=== PATIENT | female | born 1995 | race Caucasian/White ===

== ENCOUNTER 2023-05-07 20:17 | Emergency (ER) | payer OTHER, BC, SELFPAY ==
[2023-05-07 20:20] VITALS: BP 122/74; PULSE 89; RESP 18; TEMP 36.8; O2SAT 100
--- NOTE | 2023-05-07 20:28 | ED.GENADULT ---
HPI - General Adult General Chief complaint: Urogenital-Female Stated complaint: UTI Time Seen by Provider: 05/07/23 20:21 History of Present Illness HPI narrative: June is a 28 at 14 weeks that presented to the ED with 2 days of dysuria, urinary frequency and discomfort as well as some tenderness to the left back. No fevers, chills, or vomiting. She called her OB that recommended she come to the ED. Related Data Allergies Allergy/AdvReac Type Severity Reaction Status Date / Time Penicillins Allergy Unknown Verified 05/07/23 20:24 Review of Systems Review of Systems: All systems reviewed & are unremarkable except as noted in HPI and below Exam Const: General: healthy appearing and no acute distress Nutritional Appearance: well nourished Orientation/consciousness: patient oriented x3 Limitations: no limitations HENMT: Head: normal to inspection Ears: external ears normal Face/Nose/Sinus: Normal external nose present Eyes: Conjunctivae: conjunctivae normal Pupils: Equal, round and reactive pupils present EOM: EOMs intact bilaterally Neck: Neck: normal visual inspection Chest: Chest palpation & inspection: normal inspection of the chest Resp: Effort & Inspection: normal respiratory effort Auscultation: clear to auscultation bilaterally Cardio: Rate: regular rate Rhythm: regular rhythm GI: Inspection: non-distended GI Palp: Yes Soft to palpation, No Tenderness to palpation present (GI) and No Guarding due to palpation present (GI) Auscultation: normal bowel sounds : Other: mild left CVA tenderness Skin: General skin exam: normal color Rashes: no rashes Neuro: General: patient oriented x3 and moves all extremities Extrem: General: normal to inspection Psych: Mental Status: mental status grossly normal Affect: normal affect Attitude: cooperative Course Course Emergency Course: Ordered UA and labs. UA showed no nitrite, blood, WBC, and only trace leuk esterase Further history revealed that she is also having a lot of itching, irritation and a little vagainal drainage. Vital Signs Vital signs: Vital Signs Temperature 98.2 F 05/07/23 20:20 Pulse Rate 89 05/07/23 20:20 Respiratory Rate 18 05/07/23 20:20 Blood Pressure 122/74 05/07/23 20:20 Pulse Oximetry 100 05/07/23 20:20 Oxygen Delivery Room Air 05/07/23 20:20 Temperature 98.2 F 05/07/23 20:20 Pulse Rate 89 05/07/23 20:20 Respiratory Rate 18 05/07/23 20:20 Blood Pressure 122/74 05/07/23 20:20 Pulse Oximetry 100 05/07/23 20:20 Oxygen Delivery Room Air 05/07/23 20:20 Medical Decision Making Vital Signs Vital Signs: Vital Signs Temperature 98.2 F 05/07/23 20:20 Pulse Rate 89 05/07/23 20:20 Respiratory Rate 18 05/07/23 20:20 Blood Pressure 122/74 05/07/23 20:20 Pulse Oximetry 100 05/07/23 20:20 Oxygen Delivery Room Air 05/07/23 20:20 Temperature 98.2 F 05/07/23 20:20 Pulse Rate 89 05/07/23 20:20 Respiratory Rate 18 05/07/23 20:20 Blood Pressure 122/74 05/07/23 20:20 Pulse Oximetry 100 05/07/23 20:20 Oxygen Delivery Room Air 05/07/23 20:20 Lab Data 05/07/23 20:32 05/07/23 20:32 Labs: Lab Results 05/07/23 Range/Units 20:32 WBC 8.0 (4.8-10.8) K/mm3 RBC 4.03 L (4.20-5.40) M/mm3 Hgb 12.7 (12.0-15.0) g/dL Hct 35.9 (35.0-49.0) % MCV 89.1 (78.0-102.0) fL MCH 31.5 H (27.0-31.0) pg MCHC 35.4 (32.0-36.0) g/dL RDW 12.1 (11.6-14.4) % Plt Count 167 (150-420) K/mm3 MPV 11.8 (9.2-11.8) fl Immature Gran % (Auto) 0.4 H (0.0-0.0) % Neut % (Auto) 66.1 (50.0-70.0) % Lymph % (Auto) 25.6 (18.0-42.0) % [place] % (Auto) 7.1 (2.0-11.0) % Eos % (Auto) 0.5 L (1.0-6.0) % Baso % (Auto) 0.3 (0.0-1.0) % Lymph # (Auto) 2.04 (1.10-4.50) K/mm3 [place] # (Auto) 0.57 (0.10-0.90) K/mm3 Eos # (Auto) 0.04 (0.02-0.50) K/mm3 Baso # (Auto) 0.02 (0.00-0.10) K/mm3 Abs
--- NOTE | 2023-05-07 20:30 | PC.NURSE ---
Pt given instruction and education on HIV and offered testing. She signed refusal and stated her OB Dr office has already done all testing.
[2023-05-07] MEDS: ACETAMINOPHEN 500 MG TABLET 1000 MG PO (20:41)
[2023-05-07 20:42] LABS: Basophils Absolute Auto 0.02 K/mm3 (0.00-0.10); Basophils Percent Auto 0.3 % (0.0-1.0); Eosinophils Absolute Auto 0.04 K/mm3 (0.02-0.50); Eosinophils Percent Auto 0.5 % (1.0-6.0); Hematocrit 35.9 % (35.0-49.0); Hemoglobin 12.7 g/dL (12.0-15.0); Immature Granulocyte Absolute 0.03 K/mm3 (0.00-0.00); Immature Granulocyte Percent A 0.4 % (0.0-0.0); Lymphocytes Absolute Auto 2.04 K/mm3 (1.10-4.50); Lymphocytes Percent Auto 25.6 % (18.0-42.0); Mean Corpuscular HGB Conc 35.4 g/dL (32.0-36.0); Mean Corpuscular Hemoglobin 31.5 pg (27.0-31.0); Mean Corpuscular Volume 89.1 fL (78.0-102.0); Mean Platelet Volume 11.8 fl (9.2-11.8); Monocytes Absolute Auto 0.57 K/mm3 (0.10-0.90); Monocytes Percent Auto 7.1 % (2.0-11.0); Neutrophils Absolute Auto 5.3 K/mm3 (1.7-7.2); Neutrophils Percent Auto 66.1 % (50.0-70.0); Platelet Count Result 167 K/mm3 (150-420); Red Blood Count 4.03 M/mm3 (4.20-5.40); Red Cell Distribution Width 12.1 % (11.6-14.4)
[2023-05-07 20:43] LABS: Appearance Urine Clear (Clear); Bilirubin Urine Negative (Negative); Blood Urine Negative (Negative); Color Urine Light Yellow (Yellow); Glucose Urine UA Negative (Negative); Ketones Urine Negative (Negative); Leukocyte Esterase Ur Trace LEU/UL (Negative); Nitrate Urine Negative (Negative); Protein Urine Negative (Negative); Specific Grav Ur <= 1.005 (1.010-1.020); Urobilinogen Urine 0.2 mg/dL (0.2-1.0); pH Urine 6.5 (5.0-8.0)
[2023-05-07 20:49] LABS: Add Urine Microscopic? YES; RBC Urine None seen /hpf (0-2)
[2023-05-07 20:50] LABS: Squamous Epithelial Cell Urine None seen /hpf (Few); WBC Urine None seen /hpf (0-3)
[2023-05-07 20:55] LABS: Alanine Aminotransferase 18 U/L (14-59); Albumin Level 3.1 g/dL (3.4-5.0); Alkaline Phosphatase 89 U/L (46-116); Anion Gap 8 mmol/L (8-16); Aspartate Amino Transferase 10 U/L (15-37); Bilirubin,Total 0.2 mg/dL (0.00-1.00); Blood Urea Nitrogen 11 mg/dL (7-18); Calcium 8.7 mg/dL (8.5-10.1); Carbon Dioxide 26 mmol/L (21-32); Chloride 102 mmol/L (98-108); Estimated CRCL calculation 127 ml/min; Estimated Glomerular Filt Rate > 60; Glucose 102 mg/dL (70-99); Osmolality Calculated 281 mOsm/kg (285-295); Potassium 3.5 mmol/L (3.5-5.1); Sodium 136 mmol/L (136-145); Total Protein 6.9 g/dL (6.4-8.2)
[2023-05-07 21:06] VITALS: BP 120/71; PULSE 84; RESP 18; TEMP 36.6; O2SAT 99
== END 2023-05-07 21:09 | disposition home or self-care (01) ==
PROVIDERS: Emergency Provider Family Medicine; PCP Family Medicine
DX: B37.31 Acute candidiasis of vulva and vagina (principal)
CPT/HCPCS: 36415; 80053; 81001; 85025; 99283

== ENCOUNTER 2023-09-12 18:10 | Emergency (ER) | payer OTHER, SELFPAY ==
[2023-09-12 18:12] VITALS: BP 126/80; PULSE 93; RESP 18; TEMP 36.7; O2SAT 98
[2023-09-12 18:30] LABS: Appearance Urine Cloudy (Clear); Bilirubin Urine Negative (Negative); Blood Urine Trace-Intact (Negative); Glucose Urine UA Negative (Negative); Ketones Urine Negative (Negative); Leukocyte Esterase Ur 2+ LEU/UL (Negative); Nitrate Urine Negative (Negative); Protein Urine 1+ (Negative); Specific Grav Ur 1.025 (1.010-1.020); Urobilinogen Urine 0.2 mg/dL (0.2-1.0)
[2023-09-12 18:34] LABS: Add Urine Microscopic? YES; Bacteria Urine 2+ /hpf; Color Urine Dark Yellow (Yellow); Squamous Epithelial Cell Urine Moderate /hpf (Few); WBC Urine 51-75 /hpf (0-3)
--- NOTE | 2023-09-12 18:36 | ED.BACK ---
HPI - Back Pain/Injury General Chief Complaint: Back Pain/Injury Stated Complaint: lower back pain Time Seen by Provider: 09/12/23 18:13 Source: patient Mode of arrival: ambulatory Limitations: no limitations History of Present Illness HPI Narrative: Patient is a 28-year-old 32 weeks with some lower back pain. She has also noted decreased movement in the past few hours. Her OBGYN center to the closest hospital for evaluation. No symptoms of contractions. No vaginal discharges. No bleeding. No fluid discharges. MD elicited complaint: back pain Onset (ago): hour(s) (5) Timing: constant Severity: mild Pain scale (0-10): 3 Similar Symptoms Previously: No Quality: aching Location: right lower back and left lower back Radiation: none Exacerbating factors: none Relieving factors: none Associated symptoms: denies other symptoms Related Data Home Medications Medication Instructions Recorded Confirmed vitamin with calcium 1 tablet PO DAILY 09/12/23 09/12/23 no.72-iron 27 mg-folic acid 1 mg tablet ( Vitamins Plus Low Iron) Allergies Allergy/AdvReac Type Severity Reaction Status Date / Time Penicillins Allergy Unknown Verified 09/12/23 18:16 Review of Systems Review of Systems: All systems reviewed & are unremarkable except as noted in HPI and below Constitutional: Constitutional: Reports no additional constitutional complaints Eyes: Eyes: Reports no additional eye complaints ENT: Reports system reviewed and no additional complaints, except as documented Cardiovascular: Cardiovascular: Reports no additional cardiovascular complaints Respiratory: Respiratory: Reports no additional respiratory complaints Gastrointestinal: Gastrointestinal: Reports no additional gastrointestinal complaints Genitourinary: Genitourinary: Reports no additional female genitourinary complaints Musculoskeletal: Musculoskeletal: Reports no additional musculoskeletal complaints Integumentary/Breasts: Skin/Breast: Reports system reviewed and no additional complaints, except as docu Neurologic: Reports system reviewed and no additional complaints, except as documented Psychiatric: Psychiatric: Reports no additional psychiatric complaints Endocrine: Endocrine: Reports no additional endocrine complaints Hematologic/Lymphatic: Hematologic/Lymphatic: Reports no additional hematologic/lymphatic complaints Allergic/Immunologic: Allergic/Immunologic: Reports no additional allergic/immunologic complaints Exam Const: General: healthy appearing Nutritional Appearance: well nourished Orientation/consciousness: patient oriented x3 HENMT: Head: normal to inspection Ears: external ears normal Face/Nose/Sinus: Normal external nose present Eyes: Conjunctivae: conjunctivae normal Pupils: Equal, round and reactive pupils present EOM: EOMs intact bilaterally Neck: Neck: normal visual inspection Chest: Chest palpation & inspection: normal inspection of the chest Resp: Effort & Inspection: normal respiratory effort and not labored Auscultation: clear to auscultation bilaterally and no crackles Cardio: Rate: regular rate Rhythm: regular rhythm Heart sounds: no murmurs GI: Inspection: non-distended GI Palp: Yes Soft to palpation, No Tenderness to palpation present (GI) and No Guarding due to palpation present (GI) Auscultation: normal bowel sounds Other: Gravid abdomen : General: Yes bladder normal to palpation Back/Spine/Pelvis: Back: no CVA tenderness Skin: General skin exam: normal color Rashes: no rashes Wounds: no wounds Neuro: General: patient oriented x3 Cranial nerves: Yes Nystagmus not present Speech: normal speech Extrem: General: normal to inspection Psych: Mental Status: mental status grossly normal Affect: normal affect Attitude: cooperative Course Vital Signs Vital signs: Vital Signs Temperature 36.7 C 09/12/23 18:12 Pulse Rate 93 09/12/23
[2023-09-12] MEDS: NITROFURANTOIN MONOHYD MACROCR 100 MG CAP PO (19:33)
--- NOTE | 2023-09-15 13:32 | PC.NURSE ---
Final urine culture report, no growth, mixed genital carlie, no further treatment needed, per ERP.
== END 2023-09-12 19:43 | disposition home or self-care (01) ==
LOC: CHSED 18:48
PROVIDERS: Emergency Provider Emergency Medicine; PCP Family Medicine
DX: O23.43 Unspecified infection of urinary tract in pregnancy, third trimester (principal); N39.0 Urinary tract infection, site not specified; Z3A.32 32 weeks gestation of pregnancy
CPT/HCPCS: 81001; 87086; 87088; 99283; A9270

== ENCOUNTER 2023-11-02 05:57 | Inpatient (IN) | payer OTHER, SELFPAY ==
[2023-11-02] VITALS (122 sets, daily range): BP systolic 63–140; BP diastolic 26–94; PULSE 70–146; RESP 18–20; TEMP 36.1–37.1; O2SAT 90–100; BMI 33.5
[2023-11-02 06:26] LABS: Basophils Percent Auto 0.3 % (0.2-1.2); Eosinophils Absolute Auto 0.1 K/mm3 (0-0.3); Eosinophils Percent Auto 0.8 % (0-4.4); Hematocrit 39.4 % (37.0-47.0); Immature Granulocyte Absolute 0.05 K/mm3 (0.00-0.031); Immature Granulocyte Percent A 0.7 % (0-0.5); Lymphocytes Absolute Auto 1.57 K/mm3 (0.9-3.2); Lymphocytes Percent Auto 20.7 % (18.3-44.2); Mean Corpuscular Hemoglobin 30.7 pg (26-34); Mean Corpuscular Volume 93.1 fl (80-100); Mean Platelet Volume 12.2 fl (7.4-10.4); Monocytes Absolute Auto 0.7 K/mm3 (0.1-0.6); Monocytes Percent Auto 8.9 % (2.6-8.5); Neutrophils Absolute Auto 5.2 K/mm3 (1.3-6.7); Neutrophils Percent Auto 68.6 % (45.5-73.1); Platelet Count Result 145 k/mm3 (150-375); Red Blood Count 4.23 M/mm3 (4.2-5.4); Red Cell Distribution Width 12.6 % (11.5-14.5); White Blood Count 7.6 K/mm3 (4.5-10.0)
[2023-11-02] MEDS: LACTATED RINGERS 1,000 ML 125 ML IV CONT ×2 (06:37→09:12)
[2023-11-02] MEDS: OXYTOCIN 30 UNITS/NS 500 ML 30 UNITS/500 ML BAG IV CONT (06:38)
--- NOTE | 2023-11-02 07:29 | WPDHPUPDATE1 ---
History and Physical Update Update Date/Time: 11/02/23 07:29 28-year-old multiparous female at term who presents for elective induction of labor. Artificial rupture of membranes at 3 cm, clear 3 cm / 50% / -2. Reassuring heart tones , expected management, likely epidural external monitoring. History and Physical has been reviewed, including an updated exam of the patient. There are NO changes in the patient's condition. Risks, benefits, and alternatives have been discussed and questions answered. Patient agrees to proceed with procedure.
--- NOTE | 2023-11-02 09:13 | WPDANESEPP ---
Anes - Eval Pre Procedure Procedure: labor epidural Date/Time: 11/02/23 09:13 Surgeon: Quincy Preop Diagnosis: Pain during labor Pre Op Diagnosis: iol Patient Data Age: 28 Gender: F Height: 1.73 m Weight: 100 kg Last Vital Signs Temp 36.3 C L 11/02/23 06:32 Pulse 91 11/02/23 09:01 BP 131/83 11/02/23 09:01 Pulse Ox 100 11/02/23 09:12 O2 Del Method Room Air 11/02/23 06:55 Allergies Allergy/AdvReac Type Severity Reaction Status Date / Time Penicillins Allergy Unknown Verified 10/14/23 14:25 Home Medications Medication Instructions Recorded Confirmed Type vitamin with calcium 1 tablet PO DAILY 09/12/23 10/14/23 History no.72-iron 27 mg-folic acid 1 mg tablet ( Vitamins Plus Low Iron) Laboratory Tests 11/02/23 06:17 WBC 7.6 K/mm3 (4.5-10.0) RBC 4.23 M/mm3 (4.2-5.4) Hgb 13.0 g/dL (12.0-15.0) Hct 39.4 % (37.0-47.0) MCV 93.1 fl (80-100) MCH 30.7 pg (26-34) MCHC 33.0 g/dl (32-36) RDW 12.6 % (11.5-14.5) Plt Count 145 L k/mm3 (150-375) MPV 12.2 H fl (7.4-10.4) Immature Gran % (Auto) 0.7 H % (0-0.5) Neut % (Auto) 68.6 % (45.5-73.1) Lymph % (Auto) 20.7 % (18.3-44.2) [place] % (Auto) 8.9 H % (2.6-8.5) Eos % (Auto) 0.8 % (0-4.4) Baso % (Auto) 0.3 % (0.2-1.2) Lymph # (Auto) 1.57 K/mm3 (0.9-3.2) [place] # (Auto) 0.7 H K/mm3 (0.1-0.6) Eos # (Auto) 0.1 K/mm3 (0-0.3) Baso # (Auto) 0.0 K/mm3 (0.0-0.1) Abs Immat Gran (auto) 0.05 H K/mm3 (0.00-0.031) Absolute Neuts (auto) 5.2 K/mm3 (1.3-6.7) Absolute Nucleated RBC 0.0 K/mm3 (0.0-0.012) Nucleated RBC % 0.0 % (0.0-0.2) RPR Pending Blood Type O Positive Antibody Screen Negative Patient hx anesthesia problems: none Family hx anesthesia problems: none Results Review: All pre-operative results and documents have been reviewed as part of the pre-operative evaluation. [facility] Family History Family History Mother Diabetes mellitus Father Chronic bronchitis Social History Social History Smoking status: Never smoker Substance use: never Do You Feel Safe in your Home?: Yes Lack of Transportation: No Lack of Food: Never True Current Housing: I Have Housing Concerned About Future Housing: No Difficulty Paying Gas/Electric Bills: No Difficulty Paying for Meds: No Currently Unemployed: No Education: High School Diploma/GED Difficulty w/ Childcare or Family Care: No Spiritual care concerns: No Exam Day of Procedure 11/02/23 09:13 Patient weight: obese Heart: regular rate and rhythm Lungs: normal air movement Airway: Mallampati scale class II Neurological: alert and oriented
[2023-11-02 10:36] LABS: Rapid Plasma Reagin Non-Reactive (NonReactive)
--- NOTE | 2023-11-02 13:41 | PM.OBPRVD ---
OB - Vaginal Delivery Note Procedure Delivery date: 11/02/23 Induction method: AROM and Per Pitocin Protocol Delivery monitor: External FHT and External Uterine Route of delivery: Episiotomy description: None Laceration Description: Perineal - 2nd Degree Delivery repair: vicryl Quantitative Blood Loss (ml): 100 Anesthesia type: Epidural Disposition: Floor Complications: No immediate complications Baby Date of : 11/02/23 Weeks of gestation at delivery: 39 Weight (pounds): 7 Weight (ounces): 12 presentation: vertex Placenta delivery description: Spontaneous score one minute: 9 score five minutes: 9
[2023-11-02] MEDS: OXYTOCIN 30 UNITS/NS 500 ML 30 UNITS/500 ML BAG 125 UNITS IV CONT (13:59)
[2023-11-02] MEDS: WITCH HAZEL 40 PADS 1 PAD TOPICAL (15:40)
[2023-11-02] MEDS: BENZOCAINE 20% AER SPR (*SP) 56 GM CAN 1 SPRAY TOPICAL (15:40)
--- NOTE | 2023-11-02 16:01 | OBPPTRN ---
1555-Patient transferred to post room #280 via wheelchair. Support person present. Oriented to unit, room, information board, rooming in, admission packet and security measures. Patient verbalizes understanding.
[2023-11-02] MEDS: IBUPROFEN 600 MG TABLET PO (20:44)
[2023-11-03] MEDS: IBUPROFEN 600 MG TABLET PO ×3 (03:19→23:39)
[2023-11-03 05:02] LABS: Hematocrit 33.6 % (37.0-47.0); Hemoglobin 11.2 g/dL (12.0-15.0)
--- NOTE | 2023-11-03 07:58 | PM.OBPNVD ---
OB - PN: Subj Subjective Date/time seen: 11/03/23 07:58 Interval history: pp day 1 requesting d/c no complaints OB - PN: Obj Data Labs 11/03/23 03:38 Labs: Laboratory Results - last 24 hr 11/02/23 11/03/23 06:17 03:38 Hgb 11.2 L Hct 33.6 L RPR Non-reactive OB - PN A/P Plan day: 1 Plan: routine care and discharge home Time Spent With Patient Time: Total time spent is greater than 50% in coordination of care (as documented) at patient's floor/unit and/or counseling patient: Review of Systems Review of Systems: All systems reviewed & are unremarkable except as noted in HPI and below Exam Const: General: cooperative Chest: Chest palpation & inspection: normal inspection of the chest Resp: Effort & Inspection: normal respiratory effort Skin: General skin exam: normal color
--- NOTE | 2023-11-03 07:59 | PM.OBDSVD ---
DS: Admitting Diagnosis Discharge Date 11/03/23 Admitting Diagnosis IOL DS: Discharge Diagnosis Discharge Diagnosis (1) Vaginal delivery: Code(s): O80 - Encounter for full-term uncomplicated delivery Status: Acute OB - DS: Summary OB Procedures : None OB Procedures Intrapartum: Spontaneous Vag Delivery OB Procedures: : None Peripartum Data Laceration Description: Perineal - 2nd Degree Episiotomy description: None Time Spent with Patient Time attestation: Total time spent providing and/or coordinating discharge services: DS: Data Data Completed and Pending Labs on day of discharge: Labs from last 24 hours 11/03/23 11/02/23 03:38 06:17 Hgb 11.2 L Hct 33.6 L RPR Non-reactive Discharge Plan Discharge Attending physician on discharge: Roxann Mathew Discharging Clinician: Kylah Kay Patient Disposition: Home, Self-Care Activity: pelvic rest Diet: regular Patient Instructions: Antibiotic Form Stand Alone Forms: General Discharge Information Follow-up/Referrals: Roxann Mathew MD [Physician] - 4 Weeks Discharge Medications: New ibuprofen 600 mg Tablet 600 mg PO Q6H PRN (Reason: Cramping) Qty: 30 0RF Continued Vitamin Plus Low Iron 27 mg iron- 1 mg tablet 1 tablet PO DAILY Date of admission: 11/02/23 05:57 Primary Care Provider: Juanito Domingo Admitting Provider: Roxann Mathew Attending physician on admission: Roxann Mathew Condition: Stable
[2023-11-03 08:00] VITALS: PULSE 80; RESP 20; O2SAT 97
--- NOTE | 2023-11-03 08:10 | WPDANLDPN2 ---
Anes-Prog Note L&D Date/Time: 11/03/23 08:10 Neuro status: Neuro function grossly intact. Vital Signs: Last Vital Signs Temp 36.6 C 11/02/23 23:30 Pulse 99 11/02/23 23:30 Resp 18 11/02/23 23:30 BP 125/68 11/02/23 23:30 Pulse Ox 99 11/02/23 16:30 O2 Del Method Room Air 11/02/23 20:00 Pain score (VAS): 0 Patient feedback: Patient satisfied with anesthetic care.
[2023-11-03] MEDS: MULTIVIT/MIN/PREN/FOL AC/IRON TABLET 1 TAB PO (08:22)
[2023-11-03] MEDS: DOCUSATE SODIUM 100 MG CAPSULE PO (08:22)
[2023-11-03 08:29] VITALS: BP 120/71; PULSE 80; RESP 20; TEMP 36.3; O2SAT 97
--- NOTE | 2023-11-03 14:54 | PC.NURSE ---
[id number] Introductions were made, then consulted with patient to assess needs related to . Mother led the conversation with her?plans to feed?her infant and the?experience so far. Encouraged understanding of the benefits of skin to skin (demonstrating unwrapping and placing upright on her chest), stimulating with massage touch, changing positions to encourage wakefulness, how to watch for early feeding cues, responsive feeding, feeding on demand (aiming for 8-12 times in 24 hours, about every 2-3 hours), milk production, building/maintaining a milk supply, duration of feeding, signs of adequate intake/output and how to record on the feeding sheet. Blood sugar was resulted at 55mg/dl since it has been 6 hours since the infant last latched as mother reports. Mothers nipples are inverted and she does not have a successful history. Mother works well with her with encouragement and education. Reviewed positioning and ear, shoulder, hip alignment, supporting the breast to facilitate a deep latch, asymmetrical latch (off-center), leading with the chin with a big, open, wide gape and body close to mother. was placed in the bassinet after multiple attempts to pump her breast as mother does not want to supplement with formula at this time. Breast pump provided due to ineffective . Instructions given on cleaning, care, usage, that there should be no pain, pumping schedule for milk production, collection, and storage of human milk. Patient was assessed for correct placement, flange size, to pump for comfort and nipple stretching/stimulation for adequate milk production every 3 hours (8 times in 24 hours) 1-2 times at night. Parents are encouraged to record the pumping schedule on the feeding sheet.?Mother voiced understanding of the education shared along with mom/baby guide and the pump measurement, flange fit handout for additional resource information. There's no EBM and mother want more time to work with her infant that is less than 24 hours of age. Mother was instructed to place infant back [id number] and to attempt to wake in 1-2 hours and call if her doesn't wake to breastfeed, doesn't latch, or there's pain with latching. Mother voiced understanding. [id number] Consulted with patient to assess needs related to . Upon entering the room infant is being held in the cradle position sleeping while mother is using her phone. We reviewed working with the , changing the infants position to upright skin to skin, burping, stimulating with touch, responding to feeding cues (which are rare at this time), frequencies of feeding 8-12 times in 24 hours (approximately 2-3 hours), duration of feedings, milk production, intake/output feeding sheet and signs of adequate intake encouraging swallowing at the breast. Reviewed positioning and alignment, supporting breast, off-centered (asymmetrical latch) and leading with the chin with big, open, wide gape. was attempted to the breast multiple times with and without the nipple shield. Nipple shield provided to mother earlier after delivery due to ineffective with inverted nipples. Instructed mother how to correctly apply the nipple shield to the breast. Reviewed good handwashing, cleaning the nipple shield and the appropriate way to apply and use as a tool. Discussed with mom the nipple shield precautions, possible complications associated with the risks and benefits. Reviewed practicing with a nipple shield, then without and how to protect the milk supply and production. Mother voiced understanding of how to use the teacup hold to facilitate infant's latch. Mom voiced understanding of the importance of hand expression, nipple stimulation and consistency with a pumping schedule if infant continues to nurse with the shield. Mother shared she pumps with the manual pump occasionally and syringe feeds drops to her . Infant will latch with and without th
[2023-11-03 20:38] VITALS: BP 120/79; PULSE 92; RESP 20; TEMP 36.5; O2SAT 98
[2023-11-04] MEDS: MULTIVIT/MIN/PREN/FOL AC/IRON TABLET 1 TAB PO (08:45)
[2023-11-04 08:46] VITALS: BP 129/89; PULSE 101; RESP 18; TEMP 36.6; O2SAT 99
--- NOTE | 2023-11-04 08:51 | PM.OBPNVD ---
OB - PN: Subj Subjective Date/time seen: 11/04/23 08:51 Interval history: pp day 1 requesting d/c no complaints OB - PN: Obj Data Labs 11/03/23 03:38 OB - PN A/P Plan day: 2 Plan: routine care and discharge home Time Spent With Patient Time: Total time spent is greater than 50% in coordination of care (as documented) at patient's floor/unit and/or counseling patient: Review of Systems Review of Systems: All systems reviewed & are unremarkable except as noted in HPI and below Exam Const: General: cooperative Resp: Effort & Inspection: normal respiratory effort Cardio: Rate: regular rate Neuro: General: patient oriented x3 Extrem: General: normal to inspection
--- NOTE | 2023-11-04 08:53 | PM.OBDSVD ---
DS: Admitting Diagnosis Discharge Date 11/04/23 Admitting Diagnosis IOL DS: Discharge Diagnosis Discharge Diagnosis (1) Vaginal delivery: Code(s): O80 - Encounter for full-term uncomplicated delivery Status: Acute OB - DS: Summary OB Procedures : None OB Procedures Intrapartum: Spontaneous Vag Delivery OB Procedures: : None Peripartum Data Laceration Description: Perineal - 2nd Degree Episiotomy description: None Time Spent with Patient Time attestation: Total time spent providing and/or coordinating discharge services: Discharge Plan Discharge Attending physician on discharge: Roxann Mathew Discharging Clinician: Kylah Kay Patient Disposition: Home, Self-Care Activity: pelvic rest Diet: regular Patient Instructions: Antibiotic Form Stand Alone Forms: General Discharge Information Follow-up/Referrals: Roxann Mathew MD [Physician] - 4 Weeks Discharge Medications: New ibuprofen 600 mg Tablet 600 mg PO Q6H PRN (Reason: Cramping) Qty: 30 0RF Continued Vitamin Plus Low Iron 27 mg iron- 1 mg tablet 1 tablet PO DAILY Date of admission: 11/02/23 05:57 Primary Care Provider: Juanito Domingo Admitting Provider: Roxann Mathew Attending physician on admission: Roxann Mathew Condition: Stable
--- NOTE | 2023-11-04 10:57 | PC.NURSE ---
Patient viewed the discharge video Mother & Baby Care, The First Two Weeks . Patient was given the opportunity and encouraged to ask questions. Patient verbalized understanding of information shared and has been given the mother/baby guide for home reference.
--- NOTE | 2023-11-04 17:09 | PC.NURSE ---
On 11/04/23, the student, Denia Morris, provided care and completed [facility] documentation on this patient. I have reviewed the student's documentation and agree with the findings.
[2023-11-06 12:17] VITALS: BP 131/83; PULSE 82; RESP 20; TEMP 36.9; O2SAT 99
== END 2023-11-04 12:25 | disposition home or self-care (01) | DRG 807 ==
LOC: ANHLDR 06:03 → ANHOB2 16:11
PROVIDERS: Admitting Provider Obstetrics & Gynecology; PCP Family Medicine; Visit Provider Obstetrics & Gynecology
DX: O70.1 Second degree perineal laceration during delivery (principal); Z37.0 Single live birth; Z3A.39 39 weeks gestation of pregnancy
CPT/HCPCS: 36415; 74177; 80053; 81001; 83605; 83690; 85014; 85018; 85025; 85610; 85730; 86592; 86850; 86900; 86901; 87045; 87086; 87427; 87449; 87493; 87636; 96361; 96374; 96375; 99284; A9270; J2405; J2590; J2795; J7030; J7120; Q9967

== ENCOUNTER 2023-11-04 21:38 | Emergency (ER) | payer OTHER, SELFPAY ==
--- NOTE | ~2023-11-04 | CT_ITS ---
EXAMINATION: CT abdomen pelvis w con DATE: 11/05/2023 00:15 INDICATION: suprapubic pain, n/v/d, vaginal 2 days ago TECHNIQUE: Computed tomography (CT) of the abdomen and pelvis was performed with 100 mL Omnipaque-350 intravenous contrast. Automated exposure control and iterative reconstruction technique were employe d. The dose-length product was 903.00 mGy-cm. COMPARISON: None. FINDINGS: Lower thorax: Unremarkable Liver: Normal. Biliary/Gallbladder: Gallbladder is normal. No bile duct dilation. Pancreas: No mass or duct dilation. Spleen: Normal. Adrenals:No mass. Kidneys: No suspicious mass or obstructing stone. Punctate nonobstructing right lower pole calculus. Mild right hydronephrosis. GI tract: No small or large bowel dilation. Normal appendix. Mesentery/Peritoneum: No ascites, mass, or free air. Retroperitoneum: No mass. Pelvis: Enlarged, post gravid uterus. Urinary bladder is mostly decompressed. Soft Tissues: Abdominal wall diastases. Bones: No acute osseous finding. IMPRESSION: Mild right hydronephrosis, possibly secondary to mass effect from the uterus. Otherwise, no acute abdominopelvic process detected. Reviewed, dictated and finalized at location [facility]. [facility]
[2023-11-04 21:51] VITALS: BP 138/88; PULSE 89; RESP 16; TEMP 36.7; O2SAT 98
--- NOTE | 2023-11-04 22:56 | ED.NAVMDI ---
HPI - Nausea/Vomiting/Diarrhea General Chief complaint: Nausea/Vomiting/Diarrhea <Amie Mitchell PA-C - Last Filed: 11/05/23 02:53> Stated complaint: nausea,vomiting <Amie Mitchell PA-C - Last Filed: 11/05/23 02:53> Time Seen by Provider: 11/04/23 22:19 <SHAAN Rowe Last Filed: 11/05/23 02:53> History of Present Illness HPI Narrative: 28-year-old female who had a vaginal 2 days ago reports for evaluation for nausea, vomiting, diarrhea, lightheadedness that started at 9:00 p.m. today. Patient was [facility] home today around [facility]. States she had an uncomplicated vaginal delivery. States she has 1-[address] Patient states today she had acute onset nausea, vomiting diarrhea. Reports 1 episode of emesis and about 4 episodes of soft stools since he also symptoms symptoms. She is reporting suprapubic abdominal pain that is intermittent since the and unchanged. She reports a small amount of vaginal bleeding, at changed about every 5 hours. States this bleeding has not increased since feels ?normal? to her. Denies passing clots, denies discharge. She denies fever, dysuria, urinary frequency urgency, melena or hematochezia. She has a bandage to her lower back from the epidural which she states is nontender. <Amie Mitchell PA-C - Last Filed: 11/05/23 02:53> Related Data Home medications: Home Medications Medication Instructions Recorded Confirmed vitamin with calcium 1 tablet PO DAILY 09/12/23 10/14/23 no.72-iron 27 mg-folic acid 1 mg tablet ( Vitamins Plus Low Iron) <SHAAN Rowe Last Filed: 11/05/23 02:53> Allergies/Adverse reactions: Allergies Allergy/AdvReac Type Severity Reaction Status Date / Time Penicillins Allergy Unknown Verified 10/14/23 14:25 <SHAAN Rowe Last Filed: 11/05/23 02:53> Review of Systems Review of Systems: CONSTITUTIONAL: Denies fever, chills, or sweats. EYES: Denies visual changes, redness, or discharge. ENT: Denies rhinorrhea, congestion, sore throat, or otalgia. CARDIOVASCULAR: Denies chest pain, palpitations, or edema. RESPIRATORY: Denies cough or dyspnea. GASTROINTESTINAL: See HPI GENITOURINARY: Denies dysuria or hematuria. SKIN: Denies rash or itching. MUSCULOSKELETAL: Denies back pain, joint pain, or myalgia. NEUROLOGIC: Denies headache, numbness, or weakness. PSYCHIATRIC: Denies anxiety or depression. <Amie Mitchell PA-C - Last Filed: 11/05/23 02:53> [facility] Family History Family History: Family History Mother Diabetes mellitus Father Chronic bronchitis <Amie Mitchell PA-C - Last Filed: 11/05/23 02:53> Social History Social History: Social History Smoking status: Never smoker Substance use: never Do You Feel Safe in your Home?: Yes Lack of Transportation: No Lack of Food: Never True Current Housing: I Have Housing Concerned About Future Housing: No Difficulty Paying Gas/Electric Bills: No Difficulty Paying for Meds: No Currently Unemployed: No Education: High School Diploma/GED Difficulty w/ Childcare or Family Care: No Spiritual care concerns: No <Amie Mitchell PA-C - Last Filed: 11/05/23 02:53> Exam Narrative: GENERAL: Well-appearing, well-nourished, and in no acute distress. HEAD: Normocephalic, atraumatic. EYES: PERRLA and EOMI. ENT: Nares clear, no rhinorrhea or epistaxis. Mucous membranes moist. NECK: Supple. BACK: Band-Aid applied lumbar region. Upon removal, red pinpoint keysha from epidural without surrounding redness, erythema, induration or fluctuation. No tenderness. CHEST: Clear to auscultation. No respiratory distress. HEART: Regular rate and rhythm. No murmur heard. Normal peripheral pulses. ABDOMEN: Normoac
[2023-11-04] MEDS: ONDANSETRON INJ 4 MG/2 ML VIAL IV PUSH (23:11)
[2023-11-04] MEDS: ACETAMINOPHEN 500 MG TABLET 1000 MG PO (23:11)
[2023-11-04] MEDS: FAMOTIDINE 20 MG/2 ML VIAL IV PUSH (23:11)
[2023-11-04 23:20] LABS: Basophils Percent Auto 0.4 % (0.2-1.2); Eosinophils Absolute Auto 0.2 K/mm3 (0-0.3); Eosinophils Percent Auto 1.7 % (0-4.4); Hematocrit 37.1 % (37.0-47.0); Hemoglobin 12.4 g/dL (12.0-15.0); Immature Granulocyte Absolute 0.04 K/mm3 (0.00-0.031); Immature Granulocyte Percent A 0.4 % (0-0.5); Lymphocytes Absolute Auto 1.08 K/mm3 (0.9-3.2); Mean Corpuscular HGB Conc 33.4 g/dl (32-36); Mean Corpuscular Volume 92.8 fl (80-100); Mean Platelet Volume 12.1 fl (7.4-10.4); Monocytes Absolute Auto 0.6 K/mm3 (0.1-0.6); Neutrophils Absolute Auto 7.1 K/mm3 (1.3-6.7); Neutrophils Percent Auto 78.5 % (45.5-73.1); Platelet Count Result 153 k/mm3 (150-375); Red Cell Distribution Width 12.6 % (11.5-14.5)
[2023-11-04] MEDS: SODIUM CHLORIDE 0.9% IV 1,000 ML 999 ML IV CONT (23:22)
--- NOTE | 2023-11-04 23:28 | PC.NURSE ---
care and report given to CLARISA Delcid. all questions answered.
[2023-11-04 23:35] LABS: Alanine Aminotransferase 17 U/L (6-35); Albumin Level 3.6 g/dL (3.5-5.1); Alkaline Phosphatase 126 U/L (38-126); Anion Gap 7 mmol/L (8-16); Aspartate Amino Transferase 32 U/L (14-36); Bilirubin,Total 0.5 mg/dL (0.2-1.3); Blood Urea Nitrogen 14 mg/dL (7-17); Calcium 9.7 mg/dL (8.4-10.2); Carbon Dioxide 22 mmol/L (22-30); Chloride 106 mmol/L (98-107); Estimated Glomerular Filt Rate > 60; Glucose 98 mg/dL (65-110); Lipase 131 U/L (23-300); Potassium 3.9 mmol/L (3.4-5.0); Sodium 135 mmol/L (137-145)
[2023-11-04 23:36] LABS: INR 0.9; Partial Thromboplastin Time 23.5 SECONDS (22.3-36.8); Prothrombin Time 12.3 Seconds (11.1-14.7)
[2023-11-04 23:55] LABS: Influenza A QL RT-PCR Negative (Negative); Influenza B QL RT-PCR Negative (Negative); SARS-CoV-2 RNA PCR Negative (Negative)
[2023-11-05] LABS: Lactic Acid Reflex 1.9 mmol/L (0.7-2.0)
[2023-11-05 00:11] LABS: Toxigenic C. Diff NEGATIVE (NEGATIVE)
[2023-11-05 01:54] VITALS: BP 142/84; PULSE 91; RESP 15; O2SAT 100
[2023-11-05 02:30] LABS: Appearance Urine Cloudy (Clear); Bacteria Urine None Seen /hpf; Bilirubin Urine Negative (Negative); Blood Urine 3+ (Negative); Color Urine Yellow (Yellow); Glucose Urine UA Negative (Negative); Ketones Urine Negative (Negative); Leukocyte Esterase Ur 2+ LEU/UL (Negative); Need Manual Microscopic Reviewed; Nitrate Urine Negative (Negative); Non Pathogenic Casts 0-2; Protein Urine 1+ mg/dL (Negative); RBC Urine >100 /hpf (0-2); Squamous Epithelial Cell Urine Moderate /hpf (Few); Urobilinogen Urine 0.2 mg/dL (<2.0); WBC Urine >100 /hpf
[2023-11-05 02:33] LABS: Add Urine Microscopic? YES; Specific Grav Ur 1.015 (1.001-1.035)
== END 2023-11-05 03:45 | disposition home or self-care (01) ==
PROVIDERS: Emergency Provider Physician Assistant; PCP Family Medicine
DX: O99.63 Diseases of the digestive system complicating the puerperium (principal); K52.9 Noninfective gastroenteritis and colitis, unspecified; Z20.822 Contact with and (suspected) exposure to COVID-19; O99.893 Other specified diseases and conditions complicating puerperium; N13.30 Unspecified hydronephrosis
CPT/HCPCS: 36415; 74177; 80053; 81001; 83605; 83690; 85025; 85610; 85730; 87045; 87086; 87427; 87449; 87493; 87636; 96361; 96374; 96375; 99284; A9270; J2405; J7030; Q9967

== ENCOUNTER 2024-05-04 16:34 | Emergency (ER) | payer OTHER, SELFPAY ==
--- NOTE | ~2024-05-04 | CT_ITS ---
EXAMINATION: CT abdomen pelvis w con DATE: 05/04/2024 19:01 INDICATION: Right lower quadrant pain, nausea, vomiting and diarrhea for 3 days TECHNIQUE: Computed tomography (CT) of the abdomen and pelvis was performed without intravenous contr ast. Automated exposure control and iterative reconstruction technique were employed. Exam dose: 888 .04 mGy-cm total exam DLP. COMPARISON: 11/03/2023 CT abdomen FINDINGS: The lung bases are clear. Normal heart size. No pericardial or pleural effusion. The liver, spleen, pancreas, and adrenal glands, gallbladder, bile ducts and kidneys are unremarkable . No urinary tract calculus or hydroureteronephrosis. No evidence of appendicitis. The urinary bladde r, uterus and adnexal areas are unremarkable. Normal caliber of the abdominal aorta. No intraperitoneal or retroperitoneal or pelvic mass lesion or adenopathy or ascites is detected. There is a 1.9 mm calculus near the base of the appendix, which may be an appendicolith. The appendix is of normal caliber. Appendicolith may be a sign of impending appendicitis. Clinical correlation is advised. Included skeletal structures are unremarkable. IMPRESSION: Possible 1.9 mm appendicolith at the base of the appendix, without appendiceal dilatatio n. Recommend clinical correlation to exclude acute appendicitis or impending appendicitis Reviewed, dictated and finalized at [facility]. Reviewed, dictated and finalized at location [facility]. IMPRESSION: Possible 1.9 mm appendicolith at the base of the appendix, without appendiceal dilatation. Recommend clinical correlation to exclude acute append icitis or impending appendicitis
[2024-05-04 16:36] VITALS: BP 132/82; PULSE 92; RESP 20; TEMP 36.3; O2SAT 100
[2024-05-04 16:58] LABS: Add Urine Microscopic? NO; Appearance Urine Clear (Clear); Bilirubin Urine Negative (Negative); Blood Urine Negative (Negative); Color Urine Light Yellow (Yellow); Glucose Urine UA Negative (Negative); Ketones Urine Trace (Negative); Leukocyte Esterase Ur Negative (Negative); Nitrate Urine Negative (Negative); Protein Urine Negative (Negative); Specific Grav Ur 1.015 (1.010-1.020); Urobilinogen Urine 0.2 mg/dL (0.2-1.0); pH Urine 8.5 (5.0-8.0)
[2024-05-04] MEDS: ACETAMINOPHEN 500 MG TABLET 1000 MG PO (17:42)
[2024-05-04 17:47] LABS: Pregnancy On Board Control Positive; Urine Pregnancy Test Negative
[2024-05-04] MEDS: SODIUM CHLORIDE 0.9% IV 1,000 ML 999 ML IV CONT (17:56)
[2024-05-04 18:09] LABS: Basophils Absolute Auto 0.02 K/mm3 (0.00-0.10); Basophils Percent Auto 0.3 % (0.0-1.0); Eosinophils Absolute Auto 0.01 K/mm3 (0.02-0.50); Eosinophils Percent Auto 0.1 % (1.0-6.0); Hematocrit 41.2 % (35.0-49.0); Hemoglobin 13.9 g/dL (12.0-15.0); Immature Granulocyte Absolute 0.02 K/mm3 (0.00-0.00); Immature Granulocyte Percent A 0.3 % (0.0-0.0); Lymphocytes Absolute Auto 0.89 K/mm3 (1.10-4.50); Lymphocytes Percent Auto 12.7 % (18.0-42.0); Mean Corpuscular HGB Conc 33.7 g/dL (32-36); Mean Corpuscular Hemoglobin 29.2 pg (27.0-31.0); Mean Corpuscular Volume 86.6 fL (78.0-102.0); Mean Platelet Volume 11.9 fl (9.2-11.8); Monocytes Absolute Auto 0.57 K/mm3 (0.10-0.90); Monocytes Percent Auto 8.1 % (2.0-11.0); Neutrophils Absolute Auto 5.51 K/mm3 (1.70-7.20); Neutrophils Percent Auto 78.5 % (50.0-70.0); Platelet Count Result 161 K/mm3 (150-420); Red Blood Count 4.76 M/mm3 (4.20-5.40); Red Cell Distribution Width 11.7 % (11.6-14.4)
[2024-05-04 18:13] LABS: Anion Gap 10 mmol/L (4-12); Blood Urea Nitrogen 8 mg/dL (7-18); Calcium 9.3 mg/dL (8.5-10.1); Carbon Dioxide 28 mmol/L (21-32); Chloride 101 mmol/L (98-108); Estimated CRCL calculation 132 ml/min; Estimated Glomerular Filt Rate > 60; Glucose 95 mg/dL (70-99); Osmolality Calculated 286 mOsm/kg (285-295); Potassium 3.5 mmol/L (3.5-5.1); Sodium 139 mmol/L (136-145)
[2024-05-04 19:10] VITALS: BP 122/68; PULSE 74; RESP 20; O2SAT 98
--- NOTE | 2024-05-04 19:52 | ED.ABDPAIN ---
HPI - Abdominal Pain General Chief Complaint: Abdominal Pain Stated Complaint: RT. side abdominal pain History of Present Illness HPI narrative: 29-year-old who is approximately 6 months anterior has a history of kidney stones presents with sharp right inguinal pain over the past 3 days this is been associated with nausea, vomiting, diarrhea. She has also had decreased p.o. intake. She denies any shortness of breath chest pain. Denies syncope. Related Data Allergies Allergy/AdvReac Type Severity Reaction Status Date / Time Penicillins Allergy Hives Verified 05/04/24 16:54 PMF Family History Family History Mother Diabetes mellitus Father Chronic bronchitis Social History Social History Smoking status: Never smoker Substance use: never Do You Feel Safe in your Home?: Yes Lack of Transportation: No Lack of Food: Never True Current Housing: I Have Housing Concerned About Future Housing: No Difficulty Paying Gas/Electric Bills: No Difficulty Paying for Meds: No Currently Unemployed: No Education: High School Diploma/GED Difficulty w/ Childcare or Family Care: No Spiritual care concerns: No Exam Narrative: GEN: Awake, alert, and appropriate to situation. Appears mildly uncomfortable. HEENT: No rhinorrhea noted, mucous membranes moist. No scleral icterus or conjunctival injection. CV: Normal rate, regular rhythm, S1S2 no M/G/R. 2+ distal pulses all extremities. No peripheral edema noted. PULM: Non-labored respiration. Clear to auscultation bilaterally. No wheezes, rales, rhonchi. GI: Lower right quadrant tenderness. No rigidity, distention or guarding.? NEURO: Normal speech. No lateralizing or focal deficits noted. Course Course Emergency Course: vital signs labs reassuring. CT scan shows a 2 mm appendicolith consistent with an early appendicitis. No other dilation or acute appearance of the appendix however. Reaching out to the general surgery to discuss and evaluate need for transfer for surgery. Reevaluation(s) Reevaluation #1: discussed the case with on-call surgeon from [facility]. We agreed that the time course here and the overall presentation did not strongly suggest acute appendicitis requiring surgical intervention. Vital Signs Vital signs: Vital Signs Temperature 36.3 C L 08/17/24 16:36 Pulse Rate 92 05/04/24 16:36 Respiratory Rate 20 05/04/24 16:36 Blood Pressure 132/82 05/04/24 16:36 Pulse Oximetry 100 05/04/24 16:36 Oxygen Delivery Room Air 05/04/24 16:36 Temperature 36.3 C L 05/04/24 16:36 Pulse Rate 74 05/04/24 19:10 Respiratory Rate 20 05/04/24 19:10 Blood Pressure 122/68 05/04/24 19:10 Pulse Oximetry 98 05/04/24 19:10 Oxygen Delivery Room Air 05/04/24 19:10 MDM - Abdominal Pain MDM Narrative Medical decision making narrative: Patient was placed in Room #:? 2 Independent Historian: External Source Review: medical records Differential diagnosis includes but not limited to:? kidney stone, appendicitis, other pelvic pain. Medications were Reviewed: Home medications Independently Interpreted by me: labs Medications, treatment, ED course: patient's pain controlled with Tylenol. He is given a L bolus of fluids. Vital signs and labs are reassuring. CT scan showed sub 2 mm appendicolith without other evidence of acute appendicitis. Case was discussed with the on-call surgeon from [facility] and we agreed that given the overall reassuring presentation at the time course of her symptoms this likely does not represent an acute appendicitis right now although it may declare itself as one in the future. Social situation impacting patients care: Breast-feeding patient who lives with her Shared decision making: discussed with the patient the results of th
--- NOTE | 2024-05-04 20:39 | PC.NURSE ---
ERP Dr Arriola spoke w/ Dr Varner, oncall surgeon at [facility]. After discussing CT results, POC to d/c home on antibx and to f/u w/ PCP. Dr Arriola in w/ pt discussing POC. Spouse at bedside at this time.
[2024-05-04] MEDS: levoFLOXacin TAB 500 MG, levoFLOXacin TAB 250 MG 750 MG PO (20:50)
[2024-05-04 21:20] VITALS: BP 116/68; PULSE 80; RESP 18; TEMP 36.6; O2SAT 98
== END 2024-05-04 21:20 | disposition home or self-care (01) ==
PROVIDERS: Emergency Provider Family Medicine; PCP Family Medicine
DX: R10.9 Unspecified abdominal pain (principal)
CPT/HCPCS: 36415; 74177; 80048; 81003; 81025; 85025; 96360; 99284; A9270; J7030; Q9967

== ENCOUNTER 2024-05-04 22:34 | Emergency (ER) | payer OTHER, SELFPAY ==
[2024-05-04] VITALS (11 sets, daily range): BP systolic 114–138; BP diastolic 62–88; PULSE 80–113; RESP 13–35; TEMP 36.8; O2SAT 97–100
--- NOTE | ~2024-05-04 | XR_ITS ---
EXAMINATION: XR chest 2V DATE: 05/04/2024 23:05 INDICATION: Shortness of breath TECHNIQUE: frontal and lateral views of the chest were obtained. COMPARISON: None FINDINGS: The lungs are clear with no focal airspace opacities, pulmonary edema, pleural effusion or pneumothor ax. The cardiomediastinal silhouette is normal. Visualized bones and soft tissues are unremarkable. IMPRESSION: 1. No acute cardiopulmonary disease. Reviewed, dictated and finalized at location [facility].
--- NOTE | 2024-05-04 22:36 | ECG_ITS ---
Test Date: 2024-05-04 22:42:17 Measurements Intervals [place] Rate: 110 P: 69 ME: 147 QRS: 60 QRSD: 81 T: -58 QT: 324 QTc: 439 Interpretive Statements SINUS TACHYCARDIA NONSPECIFIC ST AND T-WAVE ABNORMALITY ABNORMAL ECG No previous ECG available for comparison Electronically Signed On 05-05-2024 08:46:27 CDT by Vick Ruiz M.D.
--- NOTE | 2024-05-04 23:39 | ED.GENADULT ---
HPI - General Adult General Chief complaint: Shortness of Breath/Dyspnea Stated complaint: difficulty breathing, does not feel like anxiety' Time Seen by Provider: 05/04/24 22:42 History of Present Illness HPI narrative: This is a 29-year-old female with a history of anxiety recently started SSRI presenting for abdominal pain x3 days and then an episode of difficulty breathing. The patient was seen at [facility] for abdominal pain. her CT showed a very small appendicolith and general surgery was consulted. at that time it was not believed to be appendicitis and she was discharged with a wait and see approach. The patient then went home was feeling fine. However she shower and then started to feel short of breath, tingling all over body and abdominal pain. She then came back to this emergency department for evaluation. Related Data Allergies Allergy/AdvReac Type Severity Reaction Status Date / Time amoxicillin Allergy Difficulty Verified 05/04/24 23:09 Breathing latex Allergy Difficulty Verified 05/04/24 23:09 Breathing Penicillins Allergy Hives Verified 05/04/24 16:54 [facility] Family History Family History Mother Diabetes mellitus Father Chronic bronchitis Social History Social History Smoking status: Never smoker Substance use: never Do You Feel Safe in your Home?: Yes Lack of Transportation: No Lack of Food: Never True Current Housing: I Have Housing Concerned About Future Housing: No Difficulty Paying Gas/Electric Bills: No Difficulty Paying for Meds: No Currently Unemployed: No Education: High School Diploma/GED Difficulty w/ Childcare or Family Care: No Spiritual care concerns: No Exam Narrative: APPEARANCE: No apparent distress. Head: atraumatic. EYES: EOMI, NOSE: Atraumatic NECK: Trachea midline RESPIRATORY: No increased rate of breathing CARDIOVASCULAR: RRR, ABDOMINAL: Abdomen is soft without guarding or rebound. Patient reports pain on the right side the abdomen but no grimace deep palpation. MUSCULOSKELETAl: No obvious deformities NEURO: Alert. Moving 4/4 extremities SKIN:: Warm, dry. Normal color PSYCHIATRIC: Normal affect Course Vital Signs Vital signs: Vital Signs Temperature 98.2 F 05/04/24 22:38 Pulse Rate 113 H 05/04/24 22:38 Respiratory Rate 35 H 08/17/24 22:38 Blood Pressure 138/88 05/04/24 22:38 Pulse Oximetry 100 05/04/24 22:38 Oxygen Delivery Room Air 05/04/24 22:38 Temperature 98.2 F 05/04/24 22:38 Pulse Rate 86 05/04/24 23:48 Respiratory Rate 20 05/04/24 23:48 Blood Pressure 120/62 05/04/24 23:48 Pulse Oximetry 100 05/04/24 23:48 Oxygen Delivery Room Air 05/04/24 22:44 Medical Decision Making MDM Narrative Medical decision making narrative: -Course: 29-year-old female with history of anxiety presenting to the ED shortness of breath tingling all over body. She is very concerned that she might have appendicitis although she has a benign abdominal exam and I agree with the [place]/ general surgery assessment this is unlikely to be appendicitis and wait and see approach could be taken. patient is requesting something for her anxiousness. Review literature shows that lorazepam has relatively little transmission to breast milk is safe to take. Risks and benefits were discussed. patient said will take the lorazepam and perform a pump and dump of her breast milk for 24 hours. Patient will be discharged with primary care follow-up and return precautions for appendicitis. initially patient was tachycardic/ Tachypneic/hypertensive. After talking to the patient in her calm down vital signs returned to heart rate of 72 with blood pressure 120/62. -DDX includes but is not limited to: Anxiety, appendicitis/asthma, preeclamp
[2024-05-04] MEDS: LORazepam (*CRX) 1 MG TABLET PO (23:46)
[2024-05-05 00:09] VITALS: PULSE 79; RESP 19; O2SAT 90
[2024-05-05 00:20] VITALS: BP 124/82; PULSE 90; RESP 17; TEMP 36.6; O2SAT 100
== END 2024-05-05 00:22 | disposition home or self-care (01) ==
PROVIDERS: Emergency Provider Emergency Medicine; PCP Family Medicine
DX: F41.9 Anxiety disorder, unspecified (principal)
CPT/HCPCS: 71046; 93005; 99284; A9270

== ENCOUNTER 2024-11-23 17:48 | Emergency (ER) | payer BC, SELFPAY ==
[2024-11-23 17:48] VITALS: BP 128/69; PULSE 98; RESP 16; TEMP 36.5; O2SAT 99
--- OUTSIDE RECORDS SUMMARY | 2024-11-23 17:50 | XMS_ITS | Data Portability ---
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 Discussed plan. Not available 10/24/2023 17:08:12 10/30/2023 10/30/2023 Patient is ___weeks . Discussed plan. Not available 10/30/2023 15:50:14 02/29/2024 02/29/2024 Annual gynecological exam performed. Patient will come back in a year unless there are new symptoms. [email or web address] Not available 02/29/2024 16:38:22 Plan of Treatment Reminders Order Date Submit Date Provider Last Modified By Organization Details Last Modified Time Details Appointments None record ed. Lab None record ed. Referral None record ed. Procedures None record ed. Surgeries None record ed. Imaging non-st ress test 024 10/30/19 24 [email or web address] [facility], [address], [place], [address], 16:59:11 Medication Orders None record ed. Patient TargetsNo targets recorded. Patient InstructionsNo instructions recorded. Reason for Referral None Reported. Results Created Date Observation Date Name Description Value Unit Range Abnormal Flag Note LastModifiedBy Organization Detail LastModifiedTime 10/16/19 24 10/16/2023 CULTU RE: GROUP B STREP SCREE N, REFLE X SUSCE PTIBI LITY result report SEE RESULT S BELOW Test: Cultu re: Group B Strep , Refle x Susce ptibi lity ([facility]/ [facility]/K [facility] ) Speci men Sourc e: Vagin a/Rec gladys Speci men Type: Vagin al/Re ctal Speci men Date: 2023 5:08 PM Resul t Date: 024 7:03 PM Resul t Statu s: Final resul t Abnor mal: No Resul ting Lab: [facility] [address] [facility] [address] Tel: CULTU RE ----- ----- ----- --- No Group B strep isola levi at 2 days (frantz ctive broth enhan cemen t) Not Available [facility] (Lab) [address], [place], [address], 10/19/2023 20:06:52 02/29/20 24 02/29/2024 IMAGE GUIDE D PAP, REFLE X HPV IF ASCUS ONLY image guided Pap, reflex HPV ASCUS only SEE RESULT S BELOW CASE REPOR T: Cytol ogy Gynec ologi merritt Repor t Case: [id number] [address] [place] Provi see: Zarina Mathew MD Colle cted: 02/28 1802 Order ing Locat ion: [place] [facility] Recei tonya: 03/01 1349 First Scree n: Jonathan Soriano, CT Rescr een: Selene Bob ret, CT Speci men: Scree eliane Pap - Image d, Cervi x STATE MENT OF ADEQU ACY: Satis facto ry for evalu ation Trans forma tion zone compo nent prese nt ----- ----- ----- ----- ----- ----- ----- ----- ----- ----- ----- ----- ----- ----- ----- ----- ----- ---- FINAL DIAGN OSIS: Negat jessica for Intra epith elial Lesio n or Johanne kohlicy (NIL) . Elect bhaveshjoe lyons d by Selene Bob ret, CT on 2023 at 12:49 PM ----- ----- ----- ----- ----- ----- ----- ----- ----- ----- ----- ----- ----- ----- ----- ----- ----- ---- COMME NT: This speci men was revie wed by a Cytot echno logis t and/o r Patho logis t (as indic ated in this repor t) after evalu ation using the Thinp rep Imagi ng Syste m. CLINI MERRITT INFOR MATIO N: Menst rual Statu s: LMP (if appli cable ): Clini merritt Histo ry/Pr eviou s Pap: Type of Neopl romulo (if appli cable ): Signi fican t Clini merritt Findi ngs: Other Histo ry: Hormo slime (if appli cable ): PAP EDUCA BEKAH L NOTE: The Pap Test is a scree eliane test with an inher ent false negat jessica rate. Liqui d-bas ed sampl ing may decre ase, but will not elimi que, false negat jessica resul ts. A negat jessica resul t does not precl ude the prese nce and/o r devel opmen t of disea se, since the prese nce of abnor mal cells in the sampl e depen ds on the locat ion of the lesio n and sampl ing techn ique. Ramsey nued regul ar scree eliane is the best metho d of cance r preve ntion . If repor levi cytol ogic findi ng do not corre late with physi merritt and/o r histo rical findi ngs, furth er inves tigat ion is recom rachna d, as clini jordi rico nted. Not Available [facility] (Lab) [address], [place], [address], 03/05/2024 13:53:07 09/29/19 24 09/29/2023 non-s tress test No observ ation record ed. [email or web address] [facility] [address], [place], [address], 09/29/2023 18:55:15 09/29/19 non-s tress test No observ ation record ed. [email or web address] Not Available 09/29 17:13:40 09/29/19 24 10/03/2023 US, obste tric, bioph ysica l profi le + non-s tress test No observ ation record ed. [email or web address] [facility] [address], [place], [address], 10/03/2023 12:33:34 09/29/19 24 09/29/2023 US, obste tric, bioph ysica l profi le + non-s tress test No observ ation record ed. [email or web address] [address] [facility], [place], [address], 09/29/2023 19:02:23 10/05/19 24 10/05/2023 US, obste tric, follo w-up No observ ation record ed. [email or web address] [facility] [address], [place], [address], 10/05/2023 17:54:19 10/05/19 non-s tress test No observ ation record ed. [email or web address] Not Available 10/05 18:07:53 10/05/19 24 10/05/2023 non-s tress test No observ ation record ed. [email or web address] [facility] [address], [place], [address], 10/05/2023 19:13:04 10/06/19 24 10/05/2023 US, obste tric, follo w-up No observ ation record ed. BO [address], [place], [address], 10/09/2023 10:21:34 10/30/19 24 10/30/2023 non-s tress test No observ ation record ed. [email or web address] [facility] [address], [place], [address], 10/30/2023 16:57:17 Result Notes None recorded. Problems Name Problem SNOMED Code Status Onset Date Resolution Date Notes Provider Name and Address Organization Details Recorded Time Pregnanc y 00117156 Completed 202211/02/2023 Lesly Anival [facility] 4 16:53:23 Transien t hyperten jamari of pregnanc y - delivere d 507036923 Completed Very late in pregnanc y Lesly Anival [facility] 4 16:53:19 Postpart um depressi on 60731930 Completed txed with prozac Dashaholden Felixle [facility] 4 16:53:19 Postpart um hemorrha ge 58139488 Completed question able - story [facility] 4 16:53:19 Headache 05266431 Completed Lesly Anival [facility], [facility] 4 16:53:19 Mixed anxiety and depressi ve disorder 475153617 Completed Lesly Anival [facility] 4 16:53:19 Placenta circumva llata 5016191 Completed & MCI - Serial growth! Lesly Anival [facility] 4 16:53:19 Below expected growth rate 65017381364 4106 Completed 10/05 growth normal - no more antenata l testing needed Lesly crabtree, [facility] 16:53:19 Problem Notes None recorded. Procedures Surgical History Date Name Laterality Status Provider Name and Address Organization Details Recorded Time 1 Date of Last Pap Smear completed Crystal Ramos [facility] 12/07/2023 13:03:01 9 procedure on lip completed Crystallolly Ramos [facility] 12/07/2023 16:26:01 7 [facility] 16:26:10 Imaging Results Imaging Date Name Status LastModified by Organiz ation Details LastModified Time 09/29/2023 non-stress test completed [email or web address] [facility] [address], [place], [address], 09/29/2023 18:55:15 09/29/2023 non-stress test completed [email or web address] Informati on not available 09/29/2023 17:13:40 10/03/2023 US, obstetric, biophysical profile + non-stress test completed [email or web address] [facility] [address], [place], [address], 10/03/2023 12:33:34 09/29/2023 US, obstetric, biophysical profile + non-stress test completed [email or web address] [address], [place], [address], 09/29/2023 19:02:23 10/05/2023 US, obstetric, follow-up completed [email or web address] [facility] [address], [place], [address], 10/05/2023 17:54:19 10/05/2023 non-stress test completed [email or web address] Informati on not available 10/05/2023 18:07:53 10/05/2023 non-stress test completed [email or web address] [facility] [address], [place], [address], 10/05/2023 19:13:04 10/05/2023 US, obstetric, follow-up completed BO [address], [place], [address], 10/09/2023 10:21:34 10/30/2023 non-stress test completed [email or web address] [facility] [address], [place], [address], 10/30/2023 16:57:17 Procedure Notes None recorded. Medical Equipment None Reported. Allergies Allergen ID Allergen Name Allergen Category Reaction Reaction Severity Criticality Documentation Date Start Date Code Code System Note Provider Name and Address Organization Details Recorded Time 33422 Product containin g penicilli n (product) medicatio n hives vomiting Not available Not available Not available 03/30/2023 08446 8001 SNOMED Юлия Elda [facility] 3 16:20:54 98041 latex environme nt,medica tion Not available Not available Not available 12/07/2023 23796 91 RxNorm Crystal Ramos [facility] 4 16:24:40 Medications Name Sig Start Date Stop Date Status Note LastModified by Organization Details LastModified Time fluconazole 150 mg tablet Take 1 tablet by oral route as directed. 12/06 completed Not Available Not Available Not Available hydrocodone 5 mg-acetamin ophen 325 mg tablet Take 1 tablet every 6 hours by oral route. 12/06 completed Not Available Not Available Not Available ondansetron HCl 4 mg tablet TAKE 1 TABLET BY MOUTH EVERY 4 TO 6 HOURS NEEDED FOR NAUSEA. 02/28 completed Not Available Not Available Not Available sulfamethox azole 800 mg-trimetho prim 160 mg tablet 03/30 completed Not Available Not Available Not Available ondansetron 8 mg disintegrat ing tablet Place 1 tablet twice a day by transling ual route. 12/06 completed Not Available Not Available Not Available oseltamivir 75 mg capsule 03/30 completed Not Available Not Available Not Available nystatin 100,000 unit/gram topical cream 02/28 completed Not Available Not Available Not Available ibuprofen 600 mg tablet 12/06 completed Not Available Not Available Not Available ondansetron 4 mg disintegrat ing tablet 12/06 completed Not Available Not Available Not Available nitrofurant oin monohydrate /macrocryst als 100 mg capsule 12/06 completed Not Available Not Available Not Available Tylenol 12/06 completed Not Available Not Available Not Available Tri-Lo-Spri ntec 0.18 mg/0.215 mg/0.25 mg-25 mcg tablet 03/30 completed Not Available Not Available Not Available Vitamins Plus Low Iron 27 mg iron-1 mg tablet active Not Available Not Available Not Available Vitals Date Recorded Body height Body mass index (BMI) Body weight Systolic blood pressure Diastolic blood pressure Provider Name and Address Organization Details Last Updated DateTime 10/24/2023 172.72 cm 33.5 kg/m2 87068.32 14 g 132 mm[Hg] 77 mm[Hg] [facility] 4 17:17:07 Date Recorded Body height Body mass index (BMI) Body weight Systolic blood pressure Diastolic blood pressure Provider Name and Address Organization Details Last Updated DateTime 10/30/2023 172.72 cm 33.9 kg/m2 979654.0 9851 g 125 mm[Hg] 84 mm[Hg] [facility] 4 15:50:25 Date Recorded Body height Body mass index (BMI) Body weight Systolic blood pressure Diastolic blood pressure Provider Name and Address Organization Details Last Updated DateTime 12/07/2023 172.72 cm 32.1 kg/m2 24772.99 g 115 mm[Hg] 79 mm[Hg] Crystal Ramos [facility] 4 16:24:16 Date Recorded Body height Body mass index (BMI) Body weight Systolic blood pressure Diastolic blood pressure Provider Name and Address Organization Details Last Updated DateTime 02/29/2024 172.72 cm 33.1 kg/m2 62861.14 g 133 mm[Hg] 57 mm[Hg] Vicky Brooks [facility] 16:41:23 Social History Question Answer Notes LastModified by Organizat ion Details LastModified Time Tobacco Smoking Status Never Smoker Louise Ewing leyda [facility] 10/05/2023 16:23:51 What Is Your Level Of Alcohol Consumption? None Information not available 03/30/2023 How Many Years Have You Consumed Alcohol? 10 Information not available 03/30/2023 Are You Blind Or Do You Have Difficulty Seeing? No Information n ot available 03/30/2023 What Is Your Level Of Caffeine Consumption? Moderate Information not available 03/30/2023 How Much Tobacco Do You Chew? None Information not available 03/30/2023 In The 14 Days Before Symptom Onset, Have You Had Close Contact With A Laboratory-confirm ed COVID-19 While That Case Was Ill? No Information n ot available 03/30/2023 In The 14 Days Before Symptom Onset, Have You Had Close Contact With A Person Who Is Under Investigation For COVID-19 While That Person Was Ill? No Information not available 03/30/2023 Have You Been To An Area Known To Be High Risk For COVID-19? No Information not available 03/30/2023 Are You Deaf Or Do You Have Serious Difficulty Hearing? No Information not available 03/30/2023 What Type Of Diet Are You Following? REGULAR Information n ot available 03/30/2023 What Is The Highest Grade Or Level Of School You Have Completed Or The Highest Degree You Have Received? 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 No Information not available 03/30/2023 Do You Use Protection During Sex? No Information not available 03/30/2023 Do You Use Your Seat Belt Or Car Seat Routinely? Yes Information not available 03/30/2023 Do You Have Smoke And Carbon Monoxide Detectors In Your Home? Yes Information not available 03/30/2023 How Much Tobacco Do You Smoke? No Information not available 03/30/2023 Do You Feel Stressed (tense, Restless, Nervous, Or Anxious, Or Unable To Sleep At Night)? [id number] Information not available 03/30/2023 Do You Use Any Illicit Or Recreational Drugs? No Information not available 03/30/2023 Do You Use Sunscreen Routinely? Yes Information not available 03/30/2023 Sex: Unknown Functional Status Question Answer Note LastModified by Organizat ion Details LastModified Time Do you have difficulty walking or climbing stairs? No [email or web address] Information not available 12/07/2023 Are you able to walk? YESWOREST Information not available 03/30/2023 Are you able to care for yourself? Yes [email or web address] Information not available 12/07/2023 Do you have difficulty dressing or bathing? No [email or web address] Information not available 12/07/2023 What is your exercise level? Moderate Information not available 03/30/2023 Mental Status None recorded. Family History Relationship Description Onset Age of this Age Resolved Age Notes LastModified by Organization Details LastModified Time Unspecified Relation Family history unknown Not available 2022 16:00:54 Medical History Condition Response Allergies (Food, seasonal, environmental ) Y Other N Breast Cancer N Drug/Latex Allergies/Reactions Y Blood Transfusion N Dermatologic Disorders N Lung Disease N Defects or Inherited Disease N Breast Problem N Gestational Diabetes N Hematologic disorders N Anesthesia Complications N History of STI N Deep Vein Thrombosis N Polycystic ovary syndrome N Anxiety Disorder Y Autoimmune disease N Arthritis N Infertility N Polyps N Acid Reflux (GERD) N History of abnormal pap N Cancer N Stroke N Varicosities N Neurologic/Epilepsy N Endometriosis N High Cholesterol N Headaches Y Fibromyalgia N Kidney Disease N Heart Problems N Kidney or Bladder Problems N Thyroid Problems N GI Problems N Eating Disorder N Anemia N Art (IVF or FET) N Psychiatric Illness N Ovarian Cancer N Diabetes N Pulmonary (TB, Asthma) N Hepatitis/Liver Disease N No Past Medical History N Eczema N Urinary Tract Infection N Abuse/Domestic Violence N Asthma N Trauma/Violence N Depression/ depression Y Heart Disease N Pre-Eclampsia N Hypertension N Osteoporosis N Thrombophilias N Gynecological History Statement/Question Response Date of Last Mammogram Date of LMP 01/31/2023 On BCP's at Conception? Y N Was last menstrual period normal N STIs/STDs N Duration of Flow (days) 4 Current Control Method None Age at First Child 3 Frequency of Cycle (Q days) 4 Sexually Active? Y BCPs Date of DEXA bone scan Age of first menstrual cycle 14 Date of Last Pap Smear 09/18/2020 Sexual Problems? N LMP Approximate N Obstetrics History GPAL:G 2 P 2 0 0 2 Type Value Full Term 2 Living 2 Total 2 Past Encounters Encounter ID Performer Location Encounter Start Date Encounter Closed Date Diagnosis/Indication Diagnosis SNOMED-CT Code Diagnosis ICD10 Code Diagnosis Note [id number] Sylvia Rodriguez [facility] [address],[place] [address] 03/30/2023 15:21:46 03/30/2023 16:36:46 Uncertain viability of 113664418 O36.80X0 Z3A.01 [id number] Sagar Mathew MD [facility] [address],[place] [address] 03/30/2023 15:22:05 03/31/2023 10:37:24 Amenorrhea 97470360 N91.2 patient is a 27-year-ol d female who presents for amenorrhea . She has a positive test. Ultrasound revealed a 7 week gestation. we talked about , we talked about care. We talked about exercise, food, medication s. She returned to begin routine care. We spent over 20 minutes face-to-fa ce. More than 50% was counseling . [id number] Kadie Keith [facility] [address],[place] [address] 04/20/2023 15:42:09 04/20/2023 16:30:33 [id number] Sagar Mathew MD [facility] [address],[place] [address] 04/20/2023 15:44:59 04/20/2023 22:59:42 [id number] [facility] [address],[place] [address] 05/01/2023 16:08:06 05/01/2023 16:43:34 screening 565570981 Z36.82 [id number] Sagar Mathew MD [facility] [address],[place] [address] 05/01/2023 16:08:48 05/01/2023 17:43:11 Routine care 588408217 Z34.81 [id number] [facility] [address],[place] [address] 05/31/2023 17:16:25 05/31/2023 18:37:33 [id number] Sagar Mathew MD [facility] [address],[place] [address] 05/31/2023 17:18:38 06/01/2023 10:28:37 Routine care 719382170 Z34.81 [id number] [facility] [address],[place] [address] 06/19/2023 14:39:38 06/19/2023 16:10:22 screening for malformation 414145221 Z36.3 Z3A.19 [id number] Sagar Mathew MD [facility] [address],[place] [address] 06/19/2023 14:40:15 06/20/2023 09:42:54 Routine care 187497788 Z34.81 [id number] [facility] [address],[place] [address] 07/19/2023 16:59:13 07/19/2023 18:33:25 Marginal insertion of umbilical cord 57133475 O43.122 O43.112 Z36.2 O44.42 Z3A.24 [id number] Sagar Mathew MD [facility] [address],[place] [address] 07/19/2023 17:00:40 07/19/2023 18:32:46 Routine care 113003372 Z34.81 [id number] [facility] [address],[place] [address] 08/17/2023 11:18:09 08/17/2023 11:50:48 Marginal insertion of umbilical cord 73121384 O43.122 O43.112 Z3A.28 [id number] Sagar Mathew MD [facility] [address],[place] [address] 08/17/2023 11:18:31 08/17/2023 13:07:43 Routine care 545309866 Z34.81 [id number] SALONI ARCINIEGA MD [facility] [address],[place] [address] 08/22/2023 11:29:48 08/22/2023 12:56:44 Inguinal pain 259020850 R10.2 [id number] Sagar Mathew MD [facility] [address],[place] [address] 08/31/2023 16:38:20 08/31/2023 17:51:48 Routine care 941788177 Z34.81 [id number] [facility] [address],[place] [address] 09/14/2023 16:23:40 09/14/2023 17:03:30 Marginal insertion of umbilical cord 30440508 O43.122 O43.112 Z3A.32 [id number] Sagar Mathew MD [facility] [address],[place] [address] 09/14/2023 16:24:36 09/15/2023 08:50:31 Routine care 550400412 Z34.81 [id number] Jo Hurtado [facility] [address],[place] [address] 09/21/2023 11:15:28 09/21/2023 12:15:19 Below expected growth rate 5108095913 23229 R62.52 [id number] [facility] [address],[place] [address] 09/21/2023 11:16:01 09/21/2023 13:28:22 growth restriction 95003524 O36.5930 O36.8320 Z3A.33 [id number] Sagar Mathew MD [facility] [address],[place] [address] 09/21/2023 11:16:28 09/21/2023 13:06:28 Routine care 447337197 Z34.81 [id number] [facility] [address],[place] [address] 09/29/2023 15:57:58 09/29/2023 18:07:36 Below expected growth rate 6393969979 60492 R62.52 [id number] [facility] [address],[place] [address] 09/29/2023 16:00:54 09/29/2023 18:07:17 Small for gestational age fetus 986466880 O36.5930 Z3A.34 [id number] SALONI ARCINIEGA MD [facility] [address],[place] [address] 10/05/2023 16:18:49 10/05/2023 17:49:22 Placenta circumvallata 5738193 O43.119 Marginal i nsertion of umbilical cord 30581844 O43.129 Gestation period, 35 weeks 77337838 Z3A.35 [id number] [facility] [address],[place] [address] 10/05/2023 16:22:01 10/05/2023 18:15:03 Below expected growth rate 5162094954 65894 R62.52 [id number] Kadie Keith [facility] [address],[place] [address] 10/05/2023 16:23:21 10/05/2023 17:20:23 Placenta circumvallata 9239431 O43.113 O43.103 Z3A.35 [id number] Sagar Mathew MD [facility] [address],[place] [address] 10/12/2023 17:27:17 10/12/2023 21:40:25 [id number] Sagar Mathew MD [facility] [address],[place] [address] 10/16/2023 17:23:17 10/17/2023 12:33:09 Routine care 923365796 Z34.81 [id number] Sagar Mathew MD [facility] [address],[place] [address] 10/24/2023 16:56:24 10/24/2023 18:06:45 Routine care 300066996 Z34.81 [id number] Sagar Mathew MD [facility] [address],[place] [address] 10/30/2023 15:34:13 10/30/2023 16:28:15 Routine care 895414982 Z34.81 [id number] Nayajeromeholden Anival [facility] [address],[place] [address] 10/30/2023 16:31:13 10/30/2023 16:59:11 tachycardia 056463177 O36.8399 [id number] Crystal Ramos [facility] [address],[place] [address] 12/07/2023 16:09:37 12/07/2023 17:28:55 care 336470862 Z39.2 [id number] Sagar Mathew MD [facility] [address],[place] [address] 02/29/2024 16:03:36 02/29/2024 17:33:25 Gynecologic examination 79021314 Z01.419 Annual gynecologi merritt exam performed. Patient will come back in a year unless there are new symptoms. Suggest Calcium with Vitamin D if not eating in diet. Patient advised to get annual flu shot. Recommend yearly physicals and preform monthly breast exams. Genetic testing is available for patients with family history of cancer. Engage in safe sexual practices, use condoms. Encouraged to have daily exercise. Avoid tobacco and illicit drugs, moderation of alcohol. If BMI greater than 25 dietary consult advised. If you have any questions please call or email. Pap smear- today laboratory evaluation - Health Concerns Section Related Observation LastModified by Organization Detai ls LastModified Time None Recorded Concern Status LastModified by Organization Details LastModified Time None Recorded Advance Directives Directive None Recorded Payers Encounter Date Sequence Insurance Name Policy Number Policy Zavala Covered Member ID Zavala Member ID Guarantor Name 10/24/2023 2 [employer] [place] ON [place] AFTER 2020 (MEDICAID REPLACEMENT - HMO) Skip Granado [id number] June Loy 10/24/2023 1 [facility] [id number] Skip Granado [id number] June Loy 10/30/2023 2 [employer] [place] AFTER 2020 (MEDICAID REPLACEMENT - HMO) Skip Cruzell [id number] June Loy 10/30/2023 1 [facility] [id number] Skip Wong Loy [id number] June Loy 10/30/2023 2 [employer] [place] AFTER 2020 (MEDICAID REPLACEMENT - HMO) Skip Cruzell [id number] June Loy 10/30/2023 1 [facility] [id number] Skip Judith Loy [id number] June Loy 12/07/2023 2 [employer] [place] AFTER 2020 (MEDICAID REPLACEMENT - HMO) Skip Cruzell [id number] June Loy 12/07/2023 1 [facility] [id number] Skip Wong Loy [id number] June Loy 02/29/2024 1 [facility] [id number] Skip Granado [id number] June Granado Notes Date Note Type Note Provider Name and Address Organization Details Recorded Time 12/07/2023 text/html 28-year-old shankar tobias presents for follow-up. She is breast and bottle feeding. Her baby is doing well. Her mood is reasonably good. She is not bleeding anymore she has not had intercourse. Her is going to get a vasectomy. She will follow up in 2 months for well-woman exam. She has no complaints, no problems, routine care. Crystal crabtree, [facility] 12/07/2023 18:42:27 02/29/2024 text/html Annual GYNReport ed bypatient.History: no gynecologic complaints Menstrual cycle:Normal menses Urinary symptoms:No hematuria; No incontinence Vulva:No genital lesion Vagina:Normal vaginal discharge Breast:No breast pain; No breast lump Current Contraception:Cond oms Sexual complaints:No sexual complaints; No pain during intercourse Menopausal Symptoms:No menopausal symptoms Psychological symptoms:No depression; No anxiety Preventive measures:Encourage self breast examination; Encourage regular exercise Sagar Mathew MD [address], [place], [address], [facility] 02/29/2024 17:24:33 OBGyn Episode Ob Episode Information Episode Created Date Number of Fetuses Patient Bloodtype Patient rh Status Prepregnancy Weight lbs Domestic Partner Domestic Partner Phone Father Name Community Living Instructor Status 05/01/20 23 1 O Positive 192 CLOSED Fetus Data First Name Last Name Admitted to NICU Weight (g) Sex Living Outcome Pediatric Complications Fetus ID Race Codes Race Delivery Type 3515.33 8 M true Full Term [id number] Vaginal Delivery Problems Problem Notes cf/sma negative done on 03/08 @ [place]. Problem Name Start Date End Date Resolution Snomed Code Not e Below expected growth rate [id number] 10/05 growth normal - no more testing needed Placenta circumvallata 0041200 & MCI - Serial growth! Headache [id number] Mixed anxiety and depressive disorder [id number] Transient hypertension of - delivered [id number] Very late in depression [id number] txed with proza c hemorrhage [id number] questionable - story unclear Humza Calculation Initial Humza Date Initial Exam Date Initial Exam Provider Initial Ultrasound Date Last Menstrual Period Date Ultra Sound Weeks Gestation 11/07/2023 05/01/2023 03/30/2023 01/31/2023 7 Eighteen To Twenty Week Humza Update Ultra Sound Date Fundal Height At Umbil Quickening Date Ultra Sound Latest Weeks Gestation Final Humza Confirmed By Final Humza Confirmed Date Final Humza Date Ultra Sound Latest Days Gestation 0 [email or web address] 05/01/2023 11/07/19 24 0 Pre-danette Flowsheet Flowsheet Date 05/01/2023 Oro Score Blood Edema Fundus Height Fundus Units Glucose Ketones Leukocytes Nitrite Labor Signs Protein Cervic Dilation Cervic Effacement Cervic Station 13 Type Weight in lbs Pre/Post Dialysis Refused Weight 192.664464934603 BP Diastolic BP Location Tested BP Systolic BP Type 77 R arm 126 sitting Fetus Heart Rate Present A 155 Fetus Movement Comments 28-year-old 2 para 1 01 at 12 weeks and 6 days gestation who presents for initial care. She has history of gestational hypertension, depression, and possible hemorrhage . Her story for hemorrhages questionable. She is not vaccinated but exposed. She was given vaccine recommendations. She will begin routine care. We discussed care in detail Flowsheet Date 05/31/2023 Oro Score Blood Edema Fundus Height Fundus Units Glucose Ketones Leukocytes Nitrite Labor Signs Protein Cervic Dilation Cervic Effacement Cervic Station Type Weight in lbs Pre/Post Dialysis Refused BP Diastolic BP Location Tested BP Systolic BP Type Fetus Heart Rate Present Fetus Movement Comments Flowsheet Date 05/31/2023 Oro Score Blood Edema Fundus Height Fundus Units Glucose Ketones Leukocytes Nitrite Labor Signs Protein Cervic Dilation Cervic Effacement Cervic Station 16 Type Weight in lbs Pre/Post Dialysis Refused Weight 190.728395130857 BP Diastolic BP Location Tested BP Systolic BP Type 71 R arm 111 sitting Fetus Heart Rate Present A 150 Fetus Movement Comments no complaints, no problems, routine care, gender ultrasound today revealed a boy baby Flowsheet Date 06/19/2023 Oro Score Blood Edema Fundus Height Fundus Units Glucose Ketones Leukocytes Nitrite Labor Signs Protein Cervic Dilation Cervic Effacement Cervic Station Type Weight in lbs Pre/Post Dialysis Refused BP Diastolic BP Location Tested BP Systolic BP Type Fetus Heart Rate Present Fetus Movement Comments Flowsheet Date 06/19/2023 Oro Score Blood Edema Fundus Height Fundus Units Glucose Ketones Leukocytes Nitrite Labor Signs Protein Cervic Dilation Cervic Effacement Cervic Station Type Weight in lbs Pre/Post Dialysis Refused Weight 194.696993858972 BP Diastolic BP Location Tested BP Systolic BP Type 73 R arm 111 sitting Fetus Heart Rate Present A 145 Fetus Movement A Yes Comments mood is stable, no headache, no complaints, routine care Flowsheet Date 07/19/2023 Oro Score Blood Edema Fundus Height Fundus Units Glucose Ketones Leukocytes Nitrite Labor Signs Protein Cervic Dilation Cervic Effacement Cervic Station Type Weight in lbs Pre/Post Dialysis Refused BP Diastolic BP Location Tested BP Systolic BP Type Fetus Heart Rate Present Fetus Movement Comments Flowsheet Date 07/19/2023 Oro Score Blood Edema Fundus Height Fundus Units Glucose Ketones Leukocytes Nitrite Labor Signs Protein Cervic Dilation Cervic Effacement Cervic Station 24 Type Weight in lbs Pre/Post Dialysis Refused Weight 197.765266817291 BP Diastolic BP Location Tested BP Systolic BP Type 75 R arm 116 sitting Fetus Heart Rate Present A 159 Fetus Movement A Yes Comments no complaints, no problems, anatomy completed, routine care, anxiety and depression stable Flowsheet Date 08/17/2023 Oro Score Blood Edema Fundus Height Fundus Units Glucose Ketones Leukocytes Nitrite Labor Signs Protein Cervic Dilation Cervic Effacement Cervic Station Type Weight in lbs Pre/Post Dialysis Refused BP Diastolic BP Location Tested BP Systolic BP Type Fetus Heart Rate Present Fetus Movement Comments Flowsheet Date 08/17/2023 Oro Score Blood Edema Fundus Height Fundus Units Glucose Ketones Leukocytes Nitrite Labor Signs Protein Cervic Dilation Cervic Effacement Cervic Station 30 Type Weight in lbs Pre/Post Dialysis Refused Weight 204.307645838019 BP Diastolic BP Location Tested BP Systolic BP Type 86 R arm 133 sitting Fetus Heart Rate Present A 154 Fetus Movement Comments normal growth ultrasound, no complaints, no concerns, routine care Flowsheet Date 08/22/2023 Oro Score Blood Edema Fundus Height Fundus Units Glucose Ketones Leukocytes Nitrite Labor Signs Protein Cervic Dilation Cervic Effacement Cervic Station Type Weight in lbs Pre/Post Dialysis Refused Weight 205.032315435139 BP Diastolic BP Location Tested BP Systolic BP Type 68 101 Fetus Heart Rate Present A 150 Fetus Movement A Yes Comments Problem visit-- having right groin pain with walking or any pressure on right side. No inciting events. Tried ice, heat, tylenol, stretching without relief. No numbness or weakness in leg. Neuro exam wnl. Likely strained groin muscle, recommended ice/rest/stretching. Could consider PT if worsening at next appointment. Flowsheet Date 08/31/2023 Oro Score Blood Edema Fundus Height Fundus Units Glucose Ketones Leukocytes Nitrite Labor Signs Protein Cervic Dilation Cervic Effacement Cervic Station Type Weight in lbs Pre/Post Dialysis Refused Weight 206.479367845207 BP Diastolic BP Location Tested BP Systolic BP Type 76 R arm 112 sitting Fetus Heart Rate Present Fetus Movement A Yes Comments No complaints, no problems, routine care, improved groin pain, Flowsheet Date 09/14/2023 Oro Score Blood Edema Fundus Height Fundus Units Glucose Ketones Leukocytes Nitrite Labor Signs Protein Cervic Dilation Cervic Effacement Cervic Station Type Weight in lbs Pre/Post Dialysis Refused BP Diastolic BP Location Tested BP Systolic BP Type Fetus Heart Rate Present Fetus Movement Comments Flowsheet Date 09/14/2023 Oro Score Blood Edema Fundus Height Fundus Units Glucose Ketones Leukocytes Nitrite Labor Signs Protein Cervic Dilation Cervic Effacement Cervic Station 32 Type Weight in lbs Pre/Post Dialysis Refused Weight 209.082181569165 BP Diastolic BP Location Tested BP Systolic BP Type 72 R arm 117 sitting Fetus Heart Rate Present A 145 Fetus Movement A Yes Comments nonlinear growth, continued growth but at a reduced rate. Gross total normal, repeat growth in 3 weeks to confirm there are no marked changes. , otherwise no complaints Flowsheet Date 09/21/2023 Oro Score Blood Edema Fundus Height Fundus Units Glucose Ketones Leukocytes Nitrite Labor Signs Protein Cervic Dilation Cervic Effacement Cervic Station Type Weight in lbs Pre/Post Dialysis Refused BP Diastolic BP Location Tested BP Systolic BP Type Fetus Heart Rate Present Fetus Movement Comments Flowsheet Date 09/21/2023 Oro Score Blood Edema Fundus Height Fundus Units Glucose Ketones Leukocytes Nitrite Labor Signs Protein Cervic Dilation Cervic Effacement Cervic Station Type Weight in lbs Pre/Post Dialysis Refused BP Diastolic BP Location Tested BP Systolic BP Type Fetus Heart Rate Present Fetus Movement Comments Flowsheet Date 09/21/2023 Oro Score Blood Edema Fundus Height Fundus Units Glucose Ketones Leukocytes Nitrite Labor Signs Protein Cervic Dilation Cervic Effacement Cervic Station 34 none trace Type Weight in lbs Pre/Post Dialysis Refused Weight 212.60359262182 BP Diastolic BP Location Tested BP Systolic BP Type 76 R arm 127 sitting Fetus Heart Rate Present A 142 Fetus Movement Comments no complaints, no problems, routine care, close observation for growth changes that were sudden and significant. Flowsheet Date 09/29/2023 Oro Score Blood Edema Fundus Height Fundus Units Glucose Ketones Leukocytes Nitrite Labor Signs Protein Cervic Dilation Cervic Effacement Cervic Station Type Weight in lbs Pre/Post Dialysis Refused BP Diastolic BP Location Tested BP Systolic BP Type 76 128 Fetus Heart Rate Present Fetus Movement Comments Flowsheet Date 09/29/2023 Oro Score Blood Edema Fundus Height Fundus Units Glucose Ketones Leukocytes Nitrite Labor Signs Protein Cervic Dilation Cervic Effacement Cervic Station Type Weight in lbs Pre/Post Dialysis Refused BP Diastolic BP Location Tested BP Systolic BP Type Fetus Heart Rate Present Fetus Movement Comments Flowsheet Date 10/05/2023 Oro Score Blood Edema Fundus Height Fundus Units Glucose Ketones Leukocytes Nitrite Labor Signs Protein Cervic Dilation Cervic Effacement Cervic Station Type Weight in lbs Pre/Post Dialysis Refused BP Diastolic BP Location Tested BP Systolic BP Type Fetus Heart Rate Present Fetus Movement Comments Flowsheet Date 10/05/2023 Oro Score Blood Edema Fundus Height Fundus Units Glucose Ketones Leukocytes Nitrite Labor Signs Protein Cervic Dilation Cervic Effacement Cervic Station Type Weight in lbs Pre/Post Dialysis Refused BP Diastolic BP Location Tested BP Systolic BP Type Fetus Heart Rate Present Fetus Movement Comments Flowsheet Date 10/05/2023 Oro Score Blood Edema Fundus Height Fundus Units Glucose Ketones Leukocytes Nitrite Labor Signs Protein Cervic Dilation Cervic Effacement Cervic Station Type Weight in lbs Pre/Post Dialysis Refused Weight 214.121898347184 BP Diastolic BP Location Tested BP Systolic BP Type 70 113 Fetus Heart Rate Present A 143 Fetus Movement A Yes Comments Good movement. No ctx, VB, LOF. BH contractions. EFW 26%, improved from last US, UADs wnl. BPP 04/25, NST to follow. Flowsheet Date 10/12/2023 Oro Score Blood Edema Fundus Height Fundus Units Glucose Ketones Leukocytes Nitrite Labor Signs Protein Cervic Dilation Cervic Effacement Cervic Station Type Weight in lbs Pre/Post Dialysis Refused Weight 216.288074740258 BP Diastolic BP Location Tested BP Systolic BP Type 81 L arm 138 sitting Fetus Heart Rate Present Fetus Movement A Yes Comments Flowsheet Date 10/16/2023 Oro Score Blood Edema Fundus Height Fundus Units Glucose Ketones Leukocytes Nitrite Labor Signs Protein Cervic Dilation Cervic Effacement Cervic Station 36 Type Weight in lbs Pre/Post Dialysis Refused Weight 217.870253784188 BP Diastolic BP Location Tested BP Systolic BP Type 89 L arm 125 sitting Fetus Heart Rate Present A 145 Fetus Movement Comments No complaints, no problems, to set up induction for the 15th. Good exam -favorable Flowsheet Date 10/24/2023 Oro Score Blood Edema Fundus Height Fundus Units Glucose Ketones Leukocytes Nitrite Labor Signs Protein Cervic Dilation Cervic Effacement Cervic Station 38 none trace 1cm Type Weight in lbs Pre/Post Dialysis Refused Weight 220.075251542154 BP Diastolic BP Location Tested BP Systolic BP Type 77 R arm 132 sitting Fetus Heart Rate Present A 145 Fetus Movement Comments No complaints, no problems, routine care, induction 9 days Flowsheet Date 10/30/2023 Oro Score Blood Edema Fundus Height Fundus Units Glucose Ketones Leukocytes Nitrite Labor Signs Protein Cervic Dilation Cervic Effacement Cervic Station 38 2cm Type Weight in lbs Pre/Post Dialysis Refused Weight 223.364226481702 BP Diastolic BP Location Tested BP Systolic BP Type 84 L arm 125 sitting Fetus Heart Rate Present A 187 Fetus Movement A Yes Comments tachycardia, to monito r for an extended period, favorable exam, no signs or symptoms of labor, induction in 3 days Flowsheet Date 10/30/2023 Oro Score Blood Edema Fundus Height Fundus Units Glucose Ketones Leukocytes Nitrite Labor Signs Protein Cervic Dilation Cervic Effacement Cervic Station Type Weight in lbs Pre/Post Dialysis Refused BP Diastolic BP Location Tested BP Systolic BP Type Fetus Heart Rate Present Fetus Movement Comments Menstrual History Last Menstrual Date Menses Monthly On Bcp Conception Prior Menses Frequency Hcg Plus Date Menarche Onset Age 0501/31/2023 Genetic Screening And Infection History Question Response Note Mental Retardation/Autism false Patient's Age Will Be 35 Years Or Older At Estim ated Date of Delivery false Thalassemia (Vietnamese, Yakut, Mediterranean, Or Background): MCV < 80 false Neural Tube Defect (Meningomyelocele, Spina Bifi da, Or Anencephaly) false Congenital Heart Defect false Down Syndrome false Walt-Sachs (eg, Restorationism, Cajun, Lao-[place]) f alse Libby Disease false Sickle Cell Disease Or Trait () false Hemophilia Or Other Blood Disorders false Muscular Dystrophy false Cystic Fibrosis false [place] false Intellectual Disability/Autism false If Yes, Was Person Tested For Fragile X? false Other Inherited Genetic Or Chromosomal Disorder false Maternal Metabolic Disorder (eg, Type 1 Diabetes , PKU) false Patient Or Baby's Father Had A Child With Defects Not Listed Above false Recurrent Loss, Or A Stillbirth false Medications (including Suppl ements, Vitamins, Herbs, OTC Drugs), Illicit/Recreational Drugs, Alcohol false If Yes, Agent(s) And Strength/Dosage false Any Other Genetic History false Live With Someone With TB Or Exposed To TB false Patient Or Partner Has History Of Genital Herpes false Rash Or Viral Illness Since Last Menstrual Perio d false History Of STD, Gonorrhea, Chlamydia, HPV, Syphi lis false Other Infection History false History of HIV false History of Hepatitis false Prior GBS-infected child false Hemoglobinopathy Or Carrier false Other Structural Defect false Recent Travel History Outside of Country false Delivery Information Delivery Date Delivery Type Labor Anesthesia Weeks Gestation Incision Type Labor Labor Length Hrs Delivered By Post Complications Tubal Sterilization Discharge Date Comments 4 Induce d Regional-Ep idural 39.2 false Sagar Mathew MD Below expected growth rate,Head ache,Mixe d anxiety and depressiv e disorder, Placenta circumval ricky,Post depressio n,Postpar gladys hemorrhag e,Transie nt hypertens ion of - delivered Discharge Information Feeding Method Contraceptive Method Maternal HG B and HCT Levels Ob Episode Information Episode Created Date Number of Fetuses Patient Bloodtype Patient rh Status Prepregnancy Weight lbs Domestic Partner Domestic Partner Phone Father Name Community Living Instructor Status 03/30/20 23 1 CLOSED Fetus Data First Name Last Name Admitted to NICU Weight (g) Sex Living Outcome Pediatric Complications Fetus ID Race Codes Race Delivery Type 3288.54 2 F Full Term [id number] Vaginal Delivery Humza Calculation Initial Humza Date Initial Exam Date Initial Exam Provider Initial Ultrasound Date Last Menstrual Period Date Ultra Sound Weeks Gestation 0 Eighteen To Twenty Week Humza Update Ultra Sound Date Fundal Height At Umbil Quickening Date Ultra Sound Latest Weeks Gestation Final Humza Confirmed By Final Humza Confirmed Date Final Humza Date Ultra Sound Latest Days Gestation 0 0 Menstrual History Last Menstrual Date Menses Monthly On Bcp Conception Prior Menses Frequency Hcg Plus Date Menarche Onset Age Delivery Information Delivery Date Delivery Type Labor Anesthesia Weeks Gestation Incision Type Labor Labor Length Hrs Delivered By Post Complications Tubal Sterilization Discharge Date Comments 1 40 GHTN Discharge Information Feeding Method Contraceptive Method Maternal HG B and HCT Levels
--- OUTSIDE RECORDS SUMMARY | 2024-11-23 17:51 | XMS_ITS | Clinical Summary ---
Author Organization [facility] Address [facility] [place] [address] Care Team Providers Care Cotton Program Technician Name Role Phone Juanito Domingo MD Primary Care Provider Allergies Active Allergy Reactions Criticality Noted Date Comments Amoxicillin Unknown 01/07/2021 Cefaclor Unknown 01/07/2021 Cefuroxime Unknown 01/07/2021 Latex Hives 01/07/2021 Levonorgestrel-Ethinyl Estrad Unknown 2014 Sneezing Medications sertraline 25 MG tablet Take 25 mg by mouth daily. Active vitamin 27-1 MG Tab tablet Take 1 tablet by mouth daily. Active Active Problems Problem Noted Date Diagnosed Date Anxiety 03/25/2021 Term of female ([facility]) Normal labor ([facility]) 03/22/2021 Prolonged latent phase of labor ([facility]) 2020 39 weeks gestation of ([facility]) 2020 Encounter for elective induction of labor ([facility]) 03/16/2021 Pre-eclampsia ([facility]) 03/01/2021 Elevated blood pressure affe cting in third trimester, antepartum ([facility]) 02/28/2021 Social History Tobacco Use Types Packs/Day Years Used Date Smoking Tobacco: Never Smokeless Tobacco: Never Alcohol Use Standard Drinks/Week Comments Not Currently 0 (1 standard drink = 0.6 oz pur e alcohol) Humiliation, Afraid, Rape, and Kick questionnair e Answer Date Recorded Within the last year, have y ou been afraid of your partner or ex-partner? No 03/16/2021 Within the last year, have y ou been humiliated or emotionally abused in other ways by your partner or ex-partner? No Within the last year, have y ou been kicked, hit, slapped, or otherwise physically hurt by your partner or ex-partner? No 03/16/2021 Within the last year, have y ou been raped or forced to have any kind of sexual activity by your partner or ex-partner? No 03/16/2021 Social Connection and Isolat ion Panel [NHANES] Answer Date Recorded In a typical week, how many times do you talk on the phone with family, friends, or neighbors? More than three times a week 03/16/2021 Frequency of Social Gatherin gs with Friends and Family Not on file 03/16/2021 How often do you attend chur or latter-day services? More than 4 times per year 03/16/2021 Do you belong to any clubs o r organizations such as rastafarian groups, unions, fraternal or athletic groups, or school groups? Yes 03/16/2021 How often do you attend meet ings of the clubs or organizations you belong to? 1 to 4 times per year 03/16/2021 Are you , , di vorced, , never , or living with a partner? 03/16/2021 AUDIT-C Answer Date Recorded Q1: How often do you have a drink containing alc ohol? Never 03/16/2021 Q2: How many drinks containi ng alcohol do you have on a typical day when you are drinking? Patient declined 03/16/2021 Q3: How often do you have si x or more drinks on one occasion? Never 03/16/2021 Overall Financial Resource Strain (CARDIA) Answe r Date Recorded How hard is it for you to pa y for the very basics like food, housing, medical care, and heating? Not hard at all 03/16/2021 [facility] of Occupat ional Health - Occupational Stress Questionnaire Answer Date Recorded Do you feel stress - tense, restless, nervous, or anxious, or unable to sleep at night because your mind is troubled all the time - these days? Not at all 03/16/2021 Exercise Vital Sign Answer Date Recorde d On average, how many days pe r week do you engage in moderate to strenuous exercise (like a brisk walk)? 2 days 03/16/2021 On average, how many minutes do you engage in exercise at this level? 10 min 03/16/2021 Hunger Vital Sign Answer Date Recorded Within the past 12 months, y ou worried that your food would run out before you got the money to buy more. Never true 03/16/20 21 Within the past 12 months, t he food you bought just didn't last and you didn't have money to get more. Never true 03/16/2021 PRAPARE - Transportation Answer Date Re corded In the past 12 months, has l ack of transportation kept you from medical appointments or from getting medications? No 02/17 In the past 12 months, has l ack of transportation kept you from meetings, work, or from getting things needed for daily living? No 03/16/2021 Housing Stability Vital Sign Answer Vick e Recorded In the last 12 months, was t here a time when you were not able to pay the mortgage or rent on time? No 03/16/2021 Number of Places Lived in the Last Year Not on f ile 03/16/2021 In the last 12 months, was t here a time when you did not have a steady place to sleep or slept in a residential (including now)? 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 Legal Sex Female 5:59 PM PLATING TANK OPERATOR APPRENTICE Gender Identity Not on file Sexual Orientation Not on file Last Filed Vital Signs Vital Sign Reading Time Taken Comments Blood Pressure 136/88 03/28/2021 1:00 PM CDT Pulse 74 03/28/2021 1:00 PM CDT Temperature 35.8 C (96.4 F) 03/25/2021 8:00 AM CDT Respiratory Rate 20 03/25/2021 8:00 AM CDT Oxygen Saturation 99% 03/23/2021 7:20 AM CDT Inhaled Oxygen Concentration - - Weight 108.9 kg (240 lb) 03/23/2021 7:00 AM CDT Height 172.7 cm (5' 8 ) 03/23/2021 7:00 AM CDT Body Mass Index 36.49 03/23/2021 7:00 AM CDT Plan of Treatment Upcoming Encounters Date Type Department Care Team (Late st Contact Info) Description 11/25/2024 8:[address] [facility] [address] [place] [address] Darby Malhotra FOOD GENERAL MANAGER-C [address] [place] [address] Health Maintenance Due Date Last Done Comments Cervical Cancer Screening Pa p Smear (Age 21 to 29) Every 3 Years 1996 Cervical Cancer Screening 1996 Annual Physical 1999 Hepatitis C 2014 DTaP, Tdap and Td Vaccines ( 1 - Tdap) 2015 Hepatitis B Vaccines (1 of 3 - 19+ 3-dose series) 2015 COVID-19 Vaccine (2 - 2023-2 5 season) 2024 03/02/2021 Influenza Adult (#1) 2024 Meningococcal Vaccine Aged Out 06/16/2016 No kirstie winnie eligible based on patient's age to complete this topic HPV Vaccines Aged Out No longer eligi ble based on patient's age to complete this topic Meningococcal B Vaccine Aged Out No l onger eligible based on patient's age to complete this topic Pneumococcal Vaccine: Pediat rics (0 to 5 Years) and At-Risk Patients (6 to 64 Years) Aged Out No longer eligi ble based on patient's age to complete this topic RSV Immunizations Under 20 Months Aged Out No longer eligible based on patient's age to complete this topic Insurance [facility] Advance Directives * Full Code (Latest Code Status on File) Date Activated Date Inactivated Comments 03/22/2021 11:28 PM 03/25/2021 12:55 PM * Full Code Date Activated Date Inactivated Comments 03/22/2021 3:07 PM 03/22/2021 6:01 PM * Full Code Date Activated Date Inactivated Comments 03/21/2021 7:13 AM 03/21/2021 4:53 PM * Full Code Date Activated Date Inactivated Comments 03/20/2021 9:56 AM 03/20/2021 6:06 PM * Full Code Date Activated Date Inactivated Comments 03/16/2021 3:08 PM 03/17/2021 1:10 PM Care Teams Cotton Program Technician Relationship Specialty [place] [address] [place] [address] [place] [address] PCP - General FAMILY PRACTICE 04/11/19
--- NOTE | 2024-11-23 18:00 | ED.FEMALEGU ---
HPI - Female Genitourinary General Chief complaint: Urogenital-Female Stated complaint: UTI Time Seen by Provider: 11/23/24 17:59 Source: patient Mode of arrival: ambulatory Limitations: no limitations History of Present Illness HPI Narrative: this is a 29-year-old female that presents with some dysuria and frequency with no fever chills has suprapubic bladder tenderness was recently seen at an urgent care and was diagnosed with UTI and script was called to her local pharmacy which was never transcribed. MD elicited complaint: dysuria and UTI Related Data Allergies Allergy/AdvReac Type Severity Reaction Status Date / Time amoxicillin Allergy Difficulty Verified 11/23/24 17:54 Breathing latex Allergy Difficulty Verified 11/23/24 17:54 Breathing Penicillins Allergy Hives Verified 11/23/24 17:54 Review of Systems Review of Systems: All systems reviewed & are unremarkable except as noted in HPI and below PMFSH Past Medical History Medical History Patient denies medical problems Family History Family History Mother Diabetes mellitus Father Chronic bronchitis Social History Social History Smoking status: Never smoker Substance use: never Do You Feel Safe in your Home?: Yes Lack of Transportation: No Lack of Food: Never True Current Housing: I Have Housing Concerned About Future Housing: No Difficulty Paying Gas/Electric Bills: No Difficulty Paying for Meds: No Currently Unemployed: No Education: High School Diploma/GED Difficulty w/ Childcare or Family Care: No Spiritual care concerns: No Exam Const: General: healthy appearing and no acute distress Nutritional Appearance: well nourished Orientation/consciousness: patient oriented x3 Limitations: no limitations Resp: Effort & Inspection: normal respiratory effort Auscultation: clear to auscultation bilaterally Cardio: Rate: regular rate Rhythm: regular rhythm GI: GI Palp: Yes Soft to palpation : Other: suprapubic tenderness with palpation Urinary Catheter: Urinary Catheter: urine clear Neuro: General: patient oriented x3 and moves all extremities Course Course Emergency Course: patient was given a dose of Bactrim and prescription for antibiotics and patient's local pharmacy. Critical Care Time Critical Care Time Critical Care Time: No Discharge Plan Discharge Clinical Impression: UTI (urinary tract infection) Qualifiers: Urinary tract infection type: acute cystitis Hematuria presence: without hematuria Qualified Code(s): N30.00 - Acute cystitis without hematuria Patient Disposition: Home, Self-Care Condition: Stable Instructions: Antibiotic Form, Urinary Tract Infection in Women (ED) Additional Instructions: advised to take medication as prescribed and to follow with primary care physician of symptoms persist or worsen. Patient Language: Ukrainian Prescriptions: New sulfamethoxazole-trimethoprim [Bactrim] 400-80 mg tablet 1 tablet PO BID 7 Days Qty: 14 0RF No Action levofloxacin 750 mg tablet 750 mg PO DAILY Qty: 4 0RF Rx Instructions: 5 day course total 1st dose given in the emergency room ondansetron 4 mg tablet,disintegrating 4 mg PO Q8H Qty: 14 0RF Follow-up/Referrals: Juanito Domingo M.D. [Primary Care Provider] - Time of Disposition: 18:06
[2024-11-23] MEDS: SULFAMETHOXAZOLE/TRIMETHOPRIM 800/160 MG DS TABLET 1 TAB PO (18:03)
--- OUTSIDE RECORDS SUMMARY | 2024-11-23 18:12 | XMS_ITS | Clinical Summary ---
Author Organization [facility] Address [facility] [place] [address] Care Team Providers Care Tearer Name Role Phone Juanito Domingo MD Primary [...] Diagnosed Date Anxiety 03/25/2021 Term of female ([facility] Normal labor ([facility]) 03/22/2021 Prolonged latent phase of labor ([facility]) 2020 39 weeks gestation of ([facility] 2020 Encounter for elective induction of labor ([facility]) 03/16/2021 Pre-eclampsia ([facility]) 03/01/2021 Elevated blood pressure affe cting in third trimester, antepartum ([facility]) 02/28/2021 Social History Tobacco Use Types Packs/Day [...] How often do you attend chur or tenriism services? More than 4 times per year 03/16/2021 Do you belong to any clubs o r organizations such as jainism groups, unions, fraternal or athletic groups, or [...] and heating? Not hard at all 03/16/2021 [facility] [place] of Occupat ional Health - Occupational Stress [...] place to sleep or slept in a usp (including now)? 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 [address] [place] [address] Darby Malhotra LOCK OPERATOR-C [address] [place] [address] Health Maintenance Due Date Last Done Comments [...] patient's age to complete this topic Insurance [facility] Advance Directives * Full Code (Latest Code [...] 3:08 PM 03/17/2021 1:10 PM Care Teams Tearer Relationship Specialty [place] [address] [place] [address] [place] [address] PCP - General FAMILY PRACTICE 04/11/19
== END 2024-11-23 18:10 | disposition home or self-care (01) ==
LOC: CHSED 18:10
PROVIDERS: Emergency Provider Emergency Medicine; PCP Family Medicine
DX: N30.00 Acute cystitis without hematuria (principal)
CPT/HCPCS: 99283; A9270

== ENCOUNTER 2024-12-27 13:26 | Emergency (ER) | payer BC, SELFPAY ==
--- NOTE | ~2024-12-27 | CT_ITS ---
EXAMINATION: CT abdomen pelvis w con DATE: 12/27/2024 14:54 INDICATION: Right lower quadrant abdominal pain, nausea, vomiting and diarrhea. TECHNIQUE: Computed tomography (CT) of the abdomen and pelvis was performed with 100 mL Omnipaque-350 intravenous contrast. Automated exposure control and iterative reconstruction technique were employe d. The dose-length product was 527.47 mGy-cm. COMPARISON: 05/04/2024 FINDINGS: Lung bases are clear. Heart size normal. No pericardial or pleural effusion. Liver, gallbladder, sple en, pancreas, bilateral adrenal glands and kidneys are normal. Bowels including the appendix are norm al. Bladder, uterus and bilateral adnexa are unremarkable. No free intraperitoneal gas or fluid. No p athologically enlarged abdominal or pelvic lymphadenopathy. Bones are unremarkable. IMPRESSION: 1. Normal study. No acute intra-abdominal/pelvic process. Reviewed, dictated and finalized at location A.
[2024-12-27 13:27] VITALS: BP 133/99; PULSE 124; RESP 18; TEMP 36.7; O2SAT 98
--- OUTSIDE RECORDS SUMMARY | 2024-12-27 13:29 | XMS_ITS ---
[...] Weight in lbs Pre/Post Dialysis Refused Weight 214.607851771340 BP Diastolic BP Location Tested BP Systolic [...] Weight in lbs Pre/Post Dialysis Refused Weight 216.196229430633 BP Diastolic BP Location Tested BP Systolic BP Type 81 L arm 138 sitting Fetus Heart Rate Present Fetus Movement A Yes Comments Flowsheet Date 10/16/2023 Oro Score Blood Edema Fundus Height Fundus Units Glucose Ketones Leukocytes Nitrite Labor Signs Protein Cervic Dilation Cervic Effacement Cervic Station 36 Type Weight in lbs Pre/Post Dialysis Refused Weight 217.786860096668 BP Diastolic BP Location Tested BP Systolic [...] Weight in lbs Pre/Post Dialysis Refused Weight 220.841830480971 BP Diastolic BP Location Tested BP Systolic [...] Weight in lbs Pre/Post Dialysis Refused Weight 223.786909643174 BP Diastolic BP Location Tested BP Systolic [...] Estim ated Date of Delivery false Thalassemia (Wolof, Polish, Mediterranean, Or Background): MCV < 80 false Neural Tube Defect (Meningomyelocele, Spina Bifi da, Or Anencephaly) false Congenital Heart Defect false Down Syndrome false Walt-Sachs (eg, Orthodox, Cajun, Venezuelan-Prydeinig) f alse Libby Disease false Sickle Cell Disease Or Trait () false Hemophilia Or Other Blood Disorders false Muscular Dystrophy false Cystic Fibrosis false Lars's Chorea false Intellectual Disability/Autism false If Yes, [...] Domestic Partner Domestic Partner Phone Father Name Pilot Safety Inspector Status 03/30/20 23 1 CLOSED Fetus Data First Name Last Name Admitted to NICU Weight (g) Sex Living Outcome Pediatric Complications Fetus ID Race Codes Race Delivery Type 3288.54 2 F Full Term [id number] Vaginal Delivery Humza Calculation Initial Humza Date [...] Method Maternal HG B and HCT Levels Data Portability Created on: December 27, 2024 June Granado .[id number] : 1995 Sex: Female Author Organization [facility] Address [address] [place] [address] Care Team Providers Care Geospatial Technologist Name Role Phone ADI ALVA Primary Care Provider Assessment Encounter Date Assessment Date Assessment LastModified by Organization Details LastModified Time 10/24/2023 10/24/2023 Patient is ___weeks . Discussed plan. Not available 10/24/2023 17:08:12 10/30/2023 10/30/2023 Patient is ___weeks . Discussed plan. Not available 10/30/2023 15:50:14 02/29/2024 02/29/2024 Annual gynecological exam performed. Patient will come back in a year unless there are new symptoms. [email or web address] Not available 02/29/2024 16:38:22 Plan of Treatment Reminders Order Date Submit Date Provider Last Modified By Organization Details Last Modified Time Details Appointments None record ed. Lab None record ed. Referral None record ed. Procedures None record ed. Surgeries None record ed. Imaging non-st ress test 10/30/19 24 [email or web address] [place] [address], [address], [place], [address], 16:59:11 Medication Orders None record ed. Patient [...] Strep , Refle x Susce ptibi lity ([facility] ) Speci men Sourc e: Vagin a/Rec gladys Speci men Type: Vagin al/Re ctal Speci men Date: 2023 5:08 PM Resul t Date: 024 7:03 PM Resul t Statu s: Final resul t Abnor mal: No Resul ting Lab: [facility] [address] [facility] [address] Tel: CULTU RE ----- ----- ----- --- No Group B strep isola levi at 2 days (frantz ctive broth lilian okeefe) Not Available [facility] (Lab) [address], [place], [address], 10/19/2023 20:06:52 02/29/20 24 02/29/2024 IMAGE GUIDE [...] OSIS: Negat jessica for Intra epith elial Андрей quevedo or Johanne shahid ([facility]) . Elect viola lyons d by Selene Bob ret, CT [...] as clini jordi rico nted. Not Available [facility] (Lab) [address], [place], [address], 03/05/2024 13:53:07 09/29/19 24 09/29/2023 non-s tress test No observ ation record ed. [email or web address] [place] [address], [place], [address], 09/29/2023 18:55:15 09/29/19 24 non-s tress test No observ ation record ed. [email or web address] Not Available 09/29 17:13:40 09/29/19 24 10/03/2023 US, obste tric, bioph ysica l profi le + non-s tress test No observ ation record ed. [email or web address] [place] [address], [place], [address], 10/03/2023 12:33:34 09/29/19 24 09/29/2023 US, elba granados, bioph ysica l profi le + non-s tress test No observ ation record ed. [email or web address] [address] [place], [address], 09/29/2023 19:02:23 10/05/19 24 10/05/2023 US, obstjennifer tric, follo w-up No observ ation record ed. [email or web address] [place] [address], [place], [address], 10/05/2023 17:54:19 10/05/19 24 non-s tress test No observ ation record ed. [email or web address] Not Available 10/05 18:07:53 10/05/19 24 10/05/2023 non-s tress test No observ ation record ed. [email or web address] [place] [address], [place], [address], 10/05/2023 19:13:04 10/06/19 24 10/05/2023 US, obste tric, follo w-up No observ ation record ed. BOJORDAN [address], [place], [address], 10/09/2023 10:21:34 10/30/19 24 10/30/2023 non-s tress test No observ ation record ed. [email or web address] [place] [address], [place], [address], 10/30/2023 16:57:17 Result Notes None recorded. Problems Name Problem SNOMED Code Status Onset Date Resolution Date Notes Provider Name and Address Organization Details Recorded Time Pregnanc y 38245970 Completed 202211/02/2023 Lesly Florian [facility] 4 16:53:23 Transien t hyperten jamari of pregnanc y - delivere d 044772822 Completed Very late in pregnanc y Lesly Florian [facility] 4 16:53:19 Postpart um depressi on 71236436 Completed txed with prozac Lesly Florian [facility] 4 16:53:19 Postpart um hemorrha ge 91343938 Completed question able - story unclear Lesly Florian [facility] 4 16:53:19 [facility] 45813288 [facility] 4 16:53:19 Mixed anxiety and depressi ve disorder 502633912 Completed Lesly Florian [facility] 4 16:53:19 Placenta circumva llata 6872474 Completed & [facility] - Serial growth! [facility] 4 16:53:19 Below expected growth rate 72108008946 4106 Completed 10/05 growth normal - no more antenata l testing needed [facility] 4 16:53:19 Problem Notes None recorded. Procedures Surgical History Date Name Laterality Status Provider Name and Address Organization Details Recorded Time 1 Date of Last Pap Smear completed Crystal Ramos [facility] 12/07/2023 13:03:01 9 procedure on lip completed Crystallolly Ramos [facility] 12/07/2023 16:26:01 7 [facility] 16:26:10 Imaging Results Imaging Date Name Status LastModified by Organiz ation Details LastModified Time 09/29/2023 non-stress test completed [email or web address] [place] [address], [place], [address], 09/29/2023 18:55:15 09/29/2023 non-stress test completed [email or web address] Informati on not available 09/29/2023 17:13:40 10/03/2023 US, obstetric, biophysical profile + non-stress test completed [email or web address] [place] [address], [place], [address], 10/03/2023 12:33:34 09/29/2023 US, obstetric, biophysical profile + non-stress test completed [email or web address] [address], [place], [address], 09/29/2023 19:02:23 10/05/2023 US, obstetric, follow-up completed [email or web address] [place] [address], [place], [address], 10/05/2023 17:54:19 10/05/2023 non-stress test completed Informati on not available 10/05/2023 18:07:53 10/05/2023 non-stress test completed [email or web address] [place] [address], [place], [address], 10/05/2023 19:13:04 10/05/2023 US, obstetric, follow-up completed BO [address], [place], [address], 10/09/2023 10:21:34 10/30/2023 non-stress test completed [email or web address] [place] [address], [place], [address], 10/30/2023 16:57:17 Procedure Notes None recorded. Medical Equipment None Reported. Allergies Allergen ID Allergen Name Allergen Category Reaction Reaction Severity Criticality Documentation Date Start Date Code Code System Note Provider Name and Address Organization Details Recorded Time 10991 Product containin g penicilli n (product) medicatio n hives vomiting Not available Not available Not available 03/30/2023 45993 8001 SNOMED Юлия Elda [facility] 3 16:20:54 79504 latex environme nt,medica tion Not available Not available Not available 12/07/2023 34559 91 RxNorm Crystal Ramos [facility] 4 16:24:40 Medications Name Sig Start [...] Not Available Tri-Lo-Spri ntec 0.18 mg/0.215 mg/0.25 mg-0.025 mg tablet 03/30 completed Not Available Not Available Not Available Vitamins Plus Low Iron 27 mg iron-1 mg tablet active Not Available Not Available Not Available Vitals Date Recorded Body height Body mass index (BMI) Body weight Systolic blood pressure Diastolic blood pressure Provider Name and Address Organization Details Last Updated DateTime 10/24/2023 172.72 cm 33.5 kg/m2 86185.32 14 g 132 mm[Hg] 77 mm[Hg] [facility] 4 17:17:07 Date Recorded Body height Body mass index (BMI) Body weight Systolic blood pressure Diastolic blood pressure Provider Name and Address Organization Details Last Updated DateTime 10/30/2023 172.72 cm 33.9 kg/m2 356961.0 9851 g 125 mm[Hg] 84 mm[Hg] [facility] 4 15:50:25 Date Recorded Body height Body mass index (BMI) Body weight Systolic blood pressure Diastolic blood pressure Provider Name and Address Organization Details Last Updated DateTime 12/07/2023 172.72 cm 32.1 kg/m2 30288.99 g 115 mm[Hg] 79 mm[Hg] Crystal Ramos [facility] 4 16:24:16 Date Recorded Body height Body mass index (BMI) Body weight Systolic blood pressure Diastolic blood pressure Provider Name and Address Organization Details Last Updated DateTime 02/29/2024 172.72 cm 33.1 kg/m2 57749.14 g 133 mm[Hg] 57 mm[Hg] Vicky Brooks [facility] 4 16:41:23 Social History Question Answer Notes LastModified by Organizat ion Details LastModified Time Tobacco Smoking Status Never Smoker Louise crabtree [facility] 10/05/2023 16:23:51 What Is Your [...] Or The Highest Degree You Have Received? 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 [id number] Information not available 03/30/2023 Do You Use Any Illicit Or Recreational Drugs? No Information not available 03/30/2023 Do You Use Sunscreen Routinely? Yes Information not available 03/30/2023 Sex: Unknown Functional Status Question Answer Note LastModified by Organizat ion Details LastModified Time Do you have difficulty walking or climbing stairs? No [email or web address] Information not available 12/07/2023 Are you able to walk? [email or web address] Information not available 03/30/2023 Are you able to care for yourself? Yes Information not available 12/07/2023 Do you have difficulty dressing or bathing? No [email or web address] Information not available 12/07/2023 What is your [...] SNOMED-CT Code Diagnosis ICD10 Code Diagnosis Note [id number] Sylvia Rodriguez [place] [address] [address] 03/30/2023 15:21:46 03/30/2023 16:36:46 Uncertain viability of 113131448 O36.80X0 Z3A.01 [id number] Sagar Mathew MD [place] [address],[place] [address] 03/30/2023 15:22:05 03/31/2023 10:37:24 Amenorrhea 87073206 N91.2 patient is a 27-year-ol d female who presents for amenorrhea . She has a positive test. Ultrasound revealed a 7 week gestation. we talked about , we talked about care. We talked about exercise, food, medication s. She returned to begin routine care. We spent over 20 minutes face-to-fa ce. More than 50% was counseling . [id number] Kadie [facility] [address],[place] [address] 04/20/2023 15:42:09 04/20/2023 16:30:33 [id number] Sagar Mathew MD [place] [address],[place] [address] 04/20/2023 15:44:59 04/20/2023 22:59:42 [id number] [facility] [address],[place] [address] 05/01/2023 16:08:06 05/01/2023 16:43:34 screening 124442736 Z36.82 [id number] Sagar Mathew MD [place] [address],[place] [address] 05/01/2023 16:08:48 05/01/2023 17:43:11 Routine care 193741239 Z34.81 [id number] [facility] [address],[place] [address] 05/31/2023 17:16:25 05/31/2023 18:37:33 [id number] Sagar Mathew MD [place] [address],[place] [address] 05/31/2023 17:18:38 06/01/2023 10:28:37 Routine care 945103068 Z34.81 [id number] [facility] [address],[place] [address] 06/19/2023 14:39:38 06/19/2023 16:10:22 screening for malformation 021302104 Z36.3 Z3A.19 [id number] Sagar Mathew MD [place] [address],[place] [address] 06/19/2023 14:40:15 06/20/2023 09:42:54 Routine care 654037060 Z34.81 [id number] [facility] [address],[place] [address] 07/19/2023 16:59:13 07/19/2023 18:33:25 Marginal insertion of umbilical cord 47320495 O43.122 O43.112 Z36.2 O44.42 Z3A.24 [id number] aSgar Mathew MD [place] [address],[place] [address] 07/19/2023 17:00:40 07/19/2023 18:32:46 Routine care 088142267 Z34.81 [id number] [facility] [address],[place] [address] 08/17/2023 11:18:09 08/17/2023 11:50:48 Marginal insertion of umbilical cord 37148715 O43.122 O43.112 Z3A.28 [id number] Sagar Mathew MD [place] [address],[place] [address] 08/17/2023 11:18:31 08/17/2023 13:07:43 Routine care 343079481 Z34.81 [id number] SALONI ARCINIEGA MD [place] [address],[place] [address] 08/22/2023 11:29:48 08/22/2023 12:56:44 Inguinal pain 919286804 R10.2 [id number] Sagar Mathew MD [place] [address],[place] [address] 08/31/2023 16:38:20 08/31/2023 17:51:48 Routine care 817717254 Z34.81 [id number] [facility] [address],[place] [address] 09/14/2023 16:23:40 09/14/2023 17:03:30 Marginal insertion of umbilical cord 03440068 O43.122 O43.112 Z3A.32 [id number] Sagar Mathew MD [place] [address],[place] [address] 09/14/2023 16:24:36 09/15/2023 08:50:31 Routine care 828139099 Z34.81 [id number] Jo Hurtado [facility] [address],[place] [address] 09/21/2023 11:15:28 09/21/2023 12:15:19 Below expected growth rate 5512559811 71905 R62.52 [id number] [facility] [address],[place] [address] 09/21/2023 11:16:01 09/21/2023 13:28:22 growth restriction 21244369 O36.5930 O36.8320 Z3A.33 [id number] Sagar Mathew MD [place] [address],[place] [address] 09/21/2023 11:16:28 09/21/2023 13:06:28 Routine care 599760011 Z34.81 [id number] Barbra Bolanos [facility] [address],[place] [address] 09/29/2023 15:57:58 09/29/2023 18:07:36 Below expected growth rate 2656308565 37296 R62.52 [id number] Carey La [place] [address],[place] [address] 09/29/2023 16:00:54 09/29/2023 18:07:17 Small for gestational age fetus 060308848 O36.5930 Z3A.34 [id number] SALONI ARCINIEGA MD [place] [address],[place] [address] 10/05/2023 16:18:49 10/05/2023 17:49:22 Placenta circumvallata 9878311 O43.119 Marginal i nsertion of umbilical cord 03943968 O43.129 Gestation period, 35 weeks 05590349 Z3A.35 [id number] Barbra Bolanos [place] [address],[place] [address] 10/05/2023 16:22:01 10/05/2023 18:15:03 Below expected growth rate 7232775089 60824 R62.52 [id number] Kadie Keith [place] [address],[place] [address] 10/05/2023 16:23:21 10/05/2023 17:20:23 Placenta circumvallata 9245640 O43.113 O43.103 Z3A.35 [id number] Sagar Mathew MD [place] [address],[place] [address] 10/12/2023 17:27:17 10/12/2023 21:40:25 [id number] Sagar Mathew MD [place] [address],[place] [address] 10/16/2023 17:23:17 10/17/2023 12:33:09 Routine care 953126493 Z34.81 [id number] Sagar Mathew MD [place] [address],[place] [address] 10/24/2023 16:56:24 10/24/2023 18:06:45 Routine care 052702142 Z34.81 [id number] Sagar Mathew MD [place] [address],[facility] [place] [address] 10/30/2023 15:34:13 10/30/2023 16:28:15 Routine care 694564405 Z34.81 [id number] Lesly Florian [place] [address],[facility] [place] [address] 10/30/2023 16:31:13 10/30/2023 16:59:11 tachycardia 916231323 O36.8399 [id number] Crystal Ramos [place] [address],[place] [address] 12/07/2023 16:09:37 12/07/2023 17:28:55 care 813565520 Z39.2 [id number] Sagar Mathew MD [place] [address],[place] [address] 02/29/2024 16:03:36 02/29/2024 17:33:25 Gynecologic examination 28629899 Z01.419 Annual gynecologi merritt exam performed. Patient [...] Name 10/24/2023 2 [employer] OF [place] ON OR AFTER 08/18/2020 (MEDICAID REPLACEMENT - HMO) Skip Granado [id number] June Granado 10/24/2023 1 [facility] - [facility] [id number] Skip Granado [id number] June Granado 10/30/2023 2 [employer] [place] - [place] ON [place] AFTER 2020 (MEDICAID REPLACEMENT - HMO) Skip Granado [id number] June Granado 10/30/[address] [facility] [id number] Skip Granado [id number] June Granado 10/30/2023 2 [employer] [place] ON [place] AFTER 2020 (MEDICAID REPLACEMENT - HMO) Skip Granado [id number] June Granado 10/30/[address] [facility] [id number] Skip Granado [id number] June Granado 12/07/2023 2 [employer] [place] ON [place] AFTER 2020 (MEDICAID REPLACEMENT - HMO) Sikp Granado [id number] June Granado 12/07/[address] [facility] [id number] Skip Granado [id number] June Granado 02/29/[address] [facility] [id number] Skip Granado [id number] June Granado Notes Date Note Type Note [...] complaints, no problems, routine care. Crystal crabtree, [facility] 12/07/2023 18:42:27 02/29/2024 text/html Annual GYNReport ed bypatient.History: no gynecologic complaints Menstrual cycle:Normal menses Urinary symptoms:No hematuria; No incontinence Vulva:No genital lesion Vagina:Normal vaginal discharge Breast:No breast pain; No breast lump Current Contraception:Cond oms Sexual complaints:No sexual complaints; No pain during intercourse Menopausal Symptoms:No menopausal symptoms Psychological symptoms:No depression; No anxiety Preventive measures:Encourage self breast examination; Encourage regular exercise Sagar S. Beer, MD [address], [place], [address], [place] [facility] 02/29/2024 17:24:33 OBGyn Episode Ob Episode Information Episode Created Date Number of Fetuses Patient Bloodtype Patient rh Status Prepregnancy Weight lbs Domestic Partner Domestic Partner Phone Father Name Pilot Safety Inspector Status 05/01/20 23 1 O Positive 192 CLOSED Fetus Data First Name Last Name Admitted to NICU Weight (g) Sex Living Outcome Pediatric Complications Fetus ID Race Codes Race Delivery Type 3515.33 8 M true Full Term 225[address] Vaginal Delivery Problems Problem Notes cf/sma negative done on 03/08 @ [place]. Problem Name Start Date End Date Resolution Snomed Code Not e Below expected growth rate 977708445173111 10/05 growth normal - no more testing needed Placenta circumvallata 5830548 & MCI - Serial growth! Headache 53482556 Mixed anxiety and depressive disorder 081583100 Transient hypertension of - delivered 514262507 Very late in depression 14001647 txed with proza c hemorrhage 14826292 questionable - story unclear Humza Calculation Initial [...] Weight in lbs Pre/Post Dialysis Refused Weight 192.175858920777 BP Diastolic BP Location Tested BP Systolic [...] Weight in lbs Pre/Post Dialysis Refused Weight 190.531394690050 BP Diastolic BP Location Tested BP Systolic [...] Weight in lbs Pre/Post Dialysis Refused Weight 194.148936091838 BP Diastolic BP Location Tested BP Systolic [...] Weight in lbs Pre/Post Dialysis Refused Weight 197.904615411179 BP Diastolic BP Location Tested BP Systolic [...] Weight in lbs Pre/Post Dialysis Refused Weight 204.988776999781 BP Diastolic BP Location Tested BP Systolic [...] Weight in lbs Pre/Post Dialysis Refused Weight 205.609617108989 BP Diastolic BP Location Tested BP Systolic [...] Weight in lbs Pre/Post Dialysis Refused Weight 206.339619444756 BP Diastolic BP Location Tested BP Systolic [...] Weight in lbs Pre/Post Dialysis Refused Weight 209.587484847006 BP Diastolic BP Location Tested BP Systolic [...] Weight in lbs Pre/Post Dialysis Refused Weight 212.36501795173 BP Diastolic BP Location Tested BP Systolic [...]
--- OUTSIDE RECORDS SUMMARY | 2024-12-27 13:29 | XMS_ITS | Clinical Summary ---
Author Organization [facility] Address [address] [place] [address] Care Team Providers Care Telephone Service Adviser Name Role Phone Juanito Domingo MD Primary Care Provider [phone] Allergies Active Allergy Reactions Criticality Noted Date Comments Amoxicillin Unknown 01/07/2021 Cefaclor Unknown 01/07/2021 Cefuroxime Unknown 01/07/2021 Latex Hives 01/07/2021 Levonorgestrel-Ethinyl Estrad Unknown 2014 Sneezing Medications sertraline 25 MG tablet Take 25 mg by mouth daily. Active vitamin 27-1 MG Tab tablet Take 1 tablet by mouth daily. Active Active Problems Problem Noted Date Diagnosed Date Anxiety 03/25/2021 Term of female ([facility]) Normal labor ([facility]) 03/22/2021 Prolonged latent phase of labor ([facility]) 2020 39 weeks gestation of ([facility]) 2020 Encounter for elective induction of labor ([facility]) 03/16/2021 Pre-eclampsia ([facility]) 03/01/2021 Elevated blood pressure affe cting in third trimester, antepartum ([facility]/HCC) 02/28/2021 Encounters Date Type Department Care Team Description 11/25/2024 8:28 AM CDT - 11/25/2024 11:59 PM CDT Hospital Encounter [facility] [address] [place] [address] Darby Olivarez PAPER STRIPPER-C Discharge Disposition: Home or Self Care (Routine Discharge) 11/25/2024 Travel from Last 3 Months Social History Tobacco Use Types Packs/Day Years [...] 03/16/2021 How often do you attend chur ch or muslim services? More than 4 times per year 03/16/2021 Do you belong to any clubs o r organizations such as anglican groups, unions, fraternal or athletic groups, or [...] and heating? Not hard at all 03/16/2021 [facility] Health - Occupational Stress Questionnaire Answer Date [...] place to sleep or slept in a care home (including now)? 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 Legal Sex Female 5:59 PM COMPANY MARKER Gender Identity Not on file Sexual Orientation [...] 03/23/2021 7:00 AM CDT Plan of Treatment Health Maintenance Due Date Last Done Comments Annual Physical 1999 Hepatitis C 2014 DTaP, Tdap and Td Vaccines ( 1 - Tdap) 2015 Hepatitis B Vaccines (1 of 3 - 19+ 3-dose series) 2015 COVID-19 Vaccine (2 - 2023-2 5 season) 2024 03/02/2021 Cervical Cancer Screening Pa p Smear (Age 21 to 29) Every 3 Years 02/28/2027 02/29/2024 Cervical Cancer Screening 02/28/2027 Meningococcal Vaccine Aged Out 06/16/2016 No kirstie [...] on patient's age to complete this topic Procedures Procedure Name Priority Date/Time Associated Diagnosis Comments US BREAST LT [employer] Routine 11/25/2024 9:18 AM CDT Left breast mass from Last 3 Months Results * US BREAST LT [employer] (11/25/2024 9:18 AM CDT) Anatomical Region Laterality Modality Breast Left Ultrasound, Radi ographic Imaging 11/25/2024 9:10 AM CDT Impressions 11/25/2024 9:13 AM CDT ===== IMPRESSION: ===== 1. No sonographic abnormality identified at the area of concern in the left breast. Assessment: ACR BI-RADS 2 - BENIGN FINDING(S) Recommendation: 1: Clinical follow-up recommended for the left breast palpable abnormality. A benign ultrasound should not delay further workup and/or biopsy of a clinically suspicious finding or palpable abnormality. Regions of dense breast tissue may obscure an underlying mass. Ordered By: DARBY OLIVAREZ Interpreted By: Darius Weber MD, 11/25/2024 9:10 AM Narrative 11/25/2024 9:13 AM CDT [address] [place] [address] US BREAST LT BIRAD [facility] INDICATION: Palpable left breast nodule for one week. TECHNIQUE: Limited grayscale and color Doppler ultrasound performed of the palpable area concern left breast. COMPARISON: None FINDINGS: At the palpable area of concern in the superior left breast, no discrete sonographic abnormality is identified. No solid or cystic lesions are seen. Major fibroglandular tissue is present. Findings were discussed with the patient in the presence of vascular technologist exam. Clinical follow-up was recommended for the left breast palpable abnormality. Patient instructed to contact her physician and our department should she develop enlarging palpable abnormality or change in character. Patient expressed understanding. us Darby Olivarez PAPER STRIPPER-C ULTRASOUND Final R esult from Last 3 Months Insurance Advance Directives * Full Code (Latest Code [...] 3:08 PM 03/17/2021 1:10 PM Care Teams Telephone Service Adviser Relationship Specialty Start Date End Date Juanito Domingo MD [address] [place] [address] PCP - General FAMILY PRACTICE 04/11/19
--- NOTE | 2024-12-27 13:42 | PC.NURSE ---
covid culture sent to lab
[2024-12-27 13:57] LABS: Hematocrit 40.2 % (35.0-49.0); Hemoglobin 13.5 g/dL (12.0-15.0); Mean Corpuscular HGB Conc 33.6 g/dL (32-36); Mean Corpuscular Hemoglobin 29.6 pg (27.0-31.0); Mean Corpuscular Volume 88.2 fL (78.0-102.0); Mean Platelet Volume 11.5 fl (9.2-11.8); Platelet Count Result 172 K/mm3 (150-420); Red Blood Count 4.56 M/mm3 (4.20-5.40); Red Cell Distribution Width 11.9 % (11.6-14.4)
[2024-12-27] MEDS: SODIUM CHLORIDE 0.9% IV 1,000 ML 999 ML IV CONT ×2 (14:08→16:17)
[2024-12-27] MEDS: LORazepam INJ (*CRX) 2 MG/ML VIAL 1 MG IV PUSH ×2 (14:09→17:24)
[2024-12-27] MEDS: ONDANSETRON INJ 4 MG/2 ML VIAL IV PUSH ×2 (14:09→17:24)
[2024-12-27] MEDS: KETOROLAC 30 MG/ML VIAL (*BKC) IV PUSH (14:09)
[2024-12-27 14:14] LABS: Alanine Aminotransferase 13 U/L (14-59); Albumin Level 4.2 g/dL (3.4-5.0); Alkaline Phosphatase 176 U/L (46-116); Anion Gap 16 mmol/L (4-12); Aspartate Amino Transferase < 10 U/L (15-37); Bilirubin,Total 0.8 mg/dL (0.00-1.00); Blood Urea Nitrogen 8 mg/dL (7-18); Calcium 9.1 mg/dL (8.5-10.1); Carbon Dioxide 22 mmol/L (21-32); Chloride 99 mmol/L (98-108); Estimated CRCL calculation 100 ml/min; Estimated Glomerular Filt Rate > 60; Glucose 96 mg/dL (70-99); Lipase 30 U/L (16-77); Osmolality Calculated 282 mOsm/kg (285-295); Potassium 3.5 mmol/L (3.5-5.1); Sodium 137 mmol/L (136-145)
[2024-12-27 14:19] LABS: Lactic Acid Reflex 1.4 mmol/L (0.4-2.0)
[2024-12-27 14:20] LABS: Add Urine Microscopic? NO; Appearance Urine Clear (Clear); Bilirubin Urine Negative (Negative); Blood Urine Negative (Negative); Color Urine Light Yellow (Yellow); Glucose Urine UA Negative (Negative); Ketones Urine 3+ (Negative); Leukocyte Esterase Ur Negative LEU/UL (Negative); Nitrate Urine Negative (Negative); Protein Urine Negative (Negative); Specific Grav Ur <= 1.005 (1.010-1.020); Urobilinogen Urine 0.2 mg/dL (0.2-1.0)
--- OUTSIDE RECORDS SUMMARY | 2024-12-27 14:22 | XMS_ITS | Clinical Summary ---
Author Organization [facility] Address [address] [place] [address] Care Team Providers Care Neurology Professor Name Role Phone Juanito Domingo MD Primary [...] Diagnosed Date Anxiety 03/25/2021 Term of female ([facility]) Normal labor ([facility]) 03/22/2021 Prolonged latent phase of labor ([facility]/HCC) 2020 39 weeks gestation of ([facility]) 2020 Encounter for elective induction of labor ([facility]) 03/16/2021 Pre-eclampsia ([facility]) 03/01/2021 Elevated blood pressure affe cting in third trimester, antepartum ([facility]) 02/28/2021 Encounters Date Type Department Care Team Description 11/25/2024 8:28 AM CDT - 11/25/2024 11:59 PM CDT Hospital Encounter [facility] [address] [place] [address] Darby Olivarez ANSWERING SERVICE TELEPHONE OPERATOR-C Discharge Disposition: Home or Self Care (Routine [...] often do you attend chur ch or yazdanism services? More than 4 times per year 03/16/2021 Do you belong to any clubs o r organizations such as muslim groups, unions, fraternal or athletic groups, or [...] and heating? Not hard at all 03/16/2021 [facility] [place] of [facility] Health - Occupational Stress Questionnaire Answer Date [...] place to sleep or slept in a chcf (including now)? 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 [address] [facility] INDICATION: Palpable left breast nodule for one week. TECHNIQUE: Limited grayscale and color Doppler ultrasound performed of the palpable area concern left breast. COMPARISON: None FINDINGS: At the palpable area of concern in the superior left breast, no discrete sonographic abnormality is identified. No solid or cystic lesions are seen. [place] fibroglandular tissue is present. Findings were discussed with the patient in the presence of radiation therapy technologist exam. Clinical follow-up was recommended for the left breast palpable abnormality. Patient instructed to contact her physician and our department should she develop enlarging palpable abnormality or change in character. Patient expressed understanding. us Darby Olivarez ANSWERING SERVICE TELEPHONE OPERATOR-C ULTRASOUND Final R esult from Last 3 [...] 3:08 PM 03/17/2021 1:10 PM Care Teams Neurology Professor Relationship Specialty Start Date End Date Juanito Domingo MD [address] [place] [address] PCP - General FAMILY PRACTICE 04/11/19
[2024-12-27 14:53] LABS: Schistocytes None Seen
[2024-12-27 14:58] LABS: Band Neutrophils Percent 0 % (0-6); Basophils Percent Manual 0 % (0-1); Eosinophils Percent Manual 0 % (1-6); Lymphocytes Absolute Manual 0.64 K/mm3 (1.1-4.5); Lymphocytes Percent Manual 8 % (18-44); Monocytes Absolute Manual 0.24 K/mm3 (0.1-0.90); Monocytes Percent Manual 3 % (3-9); Neutrophils Absolute Manual 7.12 K/mm3 (1.7-7.2); Neutrophils Percent Manual 89 % (46-73); Platelet Estimate Adequate (Adequate); Total Cells Counted 100
[2024-12-27 15:00] VITALS: BP 138/77; PULSE 114; RESP 18; O2SAT 100
[2024-12-27 16:33] VITALS: BP 141/78; PULSE 112; RESP 16; TEMP 36.8; O2SAT 100
--- NOTE | 2024-12-27 17:17 | ED_ITS ---
HPI - Nausea/Vomiting/Diarrhea General Chief complaint: Nausea/Vomiting/Diarrhea Stated complaint: vomiting Time Seen by Provider: 12/27/24 13:33 Source: patient Mode of arrival: ambulatory Limitations: no limitations History of Present Illness HPI Narrative: Patient is a 29-year-old female with a significant past medical history that presents today with nausea vomiting abdominal pain. She is also very anxious and has anxiety and feels like she might have a panic attack. But she has had nausea vomiting since Monday. She states that she has not been able only thing down and has been vomiting up any food or liquids she is eating and drinking. She is very dehydrated. And has a hx of anxiety and is very anxious and shaky. MD elicited complaint: nausea, vomiting and other (anxiety ) Onset (ago): day(s) Description of vomiting: watery Associated nausea: Yes Associated abdominal pain: Yes Location of pain: diffuse Radiation: diffuse Pain consistency: intermittent Severity: mild Quality: cramping Exacerbating factors: vomiting and movement Relieving factors: none Associated symptoms: nausea/vomiting Related Data Allergies Allergy/AdvReac Type Severity Reaction Status Date / Time amoxicillin Allergy Difficulty Verified 11/23/24 17:54 Breathing latex Allergy Difficulty Verified 11/23/24 17:54 Breathing Penicillins Allergy Hives Verified 11/23/24 17:54 Review of Systems 2 Review of Systems: All systems reviewed & are unremarkable except as noted in HPI and below Constitutional: Constitutional: Reports as per HPI Eyes: Eyes: Reports no additional eye complaints ENT: Reports system reviewed and no additional complaints, except as documented Cardiovascular: Cardiovascular: Reports no additional cardiovascular complaints Respiratory: Respiratory: Reports no additional respiratory complaints Gastrointestinal: Gastrointestinal: Reports as per HPI, Reports abdominal pain, Reports diarrhea, Reports nausea and Reports vomiting Genitourinary: Genitourinary: Reports no additional female genitourinary complaints Musculoskeletal: Musculoskeletal: Reports no additional musculoskeletal complaints Integumentary/Breasts: Skin/Breast: Reports system reviewed and no additional complaints, except as docu Neurologic: Reports system reviewed and no additional complaints, except as documented Psychiatric: Psychiatric: Reports no additional psychiatric complaints Endocrine: Endocrine: Reports no additional endocrine complaints Hematologic/Lymphatic: Hematologic/Lymphatic: Reports no additional hematologic/lymphatic complaints Allergic/Immunologic: Allergic/Immunologic: Reports no additional allergic/immunologic complaints [facility] Past Medical History Medical History Patient denies medical problems Family History Family History Mother Diabetes mellitus Father Chronic bronchitis Social History Social History Smoking status: Never smoker Substance use: never Do You Feel Safe in your Home?: Yes Lack of Transportation: No Lack of Food: Never True Current Housing: I Have Housing Concerned About Future Housing: No Difficulty Paying Gas/Electric Bills: No Difficulty Paying for Meds: No Currently Unemployed: No Education: High School Diploma/GED Difficulty w/ Childcare or Family Care: No Spiritual care concerns: No Exam 2 Const: General: healthy appearing Nutritional Appearance: well nourished Orientation/consciousness: patient oriented x3 HENMT: Head: normal to inspection Ears: external ears normal [place]/Nose/Sinus: Normal external nose present Face and sinus: normal facial exam Mouth: Yes Normal oral and palatal mucosa present Eyes: Conjunctivae: conjunctivae normal Cornea: corneas normal Pupils: E qual, round and reactive pupils present EOM: EOMs intact bilaterally Neck: Neck: normal visual inspection Chest: Chest palpation & inspection: normal inspection of the chest Resp: Effort & Inspection: normal respiratory effort Auscultation: clear to auscultation bilaterally Cardio: Rate: regular rate Rhythm: regular rhythm GI: GI Palp: Yes Soft to palpation Back/Spine/Pelvis: Back: no CVA tenderness Skin: General skin exam: normal color Rashes: no rashes Wounds: no wounds Neuro: General: patient oriented x3 Cranial nerves: Yes Nystagmus not present Speech: normal speech Gait exam (Neuro): Normal gait present Extrem: General: normal to inspection Psych: Mental Status: mental status grossly normal Affect: normal affect Attitude: cooperative Course Vital Signs Vital signs: Vital Signs Temperature 98.1 F 12/27/24 13:27 Pulse Rate 124 H 12/27/24 13:27 Respiratory Rate 18 12/27/24 13:27 Blood Pressure 133/99 H 12/27/24 13:27 Pulse Oximetry 98 12/27/24 13:27 Oxygen Delivery Room Air 12/27/24 13:27 Temperature 98.2 F 12/27/24 16:33 Pulse Rate 112 H 12/27/24 16:33 Respiratory Rate 16 12/27/24 16:33 Blood Pressure 141/78 H 12/27/24 16:33 Pulse Oximetry 100 12/27/24 16:33 Oxygen Delivery Room Air 12/27/24 16:33 MDM - Nausea/Vomiting/Diarrhea MDM Narrative Medical decision making narrative: Patient is very anxious and has a hx of anxiety but is also very dehydrated and shaky. She feels like she is going to have a panic attack and will give her ativan for this. She also has LRQ abdominal pain and need to rule out appendicitis and will do a CT Of the abdomen and pelvis with contrast. Will also give 2 L normal saline for rehydration and a total of 8 mg of Zofran spread out for the nausea and vomiting. She also likely has a viral gastroenteritis. Differential Diagnosis Differential diagnosis: Likely gastroenteritis, dehydration and other ( anxiety) Medical Records Attestation: I reviewed the patient's medical records. Lab Data Attestation: I reviewed the patient's lab results. 12/27/24 13:50 12/27/24 13:50 Labs: Lab Results 12/27/24 12/27/24 Range/Units 13:33 13:50 WBC 8.0 (4.8-10.8) K/mm3 RBC 4.56 (4.20-5.40) M/mm3 Hgb 13.5 (12.0-15.0) g/dL Hct 40.2 (35.0-49.0) % MCV 88.2 (78.0-102.0) fL MCH 29.6 (27.0-31.0) pg MCHC 33.6 (32-36) g/dL RDW 11.9 (11.6-14.4) % Plt Count 172 (150-420) K/mm3 MPV 11.5 (9.2-11.8) fl Immature Gran % (Auto) Not Reportable Neut % (Auto) Not Reportable Lymph % (Auto) Not Reportable [place] % (Auto) Not Reportable Eos % (Auto) Not Reportable Baso % (Auto) Not Reportable Lymph # (Auto) Not Reportable [place] # (Auto) Not Reportable Eos # (Auto) Not Reportable Baso # (Auto) Not Reportable Abs Immat Gran (auto) Not Reportable Absolute Neuts (auto) Not Reportable Absolute Nucleated RBC Not Reportable Total Counted 100 Neutrophils % (Manual) 89 H (46-73) % Band Neutrophils % 0 (0-6) % Lymphocytes % (Manual) 8 L (18-44) % Monocytes % (Manual) 3 (3-9) % Eosinophils % (Manual) 0 L (1-6) % Basophils % (Manual) 0 (0-1) % Nucleated RBC % Not Reportable Abs Neuts (Manual) 7.12 (1.7-7.2) K/mm3 Abs Lymphs (Manual) 0.64 L (1.1-4.5) K/mm3 Abs Monocytes (Manual) 0.24 (0.1-0.90) K/mm3 Absolute Eos (Manual) 0.00 L (0.02-0.50) K/mm3 Abs Basophils (Manual) 0.00 (0-0.1) K/mm3 Platelet Estimate Adequate (Adequate) Schistocytes None seen Sodium 137 (136-145) mmol/L Potassium 3.5 (3.5-5.1) mmol/L Chloride 99 (98-108) mmol/L Carbon Dioxide 22 (21-32) mmol/L Anion Gap 16 H (4-12) mmol/L BUN 8 (7-18) mg/dL Creatinine 0.85 (0.55-1.02) mg/dL Estim Creat Clear Calc 100 ml/min Estimated GFR > 60 (59 - ) Glucose 96 (70-99) mg/dL Calculated Osmolality 282 L (285-295) mOsm/kg Lactic Acid 1.4 (0.4-2.0) mmol/L Calcium 9.1 (8.5-10.1) mg/dL Total Bilirubin 0.8 (0.00-1.00) mg/dL AST < 10 L (15-37) U/L ALT 13 L (14-59) U/L Alkaline Phosphatase 176 H (46-116) U/L Total Protein 8.0 (6.4-8.2) g/dL Albumin 4.2 (3.4-5.0) g/dL Lipase 30 (16-77) U/L Urine Color Light yellow (Yellow) Urine Appearance Clear (Clear) Urine pH 6.0 (5.0-8.0) Ur Specific [place] <= 1.005 L (1.010-1.020) Urine Protein Negative (Negative) Urine Glucose (UA) Negative (Negative) Urine Ketones 3+ H (Negative) Ur Blood (Man) Negative (Negative) Urine Nitrate Negative (Negative) Urine Bilirubin Negative (Negative) Urine Urobilinogen 0.2 (0.2-1.0) mg/dL Leukocyte Esterase Rfl Negative (Negative) KAMI/UL Imaging Data Attestation: I personally reviewed and interpreted this imaging study as follows: Discharge Plan Discharge Clinical Impression: Gastroenteritis, Dehydration, Anxiety Patient Disposition: Home Condition: Stable Instructions: Abdominal Pain (ED), Anxiety (ED) Patient Language: Citizen Of [place] Prescriptions: New ondansetron HCl 4 mg tablet 4 mg PO Q8H PRN (Reason: nausea and vomiting) Qty: 30 0RF alprazolam 1 mg tablet 1 mg PO QID PRN (Reason: anxiety) Qty: 12 0RF No Action levofloxacin 750 mg tablet 750 mg PO DAILY Qty: 4 0RF Rx Instructions: 5 day course total 1st dose given in the emergency room sulfamethoxazole-trimethoprim [Bactrim] 400-80 mg tablet 1 tablet PO BID 7 Days Qty: 14 0RF ondansetron 4 mg tablet,disintegrating 4 mg PO Q8H Qty: 14 0RF Follow-up/Referrals: Juanito Domingo M.D. [Primary Care Provider] - Time of Disposition: 17:29
[2024-12-27 17:52] VITALS: BP 132/64; PULSE 84; RESP 20; TEMP 36.7; O2SAT 98
== END 2024-12-27 17:54 | disposition home or self-care (01) ==
PROVIDERS: Emergency Provider Family Medicine; PCP Family Medicine
DX: K52.9 Noninfective gastroenteritis and colitis, unspecified (principal); F41.9 Anxiety disorder, unspecified; E86.0 Dehydration
CPT/HCPCS: 36415; 74177; 80053; 81003; 83605; 83690; 85025; 96361; 96374; 96375; 96376; 99284; J1885; J2060; J2405; J7030; Q9967

== ENCOUNTER 2024-12-29 13:56 | Emergency (ER) | payer BC, SELFPAY ==
[2024-12-29] VITALS (13 sets, daily range): BP systolic 126–147; BP diastolic 70–88; PULSE 75–118; RESP 15–17; TEMP 36.7–36.8; O2SAT 98–100
--- OUTSIDE RECORDS SUMMARY | 2024-12-29 13:59 | XMS_ITS | Clinical Summary ---
Author Organization [facility] Address [address] [place] [address] Care Team Providers Care Assembler Truck Trailer Name Role Phone Juanito Domingo MD Primary [...] Diagnosed Date Anxiety 03/25/2021 Term of female ([facility]) Normal labor ([facility]) 03/22/2021 Prolonged latent phase of labor ([facility]/HCC) 2020 39 weeks gestation of ([facility]) 2020 Encounter for elective induction of labor ([facility]) 03/16/2021 Pre-eclampsia ([facility]) 03/01/2021 Elevated blood pressure affe cting in third trimester, antepartum ([facility]) 02/28/2021 Encounters Date Type Department Care Team Description 11/25/2024 8:28 AM CDT - 11/25/2024 11:59 PM CDT Hospital Encounter [facility] [address] [place] [address] Darby Olivarez LOCOMOTIVE CRANE OPERATOR HELPER-C Discharge Disposition: Home or Self Care (Routine [...] often do you attend chur ch or alevism services? More than 4 times per year 03/16/2021 Do you belong to any clubs o r organizations such as jew groups, unions, fraternal or athletic groups, or [...] and heating? Not hard at all 03/16/2021 [facility] [place] of Occupat [facility] Health - Occupational Stress Questionnaire Answer Date [...] place to sleep or slept in a long-term (including now)? No 03/16/2021 Comments No Sex and Gender Information Value Date Recorded Sex Assigned at Female 11/19/2024 1:28 PM X RAY TECH Legal Sex Female 5:59 PM X RAY TECH Gender Identity Not on file Sexual Orientation [...] 5 Years) and At-Risk Patients (6 to 49 Years) Aged Out No longer eligi ble based on patient's age to complete this topic RSV Immunizations Under 20 Months Aged Out No longer eligible based on patient's age to complete this topic Procedures Procedure Name Priority Date/Time Associated Diagnosis Comments US BREAST LT [employer] Routine 11/25/2024 9:18 AM CDT Left breast mass from Last 3 Months Results * US BREAST LT [employer] (11/25/2024 9:18 AM CDT) Anatomical Region [...] 9:10 AM Narrative 11/25/2024 9:13 AM CDT [address] [place] [address] US BREAST LT BIRAD [facility] INDICATION: Palpable left breast nodule for one week. TECHNIQUE: Limited grayscale and color Doppler ultrasound performed of the palpable area concern left breast. COMPARISON: None FINDINGS: At the palpable area of concern in the superior left breast, no discrete sonographic abnormality is identified. No solid or cystic lesions are seen. [place] fibroglandular tissue is present. Findings were discussed with the patient in the presence of hybrid technologist exam. Clinical follow-up was recommended for the left breast palpable abnormality. Patient instructed to contact her physician and our department should she develop enlarging palpable abnormality or change in character. Patient expressed understanding. us Darby Olivarez LOCOMOTIVE CRANE OPERATOR HELPER-C ULTRASOUND Final R esult from Last 3 [...] 3:08 PM 03/17/2021 1:10 PM Care Teams Assembler Truck Trailer Relationship Specialty Start Date End Date Juanito Domingo MD [address] [place] [phone] PCP - General FAMILY PRACTICE 04/11/19
--- OUTSIDE RECORDS SUMMARY | 2024-12-29 13:59 | XMS_ITS | Data Portability ---
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 Discussed plan. Not available 10/24/2023 17:08:12 10/30/2023 10/30/2023 Patient is ___weeks . Discussed plan. Not available 10/30/2023 15:50:14 02/29/2024 02/29/2024 Annual gynecological exam performed. Patient will come back in a year unless there are new symptoms. [email or web address] Not available 02/29/2024 16:38:22 Plan of Treatment Reminders Order Date Submit Date Provider Last Modified By Organization Details Last Modified Time Details Appointments None record ed. Lab None record ed. Referral None record ed. Procedures None record ed. Surgeries None record ed. Imaging non-st ress test 024 10/30/19 24 [email or web address] [place], [address], [place], [address], 16:59:11 Medication Orders None record ed. Patient [...] t Abnor mal: No Resul ting Lab: [facility] [address] [facility] [address] Tel: CULTU RE ----- ----- ----- --- No Group B strep isola levi at 2 days (frantz ctive broth enhan cemen t) Not Available [facility] (Lab) [address] [facility], [place], [address], 10/19/2023 20:06:52 02/29/20 24 02/29/2024 IMAGE GUIDE [...] as clini jordi rico nted. Not Available [facility] (Lab) [address], [place], [address], 03/05/2024 13:53:07 09/29/19 24 09/29/2023 non-s tress test No observ ation record ed. [email or web address] [place] [address], [place], [address], 09/29/2023 18:55:15 09/29/19 non-s tress test No observ ation record ed. [email or web address] Not Available 09/29 17:13:40 09/29/19 24 10/03/2023 US, obste tric, bioph ysica l profi le + non-s tress test No observ ation record ed. [email or web address] [place] [address], [place], [address], 10/03/2023 12:33:34 09/29/19 24 09/29/2023 US, obste tric, bioph ysica l profi le + non-s tress test No observ ation record ed. [email or web address] [address] [facility] [place] [facility], [place], [address], 09/29/2023 19:02:23 10/05/19 24 10/05/2023 US, obste tric, follo w-up No observ ation record ed. [email or web address] [place] [address], [place], [address], 10/05/2023 17:54:19 10/05/19 non-s tress test No observ ation record ed. [email or web address] Not Available 10/05 18:07:53 10/05/19 24 10/05/2023 non-s tress test No observ ation record ed. [email or web address] [place] [address], [place], [address], 10/05/2023 19:13:04 10/06/19 24 10/05/2023 US, obste tric, follo w-up No observ ation record ed. BO [address], [place], [address], 10/09/2023 10:21:34 10/30/19 24 10/30/2023 non-s tress test No observ ation record ed. [email or web address] [place] [address], [place], [address], 10/30/2023 16:57:17 Result Notes None recorded. Problems Name Problem SNOMED Code Status Onset Date Resolution Date Notes Provider Name and Address Organization Details Recorded Time Pregnanc y 61968358 Completed 202211/02/2023 Lesly Anival [facility] 4 16:53:23 Transien t hyperten jamari of pregnanc y - delivere d 706749257 Completed Very late in pregnanc y Lesly Anival [facility] 4 16:53:19 Postpart um depressi on 25667693 Completed txed with prozac Dashaholden Felixle [facility] 4 16:53:19 Postpart um hemorrha ge 06098026 Completed question able - story unclear [facility] 4 16:53:19 Headache 76754655 Completed Lesly Anival [facility], [facility] 4 16:53:19 Mixed anxiety and depressi ve disorder 837836453 Completed Lesly Anival [facility] 4 16:53:19 Placenta circumva llata 9333206 Completed & MCI - Serial growth! Lesly Anival [facility] 4 16:53:19 Below expected growth rate 02632646509 4106 Completed 10/05 growth normal - no more antenata l testing needed Lesly crabtree, [facility] 16:53:19 Problem Notes None recorded. Procedures Surgical History Date Name Laterality Status Provider Name and Address Organization Details Recorded Time 1 Date of Last Pap Smear completed Crystal Ramos [facility] 12/07/2023 13:03:01 9 procedure on lip completed Crystallolly Ramos [facility] 12/07/2023 16:26:01 7 [facility]23 16:26:10 Imaging Results Imaging Date Name Status LastModified by Organiz ation Details LastModified Time 09/29/2023 non-stress test completed [email or web address] [place] [address], [place], [address], 09/29/2023 18:55:15 09/29/2023 non-stress test completed Informati on not available 09/29/2023 17:13:40 10/03/2023 US, obstetric, biophysical profile + non-stress test completed [email or web address] [place] [address], [place], [address], 10/03/2023 12:33:34 09/29/2023 US, obstetric, biophysical profile + non-stress test completed [email or web address] [address], [place], [address], 09/29/2023 19:02:23 10/05/2023 US, obstetric, follow-up completed [email or web address] [place] [address], [place], [address], 10/05/2023 17:54:19 10/05/2023 non-stress test completed [email or web address] Informati on not available 10/05/2023 18:07:53 10/05/2023 non-stress test completed [email or web address] [place] [address], [place], [address], 10/05/2023 19:13:04 10/05/2023 US, obstetric, follow-up completed BO [address], [place], [address], 10/09/2023 10:21:34 10/30/2023 non-stress test completed [email or web address] [place] [address], [place], [address], 10/30/2023 16:57:17 Procedure Notes None recorded. Medical Equipment None Reported. Allergies Allergen ID Allergen Name Allergen Category Reaction Reaction Severity Criticality Documentation Date Start Date Code Code System Note Provider Name and Address Organization Details Recorded Time 06309 Product containin g penicilli n (product) medicatio n hives vomiting Not available Not available Not available 03/30/2023 73952 8001 SNOMED Юлия Elda [facility] 3 16:20:54 38435 latex environme nt,medica tion Not available Not available Not available 12/07/2023 75126 91 RxNorm Crystal Ramos [facility] 4 16:24:40 Medications Name Sig Start [...] Updated DateTime 10/24/2023 172.72 cm 33.5 kg/m2 51862.32 14 g 132 mm[Hg] 77 mm[Hg] [facility] 4 17:17:07 Date Recorded Body height Body mass index (BMI) Body weight Systolic blood pressure Diastolic blood pressure Provider Name and Address Organization Details Last Updated DateTime 10/30/2023 172.72 cm 33.9 kg/m2 234988.0 9851 g 125 mm[Hg] 84 mm[Hg] [facility] 4 15:50:25 Date Recorded Body height Body mass index (BMI) Body weight Systolic blood pressure Diastolic blood pressure Provider Name and Address Organization Details Last Updated DateTime 12/07/2023 172.72 cm 32.1 kg/m2 62056.99 g 115 mm[Hg] 79 mm[Hg] Crystal Ramos [facility] 4 16:24:16 Date Recorded Body height Body mass index (BMI) Body weight Systolic blood pressure Diastolic blood pressure Provider Name and Address Organization Details Last Updated DateTime 02/29/2024 172.72 cm 33.1 kg/m2 00583.14 g 133 mm[Hg] 57 mm[Hg] Vicky Brooks [facility] 16:41:23 Social History Question Answer Notes LastModified by Organizat ion Details LastModified Time Tobacco Smoking Status Never Smoker Louise Ewing leyda, [facility] 10/05/2023 16:23:51 What Is Your Level [...] Or The Highest Degree You Have Received? 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 [id number] Information not available 03/30/2023 Do You Use Any Illicit Or Recreational Drugs? No Information not available 03/30/2023 Do You Use Sunscreen Routinely? Yes Information not available 03/30/2023 Sex: Unknown Functional Status Question Answer Note LastModified by Organizat ion Details LastModified Time Do you have difficulty walking or climbing stairs? No [email or web address] Information not available 12/07/2023 Are you able to walk? [email or web address] Information not available 03/30/2023 Are you able to care for yourself? Yes [email or web address] Information not available 12/07/2023 Do you have difficulty dressing or bathing? No [email or web address] Information not available 12/07/2023 What is your [...] SNOMED-CT Code Diagnosis ICD10 Code Diagnosis Note [id number] Sylvia Rodriguez [place] [address] [address] 03/30/2023 15:21:46 03/30/2023 16:36:46 Uncertain viability of 050542470 O36.80X0 Z3A.01 [id number] Sagar Mathew MD [place] [address],[place] [address] 03/30/2023 15:22:05 03/31/2023 10:37:24 Amenorrhea 93310663 N91.2 patient is a 27-year-ol d female who presents for amenorrhea . She has a positive test. Ultrasound revealed a 7 week gestation. we talked about , we talked about care. We talked about exercise, food, medication s. She returned to begin routine care. We spent over 20 minutes face-to-fa ce. More than 50% was counseling . [id number] Kadie Keith [place] [address],[place] [address] 04/20/2023 15:42:09 04/20/2023 16:30:33 [id number] Sagar Mathew MD [place] [address],[place] [address] 04/20/2023 15:44:59 04/20/2023 22:59:42 [id number] [facility] [address],[place] [address] 05/01/2023 16:08:06 05/01/2023 16:43:34 screening 540507237 Z36.82 [id number] Sagar Mathew MD [place] [address],[place] [address] 05/01/2023 16:08:48 05/01/2023 17:43:11 Routine care 053416337 Z34.81 [id number] [facility] [address],[place] [address] 05/31/2023 17:16:25 05/31/2023 18:37:33 [id number] Sagar Mathew MD [place] [address] [address] 05/31/2023 17:18:38 06/01/2023 10:28:37 Routine care 050167075 Z34.81 [id number] [facility] [address],[place] [address] 06/19/2023 14:39:38 06/19/2023 16:10:22 screening for malformation 855057745 Z36.3 Z3A.19 [id number] Sagar Mathew MD [place] [address],[place] [address] 06/19/2023 14:40:15 06/20/2023 09:42:54 Routine care 691282951 Z34.81 [id number] [facility] [address] [address] 07/19/2023 16:59:13 07/19/2023 18:33:25 Marginal insertion of umbilical cord 68213356 O43.122 O43.112 Z36.2 O44.42 Z3A.24 [id number] Sagar Mathew MD [place] [address] [address] 07/19/2023 17:00:40 07/19/2023 18:32:46 Routine care 028997791 Z34.81 [id number] [facility] [address],[place] [address] 08/17/2023 11:18:09 08/17/2023 11:50:48 Marginal insertion of umbilical cord 56988506 O43.122 O43.112 Z3A.28 [id number] Sagar Mathew MD [place] [address],[place] [address] 08/17/2023 11:18:31 08/17/2023 13:07:43 Routine care 731272620 Z34.81 [id number] SALONI ARCINIEGA MD [place] [address],[place] [address] 08/22/2023 11:29:48 08/22/2023 12:56:44 Inguinal pain 123276982 R10.2 [id number] Sagar Mathew MD [place] [address],[place] [address] 08/31/2023 16:38:20 08/31/2023 17:51:48 Routine care 821346925 Z34.81 [id number] [facility] [address],[place] [address] 09/14/2023 16:23:40 09/14/2023 17:03:30 Marginal insertion of umbilical cord 96593744 O43.122 O43.112 Z3A.32 [id number] Sagar Mathew MD [place] [address],[place] [address] 09/14/2023 16:24:36 09/15/2023 08:50:31 Routine care 086591817 Z34.81 [id number] Jo Hurtado [place] [address],[place] [address] 09/21/2023 11:15:28 09/21/2023 12:15:19 Below expected growth rate 2686424298 38632 R62.52 [id number] [facility] [address],[place] [address] 09/21/2023 11:16:01 09/21/2023 13:28:22 growth restriction 87568063 O36.5930 O36.8320 Z3A.33 [id number] Sagar Mathew MD [place] [address],[place] [address] 09/21/2023 11:16:28 09/21/2023 13:06:28 Routine care 943141020 Z34.81 [id number] [facility] [address],[place] [address] 09/29/2023 15:57:58 09/29/2023 18:07:36 Below expected growth rate 3261229814 92411 R62.52 [id number] [facility] [address],[place] [address] 09/29/2023 16:00:54 09/29/2023 18:07:17 Small for gestational age fetus 417940842 O36.5930 Z3A.34 [id number] SALONI ARCINIEGA MD [place] [address],[place] [address] 10/05/2023 16:18:49 10/05/2023 17:49:22 Placenta circumvallata 1841027 O43.119 Marginal i nsertion of umbilical cord 49470272 O43.129 Gestation period, 35 weeks 63343979 Z3A.35 [id number] [facility] [address],[place] [address] 10/05/2023 16:22:01 10/05/2023 18:15:03 Below expected growth rate 4992027796 97036 R62.52 [id number] Kadie Keith [place] [address],[place] [address] 10/05/2023 16:23:21 10/05/2023 17:20:23 Placenta circumvallata 2820574 O43.113 O43.103 Z3A.35 [id number] Sagar Mathew MD [place] [address],[place] [address] 10/12/2023 17:27:17 10/12/2023 21:40:25 [id number] Sagar Mathew MD [place] [address],[place] [address] 10/16/2023 17:23:17 10/17/2023 12:33:09 Routine care 619367406 Z34.81 [id number] Sagar Mathew MD [place] [address],[place] [address] 10/24/2023 16:56:24 10/24/2023 18:06:45 Routine care 953426092 Z34.81 [id number] Sagar Mathew MD [place] [address],[place] [address] 10/30/2023 15:34:13 10/30/2023 16:28:15 Routine care 639417755 Z34.81 [id number] Lesly Anival [place] [address],[place] [address] 10/30/2023 16:31:13 10/30/2023 16:59:11 tachycardia 962068403 O36.8399 [id number] Crystal Ramos [place] [address],[place] [address] 12/07/2023 16:09:37 12/07/2023 17:28:55 care 283275041 Z39.2 [id number] Sagar Mathew MD [place] [address],[place] [address] 02/29/2024 16:03:36 02/29/2024 17:33:25 Gynecologic examination 74307584 Z01.419 Annual gynecologi merritt exam performed. Patient [...] 2020 (MEDICAID REPLACEMENT - HMO) Skip Cruzell [id number] June Loy 10/24/[address] [facility] [id number] Skip Judith Granado [id number] June Loy 10/30/2023 2 [employer] [place] - [place] ON OR AFTER 2020 (MEDICAID REPLACEMENT - HMO) Skip Cruzell [id number] June Loy 10/30/[address] [facility] [id number] Skip Judith Loy [id number] June Loy 10/30/2023 2 [employer] [place] ON [place] AFTER 2020 (MEDICAID REPLACEMENT - HMO) Skip Cruzell [id number] June Loy 10/30/[address] [facility] [id number] Skip Wong Loy [id number] June Loy 12/07/2023 2 [employer] [place] AFTER 2020 (MEDICAID REPLACEMENT - HMO) Skip Cruzell [id number] June Loy 12/07/[address] [facility] [id number] Skip Wong Loy [id number] June Loy 02/29/[address] [facility] [id number] Skip Granado [id number] June Granado Notes Date Note Type Note [...] complaints, no problems, routine care. Crystal crabtree, [facility] 12/07/2023 18:42:27 02/29/2024 text/html Annual [...] exercise Sagar Mathew MD [address], [place], [address], [facility] 02/29/2024 17:24:33 OBGyn Episode Ob Episode Information Episode Created Date Number of Fetuses Patient Bloodtype Patient rh Status Prepregnancy Weight lbs Domestic Partner Domestic Partner Phone Father Name Cosmetician Apprentice Status 05/01/20 23 1 O Positive 192 CLOSED Fetus Data First Name Last Name Admitted to NICU Weight (g) Sex Living Outcome Pediatric Complications Fetus ID Race Codes Race Delivery Type 3515.33 8 M true Full Term 96263 Vaginal Delivery Problems Problem Notes cf/sma negative done on 03/08 @ [facility]. Problem Name Start Date End Date Resolution Snomed Code Not e Below expected growth rate 702574207543023 10/05 growth normal - no more testing needed Placenta circumvallata 1562703 & MCI - Serial growth! Headache 59031997 Mixed anxiety and depressive disorder 623695590 Transient hypertension of - delivered 423801592 Very late in depression 15977527 txed with proza c hemorrhage 58007083 questionable - story unclear Humza Calculation Initial [...] Weight in lbs Pre/Post Dialysis Refused Weight 192.611459888080 BP Diastolic BP Location Tested BP Systolic [...] Weight in lbs Pre/Post Dialysis Refused Weight 190.254433708281 BP Diastolic BP Location Tested BP Systolic [...] Weight in lbs Pre/Post Dialysis Refused Weight 194.848643394896 BP Diastolic BP Location Tested BP Systolic [...] Weight in lbs Pre/Post Dialysis Refused Weight 197.285083815698 BP Diastolic BP Location Tested BP Systolic [...] Weight in lbs Pre/Post Dialysis Refused Weight 204.289613108041 BP Diastolic BP Location Tested BP Systolic [...] Weight in lbs Pre/Post Dialysis Refused Weight 205.864503638954 BP Diastolic BP Location Tested BP Systolic [...] Weight in lbs Pre/Post Dialysis Refused Weight 206.451847561255 BP Diastolic BP Location Tested BP Systolic [...] Weight in lbs Pre/Post Dialysis Refused Weight 209.060556012279 BP Diastolic BP Location Tested BP Systolic [...] Weight in lbs Pre/Post Dialysis Refused Weight 212.97383838766 BP Diastolic BP Location Tested BP Systolic [...] Weight in lbs Pre/Post Dialysis Refused Weight 214.082663651125 BP Diastolic BP Location Tested BP Systolic [...] Weight in lbs Pre/Post Dialysis Refused Weight 216.828073573865 BP Diastolic BP Location Tested BP Systolic BP Type 81 L arm 138 sitting Fetus Heart Rate Present Fetus Movement A Yes Comments Flowsheet Date 10/16/2023 Oro Score Blood Edema Fundus Height Fundus Units Glucose Ketones Leukocytes Nitrite Labor Signs Protein Cervic Dilation Cervic Effacement Cervic Station 36 Type Weight in lbs Pre/Post Dialysis Refused Weight 217.335094282410 BP Diastolic BP Location Tested BP Systolic [...] Weight in lbs Pre/Post Dialysis Refused Weight 220.406442474856 BP Diastolic BP Location Tested BP Systolic [...] Weight in lbs Pre/Post Dialysis Refused Weight 223.291957063698 BP Diastolic BP Location Tested BP Systolic [...] Estim ated Date of Delivery false Thalassemia (St Helenian, Faroese, Mediterranean, Or Background): MCV < 80 false Neural Tube Defect (Meningomyelocele, Spina Bifi da, Or Anencephaly) false Congenital Heart Defect false Down Syndrome false Walt-Sachs (eg, Judaism, Cajun, Macedonian-Lucas) f alse Libby Disease false Sickle Cell Disease Or Trait () false Hemophilia Or Other Blood Disorders false Muscular Dystrophy false Cystic Fibrosis false [place]'s Chorea false Intellectual Disability/Autism false If Yes, [...] Domestic Partner Domestic Partner Phone Father Name Cosmetician Apprentice Status 03/30/20 23 1 CLOSED Fetus Data First Name Last Name Admitted to NICU Weight (g) Sex Living Outcome Pediatric Complications Fetus ID Race Codes Race Delivery Type 3288.54 2 F Full Term [address]81 Vaginal Delivery Humza Calculation Initial Humza Date [...]
--- NOTE | 2024-12-29 14:00 | ED_ITS ---
HPI - General Adult General Chief complaint: Nausea/Vomiting/Diarrhea Stated complaint: nausea, chills Time Seen by Provider: 12/29/24 13:58 History of Present Illness HPI narrative: June is a 29F that returned to the ED with watery diarrhea, weakness and brain fog. She started having symptoms 5 days ago. She came into the ED 3 days ago and was diagnosed with gastroenteritis. Labs and CT were normal at that time. Since discharge she has not vomited but she continues to have diarrhea several times per day. No hematochezia. Related Data Allergies Allergy/AdvReac Type Severity Reaction Status Date / Time amoxicillin Allergy Difficulty Verified 12/29/24 13:58 Breathing latex Allergy Difficulty Verified 12/29/24 13:58 Breathing Penicillins Allergy Hives Verified 12/29/24 13:58 Review of Systems 2 Review of Systems: All systems reviewed & are unremarkable except as noted in HPI and below PMFSH Past Medical History Medical History Patient denies medical problems Family History Family History Mother Diabetes mellitus Father Chronic bronchitis Social History Social History Smoking status: Never smoker Substance use: never Do You Feel Safe in your Home?: Yes Lack of Transportation: No Lack of Food: Never True Current Housing: I Have Housing Concerned About Future Housing: No Difficulty Paying Gas/Electric Bills: No Difficulty Paying for Meds: No Currently Unemployed: No Education: High School Diploma/GED Difficulty w/ Childcare or Family Care: No Spiritual care concerns: No Exam 2 Const: General: cooperative, healthy appearing, comfortable, no acute distress, well developed, alert, awake and Physically active O rientation/consciousness: oriented to person, oriented to place and oriented to time HENMT: Head: normal to inspection, normocephalic and atraumatic Ears: h earing grossly normal bilaterally and external ears normal Face/Nose/Sinus: N ormal external nose present Eyes: General: appearance normal, both eyes and all related structures P eriorbital: periorbital findings normal Sclera: sclerae normal Pupils: E qual, round and reactive pupils present Neck: Neck: normal visual inspection Chest: Chest palpation & inspection: normal inspection of the chest Resp: Effort & Inspection: normal respiratory effort, able to speak in complete sentences and no respiratory distress Auscultation: clear to auscultation bilaterally Cardio: Jugular venous distension: no JVD Rate: regular rate Rhythm: r egular rhythm GI: Inspection: normal to inspection GI Palp: Yes Soft to palpation A uscultation: normal bowel sounds Skin: General skin exam: normal color and no rashes or lesions noted Neuro: General: oriented to person, oriented to place and oriented to time Cranial nerves: Yes Equal, round and reactive pupils present Extrem: General: normal to inspection Course Course Emergency Course: ordered labs and fluids + for C. difficle. Other labs largely unremarkable Vital Signs Vital signs: Vital Signs Temperature 98.0 F 12/29/24 13:59 Pulse Rate 118 H 12/29/24 13:59 Respiratory Rate 16 12/29/24 13:59 Blood Pressure 143/87 H 12/29/24 13:59 Pulse Oximetry 100 12/29/24 13:59 Oxygen Delivery Room Air 12/29/24 13:59 Temperature 98.0 F 12/29/24 13:59 Pulse Rate 75 12/29/24 16:30 Respiratory Rate 15 12/29/24 16:30 Blood Pressure 138/88 12/29/24 16:30 Pulse Oximetry 99 12/29/24 16:31 Oxygen Delivery Room Air 12/29/24 13:59 Medical Decision Making Vital Signs Vital Signs: Vital Signs Temperature 98.0 F 12/29/24 13:59 Pulse Rate 118 H 12/29/24 13:59 Respiratory Rate 16 12/29/24 13:59 Blood Pressure 143/87 H 12/29/24 13:59 Pulse Oximetry 100 12/29/24 13:59 Oxygen Delivery Room Air 12/29/24 13:59 Temperature 98.0 F 12/29/24 13:59 Pulse Rate 75 12/29/24 16:30 Respiratory Rate 15 12/29/24 16:30 Blood Pressure 138/88 12/29/24 16:30 Pulse Oximetry 99 12/29/24 16:31 Oxygen Delivery Room Air 12/29/24 13:59 Lab Data 12/29/24 14:28 12/29/24 14:28 Labs: Lab Results 12/29/24 12/29/24 12/29/24 Range/Units 14:28 14:29 16:25 WBC 6.2 (4.8-10.8) K/mm3 RBC 4.42 (4.20-5.40) M/mm3 Hgb 12.8 (12.0-15.0) g/dL Hct 38.8 (35.0-49.0) % MCV 87.8 (78.0-102.0) fL MCH 29.0 (27.0-31.0) pg MCHC 33.0 (32-36) g/dL RDW 11.9 (11.6-14.4) % Plt Count 168 (150-420) K/mm3 MPV 11.5 (9.2-11.8) fl Immature Gran % (Auto) 0.5 H (0.0-0.0) % Neut % (Auto) 67.4 (50.0-70.0) % Lymph % (Auto) 22.3 (18.0-42.0) % [place] % (Auto) 9.2 (2.0-11.0) % Eos % (Auto) 0.3 L (1.0-6.0) % Baso % (Auto) 0.3 (0.0-1.0) % Lymph # (Auto) 1.39 (1.10-4.50) K/mm3 [place] # (Auto) 0.57 (0.10-0.90) K/mm3 Eos # (Auto) 0.02 (0.02-0.50) K/mm3 Baso # (Auto) 0.02 (0.00-0.10) K/mm3 Abs Immat Gran (auto) 0.03 H (0.00-0.00) K/mm3 Absolute Neuts (auto) 4.19 (1.70-7.20) K/mm3 Absolute Nucleated RBC 0.00 (0.00-0.00) K/mm3 Nucleated RBC % 0.0 (0-0.0) % Sodium 141 (136-145) mmol/L Potassium 3.5 (3.5-5.1) mmol/L Chloride 104 (98-108) mmol/L Carbon Dioxide 28 (21-32) mmol/L Anion Gap 9 (4-12) mmol/L BUN 6 L (7-18) mg/dL Creatinine 0.79 (0.55-1.02) mg/dL Estim Creat Clear Calc 107 ml/min Estimated GFR > 60 (59 - ) Glucose 114 H (70-99) mg/dL Calculated Osmolality 290 (285-295) mOsm/kg Lactic Acid 1.2 (0.4-2.0) mmol/L Calcium 9.0 (8.5-10.1) mg/dL Total Bilirubin 0.5 (0.00-1.00) mg/dL AST 10 L (15-37) U/L ALT 18 (14-59) U/L Alkaline Phosphatase 170 H (46-116) U/L Total Protein 7.3 (6.4-8.2) g/dL Albumin 3.9 (3.4-5.0) g/dL Lipase 42 (16-77) U/L Beta HCG, Quant < 1.00 (0-6) mIU/mL Urine Color Light yellow (Yellow) Urine Appearance Clear (Clear) Urine pH 5.5 (5.0-8.0) Ur Specific [place] <= 1.005 L (1.010-1.020) Urine Protein Negative (Negative) Urine Glucose (UA) Negative (Negative) Urine Ketones Negative (Negative) Ur Blood (Man) Negative (Negative) Urine Nitrate Negative (Negative) Urine Bilirubin Negative (Negative) Urine Urobilinogen 0.2 (0.2-1.0) mg/dL Leukocyte Esterase Rfl Negative (Negative) KAMI/UL C. difficile (PCR) Pending Discharge Plan Discharge Clinical Impression: C. difficile diarrhea Patient Disposition: Home Condition: Stable Instructions: C. Diff (Clostridioides Difficile) Infection (ED) Patient Language: Bur[place]ian Prescriptions: New vancomycin [Vancocin] 125 mg capsule 125 mg PO QID Qty: 40 0RF Rx Instructions: take 125 mg 4 times per day for 10 days; 2 times per day for 7 days; once daily for 7 days; once every 2-3 days for 2-8 weeks No Action levofloxacin 750 mg tablet 750 mg PO DAILY Qty: 4 0RF Rx Instructions: 5 day course total 1st dose given in the emergency room sulfamethoxazole-trimethoprim [Bactrim] 400-80 mg tablet 1 tablet PO BID 7 Days Qty: 14 0RF ondansetron HCl 4 mg tablet 4 mg PO Q8H PRN (Reason: nausea and vomiting) Qty: 30 0RF alprazolam 1 mg tablet 1 mg PO QID PRN (Reason: anxiety) Qty: 12 0RF ondansetron 4 mg tablet,disintegrating 4 mg PO Q8H Qty: 14 0RF Follow-up/Referrals: Juanito Domingo M.D. [Primary Care Provider] - Stand Alone Forms: Work/School Release IP
[2024-12-29 14:37] LABS: Basophils Absolute Auto 0.02 K/mm3 (0.00-0.10); Basophils Percent Auto 0.3 % (0.0-1.0); Eosinophils Absolute Auto 0.02 K/mm3 (0.02-0.50); Eosinophils Percent Auto 0.3 % (1.0-6.0); Hematocrit 38.8 % (35.0-49.0); Hemoglobin 12.8 g/dL (12.0-15.0); Immature Granulocyte Absolute 0.03 K/mm3 (0.00-0.00); Immature Granulocyte Percent A 0.5 % (0.0-0.0); Lymphocytes Absolute Auto 1.39 K/mm3 (1.10-4.50); Lymphocytes Percent Auto 22.3 % (18.0-42.0); Mean Corpuscular Volume 87.8 fL (78.0-102.0); Mean Platelet Volume 11.5 fl (9.2-11.8); Monocytes Absolute Auto 0.57 K/mm3 (0.10-0.90); Monocytes Percent Auto 9.2 % (2.0-11.0); Neutrophils Absolute Auto 4.19 K/mm3 (1.70-7.20); Neutrophils Percent Auto 67.4 % (50.0-70.0); Platelet Count Result 168 K/mm3 (150-420); Red Blood Count 4.42 M/mm3 (4.20-5.40); Red Cell Distribution Width 11.9 % (11.6-14.4); White Blood Count 6.2 K/mm3 (4.8-10.8)
--- OUTSIDE RECORDS SUMMARY | 2024-12-29 14:39 | XMS_ITS | Clinical Summary ---
Author Organization [facility] Address [address] [place] [address] Care Team Providers Care Plastic Panel Installer Name Role Phone Juanito Domingo MD Primary [...] Diagnosed Date Anxiety 03/25/2021 Term of female ([facility]) Normal labor ([facility]) 03/22/2021 Prolonged latent phase of labor ([facility]) 2020 39 weeks gestation of ([facility]) 2020 Encounter for elective induction of labor ([facility]) 03/16/2021 Pre-eclampsia ([facility]) 03/01/2021 Elevated blood pressure affe cting in third trimester, antepartum ([facility]) 02/28/2021 Encounters Date Type Department Care Team Description 11/25/2024 8:28 AM CDT - 11/25/2024 11:59 PM CDT Hospital Encounter [facility] [address] [place] [address] Darby Olivarez CHEMISTRY SPECIALIST-C Discharge Disposition: Home or Self Care (Routine [...] often do you attend chur ch or methodist services? More than 4 times per year 03/16/2021 Do you belong to any clubs o r organizations such as methodist groups, unions, fraternal or athletic groups, or [...] and heating? Not hard at all 03/16/2021 [facility] Health - Occupational Stress Questionnaire Answer [...] place to sleep or slept in a group home (including now)? No 03/16/2021 Comments No Sex and Gender Information Value Date Recorded Sex Assigned at Female 11/19/2024 1:28 PM [employer] Legal Sex Female 5:59 PM [employer] Gender Identity Not on file Sexual Orientation [...] Date/Time Associated Diagnosis Comments US BREAST LT [employer] Routine 11/25/2024 9:18 AM CDT Left breast mass from Last 3 Months Results * US BREAST LT [employer] (11/25/2024 9:18 AM CDT) Anatomical Region [...] 9:10 AM Narrative 11/25/2024 9:13 AM CDT [address] [place] [address] US BREAST LT [facility] INDICATION: Palpable left breast nodule for one week. TECHNIQUE: Limited grayscale and color Doppler ultrasound performed of the palpable area concern left breast. COMPARISON: None FINDINGS: At the palpable area of concern in the superior left breast, no discrete sonographic abnormality is identified. No solid or cystic lesions are seen. [place] fibroglandular tissue is present. Findings were discussed with the patient in the presence of radiological technologist exam. Clinical follow-up was recommended for the left breast palpable abnormality. Patient instructed to contact her physician and our department should she develop enlarging palpable abnormality or change in character. Patient expressed understanding. us Darby Olivarez CHEMISTRY SPECIALIST-C ULTRASOUND Final R esult from Last 3 [...] 3:08 PM 03/17/2021 1:10 PM Care Teams Plastic Panel Installer Relationship Specialty Start Date End Date Juanito Domingo MD [address] [place] [address] PCP - General FAMILY PRACTICE 04/11/19
[2024-12-29 14:46] LABS: Add Urine Microscopic? NO; Appearance Urine Clear (Clear); Bilirubin Urine Negative (Negative); Blood Urine Negative (Negative); Color Urine Light Yellow (Yellow); Glucose Urine UA Negative (Negative); Ketones Urine Negative (Negative); Leukocyte Esterase Ur Negative LEU/UL (Negative); Nitrate Urine Negative (Negative); Protein Urine Negative (Negative); Specific Grav Ur <= 1.005 (1.010-1.020); Urobilinogen Urine 0.2 mg/dL (0.2-1.0); pH Urine 5.5 (5.0-8.0)
[2024-12-29] MEDS: SODIUM CHLORIDE 0.9% IV 1,000 ML 999 ML IV CONT (14:46)
[2024-12-29 14:53] LABS: Lactic Acid Reflex 1.2 mmol/L (0.4-2.0)
[2024-12-29 15:01] LABS: Alanine Aminotransferase 18 U/L (14-59); Albumin Level 3.9 g/dL (3.4-5.0); Alkaline Phosphatase 170 U/L (46-116); Anion Gap 9 mmol/L (4-12); Aspartate Amino Transferase 10 U/L (15-37); Bilirubin,Total 0.5 mg/dL (0.00-1.00); Blood Urea Nitrogen 6 mg/dL (7-18); Carbon Dioxide 28 mmol/L (21-32); Chloride 104 mmol/L (98-108); Estimated CRCL calculation 107 ml/min; Estimated Glomerular Filt Rate > 60; Glucose 114 mg/dL (70-99); Lipase 42 U/L (16-77); Osmolality Calculated 290 mOsm/kg (285-295); Potassium 3.5 mmol/L (3.5-5.1); Sodium 141 mmol/L (136-145); Total Protein 7.3 g/dL (6.4-8.2)
[2024-12-29 15:11] LABS: Beta HCG Quantitative < 1.00 mIU/mL (0-6)
--- NOTE | 2024-12-29 16:08 | PC.NURSE ---
stool sample sent to lab
--- NOTE | 2024-12-29 16:42 | PC.NURSE ---
Patient ambulatory to and from bathroom with steady gait.
--- NOTE | 2024-12-29 17:00 | PC.NURSE ---
Patient reports nausea, ERP notified.
[2024-12-29] MEDS: ONDANSETRON INJ 4 MG/2 ML VIAL IV PUSH (17:08)
[2024-12-29 17:20] LABS: Toxigenic C. Diff POSITIVE (NEGATIVE)
[2024-12-29] MEDS: VANCOMYCIN HCL 125 MG ORAL CAPSULE PO (17:32)
== END 2024-12-29 17:35 | disposition home or self-care (01) ==
PROVIDERS: Emergency Provider Family Medicine; PCP Family Medicine
DX: A04.72 Enterocolitis due to Clostridium difficile, not specified as recurrent (principal)
CPT/HCPCS: 36415; 80053; 81003; 83605; 83690; 84702; 85025; 87045; 87427; 87449; 87493; 96361; 96374; 99284; A9270; J2405; J7030

== ENCOUNTER 2025-01-15 16:55 | Outpatient (CLI) | payer BC, SELFPAY ==
--- OUTSIDE RECORDS SUMMARY | 2025-01-15 17:00 | XMS_ITS | Data Portability ---
Author Organization [facility] Address [address] [place] [address] [address] Care Team Providers Care Bread Icer Name Role Phone ADI ALVA Primary Care Provider Assessment Encounter Date Assessment Date Assessment LastModified by Organization Details LastModified Time 10/24/2023 10/24/2023 Patient is ___weeks . Discussed plan. Not available 10/24/2023 17:08:12 10/30/2023 10/30/2023 Patient is ___weeks . Discussed plan. Not available 10/30/2023 15:50:14 02/29/2024 02/29/2024 Annual gynecological exam performed. Patient will come back in a year unless there are new symptoms. [email or web address] Not available 02/29/2024 16:38:22 Plan of Treatment Reminders Order Date Submit Date Provider Last Modified By Organization Details Last Modified Time Details Appointments None record ed. Lab None record ed. Referral None record ed. Procedures None record ed. Surgeries None record ed. Imaging non-st ress test 024 10/30/19 24 [email or web address] [facility], [address], [place], [address], 16:59:11 Medication Orders None record ed. Patient [...] t Abnor mal: No Resul ting Lab: [facility] [address] [facility] [address] Tel: CULTU RE ----- ----- ----- --- No Group B strep isola levi at 2 days (frantz ctive broth enhan cemen t) Not Available [facility] (Lab) [address] [facility], [place], [address], 10/19/2023 20:06:52 02/29/20 24 02/29/2024 IMAGE GUIDE [...] ry/Pr eviou s Pap: Type of Neopl romuol (if appli cable ): Signi fican t Clini merrtit Findi ngs: Other Histo ry: Hormo slime [...] cance r preve ntion . If repor lvei cytol ogic findi ng do not corre late with physi merritt and/o r histo rical findi ngs, furth er inves tigat ion is recom rachna d, as clini jordi rico nted. Not Available [facility] (Lab) [address], [place], [address], 03/05/2024 13:53:07 09/29/19 24 09/29/2023 non-s tress test No observ ation record ed. [email or web address] [facility] [address], [place], [address], 09/29/2023 18:55:15 09/29/19 non-s tress test No observ ation record ed. [email or web address] Not Available 09/29 17:13:40 09/29/19 24 10/03/2023 US, obste tric, bioph ysica l profi le + non-s tress test No observ ation record ed. [email or web address] [facility] [address], [place], [address], 10/03/2023 12:33:34 09/29/19 24 09/29/2023 US, obste tric, bioph ysica l profi le + non-s tress test No observ ation record ed. [email or web address] [address] [facility], [place], [address], 09/29/2023 19:02:23 10/05/19 24 10/05/2023 US, obste tric, follo w-up No observ ation record ed. [email or web address] [facility] [address], [place], [address], 10/05/2023 17:54:19 10/05/19 non-s tress test No observ ation record ed. [email or web address] Not Available 10/05 18:07:53 10/05/19 24 10/05/2023 non-s tress test No observ ation record ed. [email or web address] [facility] [address], [place], [address], 10/05/2023 19:13:04 10/06/19 24 10/05/2023 US, obste tric, follo w-up No observ ation record ed. BO [address], [place], [address], 10/09/2023 10:21:34 10/30/19 24 10/30/2023 non-s tress test No observ ation record ed. [email or web address] [facility] [address], [place], [address], 10/30/2023 16:57:17 Result Notes None recorded. Problems Name Problem SNOMED Code Status Onset Date Resolution Date Notes Provider Name and Address Organization Details Recorded Time Pregnanc y 21727866 Completed 202211/02/[address] [facility] 4 16:53:23 Transien t hyperten jamari of pregnanc y - delivere d 118097545 Completed Very late in pregnanc y Lesly Anival [facility] 4 16:53:19 Postpart um depressi on 48991538 Completed txed with prozac Dashaholden Felixle [facility] 4 16:53:19 Postpart um hemorrha ge 25719531 Completed question able - story unclear [facility] 4 16:53:19 Headache 63157361 Completed Lesly Anival [facility], [facility] 4 16:53:19 Mixed anxiety and depressi ve disorder 223734730 Completed Lesly Anival [facility] 4 16:53:19 Placenta circumva llata 2176732 Completed & [facility] - Serial growth! Lesly Anival [facility] 4 16:53:19 Below expected growth rate 39245974388 4106 Completed 10/05 growth normal - no more antenata l testing needed Lesly crabtree, [facility] 16:53:19 Problem Notes None recorded. Procedures Surgical History Date Name Laterality Status Provider Name and Address Organization Details Recorded Time 1 Date of Last Pap Smear completed Crystal Ramos [facility] 12/07/2023 13:03:01 9 procedure on lip completed Crystallolly Ramos [facility] 12/07/2023 16:26:01 7 [facility] ear [facility]23 16:26:10 Imaging Results Imaging Date Name Status LastModified by Organiz ation Details LastModified Time 09/29/2023 non-stress test completed [email or web address] [facility] [address], [place], [address], 09/29/2023 18:55:15 09/29/2023 non-stress test completed [email or web address] Informati on not available 09/29/2023 17:13:40 10/03/2023 US, obstetric, biophysical profile + non-stress test completed [email or web address] [facility] [address], [place], [address], 10/03/2023 12:33:34 09/29/2023 US, obstetric, biophysical profile + non-stress test completed [email or web address] [address], [place], [address], 09/29/2023 19:02:23 10/05/2023 US, obstetric, follow-up completed [email or web address] [facility] [address], [place], [address], 10/05/2023 17:54:19 10/05/2023 non-stress test completed [email or web address] Informati on not available 10/05/2023 18:07:53 10/05/2023 non-stress test completed [email or web address] [facility] [address], [place], [address], 10/05/2023 19:13:04 10/05/2023 US, obstetric, follow-up completed BO [address], [place], [address], 10/09/2023 10:21:34 10/30/2023 non-stress test completed [email or web address] [facility] [address], [place], [address], 10/30/2023 16:57:17 Procedure Notes None recorded. Medical Equipment None Reported. Allergies Allergen ID Allergen Name Allergen Category Reaction Reaction Severity Criticality Documentation Date Start Date Code Code System Note Provider Name and Address Organization Details Recorded Time 78595 Product containin g penicilli n (product) medicatio n hives vomiting Not available Not available Not available 03/30/2023 45072 8001 SNOMED Юлия Elda [facility] 3 16:20:54 73100 latex environme nt,medica tion Not available Not available Not available 12/07/2023 72966 91 RxNorm Crystal Ramos [facility] 4 16:24:40 Medications Name Sig Start [...] Updated DateTime 10/24/2023 172.72 cm 33.5 kg/m2 82280.32 14 g 132 mm[Hg] 77 mm[Hg] [facility] 4 17:17:07 Date Recorded Body height Body mass index (BMI) Body weight Systolic blood pressure Diastolic blood pressure Provider Name and Address Organization Details Last Updated DateTime 10/30/2023 172.72 cm 33.9 kg/m2 784654.0 9851 g 125 mm[Hg] 84 mm[Hg] [facility] 4 15:50:25 Date Recorded Body height Body mass index (BMI) Body weight Systolic blood pressure Diastolic blood pressure Provider Name and Address Organization Details Last Updated DateTime 12/07/2023 172.72 cm 32.1 kg/m2 49894.99 g 115 mm[Hg] 79 mm[Hg] Crystal Ramos [facility] 4 16:24:16 Date Recorded Body height Body mass index (BMI) Body weight Systolic blood pressure Diastolic blood pressure Provider Name and Address Organization Details Last Updated DateTime 02/29/2024 172.72 cm 33.1 kg/m2 86348.14 g 133 mm[Hg] 57 mm[Hg] Vicky Brooks [facility] 16:41:23 Social History Question Answer Notes LastModified by Organizat ion Details LastModified Time Tobacco Smoking Status Never Smoker Louise Ewing leyda, [facility] 10/05/2023 16:23:51 What Is [...] Or The Highest Degree You Have Received? 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 [id number] Information not available 03/30/2023 Do You Use Any Illicit Or Recreational Drugs? No Information not available 03/30/2023 Do You Use Sunscreen Routinely? Yes Information not available 03/30/2023 Sex: Unknown Functional Status Question Answer Note LastModified by Organizat ion Details LastModified Time Do you have difficulty walking or climbing stairs? No Information not available 12/07/2023 Are you able to walk? [email or web address] Information not available 03/30/2023 Are you able to care for yourself? Yes [email or web address] Information not available 12/07/2023 Do you have difficulty dressing or bathing? No [email or web address] Information not available 12/07/2023 What is your [...] N Drug/Latex Allergies/Reactions Y Blood Transfusion N Lung Disease N Dermatologic Disorders N Defects or Inherited Disease N Breast [...] SNOMED-CT Code Diagnosis ICD10 Code Diagnosis Note [id number] Sagar Mathew MD [facility] [address],[place] [address] 03/30/2023 15:21:46 03/30/2023 16:36:46 Uncertain viability of 968124912 O36.80X0 Z3A.01 [id number] Sagar Mathew MD [facility] [address],[place] [address] 03/30/2023 15:22:05 03/31/2023 10:37:24 Amenorrhea 65030010 N91.2 patient is a 27-year-ol d female who presents for amenorrhea . She has a positive test. Ultrasound revealed a 7 week gestation. we talked about , we talked about care. We talked about exercise, food, medication s. She returned to begin routine care. We spent over 20 minutes face-to-fa ce. More than 50% was counseling . [id number] Sagar Mathew MD [facility] [address],[place] [address] 04/20/2023 15:42:09 04/20/2023 16:30:33 [id number] Sagar Mathew MD [facility] [address],[place] [address] 04/20/2023 15:44:59 04/20/2023 22:59:42 [id number] Sagar Mathew MD [facility] [address],[place] [address] 05/01/2023 16:08:06 05/01/2023 16:43:34 screening 273254884 Z36.82 [id number] Sagar Mathew MD [facility] [address],[place] [address] 05/01/2023 16:08:48 05/01/2023 17:43:11 Routine care 252189209 Z34.81 [id number] MD Christian Gallegos [address],[place] [address] 05/31/2023 17:16:25 05/31/2023 18:37:33 [id number] Sagar Mathew MD [facility] [address],[place] [address] 05/31/2023 17:18:38 06/01/2023 10:28:37 Routine care 101889599 Z34.81 [id number] Sagar Mathew MD [facility] [address],[place] [address] 06/19/2023 14:39:38 06/19/2023 16:10:22 screening for malformation 398595785 Z36.3 Z3A.19 [id number] MD Christian Gallegos [address],[place] [address] 06/19/2023 14:40:15 06/20/2023 09:42:54 Routine care 008317158 Z34.81 [id number] MD Christian Gallegos [address],[place] [address] 07/19/2023 16:59:13 07/19/2023 18:33:25 Marginal insertion of umbilical cord 01132380 O43.122 O43.112 Z36.2 O44.42 Z3A.24 [id number] MD Christian Gallegos [address],[place] [address] 07/19/2023 17:00:40 07/19/2023 18:32:46 Routine care 739055042 Z34.81 [id number] MD Christian Gallegos [address],[place] [address] 08/17/2023 11:18:09 08/17/2023 11:50:48 Marginal insertion of umbilical cord 52112162 O43.122 O43.112 Z3A.28 [id number] Sagar Mathew MD [facility] [address],[place] [address] 08/17/2023 11:18:31 08/17/2023 13:07:43 Routine care 680681681 Z34.81 [id number] SALONI ARCINIEGA MD [facility] [address],[place] [address] 08/22/2023 11:29:48 08/22/2023 12:56:44 Inguinal pain 014352016 R10.2 [id number] MD Christian Gallegos [address],[place] [address] 08/31/2023 16:38:20 08/31/2023 17:51:48 Routine care 429580547 Z34.81 [id number] MD Christian Gallegos [address],[place] [address] 09/14/2023 16:23:40 09/14/2023 17:03:30 Marginal insertion of umbilical cord 53694122 O43.122 O43.112 Z3A.32 [id number] MD Christian Gallegos [address],[place] [address] 09/14/2023 16:24:36 09/15/2023 08:50:31 Routine care 928408958 Z34.81 [id number] MD Christian Gallegos [address],[place] [address] 09/21/2023 11:15:28 09/21/2023 12:15:19 Below expected growth rate 7996881011 36044 R62.52 [id number] MD Christian Gallegos [address],[place] [address] 09/21/2023 11:16:01 09/21/2023 13:28:22 growth restriction 18288815 O36.5930 O36.8320 Z3A.33 [id number] MD Christian Gallegos [address],[place] [address] 09/21/2023 11:16:28 09/21/2023 13:06:28 Routine care 815055796 Z34.81 [id number] MD Christian Gallegos [address],[place] [address] 09/29/2023 15:57:58 09/29/2023 18:07:36 Below expected growth rate 5203722649 39709 R62.52 [id number] MD Christian Gallegos [address],[place] [address] 09/29/2023 16:00:54 09/29/2023 18:07:17 Small for gestational age fetus 738161105 O36.5930 Z3A.34 [id number] SALONI ARCINIEGA MD [facility] [address],[place] [address] 10/05/2023 16:18:49 10/05/2023 17:49:22 Placenta circumvallata 3183200 O43.119 Marginal i nsertion of umbilical cord 65811872 O43.129 Gestation period, 35 weeks 81579043 Z3A.35 [id number] MD Christian Gallegos [address],[place] [address] 10/05/2023 16:22:01 10/05/2023 18:15:03 Below expected growth rate 9707694966 20302 R62.52 [id number] MD Christian Gallegos [address],[place] [address] 10/05/2023 16:23:21 10/05/2023 17:20:23 Placenta circumvallata 4791861 O43.113 O43.103 Z3A.35 [id number] Sagar Mathew MD [facility] [address],[place] [address] 10/12/2023 17:27:17 10/12/2023 21:40:25 [id number] Sagar Mathew MD [facility] [address],[place] [address] 10/16/2023 17:23:17 10/17/2023 12:33:09 Routine care 479516208 Z34.81 [id number] Sagar Mathew MD [facility] [address],[place] [address] 10/24/2023 16:56:24 10/24/2023 18:06:45 Routine care 154316864 Z34.81 [id number] Sagar Mathew MD [facility] [address],[place] [address] 10/30/2023 15:34:13 10/30/2023 16:28:15 Routine care 697684565 Z34.81 [id number] Sagar Mathew MD [facility] [address],[place] [address] 10/30/2023 16:31:13 10/30/2023 16:59:11 tachycardia 571835052 O36.8399 [id number] Sagar Mathew MD [facility] [address],[place] [address] 12/07/2023 16:09:37 12/07/2023 17:28:55 care 354312817 Z39.2 [id number] Sagar Mathew MD [facility] [address],[place] [address] 02/29/2024 16:03:36 02/29/2024 17:33:25 Gynecologic examination 12514282 Z01.419 Annual gynecologi merritt exam performed. Patient [...] 2020 (MEDICAID REPLACEMENT - HMO) Skip Granado [id number] June Loy 10/24/2023 1 [facility] [id number] Skip Granado [id number] June Loy 10/30/2023 2 [employer] [facility] [facility] [place] - DOS ON OR AFTER 2020 (MEDICAID REPLACEMENT - HMO) Skip Loy [id number] June Loy 10/30/2023 1 [facility] [id number] Skip Granado [id number] June Loy 10/30/2023 2 [employer] [facility] - [place] ON [place] AFTER 2020 (MEDICAID REPLACEMENT - HMO) Skip Loy [id number] June Loy 10/30/2023 1 [facility] [id number] Skip Granado [id number] June Loy 12/07/2023 2 [employer] [facility] - [place] ON [place] AFTER 2020 (MEDICAID REPLACEMENT - HMO) Skip Granado [id number] June Loy 12/07/2023 1 [facility] [id number] Skip Granado [id number] June Loy 02/29/2024 1 [facility] [id number] Skip Granado [id number] June Loy Notes Date Note Type Note Provider Name [...] complaints, no problems, routine care. Crystal crabtree, [facility] 12/07/2023 18:42:27 02/29/2024 text/html [...] exercise Sagar Mathew MD [address], [place], [address], [facility] 02/29/2024 17:24:33 OBGyn Episode Ob Episode Information Episode Created Date Number of Fetuses Patient Bloodtype Patient rh Status Prepregnancy Weight lbs Domestic Partner Domestic Partner Phone Father Name Steel Roller Status 05/01/20 23 1 O Positive 192 CLOSED Fetus Data First Name Last Name Admitted to NICU Weight (g) Sex Living Outcome Pediatric Complications Fetus ID Race Codes Race Delivery Type 3515.33 8 M true Full Term 79172 Vaginal Delivery Problems Problem Notes cf/sma negative done on 03/08 @ [place]. Problem Name Start Date End Date Resolution Snomed Code Not e Below expected growth rate 010155725925836 10/05 growth normal - no more testing needed Placenta circumvallata 4251621 & [facility] - Serial growth! Headache 30836768 Mixed anxiety and depressive disorder 008248798 Transient hypertension of - delivered 851383797 Very late in depression 90728027 txed with proza c hemorrhage 43662157 questionable - story unclear Humza Calculation Initial [...] Weight in lbs Pre/Post Dialysis Refused Weight 192.425309522918 BP Diastolic BP Location Tested BP Systolic [...] Weight in lbs Pre/Post Dialysis Refused Weight 190.381016764841 BP Diastolic BP Location Tested BP Systolic [...] Weight in lbs Pre/Post Dialysis Refused Weight 194.075736547069 BP Diastolic BP Location Tested BP Systolic [...] Weight in lbs Pre/Post Dialysis Refused Weight 197.665725672084 BP Diastolic BP Location Tested BP Systolic [...] Weight in lbs Pre/Post Dialysis Refused Weight 204.368137067901 BP Diastolic BP Location Tested BP Systolic [...] Weight in lbs Pre/Post Dialysis Refused Weight 205.688607829188 BP Diastolic BP Location Tested BP Systolic [...] Weight in lbs Pre/Post Dialysis Refused Weight 206.129229510435 BP Diastolic BP Location Tested BP Systolic [...] Weight in lbs Pre/Post Dialysis Refused Weight 209.405391037966 BP Diastolic BP Location Tested BP Systolic [...] Weight in lbs Pre/Post Dialysis Refused Weight 212.30723989732 BP Diastolic BP Location Tested BP Systolic [...] Weight in lbs Pre/Post Dialysis Refused Weight 214.574153304759 BP Diastolic BP Location Tested BP Systolic [...] Weight in lbs Pre/Post Dialysis Refused Weight 216.898560031199 BP Diastolic BP Location Tested BP Systolic BP Type 81 L arm 138 sitting Fetus Heart Rate Present Fetus Movement A Yes Comments Flowsheet Date 10/16/2023 Oro Score Blood Edema Fundus Height Fundus Units Glucose Ketones Leukocytes Nitrite Labor Signs Protein Cervic Dilation Cervic Effacement Cervic Station 36 Type Weight in lbs Pre/Post Dialysis Refused Weight 217.386516228108 BP Diastolic BP Location Tested BP Systolic [...] Weight in lbs Pre/Post Dialysis Refused Weight 220.183340726723 BP Diastolic BP Location Tested BP Systolic [...] Weight in lbs Pre/Post Dialysis Refused Weight 223.469580922914 BP Diastolic BP Location Tested BP Systolic [...] Estim ated Date of Delivery false Thalassemia (Kyrgyz, British, Mediterranean, Or Background): MCV < 80 false Neural Tube Defect (Meningomyelocele, Spina Bifi da, Or Anencephaly) false Congenital Heart Defect false Down Syndrome false Walt-Sachs (eg, Restorationist, Cajun, Urdu-Lampasas) f alse Libby Disease false Sickle Cell Disease Or Trait () false Hemophilia Or Other Blood Disorders false Muscular Dystrophy false Cystic Fibrosis false [place]'s Chorea false Intellectual Disability/Autism false If Yes, [...] Domestic Partner Domestic Partner Phone Father Name Steel Roller Status 03/30/20 23 1 CLOSED Fetus Data First Name Last Name Admitted to NICU Weight (g) Sex Living Outcome Pediatric Complications Fetus ID Race Codes Race Delivery Type 3288.54 2 F Full Term Vaginal Delivery Humza Calculation Initial Humza Date [...]
--- OUTSIDE RECORDS SUMMARY | 2025-01-15 17:00 | XMS_ITS | Clinical Summary ---
Author Organization [facility] Address [address] [place] [address] Care Team Providers Care Manager Compliance Name Role Phone Juanito Domingo MD Primary [...] Date Anxiety 03/25/2021 Term of female ([facility]) Normal labor ([facility]) 03/22/2021 Prolonged latent phase of labor ([facility]) 2020 39 weeks gestation of ([facility]) 2020 Encounter for elective induction of labor ([facility]) 03/16/2021 Pre-eclampsia ([facility]) 03/01/2021 Elevated blood pressure affe cting in third trimester, antepartum ([facility]) 02/28/2021 Encounters Date Type Department Care Team Description 11/25/2024 8:28 AM CDT - 11/25/2024 11:59 PM CDT Hospital Encounter [facility] [address] [place] [address] Darby Olivarez 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 More than 4 times per year 03/16/2021 Do you belong to any clubs o r organizations such as jewish groups, unions, fraternal or athletic groups, or [...] and heating? Not hard at all 03/16/2021 [facility] [place] of Occupat community health Health - Occupational Stress Questionnaire Answer [...] place to sleep or slept in a half-way (including now)? 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 [address] US BREAST LT [facility] INDICATION: Palpable left breast nodule for one week. TECHNIQUE: Limited grayscale and color Doppler ultrasound performed of the palpable area concern left breast. COMPARISON: None FINDINGS: At the palpable area of concern in the superior left breast, no discrete sonographic abnormality is identified. No solid or cystic lesions are seen. [place] fibroglandular tissue is present. Findings were discussed with the patient in the presence of special procedure technologist exam. Clinical follow-up was recommended for the left breast palpable abnormality. Patient instructed to contact her physician and our department should she develop enlarging palpable abnormality or change in character. Patient expressed understanding. us Darby Olivarez SHOT TUBE MACHINE TENDER-C ULTRASOUND Final R esult from Last 3 [...] 3:08 PM 03/17/2021 1:10 PM Care Teams Manager Compliance Relationship Specialty Start Date End Date Juanito Domingo MD [address] [place] [address] PCP - General FAMILY PRACTICE 04/11/19
[2025-01-15 18:41] LABS: Toxigenic C. Diff POSITIVE (NEGATIVE)
== END 2025-01-15 16:56 | disposition home or self-care (01) ==
LOC: CHSLAB 16:58
PROVIDERS: PCP Nurse Practitioner Family; Visit Provider Nurse Practitioner Family
DX: R19.7 Diarrhea, unspecified (principal)
CPT/HCPCS: 87045; 87177; 87209; 87427; 87449; 87493

== ENCOUNTER 2025-01-16 16:31 | Emergency (ER) | payer BC, SELFPAY ==
[2025-01-16] VITALS (21 sets, daily range): BP systolic 124–142; BP diastolic 74–89; PULSE 87–125; RESP 16–18; TEMP 37.3; O2SAT 96–100
--- NOTE | ~2025-01-16 | CT_ITS ---
CLINICAL INDICATION: Abdominal pain COMPARISON: 12/27/2024 and dating back to 11/05/2023. TECHNIQUE: Multiple contiguous axial images of the abdomen and pelvis were performed without the admi nistration of intravenous contrast The dose-length product (DLP) was 485.54 mGy-cm. Automated exposure control and iterative reconstruction technique were employed. FINDINGS/OBSERVATIONS: Visualized lower thorax: The bilateral lung bases are clear. The heart is of normal size, without pericardial effusion. Small hiatal hernia is present. Liver: The liver demonstrates homogeneous attenuation and is not enlarged measuring cm in longitudinal dimen jamari. Gallbladder and biliary system: The gallbladder is only minimally distended, and otherwise unremarkable. Pancreas: Limited evaluation of the pancreas secondary to the lack of intravenous contrast. Spleen: The spleen demonstrates homogeneous attenuation and is not enlarged . Kidneys: The bilateral kidneys are unremarkable, without hydronephrosis or renal calculi. Adrenal glands: Unremarkable. Gastrointestinal tract: Mural thickening and surrounding inflammatory changes identified within the hepatic flexure the colon suggesting a focal colitis. Remainder of the bowel loops are otherwise unremarkable. Appendix: The air-filled appendix is of normal caliber (axial series, images 120 through 127). Vasculature: Unremarkable. Lymph nodes: No pathologically enlarged or morphologically suspicious lymph nodes within the retroperitoneum or at the root of the mesentery. Pelvic structures: The bladder is distended, and otherwise unremarkable. The uterus is anteverted and anteflexed, and otherwise unremarkable. Body wall and musculoskeletal: Small fat-containing umbilical hernia. No significant degenerative disease within the lower thoracic or lumbosacral spine. IMPRESSION: Findings within the hepatic flexure of the colon suggesting a focal colitis, as detailed above. Reviewed, dictated and finalized at location A.
--- OUTSIDE RECORDS SUMMARY | 2025-01-16 16:37 | XMS_ITS | Clinical Summary ---
Author Organization [facility] Address [address] [place] [address] Care Team Providers Care Scale Clerk Name Role Phone Juanito Domingo MD Primary [...] Diagnosed Date Anxiety 03/25/2021 Term of female ([facility]) Normal labor ([facility]) 03/22/2021 Prolonged latent phase of labor ([facility]) 2020 39 weeks gestation of ([facility]) 2020 Encounter for elective induction of labor ([facility]) 03/16/2021 Pre-eclampsia ([facility]) 03/01/2021 Elevated blood pressure affe cting in third trimester, antepartum ([facility]) 02/28/2021 Encounters Date Type Department Care Team Description 11/25/2024 8:28 AM CDT - 11/25/2024 11:59 PM CDT Hospital Encounter [facility] [address] [place] [address] Darby Olivarez [employer] Discharge Disposition: Home or Self Care (Routine [...] often do you attend chur ch or buddhism services? More than 4 times per year 03/16/2021 Do you belong to any clubs o r organizations such as caodaism groups, unions, fraternal or athletic groups, or [...] and heating? Not hard at all 03/16/2021 [facility] [place] [facility] - Occupational Stress Questionnaire Answer Date [...] place to sleep or slept in a snf (including now)? No 03/16/2021 Comments No Sex and Gender Information Value Date Recorded Sex Assigned at Female 11/19/2024 1:28 PM [facility] Legal Sex Female 5:59 PM [facility] Gender Identity Not on file Sexual Orientation [...] Date/Time Associated Diagnosis Comments US BREAST LT [employer] Routine 11/25/2024 9:18 AM CDT Left breast mass from Last 3 Months Results * US BREAST LT [employer] (11/25/2024 9:18 AM CDT) Anatomical Region [...] AM Narrative 11/25/2024 9:13 AM CDT [address] [place] [address] US BREAST LT [facility] INDICATION: Palpable left breast nodule for one week. TECHNIQUE: Limited grayscale and color Doppler ultrasound performed of the palpable area concern left breast. COMPARISON: None FINDINGS: At the palpable area of concern in the superior left breast, no discrete sonographic abnormality is identified. No solid or cystic lesions are seen. Mobile fibroglandular tissue is present. Findings were discussed with the patient in the presence of certified cytotechnologist exam. Clinical follow-up was recommended for the left breast palpable abnormality. Patient instructed to contact her physician and our department should she develop enlarging palpable abnormality or change in character. Patient expressed understanding. us Darby Olivarez [employer] ULTRASOUND Final R esult from Last 3 [...] 3:08 PM 03/17/2021 1:10 PM Care Teams Scale Clerk Relationship Specialty Start Date End Date Juanito Domingo MD [address] [place] [id number] PCP - General FAMILY PRACTICE 04/11/19
[2025-01-16 16:54] LABS: Add Urine Microscopic? YES; Appearance Urine Clear (Clear); Bilirubin Urine Negative (Negative); Blood Urine 1+ (Negative); Color Urine Light Yellow (Yellow); Glucose Urine UA Negative (Negative); Ketones Urine Trace (Negative); Leukocyte Esterase Ur 1+ LEU/UL (Negative); Nitrate Urine Negative (Negative); Protein Urine Negative (Negative); Specific Grav Ur <= 1.005 (1.010-1.020); Urobilinogen Urine 0.2 mg/dL (0.2-1.0)
[2025-01-16] MEDS: SODIUM CHLORIDE 0.9% IV 1,000 ML 999 ML IV CONT (16:54)
[2025-01-16 17:03] LABS: Pregnancy On Board Control Positive; Urine Pregnancy Test Negative
[2025-01-16 17:04] LABS: Hematocrit 38.3 % (35.0-49.0); Hemoglobin 12.7 g/dL (12.0-15.0); Mean Corpuscular HGB Conc 33.2 g/dL (32-36); Mean Corpuscular Hemoglobin 29.2 pg (27.0-31.0); Mean Platelet Volume 11.8 fl (9.2-11.8); Platelet Count Result 157 K/mm3 (150-420); Red Blood Count 4.35 M/mm3 (4.20-5.40); Red Cell Distribution Width 12.3 % (11.6-14.4); White Blood Count 4.7 K/mm3 (4.8-10.8)
[2025-01-16 17:18] LABS: Estimated CRCL calculation 111 ml/min
[2025-01-16 17:19] LABS: Estimated Glomerular Filt Rate > 60
[2025-01-16 17:20] LABS: Partial Thromboplastin Time 26.8 Sec (23.9-30.70); Prothrombin Time 11.1 Seconds (9.50-12.1)
--- OUTSIDE RECORDS SUMMARY | 2025-01-16 17:25 | XMS_ITS | Data Portability ---
Author Organization [facility] Address [address] [place] [address] [place] [address] Care Team Providers Care Clerical Aide Teacher Name Role Phone ADI ALVA Primary Care Provider [phone] Assessment Encounter Date Assessment Date Assessment LastModified by Organization Details LastModified Time 10/24/2023 10/24/2023 Patient is ___weeks . Discussed plan. Not available 10/24/2023 17:08:12 10/30/2023 10/30/2023 Patient is ___weeks . Discussed plan. Not available 10/30/2023 15:50:14 02/29/2024 02/29/2024 Annual gynecological exam performed. Patient will come back in a year unless there are new symptoms. [email or web address] Not available 02/29/2024 16:38:22 Plan of Treatment Reminders Order Date Submit Date Provider Last Modified By Organization Details Last Modified Time Details Appointments None record ed. Lab None record ed. Referral None record ed. Procedures None record ed. Surgeries None record ed. Imaging non-st ress test 024 10/30/19 24 [email or web address] [address], [address], [place], [address], 16:59:11 Medication Orders None record ed. Patient [...] t Abnor mal: No Resul ting Lab: [facility] [address] [facility] [address] Tel: CULTU RE ----- ----- ----- --- No Group B strep isola levi at 2 days (frantz ctive broth enhan cemen t) Not Available [facility] (Lab) [address] [facility], [place], [address], 10/19/2023 20:06:52 02/29/20 24 02/29/2024 IMAGE GUIDE [...] as clini jordi rico nted. Not Available [facility] (Lab) [address], [place], [address], 03/05/2024 13:53:07 09/29/19 24 09/29/2023 non-s tress test No observ ation record ed. [email or web address] [facility] [address], [place], [address], 09/29/2023 18:55:15 09/29/19 non-s tress test No observ ation record ed. [email or web address] Not Available 09/29 17:13:40 09/29/19 24 10/03/2023 US, obste tric, bioph ysica l profi le + non-s tress test No observ ation record ed. [email or web address] [facility] [address], [place], [address], 10/03/2023 12:33:34 09/29/19 24 09/29/2023 US, obste tric, bioph ysica l profi le + non-s tress test No observ ation record ed. [email or web address] [address] [facility], [place], [address], 09/29/2023 19:02:23 10/05/19 24 10/05/2023 US, obste tric, follo w-up No observ ation record ed. [email or web address] [facility] [address], [place], [address], 10/05/2023 17:54:19 10/05/19 non-s tress test No observ ation record ed. [email or web address] Not Available 10/05 18:07:53 10/05/19 24 10/05/2023 non-s tress test No observ ation record ed. [email or web address] [facility] [address], [place], [address], 10/05/2023 19:13:04 10/06/19 24 10/05/2023 US, obste tric, follo w-up No observ ation record ed. BO [address], [place], [address], 10/09/2023 10:21:34 10/30/19 24 10/30/2023 non-s tress test No observ ation record ed. [email or web address] [facility] [address], [place], [address], 10/30/2023 16:57:17 Result Notes None recorded. Problems Name Problem SNOMED Code Status Onset Date Resolution Date Notes Provider Name and Address Organization Details Recorded Time Pregnanc y 23069150 Completed 202211/02/2023 Lesly Anival [facility] 4 16:53:23 Transien t hyperten jamari of pregnanc y - delivere d 308524094 Completed Very late in pregnanc y Lesly Anival [facility] 4 16:53:19 Postpart um depressi on 36231462 Completed txed with prozac Dashaholden Felixle [facility] 4 16:53:19 Postpart um hemorrha ge 37170100 Completed question able - story [facility] 4 16:53:19 Headache 50227947 Completed Lesly Anival [facility], [facility] 4 16:53:19 Mixed anxiety and depressi ve disorder 015358635 Completed Lesly Anival [facility] 4 16:53:19 Placenta circumva llata 3165729 Completed & MCI - Serial growth! Lesly Anival [facility] 4 16:53:19 Below expected growth rate 60055477002 4106 Completed 10/05 growth normal - no more antenata l testing needed Lesly crabtree, [facility] 16:53:19 Problem Notes None recorded. Procedures Surgical History Date Name Laterality Status Provider Name and Address Organization Details Recorded Time 1 Date of Last Pap Smear completed Crystal Ramos [facility] 12/07/2023 13:03:01 9 procedure on lip completed Crystallolly Ramos [facility] 12/07/2023 16:26:01 7 [facility] ear [facility]23 16:26:10 Imaging Results Imaging Date Name Status LastModified by Organiz ation Details LastModified Time 09/29/2023 non-stress test completed [email or web address] [facility] [address], [place], [address], 09/29/2023 18:55:15 09/29/2023 non-stress test completed [email or web address] Informati on not available 09/29/2023 17:13:40 10/03/2023 US, obstetric, biophysical profile + non-stress test completed [email or web address] [facility] [address], [place], [address], 10/03/2023 12:33:34 09/29/2023 US, obstetric, biophysical profile + non-stress test completed [email or web address] [address], [place], [address], 09/29/2023 19:02:23 10/05/2023 US, obstetric, follow-up completed [email or web address] [facility] [address], [place], [address], 10/05/2023 17:54:19 10/05/2023 non-stress test completed [email or web address] Informati on not available 10/05/2023 18:07:53 10/05/2023 non-stress test completed [email or web address] [facility] [address], [place], [address], 10/05/2023 19:13:04 10/05/2023 US, obstetric, follow-up completed BO [address], [place], [address], 10/09/2023 10:21:34 10/30/2023 non-stress test completed [email or web address] [facility] [address], [place], [address], 10/30/2023 16:57:17 Procedure Notes None recorded. Medical Equipment None Reported. Allergies Allergen ID Allergen Name Allergen Category Reaction Reaction Severity Criticality Documentation Date Start Date Code Code System Note Provider Name and Address Organization Details Recorded Time 80832 Product containin g penicilli n (product) medicatio n hives vomiting Not available Not available Not available 03/30/2023 09692 8001 SNOMED Юлия Elda [facility] 3 16:20:54 39266 latex environme nt,medica tion Not available Not available Not available 12/07/2023 10034 91 RxNorm Crystal Ramos [facility] 4 16:24:40 Medications Name Sig Start [...] Updated DateTime 10/24/2023 172.72 cm 33.5 kg/m2 94434.32 14 g 132 mm[Hg] 77 mm[Hg] [facility] 4 17:17:07 Date Recorded Body height Body mass index (BMI) Body weight Systolic blood pressure Diastolic blood pressure Provider Name and Address Organization Details Last Updated DateTime 10/30/2023 172.72 cm 33.9 kg/m2 357641.0 9851 g 125 mm[Hg] 84 mm[Hg] [facility] 4 15:50:25 Date Recorded Body height Body mass index (BMI) Body weight Systolic blood pressure Diastolic blood pressure Provider Name and Address Organization Details Last Updated DateTime 12/07/2023 172.72 cm 32.1 kg/m2 35475.99 g 115 mm[Hg] 79 mm[Hg] Crystal Ramos [facility] 4 16:24:16 Date Recorded Body height Body mass index (BMI) Body weight Systolic blood pressure Diastolic blood pressure Provider Name and Address Organization Details Last Updated DateTime 02/29/2024 172.72 cm 33.1 kg/m2 82735.14 g 133 mm[Hg] 57 mm[Hg] Vicky Brooks [facility] 16:41:23 Social History Question Answer Notes LastModified by Organizat ion Details LastModified Time Tobacco Smoking Status Never Smoker Louise Ewing [email or web address], [facility] 10/05/2023 16:23:51 What Is Your [...] Or The Highest Degree You Have Received? 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 [id number] Information not available 03/30/2023 Do You Use Any Illicit Or Recreational Drugs? No Information not available 03/30/2023 Do You Use Sunscreen Routinely? Yes Information not available 03/30/2023 Sex: Unknown Functional Status Question Answer Note LastModified by Organizat ion Details LastModified Time Do you have difficulty walking or climbing stairs? No [email or web address] Information not available 12/07/2023 Are you able to walk? [email or web address] Information not available 03/30/2023 Are you able to care for yourself? Yes [email or web address] Information not available 12/07/2023 Do you have difficulty dressing or bathing? No [email or web address] Information not available 12/07/2023 What is your exercise level? Moderate Information not available 03/30/2023 Mental Status None recorded. Family History Relationship Description Onset Age of this Age Resolved Age Notes LastModified by Organization Details LastModified Time Unspecified Relation Family history unknown Not available 2022 16:00:54 Medical History Condition Response Other N Blood Transfusion N Dermatologic Disorders N Gestational Diabetes N Anxiety Disorder Y Autoimmune disease N Arthritis N Polyps N Infertility N Acid Reflux (GERD) N Cancer N Varicosities N Stroke N Neurologic/Epilepsy N Fibromyalgia N Headaches Y Kidney Disease N Heart Problems N Kidney or Bladder Problems N Eating Disorder N Art (IVF or FET) N Hepatitis/Liver Disease N No Past Medical History N Urinary Tract Infection N Asthma N Trauma/Violence N Thrombophilias N Allergies (Food, seasonal, environmental ) Y Breast Cancer N Drug/Latex Allergies/Reactions Y Lung Disease N Defects or Inherited Disease N Breast Problem N Hematologic disorders N Anesthesia Complications N History of STI N Deep Vein Thrombosis N Polycystic ovary syndrome N History of abnormal pap N Endometriosis N High Cholesterol N Thyroid Problems N GI Problems N Anemia N Psychiatric Illness N Ovarian Cancer N Diabetes N Pulmonary (TB, Asthma) N Eczema N Abuse/Domestic Violence N Depression/ depression Y Heart Disease N Pre-Eclampsia N Hypertension N Osteoporosis N Gynecological History Statement/Question Response Date of [...] SNOMED-CT Code Diagnosis ICD10 Code Diagnosis Note [id number] Sagar Mathew MD [facility] [address],[place] [address] 03/30/2023 15:21:46 03/30/2023 16:36:46 Uncertain viability of 966776929 O36.80X0 Z3A.01 [id number] Sagar Mathew MD [facility] [address],[place] [address] 03/30/2023 15:22:05 03/31/2023 10:37:24 Amenorrhea 94290672 N91.2 patient is a 27-year-ol d female who presents for amenorrhea . She has a positive test. Ultrasound revealed a 7 week gestation. we talked about , we talked about care. We talked about exercise, food, medication s. She returned to begin routine care. We spent over 20 minutes face-to-fa ce. More than 50% was counseling . [id number] Sagar Mathew MD [facility] [address],[place] [address] 04/20/2023 15:42:09 04/20/2023 16:30:33 [id number] Sagar Mathew MD [facility] [address],[place] [address] 04/20/2023 15:44:59 04/20/2023 22:59:42 [id number] Sagar Mathew MD [facility] [address],[place] [address] 05/01/2023 16:08:06 05/01/2023 16:43:34 screening 094299323 Z36.82 [id number] Sagar Mathew MD [facility] [address],[place] [address] 05/01/2023 16:08:48 05/01/2023 17:43:11 Routine care 946717443 Z34.81 [id number] MD Christian Gallegos [address],[place] [address] 05/31/2023 17:16:25 05/31/2023 18:37:33 [id number] Sagar Mathew MD [facility] [address],[place] [address] 05/31/2023 17:18:38 06/01/2023 10:28:37 Routine care 581431913 Z34.81 [id number] Sagar Mathew MD [facility] [address],[place] [address] 06/19/2023 14:39:38 06/19/2023 16:10:22 screening for malformation 065778986 Z36.3 Z3A.19 [id number] MD Christian Gallegos [address],[place] [address] 06/19/2023 14:40:15 06/20/2023 09:42:54 Routine care 126088122 Z34.81 [id number] MD Christian Gallegos [address],[place] [address] 07/19/2023 16:59:13 07/19/2023 18:33:25 Marginal insertion of umbilical cord 08606531 O43.122 O43.112 Z36.2 O44.42 Z3A.24 [id number] MD Christian Gallegos [address],[place] [address] 07/19/2023 17:00:40 07/19/2023 18:32:46 Routine care 040536570 Z34.81 [id number] MD Christian Gallegos [address],[place] [address] 08/17/2023 11:18:09 08/17/2023 11:50:48 Marginal insertion of umbilical cord 76271720 O43.122 O43.112 Z3A.28 [id number] Sagar Mathew MD [facility] [address],[place] [address] 08/17/2023 11:18:31 08/17/2023 13:07:43 Routine care 649837784 Z34.81 SALONI ARCINIEGA MD [facility] [address],[place] [address] 08/22/2023 11:29:48 08/22/2023 12:56:44 Inguinal pain 702508366 R10.2 [id number] MD Christian Gallegos [address],[place] [address] 08/31/2023 16:38:20 08/31/2023 17:51:48 Routine care 278321726 Z34.81 [id number] MD Christian Gallegos [address],[place] [address] 09/14/2023 16:23:40 09/14/2023 17:03:30 Marginal insertion of umbilical cord 36240801 O43.122 O43.112 Z3A.32 [id number] MD Christian Gallegos [address],[place] [address] 09/14/2023 16:24:36 09/15/2023 08:50:31 Routine care 276203591 Z34.81 [id number] MD Christian Gallegos [address],[place] [address] 09/21/2023 11:15:28 09/21/2023 12:15:19 Below expected growth rate 0524254083 87062 R62.52 [id number] MD Christian Gallegos [address],[place] [address] 09/21/2023 11:16:01 09/21/2023 13:28:22 growth restriction 33159303 O36.5930 O36.8320 Z3A.33 [id number] MD Christian Gallegos [address],[place] [address] 09/21/2023 11:16:28 09/21/2023 13:06:28 Routine care 460926545 Z34.81 [id number] MD Christian Gallegos [address],[place] [address] 09/29/2023 15:57:58 09/29/2023 18:07:36 Below expected growth rate 7192204843 66031 R62.52 [id number] MD Christian Gallegos [address],[place] [address] 09/29/2023 16:00:54 09/29/2023 18:07:17 Small for gestational age fetus 433654924 O36.5930 Z3A.34 [id number] SALONI ARCINIEGA MD [facility] [address],[place] [address] 10/05/2023 16:18:49 10/05/2023 17:49:22 Placenta circumvallata 5403952 O43.119 Marginal i nsertion of umbilical cord 73194199 O43.129 Gestation period, 35 weeks 41657107 Z3A.35 [id number] MD Christian Gallegos [address],[place] [address] 10/05/2023 16:22:01 10/05/2023 18:15:03 Below expected growth rate 1706490920 05293 R62.52 [id number] MD Christian Gallegos [address],[place] [address] 10/05/2023 16:23:21 10/05/2023 17:20:23 Placenta circumvallata 6606174 O43.113 O43.103 Z3A.35 [id number] Sagar Mathew MD [facility] [address],[place] [address] 10/12/2023 17:27:17 10/12/2023 21:40:25 [id number] Sagar Mathew MD [facility] [address],[place] [address] 10/16/2023 17:23:17 10/17/2023 12:33:09 Routine care 069086564 Z34.81 [id number] Sagar Mathew MD [facility] [address],[place] [address] 10/24/2023 16:56:24 10/24/2023 18:06:45 Routine care 365777550 Z34.81 [id number] Sagar Mathew MD [facility] [address],[place] [address] 10/30/2023 15:34:13 10/30/2023 16:28:15 Routine care 166417499 Z34.81 [id number] Sagar Mathew MD [facility] [address],[place] [address] 10/30/2023 16:31:13 10/30/2023 16:59:11 tachycardia 084549773 O36.8399 [id number] Sagar Mathew MD [facility] [address],[place] [address] 12/07/2023 16:09:37 12/07/2023 17:28:55 care 303940565 Z39.2 [id number] Sagar Mathew MD [facility] [address],[place] [address] 02/29/2024 16:03:36 02/29/2024 17:33:25 Gynecologic examination 23896030 Z01.419 Annual gynecologi merritt exam performed. Patient [...] 2020 (MEDICAID REPLACEMENT - HMO) Skip Granado [id number] June Loy 10/24/2023 1 [facility] SHARED [facility] [id number] Skip Granado [id number] June Loy 10/30/2023 2 [employer] [place] [place] - [place] ON OR AFTER 2020 (MEDICAID REPLACEMENT - HMO) Skip Loy [id number] June Loy 10/30/2023 1 [facility] [id number] Skip Granado [id number] June Loy 10/30/2023 2 [employer] [place] AFTER 2020 (MEDICAID REPLACEMENT - HMO) Skip Loy [id number] June Loy 10/30/2023 1 [facility] [id number] Skip Granado [id number] June Loy 12/07/2023 2 [employer] [facility] AFTER 2020 (MEDICAID REPLACEMENT - HMO) Skip Granado [id number] June Loy 12/07/2023 1 [facility] [id number] Skip Granado [id number] June Loy 02/29/2024 1 [facility] [id number] Skip Granado [id number] June Loy Notes Date Note Type Note [...] complaints, no problems, routine care. Crystal crabtree, [facility] 12/07/2023 18:42:27 02/29/2024 text/html Annual [...] exercise Sagar Mathew MD [address], [place], [address], [facility] 02/29/2024 17:24:33 OBGyn Episode Ob Episode Information Episode Created Date Number of Fetuses Patient Bloodtype Patient rh Status Prepregnancy Weight lbs Domestic Partner Domestic Partner Phone Father Name Die Cutter Status 05/01/20 23 1 O Positive 192 CLOSED Fetus Data First Name Last Name Admitted to NICU Weight (g) Sex Living Outcome Pediatric Complications Fetus ID Race Codes Race Delivery Type 3515.33 8 M true Full Term 25887 Vaginal Delivery Problems Problem Notes cf/sma negative done on 03/08 @ [place]. Problem Name Start Date End Date Resolution Snomed Code Not e Below expected growth rate 783946811687665 10/05 growth normal - no more testing needed Placenta circumvallata 1723375 & MCI - Serial growth! Headache 27473662 Mixed anxiety and depressive disorder 384827324 Transient hypertension of - delivered 017385259 Very late in depression 52219466 txed with proza c hemorrhage 32979371 questionable - story unclear Humza Calculation Initial [...] Gestation 0 [email or web address] 05/01/2023 11/07/19 24 0 Pre- Flowsheet Flowsheet Date 05/01/2023 Oro Score Blood Edema Fundus Height Fundus Units Glucose Ketones Leukocytes Nitrite Labor Signs Protein Cervic Dilation Cervic Effacement Cervic Station 13 Type Weight in lbs Pre/Post Dialysis Refused Weight 192.555023730583 BP Diastolic BP Location Tested BP Systolic [...] Weight in lbs Pre/Post Dialysis Refused Weight 190.556529902734 BP Diastolic BP Location Tested BP Systolic [...] Weight in lbs Pre/Post Dialysis Refused Weight 194.964840507943 BP Diastolic BP Location Tested BP Systolic [...] Weight in lbs Pre/Post Dialysis Refused Weight 197.885024683868 BP Diastolic BP Location Tested BP Systolic [...] Weight in lbs Pre/Post Dialysis Refused Weight 204.255916936680 BP Diastolic BP Location Tested BP Systolic [...] Weight in lbs Pre/Post Dialysis Refused Weight 205.560304921387 BP Diastolic BP Location Tested BP Systolic [...] Weight in lbs Pre/Post Dialysis Refused Weight 206.433944874308 BP Diastolic BP Location Tested BP Systolic [...] Weight in lbs Pre/Post Dialysis Refused Weight 209.532098623032 BP Diastolic BP Location Tested BP Systolic [...] Weight in lbs Pre/Post Dialysis Refused Weight 212.86000361266 BP Diastolic BP Location Tested BP Systolic [...] Weight in lbs Pre/Post Dialysis Refused Weight 214.727250841169 BP Diastolic BP Location Tested BP Systolic [...] Weight in lbs Pre/Post Dialysis Refused Weight 216.677253045976 BP Diastolic BP Location Tested BP Systolic BP Type 81 L arm 138 sitting Fetus Heart Rate Present Fetus Movement A Yes Comments Flowsheet Date 10/16/2023 Oro Score Blood Edema Fundus Height Fundus Units Glucose Ketones Leukocytes Nitrite Labor Signs Protein Cervic Dilation Cervic Effacement Cervic Station 36 Type Weight in lbs Pre/Post Dialysis Refused Weight 217.823379463783 BP Diastolic BP Location Tested BP Systolic [...] Weight in lbs Pre/Post Dialysis Refused Weight 220.618418537448 BP Diastolic BP Location Tested BP Systolic [...] Weight in lbs Pre/Post Dialysis Refused Weight 223.675100146673 BP Diastolic BP Location Tested BP Systolic [...] Estim ated Date of Delivery false Thalassemia (Upper Sorbian, Lebanese, Mediterranean, Or Background): MCV < 80 false Neural Tube Defect (Meningomyelocele, Spina Bifi da, Or Anencephaly) false Congenital Heart Defect false Down Syndrome false Walt-Sachs (eg, Samaritan, Cajun, Telugu-[place]) f alse Libby Disease false Sickle Cell [...] Domestic Partner Domestic Partner Phone Father Name Die Cutter Status 03/30/20 23 1 CLOSED Fetus Data [...]
--- OUTSIDE RECORDS SUMMARY | 2025-01-16 17:25 | XMS_ITS | Clinical Summary ---
Author Organization [facility] Address [address] [place] [address] Care Team Providers Care Animal Researcher Name Role Phone Juanito Domingo MD Primary [...] Anxiety 03/25/2021 Term of female ([facility]) Normal labor ([facility]) 03/22/2021 Prolonged latent phase of labor ([facility]) 2020 39 weeks gestation of ([facility]) 2020 Encounter for elective induction of labor ([facility]) 03/16/2021 Pre-eclampsia ([facility]) 03/01/2021 Elevated blood pressure affe cting in third trimester, antepartum ([facility]) 02/28/2021 Encounters Date Type Department Care Team Description 11/25/2024 8:28 AM CDT - 11/25/2024 11:59 PM CDT Hospital Encounter [facility] [address] [place] [address] Darby Olivarez AIR POLLUTION COMPLIANCE INSPECTOR-C Discharge Disposition: Home or Self Care (Routine [...] often do you attend chur ch or mandaen services? More than 4 times per year 03/16/2021 Do you belong to any clubs o r organizations such as yarsani groups, unions, fraternal or athletic groups, or [...] and heating? Not hard at all 03/16/2021 [facility] [place] [facility] - Occupational Stress Questionnaire Answer Date [...] place to sleep or slept in a penitentiary (including now)? No 03/16/2021 Comments No Sex and Gender Information Value Date Recorded Sex Assigned at Female 11/19/2024 1:28 PM SIGN LANGUAGE INSTRUCTOR Legal Sex Female 5:59 PM SIGN LANGUAGE INSTRUCTOR Gender Identity Not on file Sexual Orientation [...] Date/Time Associated Diagnosis Comments US BREAST LT [employer] Routine 11/25/2024 9:18 AM CDT Left breast mass from Last 3 Months Results * US BREAST LT [employer] (11/25/2024 9:18 AM CDT) Anatomical Region [...] 9:10 AM Narrative 11/25/2024 9:13 AM CDT [address] [place] [address] US BREAST LT [facility] INDICATION: Palpable left breast nodule for one week. TECHNIQUE: Limited grayscale and color Doppler ultrasound performed of the palpable area concern left breast. COMPARISON: None FINDINGS: At the palpable area of concern in the superior left breast, no discrete sonographic abnormality is identified. No solid or cystic lesions are seen. Carter fibroglandular tissue is present. Findings were discussed with the patient in the presence of certified cytotechnologist exam. Clinical follow-up was recommended for the left breast palpable abnormality. Patient instructed to contact her physician and our department should she develop enlarging palpable abnormality or change in character. Patient expressed understanding. us Darby Olivarez AIR POLLUTION COMPLIANCE INSPECTOR-C ULTRASOUND Final R esult from Last 3 [...] 3:08 PM 03/17/2021 1:10 PM Care Teams Animal Researcher Relationship Specialty Start Date End Date Juanito Domingo MD [address] [place] [address] PCP - General FAMILY PRACTICE 04/11/19
[2025-01-16 17:33] LABS: Bacteria Urine 3+ /hpf; RBC Urine 0-2 /hpf (0-2); Squamous Epithelial Cell Urine Few /hpf (Few); WBC Urine 0-3 /hpf (0-3)
[2025-01-16 17:44] LABS: Band Neutrophils Percent 0 % (0-6); Eosinophils Absolute Manual 0.09 K/mm3 (0.02-0.50); Eosinophils Percent Manual 2 % (1-6); Lymphocytes Absolute Manual 1.17 K/mm3 (1.1-4.5); Lymphocytes Percent Manual 25 % (18-44); Monocytes Absolute Manual 0.56 K/mm3 (0.1-0.90); Monocytes Percent Manual 12 % (3-9); Neutrophils Absolute Manual 2.86 K/mm3 (1.7-7.2); Neutrophils Percent Manual 61 % (46-73); Total Cells Counted 100
[2025-01-16 17:45] LABS: Platelet Estimate Adequate (Adequate); Schistocytes None Seen
--- NOTE | 2025-01-16 18:47 | ED.ABDPAIN ---
HPI - Abdominal Pain General Chief Complaint: Abdominal Pain Stated Complaint: abdominal pain Time Seen by Provider: 01/16/25 16:43 Source: patient Mode of arrival: ambulatory Limitations: no limitations History of Present Illness HPI narrative: This is a 29-year-old female who presents with some diarrhea with numerous episodes with no fever chills does have some crampy abdominal pain and is currently on antibiotics for C diff. otherwise there is no nausea or vomiting no flank pain no dysuria no chest pain or shortness of breath. MD elicited complaint: abdominal pain Pertinent past history: none Onset (ago): day(s) Pain Consistency: intermittent Location: periumbilical Severity: moderate Quality: cramping Related Data Allergies Allergy/AdvReac Type Severity Reaction Status Date / Time amoxicillin Allergy Difficulty Verified 01/16/25 16:36 Breathing latex Allergy Difficulty Verified 01/16/25 16:36 Breathing Penicillins Allergy Hives Verified 01/16/25 16:36 Review of Systems Review of Systems: All systems reviewed & are unremarkable except as noted in HPI and below PMFSH Past Medical History Medical History Patient denies medical problems Family History Family History Mother Diabetes mellitus Father Chronic bronchitis Social History Social History Smoking status: Never smoker Substance use: never Do You Feel Safe in your Home?: Yes Lack of Transportation: No Lack of Food: Never True Current Housing: I Have Housing Concerned About Future Housing: No Difficulty Paying Gas/Electric Bills: No Difficulty Paying for Meds: No Currently Unemployed: No Education: High School Diploma/GED Difficulty w/ Childcare or Family Care: No Spiritual care concerns: No Exam Const: General: healthy appearing and no acute distress Nutritional Appearance: well nourished Orientation/consciousness: patient oriented x3 Limitations: no limitations Eyes: Conjunctivae: conjunctivae normal Pupils: Equal, round and reactive pupils present Neck: Neck: normal visual inspection Chest: Chest palpation & inspection: normal inspection of the chest Resp: Effort & Inspection: normal respiratory effort Auscultation: clear to auscultation bilaterally Cardio: Rate: regular rate Rhythm: regular rhythm GI: GI Palp: Yes Soft to palpation and Yes Tenderness to palpation present (GI) Urinary Catheter: Urinary Catheter: patent and draining Neuro: General: patient oriented x3 and moves all extremities Extrem: General: normal to inspection, no clubbing, cyanosis or edema and no pedal edema Course Course Emergency Course: CT scan shows some focal colitis with and no evidence of diffuse colitis with a normal white count patient did receive IV fluids and rest of her blood work was unremarkable patient advised to continue her current regimen with some Flagyl and continue her follow-up with her primary or GI. Vital Signs Vital signs: Vital Signs Temperature 37.3 C 01/16/25 16:31 Pulse Rate 125 H 01/16/25 16:31 Respiratory Rate 18 01/16/25 16:31 Blood Pressure 137/76 01/16/25 16:31 Pulse Oximetry 99 01/16/25 16:31 Oxygen Delivery Room Air 01/16/25 16:31 Temperature 37.3 C 01/16/25 16:31 Pulse Rate 125 H 01/16/25 16:31 Respiratory Rate 18 01/16/25 16:31 Blood Pressure 137/76 01/16/25 16:31 Pulse Oximetry 99 01/16/25 16:31 Oxygen Delivery Room Air 01/16/25 16:31 MDM - Abdominal Pain Lab Data 01/16/25 17:00 01/16/25 17:00 Labs: Lab Results 01/16/25 01/16/25 Range/Units 16:43 17:00 WBC 4.7 L (4.8-10.8) K/mm3 RBC 4.35 (4.20-5.40) M/mm3 Hgb 12.7 (12.0-15.0) g/dL Hct 38.3 (35.0-49.0) % MCV 88.0 (78.0-102.0) fL MCH 29.2 (27.0-31.0) pg MCHC 33.2 (32-36) g/dL RDW 12.3 (11.6-14.4) % Plt Count 157 (150-420) K/mm3 MPV 11.8 (9.2-11.8) fl Immature Gran % (Auto) Not Reportable Neut % (Auto) Not Reportable Lymph % (Auto) Not Reportable [place] % (Auto) Not Reportable Eos % (Auto) Not Reportable Baso % (Auto) Not Reportable Lymph # (Auto) Not Reportable [place] # (Auto) Not Reportable Eos # (Auto) Not Reportable Baso # (Auto) Not Reportable Abs Immat Gran (auto) Not Reportable Absolute Neuts (auto) Not Reportable Absolute Nucleated RBC Not Reportable Total Counted 100 Neutrophils % (Manual) 61 (46-73) % Band Neutrophils % 0 (0-6) % Lymphocytes % (Manual) 25 (18-44) % Monocytes % (Manual) 12 H (3-9) % Eosinophils % (Manual) 2 (1-6) % Nucleated RBC % Not Reportable Abs Neuts (Manual) 2.86 (1.7-7.2) K/mm3 Abs Lymphs (Manual) 1.17 (1.1-4.5) K/mm3 Abs Monocytes (Manual) 0.56 (0.1-0.90) K/mm3 Absolute Eos (Manual) 0.09 (0.02-0.50) K/mm3 Platelet Estimate Adequate (Adequate) Schistocytes None seen PT 11.1 (9.50-12.1) Seconds INR 1.0 APTT 26.8 (23.9-30.70) Sec Sodium Pending Potassium Pending Chloride Pending Carbon Dioxide Pending Anion Gap Pending BUN Pending Creatinine 0.65 (0.55-1.02) mg/dL Estim Creat Clear Calc 111 ml/min Estimated GFR > 60 (59 - ) Glucose Pending Calculated Osmolality Pending Lactic Acid Pending Calcium Pending Total Bilirubin Pending AST Pending ALT Pending Alkaline Phosphatase Pending Total Protein Pending Albumin Pending Lipase Pending Urine Color Light yellow (Yellow) Urine Appearance Clear (Clear) Urine pH 6.0 (5.0-8.0) Ur Specific [place] <= 1.005 L (1.010-1.020) Urine Protein Negative (Negative) Urine Glucose (UA) Negative (Negative) Urine Ketones Trace H (Negative) Ur Blood (Man) 1+ H (Negative) Urine Nitrate Negative (Negative) Urine Bilirubin Negative (Negative) Urine Urobilinogen 0.2 (0.2-1.0) mg/dL Leukocyte Esterase Rfl 1+ H (Negative) KAMI/UL Urine RBC 0-2 (0-2) /hpf Urine WBC 0-3 (0-3) /hpf Ur Squamous Epith Cells Few (Few) /hpf Urine Bacteria 3+ (None) /hpf Urine Test Negative Imaging Data Radiologist's impression: ITS Impressions Abdomen/Pelvis CT 01/16/25 18:07 IMPRESSION: Findings within the hepatic flexure of the colon suggesting a focal colitis, as detailed above. Critical Care Time Critical Care Time Critical Care Time: No Discharge Plan Discharge Clinical Impression: C. difficile diarrhea Patient Disposition: Home Condition: Stable Instructions: Antibiotic Form, C. Diff (Clostridioides Difficile) Infection (ED) Additional Instructions: advised patient to take medication as prescribed and continue follow-up with primary for further evaluation and treatment. Patient Language: Nepali Prescriptions: No Action vancomycin [Vancocin] 125 mg capsule 125 mg PO QID Qty: 40 0RF Rx Instructions: take 125 mg 4 times per day for 10 days; 2 times per day for 7 days; once daily for 7 days; once every 2-3 days for 2-8 weeks levofloxacin 750 mg tablet 750 mg PO DAILY Qty: 4 0RF Rx Instructions: 5 day course total 1st dose given in the emergency room sulfamethoxazole-trimethoprim [Bactrim] 400-80 mg tablet 1 tablet PO BID 7 Days Qty: 14 0RF ondansetron HCl 4 mg tablet 4 mg PO Q8H PRN (Reason: nausea and vomiting) Qty: 30 0RF alprazolam 1 mg tablet 1 mg PO QID PRN (Reason: anxiety) Qty: 12 0RF ondansetron 4 mg tablet,disintegrating 4 mg PO Q8H Qty: 14 0RF Follow-up/Referrals: Marya,PAUL Pastor [Primary Care Provider] -
[2025-01-16 19:04] LABS: Lactic Acid Reflex 1.2 mmol/L (0.7-2.0)
[2025-01-16 19:06] LABS: Alanine Aminotransferase 19 U/L (6-35); Albumin Level 4.3 g/dL (3.5-5.1); Alkaline Phosphatase 129 U/L (38-126); Anion Gap 11 mmol/L (4-12); Aspartate Amino Transferase 22 U/L (14-36); Bilirubin,Total 0.5 mg/dL (0.2-1.3); Blood Urea Nitrogen 5 mg/dL (7-17); Calcium 8.8 mg/dL (8.4-10.2); Carbon Dioxide 24 mmol/L (22-30); Chloride 102 mmol/L (98-107); Glucose 94 mg/dL (65-110); Lipase 109 U/L (23-300); Osmolality Calculated 281 mOsm/kg (285-295); Potassium 3.6 mmol/L (3.4-5.0); Sodium 137 mmol/L (137-145)
--- NOTE | 2025-01-19 13:27 | PC.NURSE ---
urine culture final, no growth
== END 2025-01-16 19:18 | disposition home or self-care (01) ==
PROVIDERS: Emergency Provider Emergency Medicine; PCP Nurse Practitioner Family
DX: A04.72 Enterocolitis due to Clostridium difficile, not specified as recurrent (principal)
CPT/HCPCS: 36415; 74177; 80053; 81001; 81025; 83605; 83690; 85025; 85610; 85730; 87086; 96360; 99284; J7030; Q9967

== ENCOUNTER 2025-01-19 18:38 | Emergency (ER) | payer BC, SELFPAY ==
--- NOTE | ~2025-01-19 | XR_ITS ---
EXAM: XR abdomen obstructive series DATE: 01/19/2025 19:26 HISTORY: c diff . COMPARISON: 01/16/2025 CT abdomen pelvis. FINDINGS: Clear lung bases. Normal bowel gas pattern. Enlarged liver. No abnormal abdominal calcific ation. Regional bones and soft tissues normal for age. IMPRESSION: Hepatomegaly. No radiographic evidence of obstruction or ileus. Reviewed, dictated and finalized at location K.
[2025-01-19 18:39] VITALS: BP 144/84; PULSE 118; RESP 18; TEMP 36; O2SAT 100
--- OUTSIDE RECORDS SUMMARY | 2025-01-19 18:41 | XMS_ITS | Clinical Summary ---
Author Organization [facility] Address [address] [place] [address] Care Team Providers Care Warehouse Shipper Name Role Phone Juanito Domingo MD Primary Care Provider [phone] Allergies Active Allergy Reactions Criticality Noted Date Comments Amoxicillin Unknown 01/07/2021 Cefaclor Unknown 01/07/2021 Cefuroxime Unknown 01/07/2021 Latex Hives 01/07/2021 Levonorgestrel-Ethinyl Estrad Unknown 2014 Sneezing Medications sertraline 25 MG tablet Take 25 mg by mouth daily. Active vitamin 27-1 MG Tab tablet Take 1 tablet by mouth daily. Active Active Problems Problem Noted Date Diagnosed Date Anxiety 03/25/2021 Term of female ([facility]) Normal labor ([facility]) 03/22/2021 Prolonged latent phase of labor ([facility]) 2020 39 weeks gestation of ([facility]) 2020 Encounter for elective induction of labor ([facility]) 03/16/2021 Pre-eclampsia ([facility]) 03/01/2021 Elevated blood pressure affe cting in third trimester, antepartum ([facility]) 02/28/2021 Encounters Date Type Department Care Team Description 11/25/2024 8:28 AM CDT - 11/25/2024 11:59 PM CDT Hospital Encounter [facility] [address] [place] [address] Darby Olivarez ASSISTANT BOOKKEEPER-C Discharge Disposition: Home or Self Care (Routine [...] often do you attend chur ch or mormonism services? More than 4 times per year 03/16/2021 Do you belong to any clubs o r organizations such as christianity groups, unions, fraternal or athletic groups, or [...] and heating? Not hard at all 03/16/2021 [facility] [place] [facility] - Occupational Stress Questionnaire Answer Date [...] place to sleep or slept in a custodial (including now)? 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 [address] [facility] LT [facility] INDICATION: Palpable left breast nodule for one week. TECHNIQUE: Limited grayscale and color Doppler ultrasound performed of the palpable area concern left breast. COMPARISON: None FINDINGS: At the palpable area of concern in the superior left breast, no discrete sonographic abnormality is identified. No solid or cystic lesions are seen. [place] fibroglandular tissue is present. Findings were discussed with the patient in the presence of ophthalmic technologist exam. Clinical follow-up was recommended for the left breast palpable abnormality. Patient instructed to contact her physician and our department should she develop enlarging palpable abnormality or change in character. Patient expressed understanding. us Darby Olivarez ASSISTANT BOOKKEEPER-C ULTRASOUND Final R esult from Last 3 [...] 3:08 PM 03/17/2021 1:10 PM Care Teams Warehouse Shipper Relationship Specialty Start Date End Date Juanito Domingo MD [address] [place] [address] PCP - General FAMILY PRACTICE 04/11/19
--- OUTSIDE RECORDS SUMMARY | 2025-01-19 18:41 | XMS_ITS | Data Portability ---
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 Discussed plan. Not available 10/24/2023 17:08:12 10/30/2023 10/30/2023 Patient is ___weeks . Discussed plan. Not available 10/30/2023 15:50:14 02/29/2024 02/29/2024 Annual gynecological exam performed. Patient will come back in a year unless there are new symptoms. Not available 02/29/2024 16:38:22 Plan of Treatment Reminders Order Date Submit Date Provider Last Modified By Organization Details Last Modified Time Details Appointments None record ed. Lab None record ed. Referral None record ed. Procedures None record ed. Surgeries None record ed. Imaging non-st ress test 024 10/30/19 24 [facility], [address], [place], [address], 16:59:11 Medication Orders None record ed. Patient [...] t Abnor mal: No Resul ting Lab: [facility] [address] [facility] [address] Tel: CULTU RE ----- ----- ----- --- No Group B strep isola levi at 2 days (frantz ctive broth enhan cemen t) Not Available [facility] (Lab) [address] [facility] [facility], [place], [address], 10/19/2023 20:06:52 02/29/20 24 02/29/2024 IMAGE GUIDE [...] as clini jordi rico nted. Not Available [facility] (Lab) [address], [place], [address], 03/05/2024 13:53:07 09/29/19 24 09/29/2023 non-s tress test No observ ation record ed. [email or web address] [facility] [address], [place], [address], 09/29/2023 18:55:15 09/29/19 non-s tress test No observ ation record ed. [email or web address] Not Available 09/29 17:13:40 09/29/19 24 10/03/2023 US, obste tric, bioph ysica l profi le + non-s tress test No observ ation record ed. [email or web address] [facility] [address], [place], [address], 10/03/2023 12:33:34 09/29/19 24 09/29/2023 US, obste tric, bioph ysica l profi le + non-s tress test No observ ation record ed. [email or web address] [address] [facility], [place], [address], 09/29/2023 19:02:23 10/05/19 24 10/05/2023 US, obste tric, follo w-up No observ ation record ed. [email or web address] [facility] [address], [place], [address], 10/05/2023 17:54:19 10/05/19 non-s tress test No observ ation record ed. [email or web address] Not Available 10/05 18:07:53 10/05/19 24 10/05/2023 non-s tress test No observ ation record ed. [email or web address] [facility] [address], [place], [address], 10/05/2023 19:13:04 10/06/19 24 10/05/2023 US, obste tric, follo w-up No observ ation record ed. BO [address], [place], [address], 10/09/2023 10:21:34 10/30/19 24 10/30/2023 non-s tress test No observ ation record ed. [email or web address] [facility] [address], [place], [address], 10/30/2023 16:57:17 Result Notes None recorded. Problems Name Problem SNOMED Code Status Onset Date Resolution Date Notes Provider Name and Address Organization Details Recorded Time Pregnanc y 22830663 Completed 202211/02/2023 Lesly Anival [facility] 4 16:53:23 Transien t hyperten jamari of pregnanc y - delivere d 040443542 Completed Very late in pregnanc y Lesly Anival [facility] 4 16:53:19 Postpart um depressi on 87932371 Completed txed with prozac Dashaholden Felixle [facility] 4 16:53:19 Postpart um hemorrha ge 06478550 Completed question able - story [facility] 4 16:53:19 Headache 31618466 Completed Lesly Anival [facility], [facility] 4 16:53:19 Mixed anxiety and depressi ve disorder 863153726 Completed Lesly Anival [facility] 4 16:53:19 Placenta circumva llata 0029886 Completed & MCI - Serial growth! Lesly Anival [facility] 4 16:53:19 Below expected growth rate 21133075306 4106 Completed 10/05 growth normal - no more antenata l testing needed Lesly crabtree, [facility] 16:53:19 Problem Notes None recorded. Procedures Surgical History Date Name Laterality Status Provider Name and Address Organization Details Recorded Time 1 Date of Last Pap Smear completed Crystal Ramos [facility] 12/07/2023 13:03:01 9 procedure on lip completed Crystallolly Ramos [facility] 12/07/2023 16:26:01 7 [facility] 16:26:10 Imaging Results Imaging Date Name Status LastModified by Organiz ation Details LastModified Time 09/29/2023 non-stress test completed [email or web address] [facility] [address], [place], [address], 09/29/2023 18:55:15 09/29/2023 non-stress test completed [email or web address] Informati on not available 09/29/2023 17:13:40 10/03/2023 US, obstetric, biophysical profile + non-stress test completed [email or web address] [facility] [address], [place], [address], 10/03/2023 12:33:34 09/29/2023 US, obstetric, biophysical profile + non-stress test completed [email or web address] [address], [place], [address], 09/29/2023 19:02:23 10/05/2023 US, obstetric, follow-up completed [email or web address] [facility] [address], [place], [address], 10/05/2023 17:54:19 10/05/2023 non-stress test completed [email or web address] Informati on not available 10/05/2023 18:07:53 10/05/2023 non-stress test completed [email or web address] [facility] [address], [place], [address], 10/05/2023 19:13:04 10/05/2023 US, obstetric, follow-up completed BO [address], [place], [address], 10/09/2023 10:21:34 10/30/2023 non-stress test completed [email or web address] [facility] [address], [place], [address], 10/30/2023 16:57:17 Procedure Notes None recorded. Medical Equipment None Reported. Allergies Allergen ID Allergen Name Allergen Category Reaction Reaction Severity Criticality Documentation Date Start Date Code Code System Note Provider Name and Address Organization Details Recorded Time 05163 Product containin g penicilli n (product) medicatio n hives vomiting Not available Not available Not available 03/30/2023 84309 8001 SNOMED Юлия Elda [facility] 3 16:20:54 51971 latex environme nt,medica tion Not available Not available Not available 12/07/2023 22554 91 RxNorm Crystal Ramos [facility] 4 16:24:40 Medications Name Sig Start [...] Updated DateTime 10/24/2023 172.72 cm 33.5 kg/m2 59591.32 14 g 132 mm[Hg] 77 mm[Hg] [facility] 4 17:17:07 Date Recorded Body height Body mass index (BMI) Body weight Systolic blood pressure Diastolic blood pressure Provider Name and Address Organization Details Last Updated DateTime 10/30/2023 172.72 cm 33.9 kg/m2 089171.0 9851 g 125 mm[Hg] 84 mm[Hg] [facility] 4 15:50:25 Date Recorded Body height Body mass index (BMI) Body weight Systolic blood pressure Diastolic blood pressure Provider Name and Address Organization Details Last Updated DateTime 12/07/2023 172.72 cm 32.1 kg/m2 25811.99 g 115 mm[Hg] 79 mm[Hg] Crystal Ramos [facility] 4 16:24:16 Date Recorded Body height Body mass index (BMI) Body weight Systolic blood pressure Diastolic blood pressure Provider Name and Address Organization Details Last Updated DateTime 02/29/2024 172.72 cm 33.1 kg/m2 79796.14 g 133 mm[Hg] 57 mm[Hg] Vicky Brooks [facility] 16:41:23 Social History Question Answer Notes LastModified by Organizat ion Details LastModified Time Tobacco Smoking Status Never Smoker Louise Ewing leyda, [facility] 10/05/2023 16:23:51 What Is Your [...] Or The Highest Degree You Have Received? 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 [id number] Information not available 03/30/2023 Do You Use Any Illicit Or Recreational Drugs? No Information not available 03/30/2023 Do You Use Sunscreen Routinely? Yes Information not available 03/30/2023 Sex: Unknown Functional Status Question Answer Note LastModified by Organizat ion Details LastModified Time Do you have difficulty walking or climbing stairs? No [email or web address] Information not available 12/07/2023 Are you able to walk? YESWOREST Information not available 03/30/2023 Are you able to care for yourself? Yes Information not available 12/07/2023 Do you have difficulty dressing or bathing? No [email or web address] Information not available 12/07/2023 What is your exercise level? Moderate Information not available 03/30/2023 Mental Status None recorded. Family History Relationship Description Onset Age of this Age Resolved Age Notes LastModified by Organization Details LastModified Time Unspecified Relation Family history unknown Not available 2022 16:00:54 Medical History Condition Response Allergies (Food, seasonal, environmental ) Y Other N Blood Transfusion N Drug/Latex Allergies/Reactions Y Breast Cancer N Dermatologic Disorders N Lung Disease N [...] SNOMED-CT Code Diagnosis ICD10 Code Diagnosis Note [id number] Sagar Mathew MD [facility] [address],[place] [address] 03/30/2023 15:21:46 03/30/2023 16:36:46 Uncertain viability of 991200463 O36.80X0 Z3A.01 [id number] Sagar Mathew MD [facility] [address],[place] [address] 03/30/2023 15:22:05 03/31/2023 10:37:24 Amenorrhea 14359798 N91.2 patient is a 27-year-ol d female who presents for amenorrhea . She has a positive test. Ultrasound revealed a 7 week gestation. we talked about , we talked about care. We talked about exercise, food, medication s. She returned to begin routine care. We spent over 20 minutes face-to-fa ce. More than 50% was counseling . [id number] Sagar Mathew MD [facility] [address],[place] [address] 04/20/2023 15:42:09 04/20/2023 16:30:33 [id number] Sagar Mathew MD [facility] [address],[place] [address] 04/20/2023 15:44:59 04/20/2023 22:59:42 [id number] Sagar Mathew MD [facility] [address],[place] [address] 05/01/2023 16:08:06 05/01/2023 16:43:34 screening 191827618 Z36.82 [id number] Sagar Mathew MD [facility] [address],[place] [address] 05/01/2023 16:08:48 05/01/2023 17:43:11 Routine care 014005779 Z34.81 [id number] MD Christian Gallegos [address],[place] [address] 05/31/2023 17:16:25 05/31/2023 18:37:33 [id number] Sagar Mathew MD [facility] [address],[place] [address] 05/31/2023 17:18:38 06/01/2023 10:28:37 Routine care 938468282 Z34.81 [id number] Sagar Mathew MD [facility] [address],[place] [address] 06/19/2023 14:39:38 06/19/2023 16:10:22 screening for malformation 139772426 Z36.3 Z3A.19 [id number] MD Christian Gallegos [address],[place] [address] 06/19/2023 14:40:15 06/20/2023 09:42:54 Routine care 888947618 Z34.81 [id number] MD Christian Gallegos [address],[place] [address] 07/19/2023 16:59:13 07/19/2023 18:33:25 Marginal insertion of umbilical cord 59653653 O43.122 O43.112 Z36.2 O44.42 Z3A.24 [id number] MD Christian Gallegos [address],[place] [address] 07/19/2023 17:00:40 07/19/2023 18:32:46 Routine care 948523922 Z34.81 [id number] MD Christian Gallegos [address],[place] [address] 08/17/2023 11:18:09 08/17/2023 11:50:48 Marginal insertion of umbilical cord 12420537 O43.122 O43.112 Z3A.28 [id number] Sagar Mathwe MD [facility] [address],[place] [address] 08/17/2023 11:18:31 08/17/2023 13:07:43 Routine care 599909116 Z34.81 [id number] SALONI ARCINIEGA MD [facility] [address],[place] [address] 08/22/2023 11:29:48 08/22/2023 12:56:44 Inguinal pain 258355418 R10.2 [id number] MD Christian Gallegos [address],[place] [address] 08/31/2023 16:38:20 08/31/2023 17:51:48 Routine care 487331623 Z34.81 [id number] MD Christian Gallegos [address],[place] [address] 09/14/2023 16:23:40 09/14/2023 17:03:30 Marginal insertion of umbilical cord 76323927 O43.122 O43.112 Z3A.32 [id number] MD Chrsitian Glalegos [address],[place] [address] 09/14/2023 16:24:36 09/15/2023 08:50:31 Routine care 806067180 Z34.81 [id number] MD Christian Gallegos [address],[place] [address] 09/21/2023 11:15:28 09/21/2023 12:15:19 Below expected growth rate 1450087360 55785 R62.52 [id number] MD Christian Gallegos [address],[place] [address] 09/21/2023 11:16:01 09/21/2023 13:28:22 growth restriction 87331668 O36.5930 O36.8320 Z3A.33 [id number] MD Christian Gallegos [address],[place] [address] 09/21/2023 11:16:28 09/21/2023 13:06:28 Routine care 070678371 Z34.81 [id number] MD Christian Gallegos [address],[place] [address] 09/29/2023 15:57:58 09/29/2023 18:07:36 Below expected growth rate 0709685107 71079 R62.52 [id number] MD Christian Gallegos [address],[place] [address] 09/29/2023 16:00:54 09/29/2023 18:07:17 Small for gestational age fetus 085488863 O36.5930 Z3A.34 [id number] SALONI ARCINIEGA MD [facility] [address],[place] [address] 10/05/2023 16:18:49 10/05/2023 17:49:22 Placenta circumvallata 6345637 O43.119 Marginal i nsertion of umbilical cord 31459576 O43.129 Gestation period, 35 weeks 83456511 Z3A.35 [id number] MD Christian Gallegos [address],[place] [address] 10/05/2023 16:22:01 10/05/2023 18:15:03 Below expected growth rate 6912816862 24658 R62.52 [id number] MD Christian Gallegos [address],[place] [address] 10/05/2023 16:23:21 10/05/2023 17:20:23 Placenta circumvallata 5733934 O43.113 O43.103 Z3A.35 [id number] Sagar Mathew MD [facility] [address],[place] [address] 10/12/2023 17:27:17 10/12/2023 21:40:25 [id number] Sagar Mathew MD [facility] [address],[place] [address] 10/16/2023 17:23:17 10/17/2023 12:33:09 Routine care 331655512 Z34.81 [id number] Sagar Mathew MD [facility] [address],[place] [address] 10/24/2023 16:56:24 10/24/2023 18:06:45 Routine care 731130978 Z34.81 [id number] Sagar Mathew MD [facility] [address],[place] [address] 10/30/2023 15:34:13 10/30/2023 16:28:15 Routine care 640562913 Z34.81 [id number] Sagar Mathew MD [facility] [address],[place] [address] 10/30/2023 16:31:13 10/30/2023 16:59:11 tachycardia 690403140 O36.8399 [id number] Sagar Mathew MD [facility] [address],[place] [address] 12/07/2023 16:09:37 12/07/2023 17:28:55 care 233048441 Z39.2 [id number] Sagar Mathew MD [facility] [address],[place] [address] 02/29/2024 16:03:36 02/29/2024 17:33:25 Gynecologic examination 60635764 Z01.419 Annual gynecologi merritt exam performed. Patient [...] 2020 (MEDICAID REPLACEMENT - HMO) Skip Granado [id number] June Loy 10/24/2023 [address] [facility] [id number] Skip Granado [id number] June Loy 10/30/2023 2 [employer] [place] - [place] ON OR AFTER 2020 (MEDICAID REPLACEMENT - HMO) Skip Loy [id number] June Loy 10/30/2023 1 [facility] [id number] Skip Granado [id number] June Loy 10/30/2023 2 [employer] [facility] AFTER 2020 (MEDICAID REPLACEMENT - HMO) Skip Loy [id number] June Loy 10/30/2023 1 [facility] [id number] Skip Granado [id number] June Loy 12/07/2023 2 [employer] [facility] AFTER 2020 (MEDICAID REPLACEMENT - HMO) Skip Granado [id number] June Loy 12/07/2023 1 [facility] [id number] Skip Granado [id number] June Loy 02/29/2024 1 [facility] [id number] Skip Granado [id number] June Loy Notes Date Note Type Note [...] complaints, no problems, routine care. Crystal crabtree, [facility] 12/07/2023 18:42:27 02/29/2024 text/html Annual [...] exercise Sagar Mathew MD [address], [place], [address], [facility] 02/29/2024 17:24:33 OBGyn Episode Ob Episode Information Episode Created Date Number of Fetuses Patient Bloodtype Patient rh Status Prepregnancy Weight lbs Domestic Partner Domestic Partner Phone Father Name It Security Consultant Status 05/01/20 23 1 O Positive 192 CLOSED Fetus Data First Name Last Name Admitted to NICU Weight (g) Sex Living Outcome Pediatric Complications Fetus ID Race Codes Race Delivery Type 3515.33 8 M true Full Term 07061 Vaginal Delivery Problems Problem Notes cf/sma negative done on 03/08 @ [facility]. Problem Name Start Date End Date Resolution Snomed Code Not e Below expected growth rate 891968731925188 10/05 growth normal - no more testing needed Placenta circumvallata 6951988 & MCI - Serial growth! Headache 42191433 Mixed anxiety and depressive disorder 253294924 Transient hypertension of - delivered 750311805 Very late in depression 48397771 txed with proza c hemorrhage 49592492 questionable - story unclear Humza Calculation Initial [...] Weight in lbs Pre/Post Dialysis Refused Weight 192.479023302573 BP Diastolic BP Location Tested BP Systolic [...] Weight in lbs Pre/Post Dialysis Refused Weight 190.817692740165 BP Diastolic BP Location Tested BP Systolic [...] Weight in lbs Pre/Post Dialysis Refused Weight 194.268948634927 BP Diastolic BP Location Tested BP Systolic [...] Weight in lbs Pre/Post Dialysis Refused Weight 197.043944156914 BP Diastolic BP Location Tested BP Systolic [...] Weight in lbs Pre/Post Dialysis Refused Weight 204.090707031766 BP Diastolic BP Location Tested BP Systolic [...] Weight in lbs Pre/Post Dialysis Refused Weight 205.779475668810 BP Diastolic BP Location Tested BP Systolic [...] Weight in lbs Pre/Post Dialysis Refused Weight 206.366616790398 BP Diastolic BP Location Tested BP Systolic BP Type 76 R arm 112 sitting Fetus Heart Rate Present Fetus Movement A Yes Comments No complaints, no problems, routine care, improved groin pain, Flowsheet Date 09/14/2023 Oor Score Blood Edema Fundus Height Fundus Units [...] Weight in lbs Pre/Post Dialysis Refused Weight 209.360878110773 BP Diastolic BP Location Tested BP Systolic [...] Weight in lbs Pre/Post Dialysis Refused Weight 212.78641697838 BP Diastolic BP Location Tested BP Systolic [...] Weight in lbs Pre/Post Dialysis Refused Weight 214.488522829709 BP Diastolic BP Location Tested BP Systolic [...] Weight in lbs Pre/Post Dialysis Refused Weight 216.815891738429 BP Diastolic BP Location Tested BP Systolic BP Type 81 L arm 138 sitting Fetus Heart Rate Present Fetus Movement A Yes Comments Flowsheet Date 10/16/2023 Oro Score Blood Edema Fundus Height Fundus Units Glucose Ketones Leukocytes Nitrite Labor Signs Protein Cervic Dilation Cervic Effacement Cervic Station 36 Type Weight in lbs Pre/Post Dialysis Refused Weight 217.852892971644 BP Diastolic BP Location Tested BP Systolic [...] Weight in lbs Pre/Post Dialysis Refused Weight 220.849341852443 BP Diastolic BP Location Tested BP Systolic [...] Weight in lbs Pre/Post Dialysis Refused Weight 223.442071741185 BP Diastolic BP Location Tested BP Systolic [...] Estim ated Date of Delivery false Thalassemia (Lithuanian, Liberian, Mediterranean, Or Background): MCV < 80 false Neural Tube Defect (Meningomyelocele, Spina Bifi da, Or Anencephaly) false Congenital Heart Defect false Down Syndrome false Walt-Sachs (eg, Adventist, Cajun, Croatian-[place]) f alse Libby Disease false Sickle Cell [...] Domestic Partner Domestic Partner Phone Father Name It Security Consultant Status 03/30/20 23 1 CLOSED Fetus Data [...]
--- NOTE | 2025-01-19 18:46 | ED_ITS ---
HPI - Abdominal Pain General Chief Complaint: Nausea/Vomiting/Diarrhea Stated Complaint: dx c-diff , not feeling well Source: patient Mode of arrival: ambulatory Limitations: no limitations History of Present Illness HPI narrative: Patient is a 29-year-old female with known C diff positive twice. This is her 4th encounter for not feeling well and having C diff related changes. She has recurrent diarrhea. She does not feel well and she feels ill. She has diffuse abdominal pain. No associated nausea or vomiting. MD elicited complaint: abdominal pain Pertinent past history: none Onset (ago): week(s) ( Three) Pain Consistency: constant Location: diffuse Severity: mild Pain scale (0-10): 3 Quality: cramping Radiation: none Migration to: no migration Exacerbating factors: nothing Relieving factors: nothing Context: confirms other ( known C diff over the past 3 weeks and currently been having treatment) Associated symptoms: denies other symptoms Treatments prior to arrival: other ( none) Related Data Allergies Allergy/AdvReac Type Severity Reaction Status Date / Time amoxicillin Allergy Difficulty Verified 01/16/25 16:36 Breathing latex Allergy Difficulty Verified 01/16/25 16:36 Breathing Penicillins Allergy Hives Verified 01/16/25 16:36 Review of Systems 2 Review of Systems: All systems reviewed & are unremarkable except as noted in HPI and below Constitutional: Constitutional: Reports no additional constitutional complaints Eyes: Eyes: Reports no additional eye complaints ENT: Reports system reviewed and no additional complaints, except as documented Cardiovascular: Cardiovascular: Reports no additional cardiovascular complaints Respiratory: Respiratory: Reports no additional respiratory complaints Gastrointestinal: Gastrointestinal: Reports no additional gastrointestinal complaints Genitourinary: Genitourinary: Reports no additional female genitourinary complaints Musculoskeletal: Musculoskeletal: Reports no additional musculoskeletal complaints Integumentary/Breasts: Skin/Breast: Reports system reviewed and no additional complaints, except as docu Neurologic: Reports system reviewed and no additional complaints, except as documented Psychiatric: Psychiatric: Reports no additional psychiatric complaints Endocrine: Endocrine: Reports no additional endocrine complaints Hematologic/Lymphatic: Hematologic/Lymphatic: Reports no additional hematologic/lymphatic complaints Allergic/Immunologic: Allergic/Immunologic: Reports no additional allergic/immunologic complaints PMFSH Past Medical History Medical History Patient denies medical problems Family History Family History Mother Diabetes mellitus Father Chronic bronchitis Social History Social History Smoking status: Never smoker Substance use: never Do You Feel Safe in your Home?: Yes Lack of Transportation: No Lack of Food: Never True Current Housing: I Have Housing Concerned About Future Housing: No Difficulty Paying Gas/Electric Bills: No Difficulty Paying for Meds: No Currently Unemployed: No Education: High School Diploma/GED Difficulty w/ Childcare or Family Care: No Spiritual care concerns: No Exam 2 Const: General: ill appearing Nutritional Appearance: well nourished O rientation/consciousness: patient oriented x3 Limitations: no limitations HENMT: Head: normal to inspection Ears: external ears normal [place]/Nose/Sinus: Normal external nose present Eyes: Conjunctivae: conjunctivae normal Pupils: Equal, round and reactive pupils present EOM: EOMs intact bilaterally Neck: Neck: normal visual inspection Chest: Chest palpation & inspection: normal inspection of the chest Resp: Effort & Inspection: normal respiratory effort and not labored A uscultation: clear to auscultation bilaterally and no crackles Cardio: Rate: regular rate Rhythm: regular rhythm Heart sounds: no murmurs GI: Inspection: non-distended GI Palp: Yes Soft to palpation, Yes Tenderness to palpation present (GI) ( diffuse), No Guarding due to palpation present (GI), No Rigid due to palpation, No Hernia present, No Palpable mass present and No Rebound tenderness present Auscultation: normal bowel sounds : General: Yes bladder normal to palpation Back/Spine/Pelvis: Back: no CVA tenderness Skin: General skin exam: normal color Rashes: no rashes Wounds: no wounds Neuro: General: patient oriented x3 Cranial nerves: Yes Nystagmus not present Speech: normal speech Extrem: General: normal to inspection Psych: Mental Status: mental status grossly normal Affect: normal affect Attitude: cooperative Course Vital Signs Vital signs: Vital Signs Temperature 36.0 C L 01/19/25 18:39 Pulse Rate 118 H 01/19/25 18:39 Respiratory Rate 18 01/19/25 18:39 Blood Pressure 144/84 H 01/19/25 18:39 Pulse Oximetry 100 01/19/25 18:39 Oxygen Delivery Room Air 01/19/25 18:39 Temperature 36.0 C L 01/19/25 18:39 Pulse Rate 92 01/19/25 22:40 Respiratory Rate 18 01/19/25 22:40 Blood Pressure 139/82 01/19/25 22:40 Pulse Oximetry 98 01/19/25 22:40 Oxygen Delivery Room Air 01/19/25 22:40 MDM - Abdominal Pain MDM Narrative Medical decision making narrative: patient is a 29-year-old female with known C diff and multiple ER visits. She has been on Flagyl and vancomycin. He still does not feel well and came back for further evaluation. We will do a workup for safety at this time and likely admit her for further evaluation and treatment by Gastroenterology. Lab Data Attestation: I reviewed the patient's lab results. 01/19/25 19:14 01/19/25 19:14 Labs: Lab Results 01/19/25 01/19/25 Range/Units 19:14 21:49 WBC 3.8 L (4.8-10.8) K/mm3 RBC 4.90 (4.20-5.40) M/mm3 Hgb 14.2 (12.0-15.0) g/dL Hct 42.4 (35.0-49.0) % MCV 86.5 (78.0-102.0) fL MCH 29.0 (27.0-31.0) pg MCHC 33.5 (32-36) g/dL RDW 12.5 (11.6-14.4) % Plt Count 176 (150-420) K/mm3 MPV 12.1 H (9.2-11.8) fl Immature Gran % (Auto) Not Reportable Neut % (Auto) Not Reportable Lymph % (Auto) Not Reportable [place] % (Auto) Not Reportable Eos % (Auto) Not Reportable Baso % (Auto) Not Reportable Lymph # (Auto) Not Reportable [place] # (Auto) Not Reportable Eos # (Auto) Not Reportable Baso # (Auto) Not Reportable Abs Immat Gran (auto) Not Reportable Absolute Neuts (auto) Not Reportable Absolute Nucleated RBC Not Reportable Total Counted 100 Neutrophils % (Manual) 39 L (46-73) % Band Neutrophils % 0 (0-6) % Lymphocytes % (Manual) 52 H (18-44) % Monocytes % (Manual) 8 (3-9) % Eosinophils % (Manual) 1 (1-6) % Nucleated RBC % Not Reportable Abs Neuts (Manual) 1.48 L (1.7-7.2) K/mm3 Abs Lymphs (Manual) 1.97 (1.1-4.5) K/mm3 Abs Monocytes (Manual) 0.30 (0.1-0.90) K/mm3 Absolute Eos (Manual) 0.03 (0.02-0.50) K/mm3 Atypical Lymphocytes Present Platelet Estimate Adequate (Adequate) Schistocytes None seen Sodium 139 (136-145) mmol/L Potassium 2.8 L (3.5-5.1) mmol/L Chloride 102 (98-108) mmol/L Carbon Dioxide 26 (21-32) mmol/L Anion Gap 11 (4-12) mmol/L BUN 3 L (7-18) mg/dL Creatinine 0.97 (0.55-1.02) mg/dL Estim Creat Clear Calc 77 ml/min Estimated GFR > 60 (59 - ) Glucose 101 H (70-99) mg/dL Calculated Osmolality 284 L (285-295) mOsm/kg Lactic Acid 2.3 H 1.2 (0.4-2.0) mmol/L Calcium 9.1 (8.5-10.1) mg/dL Magnesium 1.9 (1.8-2.4) mg/dL Total Bilirubin 0.4 (0.00-1.00) mg/dL AST 13 L (15-37) U/L ALT 15 (14-59) U/L Alkaline Phosphatase 152 H (46-116) U/L Total Protein 7.8 (6.4-8.2) g/dL Albumin 4.2 (3.4-5.0) g/dL Lipase 36 (16-77) U/L Urine Color Dark orange (Yellow) Urine Appearance Cloudy A (Clear) Urine pH 6.5 (5.0-8.0) Ur Specific [place] 1.020 (1.010-1.020) Urine Protein 1+ H (Negative) Urine Glucose (UA) Negative (Negative) Urine Ketones 1+ H (Negative) Ur Blood (Man) 3+ H (Negative) Urine Nitrate Positive H (Negative) Urine Bilirubin 2+ H (Negative) Urine Urobilinogen 1.0 (0.2-1.0) mg/dL Leukocyte Esterase Rfl Trace H (Negative) KAMI/UL Urine RBC 21-50 H (0-2) /hpf Urine WBC 4-6 H (0-3) /hpf Ur Squamous Epith Cells Many H (Few) /hpf Amorphous Sediment Moderate H (None) Urine Bacteria 2+ H (None) /hpf Urine Mucus Heavy H /lpf C. difficile (PCR) Positive A* (NEGATIVE) Imaging Data Attestation: I personally reviewed and interpreted this imaging study as follows: Radiologist's impression: ITS Impressions Abdomen X-Ray 01/19/25 19:59 IMPRESSION: Hepatomegaly. No radiographic evidence of obstruction or ileus. Acute abdominal series x-ray shows negative for acute process Discharge Plan Discharge Clinical Impression: C. difficile colitis Patient Disposition: Acute Care Hospital Condition: Stable Patient Language: [place]ese Prescriptions: No Action vancomycin [Vancocin] 125 mg capsule 125 mg PO QID Qty: 40 0RF Rx Instructions: take 125 mg 4 times per day for 10 days; 2 times per day for 7 days; once daily for 7 days; once every 2-3 days for 2-8 weeks levofloxacin 750 mg tablet 750 mg PO DAILY Qty: 4 0RF Rx Instructions: 5 day course total 1st dose given in the emergency room sulfamethoxazole-trimethoprim [Bactrim] 400-80 mg tablet 1 tablet PO BID 7 Days Qty: 14 0RF ondansetron HCl 4 mg tablet 4 mg PO Q8H PRN (Reason: nausea and vomiting) Qty: 30 0RF alprazolam 1 mg tablet 1 mg PO QID PRN (Reason: anxiety) Qty: 12 0RF ondansetron 4 mg tablet,disintegrating 4 mg PO Q8H Qty: 14 0RF Follow-up/Referrals: Juanito Domingo M.D. [Primary Care Provider] - Time of Disposition: 22:51
--- NOTE | 2025-01-19 19:03 | PC.NURSE ---
REPORT TO CLARISA B[place]
[2025-01-19 19:27] LABS: Hematocrit 42.4 % (35.0-49.0); Hemoglobin 14.2 g/dL (12.0-15.0); Mean Corpuscular HGB Conc 33.5 g/dL (32-36); Mean Corpuscular Volume 86.5 fL (78.0-102.0); Mean Platelet Volume 12.1 fl (9.2-11.8); Platelet Count Result 176 K/mm3 (150-420); Red Cell Distribution Width 12.5 % (11.6-14.4); White Blood Count 3.8 K/mm3 (4.8-10.8)
[2025-01-19 19:31] LABS: Bilirubin Urine 2+ (Negative); Blood Urine 3+ (Negative); Glucose Urine UA Negative (Negative); Ketones Urine 1+ (Negative); Leukocyte Esterase Ur Trace LEU/UL (Negative); Nitrate Urine Positive (Negative); Protein Urine 1+ (Negative); pH Urine 6.5 (5.0-8.0)
[2025-01-19 19:38] LABS: Alanine Aminotransferase 15 U/L (14-59); Albumin Level 4.2 g/dL (3.4-5.0); Alkaline Phosphatase 152 U/L (46-116); Anion Gap 11 mmol/L (4-12); Aspartate Amino Transferase 13 U/L (15-37); Bilirubin,Total 0.4 mg/dL (0.00-1.00); Blood Urea Nitrogen 3 mg/dL (7-18); Calcium 9.1 mg/dL (8.5-10.1); Carbon Dioxide 26 mmol/L (21-32); Chloride 102 mmol/L (98-108); Estimated CRCL calculation 77 ml/min; Estimated Glomerular Filt Rate > 60; Glucose 101 mg/dL (70-99); Lipase 36 U/L (16-77); Magnesium 1.9 mg/dL (1.8-2.4); Osmolality Calculated 284 mOsm/kg (285-295); Potassium 2.8 mmol/L (3.5-5.1); Sodium 139 mmol/L (136-145); Total Protein 7.8 g/dL (6.4-8.2)
--- NOTE | 2025-01-19 19:40 | PC.NURSE ---
Pt gave stool sample and sent to lab.
[2025-01-19 19:41] LABS: Lactic Acid Reflex 2.3 mmol/L (0.4-2.0)
[2025-01-19 19:55] LABS: Add Urine Microscopic? YES; Appearance Urine Cloudy (Clear); Color Urine Dark Orange (Yellow); RBC Urine 21-50 /hpf (0-2)
[2025-01-19 19:56] LABS: Amorphous Sediment Urine Moderate; Bacteria Urine 2+ /hpf; Mucus Urine Heavy /lpf; Squamous Epithelial Cell Urine Many /hpf (Few)
[2025-01-19] MEDS: KCL 20 MEQ/SW 100 ML 100 ML 50 MEQ IVPB (20:19)
[2025-01-19] MEDS: SODIUM CHLORIDE 0.9% IV 1,000 ML 150 ML IV CONT (20:19)
[2025-01-19 20:23] VITALS: BP 132/89; PULSE 85; RESP 18; O2SAT 100
[2025-01-19 20:52] LABS: Toxigenic C. Diff POSITIVE (NEGATIVE)
[2025-01-19 21:22] LABS: Reflex Lactic Acid Yes or No Add Lactic
[2025-01-19 21:39] LABS: Band Neutrophils Percent 0 % (0-6); Lymphocytes Absolute Manual 1.97 K/mm3 (1.1-4.5); Lymphocytes Percent Manual 52 % (18-44); Neutrophils Absolute Manual 1.48 K/mm3 (1.7-7.2); Neutrophils Percent Manual 39 % (46-73); Total Cells Counted 100
[2025-01-19 21:40] LABS: Atypical Lymphocytes Present; Eosinophils Absolute Manual 0.03 K/mm3 (0.02-0.50); Eosinophils Percent Manual 1 % (1-6); Monocytes Percent Manual 8 % (3-9); Platelet Estimate Adequate (Adequate); Schistocytes None Seen
[2025-01-19 22:17] LABS: Lactic Acid 1.2 mmol/L (0.4-2.0)
[2025-01-19 22:40] VITALS: BP 139/82; PULSE 92; RESP 18; O2SAT 98
--- NOTE | 2025-01-19 23:02 | PC.NURSE ---
Pt resting in room, paperwork signed for transfer. Report given and pt will go to [facility], [facility] paged for transfer. Pts VSS.
[2025-01-19 23:17] VITALS: BP 132/85; PULSE 89; RESP 18; O2SAT 99
== END 2025-01-19 23:17 | disposition short-term general hospital (02) ==
PROVIDERS: Emergency Provider Emergency Medicine; PCP Family Medicine
DX: A04.72 Enterocolitis due to Clostridium difficile, not specified as recurrent (principal)
CPT/HCPCS: 36415; 74019; 80053; 81001; 83605; 83690; 83735; 85025; 87040; 87045; 87177; 87209; 87427; 87449; 87493; 96361; 96365; 96366; 99285; J3480; J7030

== ENCOUNTER 2025-01-20 00:05 | Observation (INO) | payer BC, SELFPAY ==
--- OUTSIDE RECORDS SUMMARY | 2025-01-19 23:57 | XMS_ITS | Clinical Summary ---
Author Organization [facility] Address [address] [place] [address] Care Team Providers Care Top And Trim Worker Name Role Phone Juanito Domingo MD Primary Care Provider [phone] Allergies Active Allergy Reactions Criticality Noted Date Comments Amoxicillin Unknown 01/07/2021 Cefaclor Unknown 01/07/2021 Cefuroxime Unknown 01/07/2021 Latex Hives 01/07/2021 Levonorgestrel-Ethinyl Estrad Unknown 2014 Sneezing Medications sertraline 25 MG tablet Take 25 mg by mouth daily. Active vitamin 27-1 MG Tab tablet Take 1 tablet by mouth daily. Active Active Problems Problem Noted Date Diagnosed Date Anxiety 03/25/2021 Term of female ([facility]) Normal labor ([facility]) 03/22/2021 Prolonged latent phase of labor ([facility]) 2020 39 weeks gestation of ([facility]) 2020 Encounter for elective induction of labor ([facility]) 03/16/2021 Pre-eclampsia ([facility]) 03/01/2021 Elevated blood pressure affe cting in third trimester, antepartum ([facility]) 02/28/2021 Encounters Date Type Department Care Team Description 11/25/2024 8:28 AM CDT - 11/25/2024 11:59 PM CDT Hospital Encounter [facility] [address] [place] [address] Darby Olivarez RESPITE CARE PROVIDER-C Discharge Disposition: Home or Self Care (Routine [...] often do you attend chur ch or rastafari services? More than 4 times per year [...] and heating? Not hard at all 03/16/2021 [facility] of Occupat [facility] Health - Occupational Stress Questionnaire Answer [...] place to sleep or slept in a [place] health care facility (including now)? 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 [address] US BREAST LT [facility] INDICATION: Palpable left breast nodule for one week. TECHNIQUE: Limited grayscale and color Doppler ultrasound performed of the palpable area concern left breast. COMPARISON: None FINDINGS: At the palpable area of concern in the superior left breast, no discrete sonographic abnormality is identified. No solid or cystic lesions are seen. [place] fibroglandular tissue is present. Findings were discussed with the patient in the presence of clinical lab technologist exam. Clinical follow-up was recommended for the left breast palpable abnormality. Patient instructed to contact her physician and our department should she develop enlarging palpable abnormality or change in character. Patient expressed understanding. us Darby Olivarez RESPITE CARE PROVIDER-C ULTRASOUND Final R esult from Last 3 [...] 3:08 PM 03/17/2021 1:10 PM Care Teams Top And Trim Worker Relationship Specialty Start Date End Date Juanito Domingo MD [address] [place] [id number] PCP - General FAMILY PRACTICE 04/11/19
--- NOTE | 2025-01-20 00:05 | PM.IMHP ---
H&P: HPI History of Present Illness Date/Time: 01/20/25 00:30 Chief Complaint: Diarrhea. Narrative: This is [id number] female with history of kidney stones, depression, and anxiety who presented to the emergency department at [facility] last evening with complaints of diarrhea. She completed courses of Bactrim and Macrobid in November for recurrent urinary tract infection. About a week or so after she completed her last round of antibiotics, she developed frequent diarrhea and she was diagnosed with C diff diarrhea on 12/29/2024. She completed a 10 day course of p.o. vancomycin and was still having some stools albeit in lesser amounts however within several days the diarrhea returned. She was seen in the ED at [place] last and a CT scan which showed focal colitis near the hepatic flexure and she was started on metronidazole after her C diff test came back positive. Diarrhea slow down over the weekend however yesterday she once again started to feel nauseated and she has had 5 loose, yellow, watery, and malodorous stool since that time. She also has some mild abdominal discomfort in the left mid to lower quadrant. No fever, chest pain, shortness of breath, vomiting arrival or blood the stool. This is the 1st time she has ever had C diff. At the outside facility: She was afebrile with stable vital signs. Labs were significant for a WBC count of 3.8, potassium 2.8, BUN 3, creatinine 0.97, lactic acid 2.3. The was. She was given a L of fluid and transfer was initiated to GI consultation for ?treatment failure.? Review of Systems Review of Systems: 12 systems were reviewed and are negative except for as per HPI. [facility] Past Medical History Medical History (Updated 01/20/25 @ 03:11 by Jackelin Medel PA-C) Kidney stones Depression with anxiety Family History Family History Mother Diabetes mellitus Father Chronic bronchitis Social History Social History (Updated 01/20/25 @ 03:09 by Jackelin Medel PA-C) Social History: Surrogate medical decision maker: Skip Cruzell, spouse. Code status: Full code. Smoking status: Never smoker Second hand tobacco smoke exposure: No Alcohol intake: former Substance use: never Do You Feel Safe in your Home?: Yes Lack of Transportation: No Lack of Food: Never True Current Housing: I Have Housing Concerned About Future Housing: No Difficulty Paying Gas/Electric Bills: No Difficulty Paying for Meds: No Currently Unemployed: No Education: High School Diploma/GED Difficulty w/ Childcare or Family Care: No Additional living arrangements comments: Lives at home with spouse and their 2 young children, age 3 and 1-year-old. 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 Spiritual care concerns: No Meds Home Medications and Allergies Home Medications ?Medication ?Instructions ?Recorded ?Confirmed ?Type ondansetron HCl 4 mg tablet 4 mg PO Q8H PRN nausea and 12/27/24 01/20/25 Rx vomiting #30 tabs hydroxyzine HCl 25 mg tablet 25 mg PO TID PRN anxiety 01/20/25 01/20/25 History metronidazole 500 mg tablet 500 mg PO TID infection 01/20/25 01/20/25 History sertraline 50 mg tablet 50 mg PO DAILY 01/20/25 01/20/25 History Allergies Allergy/AdvReac Type Severity Reaction Status Date / Time amoxicillin Allergy Difficulty Verified 01/16/25 16:36 Breathing latex Allergy Difficulty Verified 01/16/25 16:36 Breathing Penicillins Allergy Hives Verified 01/16/25 16:36 Exam Narrative: General: Well-developed, nontoxic-appearing female sitting up in bed in no distress. Weight: 83.7 kg. BMI: 28.1. HEENT: PERRL, EOMI. Sclera anicteric. Tacky mucous membranes. Neck: Supple. Respiratory: Lungs are clear to auscultation bilaterally. Cardiovascular: Regular rate and rhythm with S1-S2. Gastrointestinal: Abdomen is soft and nondistended with positive bowel sounds. She is a bit tender to palpation the left mid to lower quadrant. No guarding or rebound tenderness. Skin: Warm and dry. Extremities: No cyanosis, clubbing, or edema. Radial and pedal pulses intact. Neurological: Alert. Cranial nerves 2-12 are grossly intact. No gross focal deficits to casual conversation. Psychiatric: Pleasant and cooperative with normal mood and affect. Judgment and insight intact. H&P: Results Labs Labs: Lab Results 01/19/25 01/19/25 Range/Units 19:14 21:49 WBC 3.8 L (4.8-10.8) K/mm3 RBC 4.90 (4.20-5.40) M/mm3 Hgb 14.2 (12.0-15.0) g/dL Hct 42.4 (35.0-49.0) % MCV 86.5 (78.0-102.0) fL MCH 29.0 (27.0-31.0) pg MCHC 33.5 (32-36) g/dL RDW 12.5 (11.6-14.4) % Plt Count 176 (150-420) K/mm3 MPV 12.1 H (9.2-11.8) fl Immature Gran % (Auto) Not Reportable Neut % (Auto) Not Reportable Lymph % (Auto) Not Reportable [place] % (Auto) Not Reportable Eos % (Auto) Not Reportable Baso % (Auto) Not Reportable Lymph # (Auto) Not Reportable [place] # (Auto) Not Reportable Eos # (Auto) Not Reportable Baso # (Auto) Not Reportable Abs Immat Gran (auto) Not Reportable Absolute Neuts (auto) Not Reportable Absolute Nucleated RBC Not Reportable Total Counted 100 Neutrophils % (Manual) 39 L (46-73) % Band Neutrophils % 0 (0-6) % Lymphocytes % (Manual) 52 H (18-44) % Monocytes % (Manual) 8 (3-9) % Eosinophils % (Manual) 1 (1-6) % Nucleated RBC % Not Reportable Abs Neuts (Manual) 1.48 L (1.7-7.2) K/mm3 Abs Lymphs (Manual) 1.97 (1.1-4.5) K/mm3 Abs Monocytes (Manual) 0.30 (0.1-0.90) K/mm3 Absolute Eos (Manual) 0.03 (0.02-0.50) K/mm3 Atypical Lymphocytes Present Platelet Estimate Adequate (Adequate) Schistocytes None seen Sodium 139 (136-145) mmol/L Potassium 2.8 L (3.5-5.1) mmol/L Chloride 102 (98-108) mmol/L Carbon Dioxide 26 (21-32) mmol/L Anion Gap 11 (4-12) mmol/L BUN 3 L (7-18) mg/dL Creatinine 0.97 (0.55-1.02) mg/dL Estim Creat Clear Calc 77 ml/min Estimated GFR > 60 (59 - ) Glucose 101 H (70-99) mg/dL Calculated Osmolality 284 L (285-295) mOsm/kg Lactic Acid 2.3 H 1.2 (0.4-2.0) mmol/L Calcium 9.1 (8.5-10.1) mg/dL Magnesium 1.9 (1.8-2.4) mg/dL Total Bilirubin 0.4 (0.00-1.00) mg/dL AST 13 L (15-37) U/L ALT 15 (14-59) U/L Alkaline Phosphatase 152 H (46-116) U/L Total Protein 7.8 (6.4-8.2) g/dL Albumin 4.2 (3.4-5.0) g/dL Lipase 36 (16-77) U/L Urine Color Dark orange (Yellow) Urine Appearance Cloudy A (Clear) Urine pH 6.5 (5.0-8.0) Ur Specific [place] 1.020 (1.010-1.020) Urine Protein 1+ H (Negative) Urine Glucose (UA) Negative (Negative) Urine Ketones 1+ H (Negative) Ur Blood (Man) 3+ H (Negative) Urine Nitrate Positive H (Negative) Urine Bilirubin 2+ H (Negative) Urine Urobilinogen 1.0 (0.2-1.0) mg/dL Leukocyte Esterase Rfl Trace H (Negative) KAMI/UL Urine RBC 21-50 H (0-2) /hpf Urine WBC 4-6 H (0-3) /hpf Ur Squamous Epith Cells Many H (Few) /hpf Amorphous Sediment Moderate H (None) Urine Bacteria 2+ H (None) /hpf Urine Mucus Heavy H /lpf C. difficile (PCR) Positive A* (NEGATIVE) Assessment and Plan Assessment and plan (1) C. difficile diarrhea: Code(s): A04.72 - Enterocolitis due to Clostridium difficile, not specified as recurrent Status: Inactive (2) Hypokalemia: Code(s): E87.6 - Hypokalemia Status: Acute (3) Depression with anxiety: Code(s): F41.8 - Other specified anxiety disorders Status: Acute Plan The patient presented to the outside emergency department for evaluation ongoing diarrhea after having been diagnosed with C diff diarrhea several weeks ago as detailed in HPI. Labs, imaging, EKG, and all reports were personally reviewed. She completed a course of p.o. vancomycin however her symptoms returned within several days and she was started on metronidazole. I would not necessarily consider this treatment failure. We discussed the fact that Clostridium difficile are spore forming bacteria and it is possible to have recurrent infections within a short period of time of completing treatment for the initial infection. None the less we will start her on fidaxomicin. Her abdominal exam is pretty benign and I feel it is unlikely that her colitis has spread. Potassium will be replaced and monitored. Her home medications will be reviewed and resumed as appropriate. Findings and treatment plan were discussed with the patient. Questions were solicited and answered to satisfaction. The patient's medical management will be taken over by the hospitalist team in a.m. Quality VTE Prophylaxis VTE prophylaxis: mechanical ordered If No VTE Prophylaxis Answer both mechanical and pharmacologic: Reason no pharmacologic proph: low risk/not indicated The patient has been admitted under observation status. Hospitalist MIPS Advance Care Plan I have confirmed that the patient's Advanced Care Plan is present, code status is documented, or surrogate decision maker is listed in patient medical record.: Yes Medication Reconciliation I have utilized all available resources to obtain, update and review the patients current medications (includes all prescriptions, OTC, herbals, cannabis, and nutritional supplements).: Yes
[2025-01-20 00:14] VITALS: BMI 28.0
[2025-01-20 00:17] VITALS: BP 128/69; PULSE 82; RESP 18; TEMP 36.2; O2SAT 100
--- OUTSIDE RECORDS SUMMARY | 2025-01-20 00:18 | XMS_ITS | Clinical Summary ---
Author Organization [facility] Address [address] [place] [address] Care Team Providers Care Internal Consultant Name Role Phone Juanito Domingo MD Primary [...] Diagnosed Date Anxiety 03/25/2021 Term of female ([facility]) Normal labor ([facility]) 03/22/2021 Prolonged latent phase of labor ([facility]) 2020 39 weeks gestation of ([facility]) 2020 Encounter for elective induction of labor ([facility]) 03/16/2021 Pre-eclampsia ([facility]) 03/01/2021 Elevated blood pressure affe cting in third trimester, antepartum ([facility]) 02/28/2021 Encounters Date Type Department Care Team Description 11/25/2024 8:28 AM CDT - 11/25/2024 11:59 PM CDT Hospital Encounter [facility] [address] [place] [address] Darby Olivarez CLAIM ADMINISTRATOR-C Discharge Disposition: Home or Self Care (Routine [...] often do you attend chur ch or holiness services? More than 4 times per year [...] and heating? Not hard at all 03/16/2021 [facility] - Occupational Stress Questionnaire Answer [...] No 03/16/2021 Housing Stability Vital Sign Answer Ivck e Recorded In the last 12 months, [...] place to sleep or slept in a halfway (including now)? 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 [address] US BREAST LT [facility] INDICATION: Palpable left breast nodule for one week. TECHNIQUE: Limited grayscale and color Doppler ultrasound performed of the palpable area concern left breast. COMPARISON: None FINDINGS: At the palpable area of concern in the superior left breast, no discrete sonographic abnormality is identified. No solid or cystic lesions are seen. [place] fibroglandular tissue is present. Findings were discussed with the patient in the presence of neurology technologist exam. Clinical follow-up was recommended for the left breast palpable abnormality. Patient instructed to contact her physician and our department should she develop enlarging palpable abnormality or change in character. Patient expressed understanding. us Darby Olivarez CLAIM ADMINISTRATOR-C ULTRASOUND Final R esult from Last 3 [...] 3:08 PM 03/17/2021 1:10 PM Care Teams Internal Consultant Relationship Specialty Start Date End Date Juanito Domingo MD [address] [place] [address] PCP - General FAMILY PRACTICE 04/11/19
--- NOTE | 2025-01-20 00:31 | ADMGEN ---
This patient, June Granado, was admitted to [facility] S[facility] Room 309-01. Patient/family oriented to hospital policies and general routines including ID bracelet, bed and alarms, visiting hours, pain management, procedures, bathroom and other care routines, personal items, smoking policy, room service/diet, and visiting hours. Information on how to activate the Rapid Response Team has been discussed. Patient/Family are encouraged to report perceived risks to care and to ask questions if they do not understand what they are told or what they should do.
[2025-01-20] MEDS: FIDAXOMICIN 200 MG TABLET PO ×2 (01:00→20:39)
[2025-01-20 01:10] LABS: Anion Gap 7 mmol/L (4-12); Blood Urea Nitrogen 3 mg/dL (7-17); Calcium 9.1 mg/dL (8.4-10.2); Carbon Dioxide 26 mmol/L (22-30); Chloride 108 mmol/L (98-107); Estimated CRCL calculation 125 ml/min; Estimated Glomerular Filt Rate > 60; Glucose 106 mg/dL (65-110); Magnesium 2.1 mg/dL (1.6-2.3); Potassium 3.8 mmol/L (3.4-5.0); Sodium 141 mmol/L (137-145)
[2025-01-20 06:00] VITALS: BP 114/72; PULSE 75; RESP 14; TEMP 36.2; O2SAT 100
--- NOTE | 2025-01-20 07:42 | PM.IMPN ---
Progress Note: A&P Assessment and Plan (1) C. difficile diarrhea: Code(s): A04.72 - Enterocolitis due to Clostridium difficile, not specified as recurrent Status: Inactive (2) Hypokalemia: Code(s): E87.6 - Hypokalemia Status: Acute (3) Depression with anxiety: Code(s): F41.8 - Other specified anxiety disorders Status: Acute Subjective Date/time seen: 01/20/25 07:42 Interval history: 29-year-old female with history of kidney stones, depression, and anxiety who presented to the emergency department at [facility] last evening with complaints of diarrhea. She completed courses of Bactrim and Macrobid in November for recurrent urinary tract infection. 01/20/2025 Review of Systems Review of Systems: 12 systems were reviewed and are negative except for as per HPI. All systems reviewed & are unremarkable except as noted in HPI and below Exam Narrative: General: Well-developed, nontoxic-appearing female sitting up in bed in no distress. Weight: 83.7 kg. BMI: 28.1. HEENT: PERRL, EOMI. Sclera anicteric. Tacky mucous membranes. Neck: Supple. Respiratory: Lungs are clear to auscultation bilaterally. Cardiovascular: Regular rate and rhythm with S1-S2. Gastrointestinal: Abdomen is soft and nondistended with positive bowel sounds. She is a bit tender to palpation the left mid to lower quadrant. No guarding or rebound tenderness. Skin: Warm and dry. Extremities: No cyanosis, clubbing, or edema. Radial and pedal pulses intact. Neurological: Alert. Cranial nerves 2-12 are grossly intact. No gross focal deficits to casual conversation. Psychiatric: Pleasant and cooperative with normal mood and affect. Judgment and insight intact. Objective Data Vital Signs Vital Signs: Vital Signs - 24 hr 01/20/25 00:14 01/20/25 00:17 01/20/25 06:00 Temperature 97.1 F L 97.1 F L Pulse Rate 82 75 Respiratory Rate 18 14 Blood Pressure 128/69 114/72 Pulse Oximetry 100 100 Oxygen Delivery Room Air Intake/Output Intake/Output: Intake & Output 01/17/25 01/18/25 01/19/25 01/20/25 23:59 23:59 23:59 23:59 Intake Total 250 Balance 250 Meds/Results Medications: Active Medications Generic Name Dose Route Start Last Admin Trade Name Ziggyq PRN Reason Stop Dose Admin Acetaminophen 650 mg 01/20/25 03:16 Acetaminophen 325 Mg Tablet PO Q6H PRN Mild Pain (1-3) or Fever Fidaxomicin 200 mg 01/20/25 00:45 01/20/25 01:00 Fidaxomicin 200 Mg Tablet PO 01/30/25 00:44 200 mg Q12HR ABBI Administration Hydroxyzine HCl 25 mg 01/20/25 00:42 Hydroxyzine Hcl 25 Mg Tablet PO TID PRN anxiety Sertraline HCl 50 mg 01/20/25 09:00 Sertraline Hcl 50 Mg Tablet PO DAILY ABBI Labs Labs: Laboratory Results - last 24 hr 01/20/25 00:51 Sodium 141 Potassium 3.8 Chloride 108 H Carbon Dioxide 26 Anion Gap 7 BUN 3 L Creatinine 0.65 L Estim Creat Clear Calc 125 Estimated GFR > 60 Glucose 106 Calcium 9.1 Magnesium 2.1 Quality VTE Prophylaxis VTE prophylaxis: mechanical ordered
[2025-01-20 07:52] LABS: Basophils Percent Auto 0.5 % (0.2-1.2); Eosinophils Percent Auto 0.2 % (0-4.4); Hematocrit 40.9 % (37.0-47.0); Hemoglobin 13.1 g/dL (12.0-15.0); Immature Granulocyte Absolute 0.01 K/mm3 (0.00-0.031); Immature Granulocyte Percent A 0.2 % (0-0.5); Lymphocytes Absolute Auto 0.96 K/mm3 (0.9-3.2); Lymphocytes Percent Auto 23.2 % (18.3-44.2); Mean Corpuscular Hemoglobin 29.2 pg (26-34); Mean Corpuscular Volume 91.1 fl (80-100); Mean Platelet Volume 12.7 fl (7.4-10.4); Monocytes Absolute Auto 0.4 K/mm3 (0.1-0.6); Monocytes Percent Auto 10.1 % (2.6-8.5); Neutrophils Absolute Auto 2.7 K/mm3 (1.3-6.7); Neutrophils Percent Auto 65.8 % (45.5-73.1); Platelet Count Result 177 k/mm3 (150-375); Red Blood Count 4.49 M/mm3 (4.2-5.4); Red Cell Distribution Width 12.9 % (11.5-14.5); White Blood Count 4.1 K/mm3 (4.5-10.0)
--- NOTE | 2025-01-20 07:54 | WPDGICN ---
Assessment and Plan Assessment and plan (1) C. difficile diarrhea: Code(s): A04.72 - Enterocolitis due to Clostridium difficile, not specified as recurrent Status: Inactive (2) LLQ pain: Code(s): R10.32 - Left lower quadrant pain Status: Acute (3) Weight loss: Code(s): R63.4 - Abnormal weight loss Status: Acute (4) Decreased appetite: Code(s): R63.0 - Anorexia Status: Acute (5) Nausea and vomiting: Qualifiers: Vomiting type: bilious vomiting Qualified Code(s): R11.14 - Bilious vomiting Code(s): R11.2 - Nausea with vomiting, unspecified Status: Acute (6) Elevated alkaline phosphatase level: Code(s): R74.8 - Abnormal levels of other serum enzymes Status: Acute Plan 1. C-Diff diarrhea/weight loss/LLQ pain: Patient has never had a colonoscopy. CT 01/16/2025 showed findings within the hepatic flexure of the colon suggesting focal colitis. CT on 12/27/2024 was unremarkable. Patient's paternal grandmother had colon cancer, maternal side with unknown medical history. Patient was treated with Bactrim and Macrobid in November for a UTI. She initially tested positive for C-Diff 12/29 and then tested positive again on 01/15 and 01/19. patient completed a 10 day course of vancomycin with her last dose last Monday. She was then on Flagyl until her admission. At its worst the patient states she was having 17 or more liquid bowel movements but states that today she has already had 3 that are still very loose but more formed than prior to admission. She admits to dull intermittent left lower quadrant pain that has no correlation with bowel movements. Patient states that her weight has went from 197 lb to 184 lb since November. She denies any signs of GI bleeding to include hematochezia or melena. Patient is afebrile with WBCs of 4.1. Continue Dificid 200 mg BID and patient will need to continue this medication after discharge for a total of 10 days Started Florastor 500 mg BID which patient will need to take for the duration of her antibiotic treatment including outpatient Avoid retesting for C-Diff unless there is worsening of symptoms as patient can test positive for weeks to months after treatment Patient will need to follow up with us as an outpatient for follow-up care and to discuss scheduling colonoscopy 2. Decreased appetite/nausea and vomiting: Since her diagnosis of C diff the patient has been experiencing decreased appetite and intermittent nausea and vomiting. Since admission her nausea and vomiting has improved but not resolved with the use of p.r.n. Zofran. She states that this morning she had a poor appetite and only ate a few bites of her breakfast. DDX: Secondary to acute infection versus medication induced versus motility disorder versus other GI etiology continue supportive care with antiemetics and fluid replacement continue Zofran as needed outpatient 3. Elevated alkaline phosphatase: LFTs normal except mildly elevated alkaline phosphatase since December 27. Lipase normal. Likely secondary to acute infectious etiology versus medication induced. will follow-up on this as outpatient Thank you very much for allowing me to share in the care of this very nice patient. This report may have been done utilizing a voice recognition system. Attempts have been made to correct errors. However, there may be uncorrected grammatical, spelling, and recognition errors present. GI Consult Note Consult date/time: 01/20/25 07:54 Reason for consult: C-Diff HPI: June Granado is a 29 year old female with Hx of kidney stones, depression, recent UTI's, and anxiety. Patient was seen at [facility] yesterday with diarrhea after being treated for C-Diff and was transferred to [place] today. GI has been consulted for C-Diff. patient was seen with her Johnny at her bedside throughout the entire visit. Patient was diagnosed with a UTI in November and completed a course of Macrobid and Bactrim. Patient was then seen 12/27/2024 at [facility] for complaints for nausea, vomiting and diarrhea and was diagnosed with gastroenteritis and was started on a 4 day course of levofloxacin. She was then seen again in the ER with same complaints and was diagnosed with C-Diff and started on a 10 day course of Vanco x 10 days which she completed last Monday. She was seen at [facility] for a 3rd time with complaints of abdominal pain and was tested for C-Diff again which was positive and was started on Flagyl which she was taking up till the time she was admitted. Yesterday she was seen in [facility] and then transferred to [place]. Today the patient states that she is having intermittent dull left lower quadrant pain that has no correlation with bowel movements. Her nausea and vomiting has improved but not resolved with Zofran. She states that her weight has decreased from 197-184 lb since November. She admits to a poor diet and states that she did her breakfast this morning. At 1 point the patient states that she was having 17 or more liquid bowel movements but today she has had 3 already that are still very loose but more formed. She denies bloating, odynophagia, dysphagia, problematic reflux, regurgitation, early satiety, constipation, hematochezia, or melena. She denies any NSAID, aspirin, or anticoagulant use. She is a nondrinker nonsmoker and denies marijuana use. Family history of colon cancer in paternal grandmother, maternal side medical history unknown. ENDOSCOPY HISTORY: Patient has never had an EGD or colonoscopy LABS AND STOOL STUDIES: Labs since admission: Sodium 141, potassium 3.8, BUN 3, creatinine 0.65, GFR > 60, calcium 9.1, magnesium 2.1 WBCs 4, HGB 13, HCT 41, MCV 91, platelets 177 Total bilirubin 0.4, AST 13, ALT 15, alkaline phosphatase 152, lipase 36 C diff positive on 12/29-01/15-01/19 IMAGING: CT abd/pelvis w/contrast 01/16/2025: IMPRESSION: Findings within the hepatic flexure of the colon suggesting a focal colitis, as detailed above. CT abd/pelvis w/contrast 12/27/2024: FINDINGS: Lung bases are clear. Heart size normal. No pericardial or pleural effusion. Liver, gallbladder, spleen, pancreas, bilateral adrenal glands and kidneys are normal. Bowels including the appendix are normal. Bladder, uterus and bilateral adnexa are unremarkable. No free intraperitoneal gas or fluid. No pathologically enlarged abdominal or pelvic lymphadenopathy. Bones are unremarkable. IMPRESSION: 1. Normal study. No acute intra-abdominal/pelvic process. CT abd/pelvis w/contrast 05/04/2024: IMPRESSION: Possible 1.9 mm appendicolith at the base of the appendix, without appendiceal dilatation. Recommend clinical correlation to exclude acute appendicitis or impending appendicitis Review of Systems Constitutional: Constitutional: Reports as per HPI ENT: Reports as per HPI Cardiovascular: Cardiovascular: Reports as per HPI, Denies chest pain and Denies dyspnea Respiratory: Respiratory: Denies cough and Denies dyspnea Gastrointestinal: Gastrointestinal: Reports as per HPI Musculoskeletal: Musculoskeletal: Reports as per HPI Integumentary/Breasts: Skin/Breast: Reports as per HPI Psychiatric: Psychiatric: Reports as per HPI Endocrine: Endocrine: Reports no additional endocrine complaints Hematologic/Lymphatic: Hematologic/Lymphatic: Reports no additional hematologic/lymphatic complaints [facility] Past Medical History Medical History (Updated 01/20/25 @ 09:42 by Ibeth Shepard APRN) Kidney stones Depression with anxiety Family History Family History Mother Diabetes mellitus Father Chronic bronchitis Social History Social History (Updated 01/20/25 @ 03:09 by Jackelin Medel PA-C) Social History: Surrogate medical decision maker: Skip Loy, spouse. Code status: Full code. Smoking status: Never smoker Second hand tobacco smoke exposure: No Alcohol intake: former Substance use: never Do You Feel Safe in your Home?: Yes Lack of Transportation: No Lack of Food: Never True Current Housing: I Have Housing Concerned About Future Housing: No Difficulty Paying Gas/Electric Bills: No Difficulty Paying for Meds: No Currently Unemployed: No Education: High School Diploma/GED Difficulty w/ Childcare or Family Care: No Additional living arrangements comments: Lives at home with spouse and their 2 young children, age 3 and 1-year-old. 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 Spiritual care concerns: No Meds Home Medications and Allergies Home Medications ?Medication ?Instructions ?Recorded ?Confirmed ?Type ondansetron HCl 4 mg tablet 4 mg PO Q8H PRN nausea and 12/27/24 01/20/25 Rx vomiting #30 tabs hydroxyzine HCl 25 mg tablet 25 mg PO TID PRN anxiety 01/20/25 01/20/25 History metronidazole 500 mg tablet 500 mg PO TID infection 01/20/25 01/20/25 History sertraline 50 mg tablet 50 mg PO DAILY 01/20/25 01/20/25 History Allergies Allergy/AdvReac Type Severity Reaction Status Date / Time amoxicillin Allergy Difficulty Verified 01/16/25 16:36 Breathing latex Allergy Difficulty Verified 01/16/25 16:36 Breathing Penicillins Allergy Hives Verified 01/16/25 16:36 Vital Signs Vital Signs - 24 hr 01/20/25 00:14 01/20/25 00:17 01/20/25 06:00 Temperature 97.1 F L 97.1 F L Pulse Rate 82 75 Respiratory Rate 18 14 Blood Pressure 128/69 114/72 Pulse Oximetry 100 100 Oxygen Delivery Room Air Exam Const: General: cooperative, healthy appearing, comfortable, no acute distress and well developed Orientation/consciousness: oriented to person, oriented to place, oriented to time and patient oriented x3 HENMT: Head: normal to inspection, normocephalic and atraumatic Mouth: Yes Normal oral and palatal mucosa present and Yes moist mucous membranes Eyes: General: appearance normal, both eyes and all related structures Conjunctivae: conjunctivae normal Sclera: sclerae normal Pupils: Equal, round and reactive pupils present Neck: Neck: normal visual inspection Chest: Chest palpation & inspection: normal inspection of the chest Resp: Effort & Inspection: normal respiratory effort and able to speak in complete sentences Auscultation: clear to auscultation bilaterally Cardio: Jugular venous distension: no JVD Rate: regular rate Rhythm: regular rhythm Heart sounds: S1 normal heart sound present and S2 normal heart sound present GI: Inspection: normal to inspection GI Palp: Yes Soft to palpation and Yes No hepatosplenomegaly present Auscultation: normal bowel sounds Rectal Exam: deferred Skin: General skin exam: normal color and no rashes or lesions noted Neuro: General: oriented to person, oriented to place, oriented to time and patient oriented x3 Cranial nerves: Yes Equal, round and reactive pupils present Speech: normal speech Extrem: General: normal to inspection and no clubbing, cyanosis or edema Psych: Appearance: grossly normal and well kempt Affect: normal affect Results Labs 01/20/25 00:51 01/20/25 00:51 Labs: BMP 01/20/25 00:51 Sodium 141 Potassium 3.8 Chloride 108 H Carbon Dioxide 26 BUN 3 L Creatinine 0.65 L Glucose 106 Calcium 9.1
[2025-01-20] MEDS: SACCHAROMYCES BOULARDII 250 MG CAPSULE 500 MG PO ×2 (09:28→16:28)
[2025-01-20] MEDS: SERTRALINE HCL 50 MG TABLET PO (09:28)
--- NOTE | 2025-01-20 11:53 | PM.DS ---
DS: Admitting Diagnosis Discharge Date 01/20/2025 Admitting Diagnosis C. Diff DS: Discharge Diagnosis Discharge Diagnosis (1) C. difficile diarrhea: Code(s): A04.72 - Enterocolitis due to Clostridium difficile, not specified as recurrent Status: Inactive (2) Hypokalemia: Code(s): E87.6 - Hypokalemia Status: Acute (3) Depression with anxiety: Code(s): F41.8 - Other specified anxiety disorders Status: Acute DS: Summary Hospital Course Reason for hospitalization: Diarrhea Hospital Course: This is 29-year-old female with history of kidney stones, depression, and anxiety who presented to the emergency department at [facility] [place] last evening with complaints of diarrhea. She completed courses of Bactrim and Macrobid in November for recurrent urinary tract infection. About a week or so after she completed her last round of antibiotics, she developed frequent diarrhea and she was diagnosed with C diff diarrhea on 12/29/2024. She completed a 10 day course of p.o. vancomycin and was still having some stools albeit in lesser amounts however within several days the diarrhea returned. She was seen in the ED at [place] last and a CT scan which showed focal colitis near the hepatic flexure and she was started on metronidazole after her C diff test came back positive. Diarrhea slow down over the weekend however yesterday she once again started to feel nauseated and she has had 5 loose, yellow, watery, and malodorous stool since that time. She also has some mild abdominal discomfort in the left mid to lower quadrant. No fever, chest pain, shortness of breath, vomiting arrival or blood the stool. This is the 1st time she has ever had C diff. At the outside facility: She was afebrile with stable vital signs. Labs were significant for a WBC count of 3.8, potassium 2.8, BUN 3, creatinine 0.97, lactic acid 2.3. The was. She was given a L of fluid and transfer was initiated to GI consultation for ?treatment failure.? GI consulted, recommended placing Dificid 200mg BID and Florastor 500mg BID. They also recommended following up with their office in the outpatient setting to discuss planning a colonoscopy at a later day. Otherwise they state that the patient is cleared to be discharged from the inpatient setting from their standpoint. Pt otherwise stable at this time with stable blood work and vital signs. Will recommend continuing zofran as needed in the outpt setting and will instruct her to follow up with GI regarding elevated Alk phosphatase, which could be secondary to an acute infectious etiology or medication induced. Blood cultures, Ova and Parasite Concentration exam, E coli shiga toxins, Salmonella/shigella culture,and campylobacter antigen assay pending at discharge. Pt otherwise stable for discharge with close followup. Plan for discharge now. Status at Discharge Functional status at discharge: independent ambulation Overall status at discharge: patient is back to baseline Time Spent with Patient Time attestation: Total time spent providing and/or coordinating discharge services: 35 Exam Narrative: General: Well-developed, nontoxic-appearing female sitting up in bed in no distress. Weight: 83.7 kg. BMI: 28.1. HEENT: PERRL, EOMI. Sclera anicteric. Tacky mucous membranes. Neck: Supple. Respiratory: Lungs are clear to auscultation bilaterally. Cardiovascular: Regular rate and rhythm with S1-S2. Gastrointestinal: Abdomen is soft and nondistended with positive bowel sounds. She is a bit tender to palpation the left mid to lower quadrant. No guarding or rebound tenderness. Skin: Warm and dry. Extremities: No cyanosis, clubbing, or edema. Radial and pedal pulses intact. Neurological: Alert. Cranial nerves 2-12 are grossly intact. No gross focal deficits to casual conversation. Psychiatric: Pleasant and cooperative with normal mood and affect. Judgment and insight intact. DS: Data Data Completed and Pending Pending studies at discharge: Blood cultures Ova and Parasite Concentration exam E coli shiga toxins, Salmonella/shigella culture, campylobacter antigen assay Labs on day of discharge: Labs from last 24 hours 01/20/25 00:51 WBC 4.1 L RBC 4.49 Hgb 13.1 Hct 40.9 MCV 91.1 MCH 29.2 MCHC 32.0 RDW 12.9 Plt Count 177 MPV 12.7 H Immature Gran % (Auto) 0.2 Neut % (Auto) 65.8 Lymph % (Auto) 23.2 [place] % (Auto) 10.1 H Eos % (Auto) 0.2 Baso % (Auto) 0.5 Lymph # (Auto) 0.96 [place] # (Auto) 0.4 Eos # (Auto) 0.0 Baso # (Auto) 0.0 Abs Immat Gran (auto) 0.01 Absolute Neuts (auto) 2.7 Absolute Nucleated RBC 0.000 Nucleated RBC % 0.0 Sodium 141 Potassium 3.8 Chloride 108 H Carbon Dioxide 26 Anion Gap 7 BUN 3 L Creatinine 0.65 L Estim Creat Clear Calc 125 Estimated GFR > 60 Glucose 106 Calcium 9.1 Magnesium 2.1 Discharge Plan Discharge Attending physician on discharge: Ishmael Coronado Consulting providers: Jackelin Medel; Dano Fierro Discharging Clinician: Ishmael Coronado Anticipated Discharge Date/Time: 01/20/25 11:41 Patient Disposition: Home Activity: as tolerated Diet: as tolerated Discharge Instructions: Discharge disposition: Stable Take medications as prescribed. You will be prescribed Dificid and Florastor. You will take both of these twice a day for 10 days. Monitor blood pressures Take caution while standing, rising, or moving Change positions slowly taking a break between each position change If you standing feel dizzy sit back down and take a break Encouraged to continue with yearly vaccinations Return to the emergency department if he developed sudden shortness of breath, chest pain, nausea, vomiting, upset stomach or intractable diarrhea Return to the emergency department if you develop fever greater than 101.5 Follow-up with the primary care physician within 1-2 weeks Thank you for [facility] for your healthcare needs Patient Instructions: Antibiotic Form Patient Language: Spanish Stand Alone Forms: General Discharge Information Follow-up/Referrals: Juanito Domingo M.D. [Primary Care Provider] - Dano Fierro MD [Physician] - Discharge Medications: New Saccharomyces boulardii [Florastor] 250 mg Capsule 500 mg PO BID 10 Days Qty: 40 0RF Dificid 200 mg Tablet 200 mg PO Q12HR 10 Days Qty: 20 0RF Continued ondansetron HCl 4 mg tablet 4 mg PO Q8H PRN (Reason: nausea and vomiting) Qty: 30 0RF metronidazole 500 mg tablet 500 mg PO TID Patient Comments: took 2 of 3 doses monday. missed evening dose r/t being in ER hydroxyzine HCl 25 mg tablet 25 mg PO TID PRN (Reason: anxiety) sertraline 50 mg tablet 50 mg PO DAILY Date of admission: 01/20/25 00:05 Primary Care Provider: Jose L,Juanito Admitting Provider: Hussein Fletcher Attending physician on admission: Ishmael Coronado Condition: Stable Quality VTE Prophylaxis VTE prophylaxis: mechanical ordered Hospitalist MIPS Heart Failure (Exclusion) Patient has history of Heart Transplant or Left Ventricular Assistive Device?: No IF YES, STOP HERE Heart Failure (Qualifier) Patient has current or prior documentation of LVEF less than or equal to 40%, or mod/servere depressed LVSF?: No IF NO, STOP HERE
[2025-01-20 14:00] VITALS: BP 134/79; PULSE 82; RESP 14; TEMP 36.6; O2SAT 100
[2025-01-20] MEDS: KETOROLAC 15 MG/ML VIAL (*BKC) IV PUSH (15:18)
[2025-01-20] MEDS: PROMETHAZINE HCL 25 MG/ML AMPUL 12.5 MG IV PUSH (15:19)
--- NOTE | 2025-01-20 15:40 | P.PNIM_ITS ---
Progress Note: A&P Assessment and Plan (1) C. difficile diarrhea: Code(s): A04.72 - Enterocolitis due to Clostridium difficile, not specified as recurrent Status: Inactive (2) Hypokalemia: Code(s): E87.6 - Hypokalemia Status: Acute (3) Depression with anxiety: Code(s): F41.8 - Other specified anxiety disorders Status: Acute Plan GI consulted, recommended placing Dificid 200mg BID and Florastor 500mg BID. They also recommended following up with their office in the outpatient setting to discuss planning a colonoscopy at a later day. Otherwise they state that the patient is cleared to be discharged from the inpatient setting from their standpoint. Pt otherwise stable at this time with stable blood work and vital signs. Will recommend continuing zofran as needed in the outpt setting and will instruct her to follow up with GI regarding elevated Alk phosphatase, which could be secondary to an acute infectious etiology or medication induced. Blood cultures, Ova and Parasite Concentration exam, E coli shiga toxins, Salmonella/shigella culture,and campylobacter antigen assay pending at discharge. Discharge orders were put in but pt continued to have worsening nausea despite Zofran. Pt also expressed interested in staying one additional night to control nausea and pain. Will add Compazine for nausea and IV Toradol for pain. Plan for discharge tomorrow pending nausea has improved. Time Spent With Patient Time: Subjective Date/time seen: 01/20/25 15:40 Interval history: 29-year-old female with history of kidney stones, depression, and anxiety who presented to the emergency department at [facility] [place] last evening with complaints of diarrhea. She completed courses of Bactrim and Macrobid in November for recurrent urinary tract infection. 01/20/2025 Patient sitting comfortably in bed at time of examination. Examination was in the a.m. of 01/20/25, and at this time patient denied having any nausea, but did still have some left-sided abdominal discomfort. Patient was planned for discharge and orders were placed for discharge, but patient continued to have nausea and abdominal discomfort despite antiemetics and Tylenol/ibuprofen. She expressed interest in staying 1 more night in order to keep her nausea/pain under control. We will plan on adding Compazine for nausea and IV Toradol for pain control. Review of Systems Review of Systems: 12 systems were reviewed and are negativ e except for as per HPI. Exam Narrative: General: Well-developed, nontoxic-appearing female sitting up in bed in no distress. Weight: 83.7 kg. BMI: 28.1. HEENT: PERRL, EOMI. Sclera anicteric. Tacky mucous membranes. Neck: Supple. Respiratory: Lungs are clear to auscultation bilaterally. Cardiovascular: Regular rate and rhythm with S1-S2. Gastrointestinal: Abdomen is soft and nondistended with positive bowel sounds. She is a bit tender to palpation the left mid to lower quadrant. No guarding or rebound tenderness. Skin: Warm and dry. Extremities: No cyanosis, clubbing, or edema. Radial and pedal pulses intact. Neurological: Alert. Cranial nerves 2-12 are grossly intact. No gross focal deficits to casual conversation. Psychiatric: Pleasant and cooperative with normal mood and affect. Judgment and insight intact. Objective Data Vital Signs Vital Signs: Vital Signs - 24 hr 01/20/25 00:14 01/20/25 00:17 01/20/25 06:00 Temperature 97.1 F L 97.1 F L Pulse Rate 82 75 Respiratory Rate 18 14 Blood Pressure 128/69 114/72 Pulse Oximetry 100 100 Oxygen Delivery Room Air 01/20/25 14:00 Temperature 97.8 F Pulse Rate 82 Respiratory Rate 14 Blood Pressure 134/79 Pulse Oximetry 100 Oxygen Delivery Intake/Output Intake/Output: Intake & Output 01/17/25 01/18/25 01/19/25 01/20/25 23:59 23:59 23:59 23:59 Intake Total 350 Balance 350 Meds/Results Medications: Active Medications Generic Name Dose Route Start Last Admin Trade Name Freq PRN Reason Stop Dose Admin Acetaminophen 650 mg 01/20/25 03:16 Acetaminophen 325 Mg Tablet PO Q6H PRN Mild Pain (1-3) or Fever Fidaxomicin 200 mg 01/20/25 00:45 01/20/25 01:00 Fidaxomicin 200 Mg Tablet PO 01/30/25 00:44 200 mg Q12HR ABBI Administration Hydroxyzine HCl 25 mg 01/20/25 00:42 Hydroxyzine Hcl 25 Mg Tablet PO TID PRN anxiety Saccharomyces Boulardii 500 mg 01/20/25 09:00 01/20/25 09:28 Saccharomyces Boulardii 250 Mg Capsule PO 500 mg BID ABBI Administration Sertraline HCl 50 mg 01/20/25 09:00 01/20/25 09:28 Sertraline Hcl 50 Mg Tablet PO 50 mg DAILY ABBI Administration Labs Labs: Laboratory Results - last 24 hr 01/20/25 00:51 WBC 4.1 L RBC 4.49 Hgb 13.1 Hct 40.9 MCV 91.1 MCH 29.2 MCHC 32.0 RDW 12.9 Plt Count 177 MPV 12.7 H Immature Gran % (Auto) 0.2 Neut % (Auto) 65.8 Lymph % (Auto) 23.2 [place] % (Auto) 10.1 H Eos % (Auto) 0.2 Baso % (Auto) 0.5 Lymph # (Auto) 0.96 [place] # (Auto) 0.4 Eos # (Auto) 0.0 Baso # (Auto) 0.0 Abs Immat Gran (auto) 0.01 Absolute Neuts (auto) 2.7 Absolute Nucleated RBC 0.000 Nucleated RBC % 0.0 Sodium 141 Potassium 3.8 Chloride 108 H Carbon Dioxide 26 Anion Gap 7 BUN 3 L Creatinine 0.65 L Estim Creat Clear Calc 125 Estimated GFR > 60 Glucose 106 Calcium 9.1 Magnesium 2.1 Quality VTE Prophylaxis VTE prophylaxis: mechanical ordered
[2025-01-20 21:18] VITALS: BP 136/65; PULSE 85; RESP 12; TEMP 36.4; O2SAT 100
[2025-01-21 05:18] VITALS: BP 103/58; PULSE 61; RESP 14; TEMP 36.1; O2SAT 99
[2025-01-21 06:16] LABS: Basophils Percent Auto 0.8 % (0.2-1.2); Eosinophils Absolute Auto 0.1 K/mm3 (0-0.3); Eosinophils Percent Auto 2.1 % (0-4.4); Hematocrit 36.9 % (37.0-47.0); Hemoglobin 11.9 g/dL (12.0-15.0); Immature Granulocyte Absolute 0.01 K/mm3 (0.00-0.031); Immature Granulocyte Percent A 0.3 % (0-0.5); Lymphocytes Absolute Auto 1.66 K/mm3 (0.9-3.2); Lymphocytes Percent Auto 42.7 % (18.3-44.2); Mean Corpuscular HGB Conc 32.2 g/dl (32-36); Mean Corpuscular Hemoglobin 29.1 pg (26-34); Mean Corpuscular Volume 90.2 fl (80-100); Mean Platelet Volume 12.1 fl (7.4-10.4); Monocytes Absolute Auto 0.4 K/mm3 (0.1-0.6); Monocytes Percent Auto 11.3 % (2.6-8.5); Neutrophils Absolute Auto 1.7 K/mm3 (1.3-6.7); Neutrophils Percent Auto 42.8 % (45.5-73.1); Platelet Count Result 141 k/mm3 (150-375); Red Blood Count 4.09 M/mm3 (4.2-5.4); White Blood Count 3.9 K/mm3 (4.5-10.0)
[2025-01-21 06:30] LABS: Alanine Aminotransferase 16 U/L (6-35); Albumin Level 3.7 g/dL (3.5-5.1); Alkaline Phosphatase 94 U/L (38-126); Anion Gap 8 mmol/L (4-12); Aspartate Amino Transferase 23 U/L (14-36); Bilirubin,Total 0.4 mg/dL (0.2-1.3); Blood Urea Nitrogen 5 mg/dL (7-17); Calcium 8.6 mg/dL (8.4-10.2); Carbon Dioxide 26 mmol/L (22-30); Chloride 104 mmol/L (98-107); Estimated CRCL calculation 123 ml/min; Estimated Glomerular Filt Rate > 60; Glucose 81 mg/dL (65-110); Potassium 3.5 mmol/L (3.4-5.0); Sodium 138 mmol/L (137-145)
--- NOTE | 2025-01-21 08:26 | P.PNIM_ITS ---
Progress Note: A&P Assessment and Plan (1) C. difficile diarrhea: Code(s): A04.72 - Enterocolitis due to Clostridium difficile, not specified as recurrent Status: Inactive (2) Hypokalemia: Code(s): E87.6 - Hypokalemia Status: Acute (3) Depression with anxiety: Code(s): F41.8 - Other specified anxiety disorders Status: Acute Plan This is 29-year-old female with history of kidney stones, depression, and anxiety who presented to the emergency department at [facility] [place] last evening with complaints of diarrhea. She completed courses of Bactrim and Macrobid in November for recurrent urinary tract infection. About a week or so after she completed her last round of antibiotics, she developed frequent diarrhea and she was diagnosed with C diff diarrhea on 12/29/2024. She completed a 10 day course of p.o. vancomycin and was still having some stools albeit in lesser amounts however within several days the diarrhea returned. She was seen in the ED at [place] last and a CT scan which showed focal colitis near the hepatic flexure and she was started on metronidazole after her C diff test came back positive. Diarrhea slow down over the weekend however yesterday she once again started to feel nauseated and she has had 5 loose, yellow, watery, and malodorous stool since that time. She also has some mild abdominal discomfort in the left mid to lower quadrant. No fever, chest pain, shortness of breath, vomiting arrival or blood the stool. This is the 1st time she has ever had C diff. At the outside facility: She was afebrile with stable vital signs. Labs were significant for a WBC count of 3.8, potassium 2.8, BUN 3, creatinine 0.97, lactic acid 2.3. The was. She was given a L of fluid and transfer was initiated to GI consultation for ?treatment failure.? GI consulted, recommended placing Dificid 200mg BID and Florastor 500mg BID. They also recommended following up with their office in the outpatient setting to discuss planning a colonoscopy at a later day. Patient has persistent abdominal discomfort/nausea/vomiting. Supportive treatment with analgesics/antiemetics. Stool studies for ova and parasite pending. Stool culture pending Subjective Date/time seen: 01/21/25 08:26 Interval history: Had some nausea and an episode of vomiting yesterday. Abdominal cramping still present. Diarrhea whenever she eats. Remains afebrile. Review of Systems Review of Systems: All systems reviewed & are unremarkable except as noted in HPI and below Exam Narrative: General: Well-developed, nontoxic-appearing female sitting up in bed in no distress. HEENT: PERRL, EOMI. Sclera anicteric. Tacky mucous membranes. Neck: Supple. Respiratory: Lungs are clear to auscultation bilaterally. Cardiovascular: Regular rate and rhythm with S1-S2. Gastrointestinal: Abdomen is soft and nondistended with positive bowel sounds. She is a bit tender to palpation the left mid to lower quadrant. No guarding or rebound tenderness. Skin: Warm and dry. Extremities: No cyanosis, clubbing, or edema. Radial and pedal pulses intact. Neurological: Alert. Cranial nerves 2-12 are grossly intact. No gross focal deficits to casual conversation. Psychiatric: Pleasant and cooperative with normal mood and affect. Judgment and insight intact. Objective Data Vital Signs Vital Signs: Vital Signs - 24 hr 01/20/25 14:00 01/20/25 20:00 01/20/25 21:18 Temperature 97.8 F 97.6 F Pulse Rate 82 85 Respiratory Rate 14 12 Blood Pressure 134/79 136/65 Pulse Oximetry 100 100 Oxygen Delivery Room Air 01/21/25 05:18 Temperature 96.9 F L Pulse Rate 61 Respiratory Rate 14 Blood Pressure 103/58 L Pulse Oximetry 99 Oxygen Delivery Intake/Output Intake/Output: Intake & Output 01/18/25 01/19/25 01/20/25 01/21/25 23:59 23:59 23:59 23:59 Intake Total 1490 500 Balance 1490 500 Meds/Results Medications: Active Medications Generic Name Dose Route Start Last Admin Trade Name Freq PRN Reason Stop Dose Admin Acetaminophen 650 mg 01/20/25 03:16 Acetaminophen 325 Mg Tablet PO Q6H PRN Mild Pain (1-3) or Fever Fidaxomicin 200 mg 01/20/25 00:45 01/20/25 20:39 Fidaxomicin 200 Mg Tablet PO 01/30/25 00:44 200 mg Q12HR ABBI Administration Hydroxyzine HCl 25 mg 01/20/25 00:42 Hydroxyzine Hcl 25 Mg Tablet PO TID PRN anxiety Saccharomyces Boulardii 500 mg 01/20/25 09:00 01/20/25 16:28 Saccharomyces Boulardii 250 Mg Capsule PO 500 mg BID ABBI Administration Sertraline HCl 50 mg 01/20/25 09:00 01/20/25 09:28 Sertraline Hcl 50 Mg Tablet PO 50 mg DAILY ABBI Administration Labs Labs: Laboratory Results - last 24 hr 01/21/25 05:32 WBC 3.9 L RBC 4.09 L Hgb 11.9 L Hct 36.9 L MCV 90.2 MCH 29.1 MCHC 32.2 RDW 13.0 Plt Count 141 L MPV 12.1 H Immature Gran % (Auto) 0.3 Neut % (Auto) 42.8 L Lymph % (Auto) 42.7 [place] % (Auto) 11.3 H Eos % (Auto) 2.1 Baso % (Auto) 0.8 Lymph # (Auto) 1.66 [place] # (Auto) 0.4 Eos # (Auto) 0.1 Baso # (Auto) 0.0 Abs Immat Gran (auto) 0.01 Absolute Neuts (auto) 1.7 Absolute Nucleated RBC 0.000 Nucleated RBC % 0.0 Sodium 138 Potassium 3.5 Chloride 104 Carbon Dioxide 26 Anion Gap 8 BUN 5 L Creatinine 0.66 L Estim Creat Clear Calc 123 Estimated GFR > 60 Glucose 81 Calcium 8.6 Total Bilirubin 0.4 AST 23 ALT 16 Alkaline Phosphatase 94 Total Protein 6.0 L Albumin 3.7
[2025-01-21] MEDS: SACCHAROMYCES BOULARDII 250 MG CAPSULE 500 MG PO (09:03)
[2025-01-21] MEDS: FIDAXOMICIN 200 MG TABLET PO (09:03)
[2025-01-21] MEDS: SERTRALINE HCL 50 MG TABLET PO (09:04)
[2025-01-21] MEDS: ACETAMINOPHEN 325 MG TABLET 650 MG PO (13:41)
[2025-01-21 14:00] VITALS: BP 124/82; PULSE 78; RESP 18; TEMP 36.7; O2SAT 100
--- NOTE | 2025-01-21 14:59 | P.DS_ITS ---
DS: Admitting Diagnosis Discharge Date 01/21/2025 Admitting Diagnosis Abdominal pain nausea vomiting DS: Discharge Diagnosis Discharge Diagnosis (1) C. difficile diarrhea: Code(s): A04.72 - Enterocolitis due to Clostridium difficile, not specified as recurrent Status: Inactive (2) Hypokalemia: Code(s): E87.6 - Hypokalemia Status: Acute (3) Depression with anxiety: Code(s): F41.8 - Other specified anxiety disorders Status: Acute DS: Summary Hospital Course Hospital Course: This is 29-year-old female with history of kidney stones, depression, and anxiety who presented to the emergency department at [facility] last evening with complaints of diarrhea. She completed courses of Bactrim and Macrobid in November for recurrent urinary tract infection. About a week or so after she completed her last round of antibiotics, she developed frequent diarrhea and she was diagnosed with C diff diarrhea on 12/29/2024. She completed a 10 day course of p.o. vancomycin and was still having some stools albeit in lesser amounts however within several days the diarrhea returned. She was seen in the ED at [place] last and a CT scan which showed focal colitis near the hepatic flexure and she was started on metronidazole after her C diff test came back positive. Diarrhea slow down over the weekend however yesterday she once again started to feel nauseated and she has had 5 loose, yellow, watery, and malodorous stool since that time. She also has some mild ab dominal discomfort in the left mid to lower quadrant. No fever, chest pain, shortness of breath, vomiting arrival or blood the stool. This is the 1st time she has ever had C diff. At the outside facility: She was afebrile with stable vital signs. Labs were significant for a WBC count of 3.8, potassium 2.8, BUN 3, creatinine 0.97, lactic acid 2.3. The was. She was given a L of fluid and transfer was initiated to GI consultation for ?treatment failure.? GI consulted, recommended placing Dificid 200mg BID and Florastor 500mg BID. They also recommended following up with their office in the outpatient setting to discuss planning a colonoscopy at a later day. Patient has persistent abdominal discomfort/nausea/vomiting. Supportive treatment with analgesics/antiemetics. Stool studies for ova and parasite pending. Stool culture pending at the time of discharge. Time Spent with Patient Time attestation: Total time spent providing and/or coordinating discharge services: 30 Exam Narrative: General: Well-developed, nontoxic-appearing female sitting up in bed in no distress. HEENT: PERRL, EOMI. Sclera anicteric. Tacky mucous membranes. Neck: Supple. Respiratory: Lungs are clear to auscultation bilaterally. Cardiovascular: Regular rate and rhythm with S1-S2. Gastrointestinal: Abdomen is soft and nondistended with positive bowel sounds. She is a bit tender to palpation the left mid to lower quadrant. No guarding or rebound tenderness. Skin: Warm and dry. Extremities: No cyanosis, clubbing, or edema. Radial and pedal pulses intact. Neurological: Alert. Cranial nerves 2-12 are grossly intact. No gross focal deficits to casual conversation. Psychiatric: Pleasant and cooperative with normal mood and affect. Judgment and insight intact. DS: Data Data Completed and Pending Labs on day of discharge: Labs from last 24 hours 01/21/25 05:32 WBC 3.9 L RBC 4.09 L Hgb 11.9 L Hct 36.9 L MCV 90.2 MCH 29.1 MCHC 32.2 RDW 13.0 Plt Count 141 L MPV 12.1 H Immature Gran % (Auto) 0.3 Neut % (Auto) 42.8 L Lymph % (Auto) 42.7 [place] % (Auto) 11.3 H Eos % (Auto) 2.1 Baso % (Auto) 0.8 Lymph # (Auto) 1.66 [place] # (Auto) 0.4 Eos # (Auto) 0.1 Baso # (Auto) 0.0 Abs Immat Gran (auto) 0.01 Absolute Neuts (auto) 1.7 Absolute Nucleated RBC 0.000 Nucleated RBC % 0.0 Sodium 138 Potassium 3.5 Chloride 104 Carbon Dioxide 26 Anion Gap 8 BUN 5 L Creatinine 0.66 L Estim Creat Clear Calc 123 Estimated GFR > 60 Glucose 81 Calcium 8.6 Total Bilirubin 0.4 AST 23 ALT 16 Alkaline Phosphatase 94 Total Protein 6.0 L Albumin 3.7 Discharge Plan Discharge Attending physician on discharge: Ishmael Coronado Consulting providers: Jackelin Medel Edmundo A. Discharging Clinician: Hussein Fletcher Anticipated Discharge Date/Time: 01/21/25 14:58 Patient Disposition: Home Activity: as tolerated Diet: as tolerated Discharge Instructions: Discharge disposition: Stable Take medications as prescribed. You will be prescribed Dificid and Florastor. You will take both of these twice a day for 10 days. Monitor blood pressures Take caution while standing, rising, or moving Change positions slowly taking a break between each position change If you standing feel dizzy sit back down and take a break Encouraged to continue with yearly vaccinations Return to the emergency department if he developed sudden shortness of breath, chest pain, nausea, vomiting, upset stomach or intractable diarrhea Return to the emergency department if you develop fever greater than 101.5 Follow-up with the primary care physician within 1-2 weeks Thank you for choosing [facility] for your healthcare needs Patient Instructions: Antibiotic Form Patient Language: Tamazight Stand Alone Forms: General Discharge Information Follow-up/Referrals: Juanito Domingo M.D. [Primary Care Provider] - Dano Fierro MD [Physician] - Discharge Medications: New Saccharomyces boulardii [Florastor] 250 mg Capsule 500 mg PO BID 10 Days Qty: 40 0RF Dificid 200 mg Tablet 200 mg PO Q12HR 10 Days Qty: 20 0RF promethazine 12.5 mg tablet 12.5 mg PO Q6H PRN (Reason: nausea and vomiting) Qty: 14 0RF Continued ondansetron HCl 4 mg tablet 4 mg PO Q8H PRN (Reason: nausea and vomiting) Qty: 30 0RF metronidazole 500 mg tablet 500 mg PO TID Patient Comments: took 2 of 3 doses monday. missed evening dose r/t being in ER hydroxyzine HCl 25 mg tablet 25 mg PO TID PRN (Reason: anxiety) sertraline 50 mg tablet 50 mg PO DAILY Date of admission: 01/20/25 00:05 Primary Care Provider: Juanito Domingo Admitting Provider: Hussein Fletcher Attending physician on admission: Ishmael Coronado Condition: Stable
--- NOTE | 2025-01-21 16:38 | WPDGIPROGNO ---
Progress Note: A&P Assessment and Plan (1) C. difficile colitis: Code(s): A04.72 - Enterocolitis due to Clostridium difficile, not specified as recurrent Status: Inactive Assessment and Plan: she is going home and will complete 10 days of dificif then follow-up in office in few more weeks no more pain and doing much better (2) Abdominal pain: Code(s): R10.9 - Unspecified abdominal pain Status: Inactive Assessment and Plan: resolved (3) Nausea and vomiting: Qualifiers: Vomiting type: bilious vomiting Qualified Code(s): R11.14 - Bilious vomiting Code(s): R11.2 - Nausea with vomiting, unspecified Status: Acute Assessment and Plan: eating Subjective Date/time seen: 01/21/25 15:38 Interval history: doing much better and going home today Review of Systems Review of Systems: All systems reviewed & are unremarkable except as noted in HPI and below Exam Const: General: comfortable and no acute distress HENMT: Face/Nose/Sinus: Normal nares present Eyes: General: appearance normal, both eyes and all related structures Neck: Neck: no JVD Resp: Auscultation: clear to auscultation bilaterally Cardio: Rate: regular rate Rhythm: regular rhythm GI: Inspection: non-distended GI Palp: Yes Soft to palpation and No Tenderness to palpation present (GI) Auscultation: normal bowel sounds Skin: General skin exam: normal color Neuro: General: gait normal Speech: normal speech Extrem: General: normal to inspection Psych: Mental Status: mental status grossly normal Objective Data Vital Signs Vital Signs: Vital Signs - 24 hr 01/20/25 20:00 01/20/25 21:18 01/21/25 05:18 Temperature 97.6 F 96.9 F L Pulse Rate 85 61 Respiratory Rate 12 14 Blood Pressure 136/65 103/58 L Pulse Oximetry 100 99 Oxygen Delivery Room Air 01/21/25 08:00 01/21/25 14:00 Temperature 98.1 F Pulse Rate 78 Respiratory Rate 18 Blood Pressure 124/82 Pulse Oximetry 100 Oxygen Delivery Room Air Intake/Output Intake/Output: Intake & Output 01/18/25 01/19/25 01/20/25 01/21/25 23:59 23:59 23:59 23:59 Intake Total 1490 740 Balance 1490 740 Labs Labs: Laboratory Results - last 24 hr 01/21/25 05:32 WBC 3.9 L RBC 4.09 L Hgb 11.9 L Hct 36.9 L MCV 90.2 MCH 29.1 MCHC 32.2 RDW 13.0 Plt Count 141 L MPV 12.1 H Immature Gran % (Auto) 0.3 Neut % (Auto) 42.8 L Lymph % (Auto) 42.7 Coryell % (Auto) 11.3 H Eos % (Auto) 2.1 Baso % (Auto) 0.8 Lymph # (Auto) 1.66 Coryell # (Auto) 0.4 Eos # (Auto) 0.1 Baso # (Auto) 0.0 Abs Immat Gran (auto) 0.01 Absolute Neuts (auto) 1.7 Absolute Nucleated RBC 0.000 Nucleated RBC % 0.0 Sodium 138 Potassium 3.5 Chloride 104 Carbon Dioxide 26 Anion Gap 8 BUN 5 L Creatinine 0.66 L Estim Creat Clear Calc 123 Estimated GFR > 60 Glucose 81 Calcium 8.6 Total Bilirubin 0.4 AST 23 ALT 16 Alkaline Phosphatase 94 Total Protein 6.0 L Albumin 3.7
== END 2025-01-21 15:48 | disposition home or self-care (01) ==
PROVIDERS: Physician Assistant; Admitting Provider Internal Medicine; PCP Family Medicine; Visit Provider Physician Assistant
DX: A04.72 Enterocolitis due to Clostridium difficile, not specified as recurrent (principal); E87.6 Hypokalemia; R10.32 Left lower quadrant pain; R63.4 Abnormal weight loss; Z68.28 Body mass index [BMI] 28.0-28.9, adult; R63.0 Anorexia; R11.14 Bilious vomiting; R74.8 Abnormal levels of other serum enzymes; F41.8 Other specified anxiety disorders; Z79.899 Other long term (current) drug therapy; Z80.0 Family history of malignant neoplasm of digestive organs; Z87.442 Personal history of urinary calculi; Z87.440 Personal history of urinary (tract) infections
CPT/HCPCS: 36415; 80048; 80053; 83735; 85025; 96374; 96375; A9270; G0378; J1885; J2550

== ENCOUNTER 2025-02-14 18:35 | Emergency (ER) | payer BC, SELFPAY ==
--- NOTE | ~2025-02-14 | CT_ITS ---
CT abdomen pelvis wo con Ordering provider: Aron Marlow MD History: 29 years Female with . right lower pains,URINARY PRESSURE/PAIN,XDAYS . Comparison: January 16, 2025 Technique: CT abdomen and pelvis without IV and without oral contrast. Automated exposure control and iterative reconstruction technique were employed. The dose-length product was 507.25 mGy-cm. Findings: VISUALIZED LOWER CHEST: Normal. UPPER ABDOMINAL ORGANS: Liver: Normal. Gallbladder: Normal. Spleen: Normal. Stomach/duodenum: Normal. Pancreas: Normal. Adrenals: Normal. Kidneys: Tiny stones in the right kidney lower pole. PELVIC ORGANS: The bladder is underfilled with slightly thickened wall. Evaluation for cystitis is ad vised. BOWEL AND MESENTERY: Colon: No evidence of diverticulitis. Minimal thickening in the area of the hepatic flexure is seen w hich may indicate colitis. Clinical correlation advised. Normal appendix. Small Bowel: Normal. No obstruction. Peritoneum/mesentery: No free air or free fluid. No mesenteric lymphadenopathy. RETROPERITONEUM: Normal aorta. No retroperitoneal lymphadenopathy. MUSCULOSKELETAL: Superficial soft tissues: The superficial soft tissues are normal. Bones: Normal spine. IMPRESSION: 1. Tiny stones in the right kidney lower pole. 2. Underfilled urinary bladder with slightly thickened. Evaluation for cystitis advised. 3. Focal area of thickening in the right hepatic flexure may indicate colitis. Follow-up advised. 4. No evidence of appendicitis, diverticulitis or intestinal obstruction. Reviewed, dictated and finalized at location A. IMPRESSION: 1. Tiny stones in the right kidney lower pole. 2. Underfilled urinary bladder with slightly thickened. Evaluation for cystiti s advised. 3. Focal area of thickening in the right hepatic flexure may indicate colitis. Follow-up advised. 4. No evidence of appendicitis, diverticulitis or intestinal obstruction.
[2025-02-14 18:35] VITALS: BP 127/85; PULSE 101; RESP 20; TEMP 36.5; O2SAT 100
--- OUTSIDE RECORDS SUMMARY | 2025-02-14 18:38 | XMS_ITS | Data Portability ---
Author Organization [facility] Address [address] [place] [address] [place] [address] Care Team Providers Care Provider Engagement Executive Name Role Phone ADI ALVA Primary Care Provider Assessment Encounter Date Assessment Date Assessment LastModified by Organization Details LastModified Time 10/24/2023 10/24/2023 Patient is ___weeks . Discussed plan. Not available 10/24/2023 17:08:12 10/30/2023 10/30/2023 Patient is ___weeks . Discussed plan. Not available 10/30/2023 15:50:14 02/29/2024 02/29/2024 Annual gynecological exam performed. Patient will come back in a year unless there are new symptoms. [email or web address] Not available 02/29/2024 16:38:22 Plan of Treatment Reminders Order Date Submit Date Provider Last Modified By Organization Details Last Modified Time Details Appointments None record ed. Lab None record ed. Referral None record ed. Procedures None record ed. Surgeries None record ed. Imaging non-st ress test 024 10/30/19 24 [email or web address] [address], [address], [place], [address], 16:59:11 Medication Orders None record ed. Patient [...] t Abnor mal: No Resul ting Lab: [facility] [address] [facility] [address] Tel: CULTU RE ----- ----- ----- --- No Group B strep isola levi at 2 days (frantz ctive broth enhan cemen t) Not Available [facility] (Lab) [address] [facility], [place], [address], 10/19/2023 20:06:52 02/29/20 24 02/29/2024 IMAGE GUIDE [...] as clini jordi rico nted. Not Available [facility] (Lab) [address], [place], [address], 03/05/2024 13:53:07 09/29/19 24 09/29/2023 non-s tress test No observ ation record ed. [email or web address] [facility] [address], [place], [address], 09/29/2023 18:55:15 09/29/19 non-s tress test No observ ation record ed. Not Available 09/29 17:13:40 09/29/19 24 10/03/2023 US, obste tric, bioph ysica l profi le + non-s tress test No observ ation record ed. [email or web address] [facility] [address], [place], [address], 10/03/2023 12:33:34 09/29/19 24 09/29/2023 US, obste tric, bioph ysica l profi le + non-s tress test No observ ation record ed. [email or web address] [address] [facility], [place], [address], 09/29/2023 19:02:23 10/05/19 24 10/05/2023 US, obste tric, follo w-up No observ ation record ed. [email or web address] [facility] [address], [place], [address], 10/05/2023 17:54:19 10/05/19 non-s tress test No observ ation record ed. [email or web address] Not Available 10/05 18:07:53 10/05/19 24 10/05/2023 non-s tress test No observ ation record ed. [email or web address] [facility] [address], [place], [address], 10/05/2023 19:13:04 10/06/19 24 10/05/2023 US, obste tric, follo w-up No observ ation record ed. BO [address], [place], [address], 10/09/2023 10:21:34 10/30/19 24 10/30/2023 non-s tress test No observ ation record ed. [email or web address] [facility] [address], [place], [address], 10/30/2023 16:57:17 Result Notes None recorded. Problems Name Problem SNOMED Code Status Onset Date Resolution Date Notes Provider Name and Address Organization Details Recorded Time Pregnanc y 62482339 Completed 202211/02/2023 Lesly Anival [facility] 4 16:53:23 Transien t hyperten jamari of pregnanc y - delivere d 680304538 Completed Very late in pregnanc y Lesly Anival [facility] 4 16:53:19 Postpart um depressi on 10596432 Completed txed with prozac Dashaholden Felixle [facility] 4 16:53:19 Postpart um hemorrha ge 10608303 Completed question able - story [facility] 4 16:53:19 Headache 34712199 Completed Lesly Anival [facility], [facility] 4 16:53:19 Mixed anxiety and depressi ve disorder 251068929 Completed Lesly Anival [facility] 4 16:53:19 Placenta circumva llata 5554884 Completed & MCI - Serial growth! Lesly Anival [facility] 4 16:53:19 Below expected growth rate 40209302847 4106 Completed 10/05 growth normal - no more antenata l testing needed Lesly Florian [facility] 4 16:53:19 Problem Notes None recorded. Procedures Surgical History Date Name Laterality Status Provider Name and Address Organization Details Recorded Time 1 Date of Last Pap Smear completed [facility] 12/07/2023 13:03:01 9 procedure on lip completed [facility] 12/07/2023 16:26:01 7 procedure on ear completed [facility] 12/07/2023 16:26:10 Imaging Results None recorded. Procedure Notes None recorded. Medical Equipment None Reported. Allergies Allergen ID Allergen Name Allergen Category Reaction Reaction Severity Criticality Documentation Date Start Date Code Code System Note Provider Name and Address Organization Details Recorded Time 46056 Product containin g penicilli n (product) medicatio n hives vomiting Not available Not available Not available 03/30/2023 22062 8001 SNOMED Юлия Schroeder [facility] 3 16:20:54 83891 latex environme nt,medica tion Not available Not available Not available 12/07/2023 80334 91 RxNorm [facility] 4 16:24:40 Medications Name Sig Start [...] Updated DateTime 10/24/2023 172.72 cm 33.5 kg/m2 55967.32 14 g 132 mm[Hg] 77 mm[Hg] [facility] 4 17:17:07 Date Recorded Body height Body mass index (BMI) Body weight Systolic blood pressure Diastolic blood pressure Provider Name and Address Organization Details Last Updated DateTime 10/30/2023 172.72 cm 33.9 kg/m2 770728.0 9851 g 125 mm[Hg] 84 mm[Hg] Юлия [facility]wood [facility] 4 15:50:25 Date Recorded Body height Body mass index (BMI) Body weight Systolic blood pressure Diastolic blood pressure Provider Name and Address Organization Details Last Updated DateTime 12/07/2023 172.72 cm 32.1 kg/m2 05161.99 g 115 mm[Hg] 79 mm[Hg] Crystal Ramos [facility] 4 16:24:16 Date Recorded Body height Body mass index (BMI) Body weight Systolic blood pressure Diastolic blood pressure Provider Name and Address Organization Details Last Updated DateTime 02/29/2024 172.72 cm 33.1 kg/m2 06657.14 g 133 mm[Hg] 57 mm[Hg] Vicky Brooks [facility] 16:41:23 Social History Question Answer Notes LastModified by Organizat ion Details LastModified Time Tobacco Smoking Status Never Smoker Louise Ewing [email or web address], [facility] 10/05/2023 16:23:51 How Many Years Have You Consumed Alcohol? [...] Or The Highest Degree You Have Received? [id number] Information not available 03/30/2023 Are There Any Guns Present In Your [...] Sunscreen Routinely? Yes Information not available 03/30/2023 Do You Have Difficulty Walking Or Climbing Stairs? No Information not available 12/07/2023 Sex: Unknown Functional Status Question Answer Note LastModified by Organizat ion Details LastModified Time Do you use any illicit or recreational drugs? No Information not available 03/30/2023 What is your level of alcohol consumption? None Information not available 03/30/2023 Are you able to walk? YESWOREST Information not available 03/30/2023 Are you able to care for yourself? 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 No [email or web address] Information not available 12/07/2023 What is your exercise level? Moderate Information not available 03/30/2023 Mental Status Question Answer Note LastModified by Organization D etails LastModified Time Do you feel stressed (tense, restless, nervous, or anxious, or unable to sleep at night)? [id number] Information not available 03/30/2023 Family History Relationship Description Onset Age of [...] SNOMED-CT Code Diagnosis ICD10 Code Diagnosis Note [id number] Sagar Mathew MD [place] [address] [address] 03/30/2023 15:21:46 03/30/2023 16:36:46 Uncertain viability of 609845985 O36.80X0 Z3A.01 [id number] Sagar Mathew MD [facility] [address] [address] 03/30/2023 15:22:05 03/31/2023 10:37:24 Amenorrhea 76684317 N91.2 patient is a 27-year-ol d female who presents for amenorrhea . She has a positive test. Ultrasound revealed a 7 week gestation. we talked about , we talked about care. We talked about exercise, food, medication s. She returned to begin routine care. We spent over 20 minutes face-to-fa ce. More than 50% was counseling . [id number] Sagar Mathew MD [facility] [address] [address] 04/20/2023 15:42:09 04/20/2023 16:30:33 [id number] Sagar Mathew MD [facility] [address],[place] [address] 04/20/2023 15:44:59 04/20/2023 22:59:42 [id number] MD Christian Gallegos [address],[place] [address] 05/01/2023 16:08:06 05/01/2023 16:43:34 screening 635322200 Z36.82 [id number] MD Christian Gallegos [address],[place] [address] 05/01/2023 16:08:48 05/01/2023 17:43:11 Routine care 842813880 Z34.81 [id number] MD Christian Gallegos [address],[place] [address] 05/31/2023 17:16:25 05/31/2023 18:37:33 [id number] MD Christian Gallegos [address],[place] [address] 05/31/2023 17:18:38 06/01/2023 10:28:37 Routine care 717707617 Z34.81 [id number] MD Christian Gallegos [address],[place] [address] 06/19/2023 14:39:38 06/19/2023 16:10:22 screening for malformation 522672525 Z36.3 Z3A.19 [id number] MD Christian Gallegos [address],[place] [address] 06/19/2023 14:40:15 06/20/2023 09:42:54 Routine care 171934979 Z34.81 [id number] MD Christian Gallegos [address],[place] [address] 07/19/2023 16:59:13 07/19/2023 18:33:25 Marginal insertion of umbilical cord 17134434 O43.122 O43.112 Z36.2 O44.42 Z3A.24 [id number] MD Christian Gallegos [address],[place] [address] 07/19/2023 17:00:40 07/19/2023 18:32:46 Routine care 337762736 Z34.81 [id number] MD Christian Gallegos [address],[place] [address] 08/17/2023 11:18:09 08/17/2023 11:50:48 Marginal insertion of umbilical cord 16698353 O43.122 O43.112 Z3A.28 [id number] MD Christian Gallegos [address],[place] [address] 08/17/2023 11:18:31 08/17/2023 13:07:43 Routine care 823552732 Z34.81 [id number] SALONI ARCINIEGA MD [facility] [address],[place] [address] 08/22/2023 11:29:48 08/22/2023 12:56:44 Inguinal pain 506236659 R10.2 [id number] MD Christian Gallegos [address],[place] [address] 08/31/2023 16:38:20 08/31/2023 17:51:48 Routine care 449828858 Z34.81 [id number] MD Christian Gallegos [address],[place] [address] 09/14/2023 16:23:40 09/14/2023 17:03:30 Marginal insertion of umbilical cord 37980817 O43.122 O43.112 Z3A.32 [id number] MD Christian Gallegos [address],[place] [address] 09/14/2023 16:24:36 09/15/2023 08:50:31 Routine care 541662871 Z34.81 [id number] MD Christian Gallegos [address],[place] [address] 09/21/2023 11:15:28 09/21/2023 12:15:19 Below expected growth rate 5694287416 15989 R62.52 [id number] MD Christian Gallegos [address],[place] [address] 09/21/2023 11:16:01 09/21/2023 13:28:22 growth restriction 75363306 O36.5930 O36.8320 Z3A.33 [id number] MD Christian Gallegos [address],[place] [address] 09/21/2023 11:16:28 09/21/2023 13:06:28 Routine care 147056462 Z34.81 [id number] MD Christian Gallegos [address],[place] [address] 09/29/2023 15:57:58 09/29/2023 18:07:36 Below expected growth rate 1961002021 42741 R62.52 [id number] MD Christian Gallegos [address],[place] [address] 09/29/2023 16:00:54 09/29/2023 18:07:17 Small for gestational age fetus 058882157 O36.5930 Z3A.34 [id number] SALONI ARCINIEGA MD [facility] [address],[place] [address] 10/05/2023 16:18:49 10/05/2023 17:49:22 Placenta circumvallata 4032666 O43.119 Marginal i nsertion of umbilical cord 79408297 O43.129 Gestation period, 35 weeks 95044676 Z3A.35 [id number] MD Christian Gallegos [address],[place] [address] 10/05/2023 16:22:01 10/05/2023 18:15:03 Below expected growth rate 4431910702 13183 R62.52 [id number] MD Christian Gallegos [address],[place] [address] 10/05/2023 16:23:21 10/05/2023 17:20:23 Placenta circumvallata 4985568 O43.113 O43.103 Z3A.35 [id number] MD Christian Gallegos [address],[place] [address] 10/12/2023 17:27:17 10/12/2023 21:40:25 [id number] MD Christian Gallegos [address],[place] [address] 10/16/2023 17:23:17 10/17/2023 12:33:09 Routine care 679444114 Z34.81 [id number] MD Christian Gallegos [address],[place] [address] 10/24/2023 16:56:24 10/24/2023 18:06:45 Routine care 998013218 Z34.81 [id number] Sagar Mathew MD [facility] [address],[place] [address] 10/30/2023 15:34:13 10/30/2023 16:28:15 Routine care 740906160 Z34.81 [id number] Sagar Mathew MD [facility] [address],[place] [address] 10/30/2023 16:31:13 10/30/2023 16:59:11 tachycardia 802438080 O36.8399 [id number] MD Christian Gallegos [address],[place] [address] 12/07/2023 16:09:37 12/07/2023 17:28:55 care 339089851 Z39.2 [id number] MD Christian Gallegos [address],[place] [address] 02/29/2024 16:03:36 02/29/2024 17:33:25 Gynecologic examination 65227493 Z01.419 Annual gynecologi merritt exam performed. Patient [...] 2020 (MEDICAID REPLACEMENT - HMO) Skip Loy [id number] June Loy 10/24/2023 1 [facility] [id number] Skip Granado [id number] June Loy 10/30/2023 2 [employer] - [place] ON OR AFTER 2020 (MEDICAID REPLACEMENT - HMO) Skip Loy [id number] June Loy 10/30/2023 1 [facility] [id number] Skip Granado [id number] June Loy 10/30/2023 2 [employer] [place] AFTER 2020 (MEDICAID REPLACEMENT - HMO) Skip Loy [id number] June Loy 10/30/2023 1 [facility] [id number] Skip Granado [id number] June Loy 12/07/2023 2 [employer] [place] (MEDICAID REPLACEMENT - HMO) Skip Granado [id number] June Loy 12/07/2023 1 [facility] [id number] Skip Granado [id number] June Loy 02/29/2024 1 [facility] [id number] Skip Granado [id number] June Granado Notes Date Note Type Note [...] complaints, no problems, routine care. Crystal crabtree, [facility] 12/07/2023 18:42:27 02/29/2024 text/html Annual GYNReport [...] exercise Sagar Mathew MD [address], [place], [address], [facility] 02/29/2024 17:24:33 OBGyn Episode Ob Episode Information Episode Created Date Number of Fetuses Patient Bloodtype Patient rh Status Prepregnancy Weight lbs Domestic Partner Domestic Partner Phone Father Name Dye Beck Reel Operator Status 05/01/20 23 1 O Positive 192 CLOSED Fetus Data First Name Last Name Admitted to NICU Weight (g) Sex Living Outcome Pediatric Complications Fetus ID Race Codes Race Delivery Type 3515.33 8 M true Full Term [address]105 Vaginal Delivery Problems Problem Notes cf/sma negative done on 03/08 @ [place]. Problem Name Start Date End Date Resolution Snomed Code Not e Below expected growth rate 678315497911558 10/05 growth normal - no more testing needed Placenta circumvallata 9271199 & MCI - Serial growth! Headache 60929617 Mixed anxiety and depressive disorder 565915507 Transient hypertension of - delivered 017127195 Very late in depression 75223886 txed with proza c hemorrhage 52887658 questionable - story unclear Humza Calculation Initial [...] Weight in lbs Pre/Post Dialysis Refused Weight 192.737604409331 BP Diastolic BP Location Tested BP Systolic [...] Weight in lbs Pre/Post Dialysis Refused Weight 190.303510961313 BP Diastolic BP Location Tested BP Systolic [...] Weight in lbs Pre/Post Dialysis Refused Weight 194.178208634314 BP Diastolic BP Location Tested BP Systolic [...] Weight in lbs Pre/Post Dialysis Refused Weight 197.872587561769 BP Diastolic BP Location Tested BP Systolic [...] Weight in lbs Pre/Post Dialysis Refused Weight 204.363160142082 BP Diastolic BP Location Tested BP Systolic [...] Weight in lbs Pre/Post Dialysis Refused Weight 205.410497932656 BP Diastolic BP Location Tested BP Systolic [...] Weight in lbs Pre/Post Dialysis Refused Weight 206.073773879310 BP Diastolic BP Location Tested BP Systolic [...] Weight in lbs Pre/Post Dialysis Refused Weight 209.857583813486 BP Diastolic BP Location Tested BP Systolic [...] Weight in lbs Pre/Post Dialysis Refused Weight 212.78190595300 BP Diastolic BP Location Tested BP Systolic [...] Weight in lbs Pre/Post Dialysis Refused Weight 214.067890345129 BP Diastolic BP Location Tested BP Systolic BP Type 70 113 Fetus Heart Rate Present A 143 Fetus Movement A Yes Comments Good movement. No ctx, VB, LOF. BH contractions. EFW 26%, improved from last US, UADs wnl. BPP 8/, NST to follow. Flowsheet Date 10/12/2023 Oro Score Blood Edema Fundus Height Fundus Units Glucose Ketones Leukocytes Nitrite Labor Signs Protein Cervic Dilation Cervic Effacement Cervic Station Type Weight in lbs Pre/Post Dialysis Refused Weight 216.900682493884 BP Diastolic BP Location Tested BP Systolic BP Type 81 L arm 138 sitting Fetus Heart Rate Present Fetus Movement A Yes Comments Flowsheet Date 10/16/2023 Oro Score Blood Edema Fundus Height Fundus Units Glucose Ketones Leukocytes Nitrite Labor Signs Protein Cervic Dilation Cervic Effacement Cervic Station 36 Type Weight in lbs Pre/Post Dialysis Refused Weight 217.000106277172 BP Diastolic BP Location Tested BP Systolic [...] Weight in lbs Pre/Post Dialysis Refused Weight 220.181964846912 BP Diastolic BP Location Tested BP Systolic [...] Weight in lbs Pre/Post Dialysis Refused Weight 223.638008576014 BP Diastolic BP Location Tested BP Systolic [...] Estim ated Date of Delivery false Thalassemia (Amharic, Singaporean, Mediterranean, Or Background): MCV < 80 false Neural Tube Defect (Meningomyelocele, Spina Bifi da, Or Anencephaly) false Congenital Heart Defect false Down Syndrome false Walt-Sachs (eg, Religion, Cajun, Yakut-Real) f alse Libby Disease false Sickle Cell Disease Or Trait () false Hemophilia Or Other Blood Disorders false Muscular Dystrophy false Cystic Fibrosis false Whitman's Chorea false Intellectual Disability/Autism false If Yes, [...] Domestic Partner Domestic Partner Phone Father Name Dye Beck Reel Operator Status 03/30/20 23 1 CLOSED Fetus Data [...]
--- NOTE | 2025-02-14 18:46 | ED_ITS ---
HPI - Female Genitourinary General Chief complaint: Urogenital-Female Stated complaint: uti symptoms Source: patient Mode of arrival: ambulatory Limitations: no limitations History of Present Illness HPI Narrative: Patient is a 29-year-old female with right lower pelvic discomfort for the past 2 days. She has associated nausea vomiting x2. No fever or chills. She has had recently C diff which is resolved at this time. She is having burning with urination and increased urination. No particular vaginal complaints. No concerns for STDs. MD elicited complaint: dysuria, UTI and pelvic pain ( Right side) Pertinent past history: other ( kidney stones) Onset (ago): day(s) ( 2 days) Location of symptoms: pelvis ( right side) Severity: mild Female Urogenital Radiation: Non-Radiating Severity scale (1-10): 3 Quality of pain: cramping and sharp Consistency: constant Vaginal discharge: none Vaginal bleeding: none Urinary symptoms: Dysuria, Urgency and Frequency Exacerbating factors: none Relieving factors: none Associated symptoms: denies other symptoms Treatment prior to arrival: none Sexual activity: No Patient : No Related Data Home Medications ?Medication ?Instructions ?Recorded ?Confirmed ?Last Taken ?Type hydroxyzine HCl 25 mg tablet 25 mg PO TID PRN anxiety 01/20/25 01/28/25 01/19/25 History sertraline 50 mg tablet 50 mg PO DAILY 01/20/25 01/28/25 01/16/25 History Allergies Allergy/AdvReac Type Severity Reaction Status Date / Time amoxicillin Allergy Difficulty Verified 02/14/25 20:40 Breathing latex Allergy Difficulty Verified 02/14/25 20:40 Breathing Penicillins Allergy Hives Verified 02/14/25 20:40 Review of Systems Review of Systems: All systems reviewed & are unremarkable except as noted in HPI and below Constitutional: Constitutional: Reports no additional constitutional complaints Eyes: Eyes: Reports no additional eye complaints ENT: Reports system reviewed and no additional complaints, except as documented Cardiovascular: Cardiovascular: Reports no additional cardiovascular complaints Respiratory: Respiratory: Reports no additional respiratory complaints Gastrointestinal: Gastrointestinal: Reports no additional gastrointestinal complaints Genitourinary: Genitourinary: Reports no additional female genitourinary complaints Musculoskeletal: Musculoskeletal: Reports no additional musculoskeletal complaints Integumentary/Breasts: Skin/Breast: Reports system reviewed and no additional complaints, except as docu Neurologic: Reports system reviewed and no additional complaints, except as documented Psychiatric: Psychiatric: Reports no additional psychiatric complaints Endocrine: Endocrine: Reports no additional endocrine complaints Hematologic/Lymphatic: Hematologic/Lymphatic: Reports no additional hematologic/lymphatic complaints Allergic/Immunologic: Allergic/Immunologic: Reports no additional allergic/immunologic complaints PMFSH Past Medical History Medical History Kidney stones Depression with anxiety Family History Family History Mother Diabetes mellitus Father Chronic bronchitis Social History Social History Social History: Surrogate medical decision maker: Skip Granado, spouse. Code status: Full code. Smoking status: Never smoker Second hand tobacco smoke exposure: No Alcohol intake: former Substance use: never Do You Feel Safe in your Home?: Yes Lack of Transportation: No Lack of Food: Never True Current Housing: I Have Housing Concerned About Future Housing: No Difficulty Paying Gas/Electric Bills: No Difficulty Paying for Meds: No Currently Unemployed: No Education: High School Diploma/GED Difficulty w/ Childcare or Family Care: No Additional living arrangements comments: Lives at home with spouse and their 2 young children, age 3 and 1-year-old. 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 Spiritual care concerns: No Exam Const: General: healthy appearing Nutritional Appearance: well nourished Orientation/consciousness: patient oriented x3 Limitations: no limitations HENMT: Head: normal to inspection Ears: external ears normal Face/Nose/Sinus: Normal external nose present Eyes: Conjunctivae: conjunctivae normal Pupils: Equal, round and reactive pupils present EOM: EOMs intact bilaterally Neck: Neck: normal visual inspection Chest: Chest palpation & inspection: normal inspection of the chest Resp: Effort & Inspection: normal respiratory effort and not labored Auscultation: clear to auscultation bilaterally and no crackles Cardio: Rate: regular rate Rhythm: regular rhythm Heart sounds: no murmurs GI: Inspection: non-distended GI Palp: Yes Soft to palpation, Yes Tenderness to palpation present (GI) ( right groin and suprapubic area), No Guarding due to palpation present (GI), No Rigid due to palpation, No Hernia present, No Palpable mass present and No Rebound tenderness present Auscultation: normal bowel sounds : General: Yes bladder normal to palpation Back/Spine/Pelvis: Back: no CVA tenderness Skin: General skin exam: normal color Rashes: no rashes Wounds: no w ounds Neuro: General: patient oriented x3 Cranial nerves: Yes Nystagmus not present Speech: normal speech Extrem: General: normal to inspection Psych: Appearance: grossly normal Mental Status: mental status grossly normal Affect: normal affect Course Vital Signs Vital signs: Vital Signs Temperature 36.5 C 02/14/25 18:35 Pulse Rate 101 H 02/14/25 18:35 Respiratory Rate 20 02/14/25 18:35 Blood Pressure 127/85 02/14/25 18:35 Pulse Oximetry 100 02/14/25 18:35 Oxygen Delivery Room Air 02/14/25 18:35 Temperature 36.5 C 02/14/25 18:35 Pulse Rate 88 02/14/25 19:34 Respiratory Rate 20 02/14/25 19:34 Blood Pressure 133/84 02/14/25 19:34 Pulse Oximetry 99 02/14/25 19:34 Oxygen Delivery Room Air 02/14/25 19:34 MDM - Female Genitourinary MDM Narrative Medical decision making narrative: patient is a 29-year-old female with right groin pain and suprapubic pain for the past 2 days. Will start with a UA. We will check . we will use Bactrim for UTI which is less likely to cause C diff. the colitis on the CT scan is likely from residual appearance from C diff. her pain is very low in the abdomen and not high in the abdomen where the colitis is shown. Lab Data Attestation: I reviewed the patient's lab results. Labs: Lab Results 02/14/25 Range/Units 18:38 Urine Color Light yellow (Yellow) Urine Appearance Clear (Clear) Urine pH 8.5 H (5.0-8.0) Ur Specific [place] 1.015 (1.010-1.020) Urine Protein 1+ H (Negative) Urine Glucose (UA) Negative (Negative) Urine Ketones Trace H (Negative) Ur Blood (Man) 2+ H (Negative) Urine Nitrate Negative (Negative) Urine Bilirubin Negative (Negative) Urine Urobilinogen 1.0 (0.2-1.0) mg/dL Leukocyte Esterase Rfl Trace H (Negative) KAMI/UL Urine RBC 0-2 (0-2) /hpf Urine WBC 0-3 (0-3) /hpf Ur Squamous Epith Cells Moderate H (Few) /hpf Urine Bacteria 1+ H (None) /hpf Urine Mucus Few H /lpf Urine Test Negative Imaging Data Attestation: I personally reviewed and interpreted this imaging study as follows: Radiologist's impression: CT scan of the abdomen and pelvis shows IMPRESSION: 1. Tiny stones in the right kidney lower pole. 2. Underfilled urinary bladder with slightly thickened. Evaluation for cystitis advised. 3. Focal area of thickening in the right hepatic flexure may indicate colitis. Follow-up advised. 4. No evidence of appendicitis, diverticulitis or intestinal obstruction. Discharge Plan Discharge Clinical Impression: UTI (urinary tract infection) Qualifiers: Urinary tract infection type: acute cystitis Hematuria presence: with hematuria Qualified Code(s): N30.01 - Acute cystitis with hematuria Patient Disposition: Home Condition: Stable Instructions: Antibiotic Form, Urinary Tract Infection in Women (ED) Additional Instructions: and given you 7 days of antibiotics but you may stop it 5 days if symptoms resolve. We would rather use less antibiotics that more antibiotics with recent C diff infection. Make sure to use probiotics such as yogurt. This particular antibiotic is less likely to cause C diff. Patient Language: [place] Zealander Prescriptions: New sulfamethoxazole-trimethoprim [Bactrim DS] 800-160 mg tablet 1 tablet PO BID 7 Days Qty: 14 0RF No Action promethazine 12.5 mg tablet 12.5 mg PO Q6H PRN (Reason: nausea and vomiting) Qty: 30 2RF hydroxyzine HCl 25 mg tablet 25 mg PO TID PRN (Reason: anxiety) sertraline 50 mg tablet 50 mg PO DAILY Saccharomyces boulardii [Florastor] 250 mg Capsule 500 mg PO BID 10 Days Qty: 40 0RF Dificid 200 mg Tablet 200 mg PO Q12HR 10 Days Qty: 20 0RF Follow-up/Referrals: Juanito Domingo M.D. [Primary Care Provider] - Time of Disposition: 20:39
[2025-02-14 18:55] LABS: Add Urine Microscopic? YES; Appearance Urine Clear (Clear); Bilirubin Urine Negative (Negative); Blood Urine 2+ (Negative); Color Urine Light Yellow (Yellow); Glucose Urine UA Negative (Negative); Ketones Urine Trace (Negative); Leukocyte Esterase Ur Trace LEU/UL (Negative); Nitrate Urine Negative (Negative); Protein Urine 1+ (Negative); Specific Grav Ur 1.015 (1.010-1.020); pH Urine 8.5 (5.0-8.0)
[2025-02-14 19:02] LABS: Bacteria Urine 1+ /hpf; Mucus Urine Few /lpf; RBC Urine 0-2 /hpf (0-2); Squamous Epithelial Cell Urine Moderate /hpf (Few); WBC Urine 0-3 /hpf (0-3)
[2025-02-14 19:06] LABS: Pregnancy On Board Control Positive; Urine Pregnancy Test Negative
[2025-02-14 19:34] VITALS: BP 133/84; PULSE 88; RESP 20; O2SAT 99
[2025-02-14] MEDS: SULFAMETHOXAZOLE/TRIMETHOPRIM 800/160 MG DS TABLET 1 TAB PO (20:44)
[2025-02-14 20:45] VITALS: BP 136/74; PULSE 74; RESP 20; O2SAT 98
== END 2025-02-14 20:45 | disposition home or self-care (01) ==
PROVIDERS: Emergency Provider Emergency Medicine; PCP Family Medicine
DX: N30.01 Acute cystitis with hematuria (principal)
CPT/HCPCS: 74176; 81001; 81025; 99284; A9270

== ENCOUNTER 2025-03-06 19:20 | Emergency (ER) | payer SELFPAY ==
--- NOTE | ~2025-03-06 | XR_ITS ---
CHEST RADIOGRAPH, PA AND LATERAL CLINICAL HISTORY: left-sided rib pain pain with deep inspiration . COMPARISON: 05/04/2024 TECHNIQUE: PA and lateral views of the chest. FINDINGS The cardiomediastinal silhouette is unremarkable. The lungs are clear. IMPRESSION: No focal infiltrate or effusion. Reviewed, dictated and finalized at location A.
[2025-03-06 19:20] VITALS: BP 134/82; PULSE 96; RESP 18; TEMP 36.4; O2SAT 98
--- OUTSIDE RECORDS SUMMARY | 2025-03-06 19:23 | XMS_ITS | Data Portability ---
Author Organization [facility] Address [address] [place] [address] [address] Care Team Providers Care Field Talent Qualification Specialist Name Role Phone ADI ALVA Primary Care Provider Assessment Encounter Date Assessment Date Assessment LastModified by Organization Details LastModified Time 10/24/2023 10/24/2023 Patient is ___weeks . Discussed plan. Not available 10/24/2023 17:08:12 10/30/2023 10/30/2023 Patient is ___weeks . Discussed plan. Not available 10/30/2023 15:50:14 02/29/2024 02/29/2024 Annual gynecological exam performed. Patient will come back in a year unless there are new symptoms. [email or web address] Not available 02/29/2024 16:38:22 Plan of Treatment Reminders Order Date Submit Date Provider Last Modified By Organization Details Last Modified Time Details Appointments None record ed. Lab None record ed. Referral None record ed. Procedures None record ed. Surgeries None record ed. Imaging non-st ress test 024 10/30/19 24 [email or web address] [address], [address], [place], [address], 16:59:11 Medication Orders None record ed. Patient [...] t Abnor mal: No Resul ting Lab: [facility] [address] [facility] [address] Tel: CULTU RE ----- ----- ----- --- No Group B strep isola levi at 2 days (frantz ctive broth enhan cemen t) Not Available [facility] (Lab) [address], [place], [address], 10/19/2023 20:06:52 02/29/20 24 02/29/2024 IMAGE GUIDE [...] as clini jordi rico nted. Not Available [facility] (Lab) [address], [place], [address], 03/05/2024 13:53:07 09/29/19 24 09/29/2023 non-s tress test No observ ation record ed. [email or web address] [address], [place], [address], 09/29/2023 18:55:15 09/29/19 non-s tress test No observ ation record ed. [email or web address] Not Available 09/29 17:13:40 09/29/19 24 10/03/2023 US, obste tric, bioph ysica l profi le + non-s tress test No observ ation record ed. [email or web address] [address], [place], [address], 10/03/2023 12:33:34 09/29/19 24 09/29/2023 US, obste tric, bioph ysica l profi le + non-s tress test No observ ation record ed. [email or web address] [address] [facility], [place], [address], 09/29/2023 19:02:23 10/05/19 24 10/05/2023 US, obste tric, follo w-up No observ ation record ed. [email or web address] [address], [place], [address], 10/05/2023 17:54:19 10/05/19 non-s tress test No observ ation record ed. [email or web address] Not Available 10/05 18:07:53 10/05/19 24 10/05/2023 non-s tress test No observ ation record ed. [email or web address] [address], [place], [address], 10/05/2023 19:13:04 10/06/19 24 10/05/2023 US, obste tric, follo w-up No observ ation record ed. BO [address], [place], [address], 10/09/2023 10:21:34 10/30/19 24 10/30/2023 non-s tress test No observ ation record ed. [email or web address] [address], [place], [address], 10/30/2023 16:57:17 Result Notes None recorded. Problems Name Problem SNOMED Code Status Onset Date Resolution Date Notes Provider Name and Address Organization Details Recorded Time Pregnanc y 68343650 Completed 202211/02/2023 Lesly Anival [facility] 4 16:53:23 Transien t hyperten jamari of pregnanc y - delivere d 287736938 Completed Very late in pregnanc y Lesly Anival [facility] 4 16:53:19 Postpart um depressi on 94514614 Completed txed with prozac Dashaholden Felixle [facility] 4 16:53:19 Postpart um hemorrha ge 15705467 Completed question able - story [facility] 4 16:53:19 Headache 58481484 Completed [facility] 4 16:53:19 Mixed anxiety and depressi ve disorder 250837605 Completed Lesly Anival [facility] 4 16:53:19 Placenta circumva llata 2486746 Completed & MCI - Serial growth! Lesly Anival [facility] 4 16:53:19 Below expected growth rate 01017231768 4106 Completed 10/05 growth normal - no more antenata l testing needed Lesly Florian [facility] 4 16:53:19 Problem Notes None recorded. Procedures Surgical History Date Name Laterality Status Provider Name and Address Organization Details Recorded Time 1 Date of Last Pap Smear completed [facility] 12/07/2023 13:03:01 9 procedure on lip completed [facility] 12/07/2023 16:26:01 7 procedure on ear completed [facility] 12/07/2023 16:26:10 Imaging Results None recorded. Procedure Notes None recorded. Medical Equipment None Reported. Allergies Allergen ID Allergen Name Allergen Category Reaction Reaction Severity Criticality Documentation Date Start Date Code Code System Note Provider Name and Address Organization Details Recorded Time 19118 Product containin g penicilli n (product) medicatio n hives vomiting Not available Not available Not available 03/30/2023 19217 8001 SNOMED Юлия Schroeder [facility] 3 16:20:54 60370 latex environme nt,medica tion Not available Not available Not available 12/07/2023 29402 91 RxNorm [facility] 4 16:24:40 Medications Name Sig [...] Updated DateTime 10/24/2023 172.72 cm 33.5 kg/m2 01778.32 14 g 132 mm[Hg] 77 mm[Hg] [facility] 4 17:17:07 Date Recorded Body height Body mass index (BMI) Body weight Systolic blood pressure Diastolic blood pressure Provider Name and Address Organization Details Last Updated DateTime 10/30/2023 172.72 cm 33.9 kg/m2 654203.0 9851 g 125 mm[Hg] 84 mm[Hg] Юлия [facility] 4 15:50:25 Date Recorded Body height Body mass index (BMI) Body weight Systolic blood pressure Diastolic blood pressure Provider Name and Address Organization Details Last Updated DateTime 12/07/2023 172.72 cm 32.1 kg/m2 61771.99 g 115 mm[Hg] 79 mm[Hg] Crystal Ramos [facility] 4 16:24:16 Date Recorded Body height Body mass index (BMI) Body weight Systolic blood pressure Diastolic blood pressure Provider Name and Address Organization Details Last Updated DateTime 02/29/2024 172.72 cm 33.1 kg/m2 48738.14 g 133 mm[Hg] 57 mm[Hg] Vicky Brooks [facility] 16:41:23 Social History Question Answer Notes LastModified by Organizat ion Details LastModified Time Tobacco Smoking Status Never Smoker Louise Ewing [email or web address], [facility] 10/05/2023 16:23:51 How Many Years Have [...] Or The Highest Degree You Have Received? [id number] Information not available 03/30/2023 Are There Any [...] Have Difficulty Walking Or Climbing Stairs? No [email or web address] Information not available 12/07/2023 Sex: Unknown Functional Status Question Answer Note LastModified by Organizat ion Details LastModified Time Do you use any illicit or recreational drugs? No Information not available 03/30/2023 What is your level of alcohol consumption? None Information not available 03/30/2023 Are you able to walk? YESWOREST Information not available 03/30/2023 Are you able to care for yourself? 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 No [email or web address] Information not available 12/07/2023 What is your exercise level? Moderate Information not available 03/30/2023 Mental Status Question Answer Note LastModified by Organization D etails LastModified Time Do you feel stressed (tense, restless, nervous, or anxious, or unable to sleep at night)? [id number] Information not available 03/30/2023 Family History Relationship Description Onset Age of this Age Resolved Age Notes LastModified by Organization Details LastModified Time Unspecified Relation Family history unknown Not available 2022 16:00:54 Medical History Condition Response Allergies (Food, seasonal, environmental ) Y Other N Drug/Latex Allergies/Reactions Y Breast Cancer N Blood Transfusion N Lung Disease N Dermatologic Disorders N Defects or Inherited Disease N Breast Problem N Gestational Diabetes N Hematologic disorders N Anesthesia Complications N History of STI N Deep Vein Thrombosis N Polycystic ovary syndrome N Anxiety Disorder Y Autoimmune disease N Arthritis N Polyps N Infertility N History of abnormal pap N Acid Reflux (GERD) N Cancer N Varicosities N Stroke N Neurologic/Epilepsy N Endometriosis N High Cholesterol N Headaches Y Fibromyalgia N Kidney Disease N Heart Problems N Thyroid Problems N Kidney or Bladder Problems N GI Problems N Eating Disorder [...] SNOMED-CT Code Diagnosis ICD10 Code Diagnosis Note [id number] Sagar Mathew MD [facility] [address] [address] 03/30/2023 15:21:46 03/30/2023 16:36:46 Uncertain viability of 605786433 O36.80X0 Z3A.01 [id number] Sagar Mathew MD [facility] [address] [address] 03/30/2023 15:22:05 03/31/2023 10:37:24 Amenorrhea 83287866 N91.2 patient is a 27-year-ol d female who presents for amenorrhea . She has a positive test. Ultrasound revealed a 7 week gestation. we talked about , we talked about care. We talked about exercise, food, medication s. She returned to begin routine care. We spent over 20 minutes face-to-fa ce. More than 50% was counseling . [id number] Sagar Mathew MD [facility] [address] [address] 04/20/2023 15:42:09 04/20/2023 16:30:33 [id number] Sagar Mathew MD [facility] [address],[place] [address] 04/20/2023 15:44:59 04/20/2023 22:59:42 [id number] MD Christian Gallegos [address],[place] [address] 05/01/2023 16:08:06 05/01/2023 16:43:34 screening 457784230 Z36.82 [id number] MD Christian Gallegos [address],[place] [address] 05/01/2023 16:08:48 05/01/2023 17:43:11 Routine care 221011540 Z34.81 [id number] MD Christian Galleg[facility] [address],[place] [address] 05/31/2023 17:16:25 05/31/2023 18:37:33 [id number] MD Christian Gallegos [address],[place] [address] 05/31/2023 17:18:38 06/01/2023 10:28:37 Routine care 371966993 Z34.81 [id number] MD Christian Galleg[facility] [address],[place] [address] 06/19/2023 14:39:38 06/19/2023 16:10:22 screening for malformation 156872250 Z36.3 Z3A.19 [id number] MD Christian Galleg[facility] [address],[place] [address] 06/19/2023 14:40:15 06/20/2023 09:42:54 Routine care 628223937 Z34.81 [id number] MD Christian Gallegos [address],[place] [address] 07/19/2023 16:59:13 07/19/2023 18:33:25 Marginal insertion of umbilical cord 54672022 O43.122 O43.112 Z36.2 O44.42 Z3A.24 [id number] MD Christian Gallegos [address],[place] [address] 07/19/2023 17:00:40 07/19/2023 18:32:46 Routine care 351462628 Z34.81 [id number] MD Christian Gallegos [address],[place] [address] 08/17/2023 11:18:09 08/17/2023 11:50:48 Marginal insertion of umbilical cord 17249542 O43.122 O43.112 Z3A.28 [id number] MD Christian Gallegos [address],[place] [address] 08/17/2023 11:18:31 08/17/2023 13:07:43 Routine care 394508127 Z34.81 [id number] SALONI ARCINIEGA MD [facility] [facility] [address],[place] [address] 08/22/2023 11:29:48 08/22/2023 12:56:44 Inguinal pain 741464871 R10.2 [id number] MD Christian Galleg[facility] [address],[place] [address] 08/31/2023 16:38:20 08/31/2023 17:51:48 Routine care 806615698 Z34.81 [id number] MD Christian Gallegos [address],[place] [address] 09/14/2023 16:23:40 09/14/2023 17:03:30 Marginal insertion of umbilical cord 07328131 O43.122 O43.112 Z3A.32 [id number] MD Christian Gallegos [address],[place] [address] 09/14/2023 16:24:36 09/15/2023 08:50:31 Routine care 225944271 Z34.81 [id number] MD Christian Gallegos [address],[place] [address] 09/21/2023 11:15:28 09/21/2023 12:15:19 Below expected growth rate 0470557531 23080 R62.52 [id number] MD Christian Gallegos [address],[place] [address] 09/21/2023 11:16:01 09/21/2023 13:28:22 growth restriction 05661021 O36.5930 O36.8320 Z3A.33 [id number] MD Christian Gallegos [address],[place] [address] 09/21/2023 11:16:28 09/21/2023 13:06:28 Routine care 800207118 Z34.81 [id number] MD Christian Gallegos [address],[place] [address] 09/29/2023 15:57:58 09/29/2023 18:07:36 Below expected growth rate 0999619976 76717 R62.52 [id number] MD Christian Gallegos [address],[place] [address] 09/29/2023 16:00:54 09/29/2023 18:07:17 Small for gestational age fetus 769066590 O36.5930 Z3A.34 [id number] SALONI ARCINIEGA MD [place] [address],[place] [address] 10/05/2023 16:18:49 10/05/2023 17:49:22 Placenta circumvallata 3252624 O43.119 Marginal i nsertion of umbilical cord 49413981 O43.129 Gestation period, 35 weeks 70158047 Z3A.35 [id number] MD Christian Gallegos [address],[place] [address] 10/05/2023 16:22:01 10/05/2023 18:15:03 Below expected growth rate 9933588056 52595 R62.52 [id number] MD Christian Gallegos [address],[place] [address] 10/05/2023 16:23:21 10/05/2023 17:20:23 Placenta circumvallata 4127844 O43.113 O43.103 Z3A.35 [id number] MD Christian Galleg[facility] [address],[place] [address] 10/12/2023 17:27:17 10/12/2023 21:40:25 [id number] MD Christian Gallegos [address],[place] [address] 10/16/2023 17:23:17 10/17/2023 12:33:09 Routine care 028438642 Z34.81 [id number] MD Christian Gallegos [address],[place] [address] 10/24/2023 16:56:24 10/24/2023 18:06:45 Routine care 169445120 Z34.81 [id number] Sagar Mathew MD [facility] [address],[place] [address] 10/30/2023 15:34:13 10/30/2023 16:28:15 Routine care 019613501 Z34.81 [id number] Sagar Mathew MD [place] [address],[place] [address] 10/30/2023 16:31:13 10/30/2023 16:59:11 tachycardia 584138544 O36.8399 [id number] MD Christian Gal[facility] [address],[place] [address] 12/07/2023 16:09:37 12/07/2023 17:28:55 care 463702347 Z39.2 [id number] MD Christian Galleg[facility] [address],[place] [address] 02/29/2024 16:03:36 02/29/2024 17:33:25 Gynecologic examination 43434623 Z01.419 Annual gynecologi merritt exam performed. Patient [...] Recorded Advance Directives Directive None Recorded Payers Insurance Date Sequence Insurance Name Policy Number Policy Zavala Covered Member ID Zavala Member ID Guarantor Name 10/09/2023 2 [employer] June Granado [id number] June Granado 02/29/2024 2 [employer] [facility] ON OR AFTER 08/18/2020 (MEDICAID REPLACEMENT - HMO) Skip Granado [id number] June Granado 03/04/2024 1 [facility] - [facility] [id number] Skip Granado [id number] June Granado Notes Date Note Type Note [...] no complaints, no problems, routine care. Crystal crabtree [facility] 12/07/2023 18:42:27 02/29/2024 text/html Annual GYNReport [...] exercise Sagar Mathew MD [address], [place], [address], [place] [facility] 02/29/2024 17:24:33 OBGyn Episode Ob Episode Information Episode Created Date Number of Fetuses Patient Bloodtype Patient rh Status Prepregnancy Weight lbs Domestic Partner Domestic Partner Phone Father Name Data Collection Technician Status 05/01/20 23 1 O Positive 192 CLOSED Fetus Data First Name Last Name Admitted to NICU Weight (g) Sex Living Outcome Pediatric Complications Fetus ID Race Codes Race Delivery Type 3515.33 8 M true Full Term 12885 Vaginal Delivery Problems Problem Notes cf/sma negative done on 03/08 @ [facility]. Problem Name Start Date End Date Resolution Snomed Code Not e Below expected growth rate 904570692795567 10/05 growth normal - no more testing needed Placenta circumvallata 8966536 & MCI - Serial growth! Headache 32673951 Mixed anxiety and depressive disorder 452108359 Transient hypertension of - delivered 363994727 Very late in depression 01905067 txed with proza c hemorrhage 77595052 questionable - story unclear Humza Calculation Initial [...] Weight in lbs Pre/Post Dialysis Refused Weight 192.100021038893 BP Diastolic BP Location Tested BP Systolic [...] Weight in lbs Pre/Post Dialysis Refused Weight 190.667884857201 BP Diastolic BP Location Tested BP Systolic [...] Weight in lbs Pre/Post Dialysis Refused Weight 194.817739919924 BP Diastolic BP Location Tested BP Systolic [...] Weight in lbs Pre/Post Dialysis Refused Weight 197.936918690484 BP Diastolic BP Location Tested BP Systolic [...] Weight in lbs Pre/Post Dialysis Refused Weight 204.423550812447 BP Diastolic BP Location Tested BP Systolic [...] Weight in lbs Pre/Post Dialysis Refused Weight 205.227813298456 BP Diastolic BP Location Tested BP Systolic [...] Weight in lbs Pre/Post Dialysis Refused Weight 206.745333263431 BP Diastolic BP Location Tested BP Systolic [...] Weight in lbs Pre/Post Dialysis Refused Weight 209.333197871016 BP Diastolic BP Location Tested BP Systolic [...] Weight in lbs Pre/Post Dialysis Refused Weight 212.37183784398 BP Diastolic BP Location Tested BP Systolic [...] Weight in lbs Pre/Post Dialysis Refused Weight 214.878439023965 BP Diastolic BP Location Tested BP Systolic [...] Weight in lbs Pre/Post Dialysis Refused Weight 216.955777105425 BP Diastolic BP Location Tested BP Systolic BP Type 81 L arm 138 sitting Fetus Heart Rate Present Fetus Movement A Yes Comments Flowsheet Date 10/16/2023 Oro Score Blood Edema Fundus Height Fundus Units Glucose Ketones Leukocytes Nitrite Labor Signs Protein Cervic Dilation Cervic Effacement Cervic Station 36 Type Weight in lbs Pre/Post Dialysis Refused Weight 217.741911789753 BP Diastolic BP Location Tested BP Systolic [...] Weight in lbs Pre/Post Dialysis Refused Weight 220.887711396549 BP Diastolic BP Location Tested BP Systolic [...] Weight in lbs Pre/Post Dialysis Refused Weight 223.725271030748 BP Diastolic BP Location Tested BP Systolic [...] Estim ated Date of Delivery false Thalassemia (Nigerian, Yoruba, Mediterranean, Or Background): MCV < 80 false Neural Tube Defect (Meningomyelocele, Spina Bifi da, Or Anencephaly) false Congenital Heart Defect false Down Syndrome false Walt-Sachs (eg, Amish, Cajun, Ivorian-Lenawee) f alse Libby Disease false Sickle Cell [...] Domestic Partner Domestic Partner Phone Father Name Data Collection Technician Status 03/30/20 23 1 CLOSED Fetus Data First Name Last Name Admitted to NICU Weight (g) Sex Living Outcome Pediatric Complications Fetus ID Race Codes Race Delivery Type 3288.54 2 F Full Term 17274 Vaginal Delivery Humza Calculation Initial Humza Date [...]
--- NOTE | 2025-03-06 19:40 | ECG_ITS ---
Test Date: 2025-03-06 19:34:15 Measurements Intervals [place] Rate: 90 P: 53 [place]: 144 QRS: 35 QRSD: 82 T: 11 QT: 350 QTc: 429 Interpretive Statements SINUS RHYTHM BORDERLINE ST-T WAVE ABNORMALITY- DIFFUSE LEADS BASELINE ARTIFACT- I, III, AVR, AVL BORDERLINE ECG Compared to ECG 05/04/2024 22:42:17 HEART RATE HAS DECREASED Electronically Signed On 03-07-2025 07:14:39 CDT by John Bautista D.O.
--- NOTE | 2025-03-06 19:49 | PC.NURSE ---
PATIENT RETURNED FROM XRAY VIA WHEEL CHAIR
--- OUTSIDE RECORDS SUMMARY | 2025-03-06 20:01 | XMS_ITS | Clinical Summary ---
Author Organization [facility] Address [facility] [place] [address] Care Team Providers Care Die Turner Name Role Phone Juanito Domingo MD Primary [...] Diagnosed Date Anxiety 03/25/2021 Term of female ([facility]) Normal labor ([facility]) 03/22/2021 Prolonged latent phase of labor ([facility]) 2020 39 weeks gestation of ([facility]) 2020 Encounter for elective induction of labor ([facility]) 03/16/2021 Pre-eclampsia ([facility]) 03/01/2021 Elevated blood pressure affe cting in third trimester, antepartum ([facility]) 02/28/2021 Social History Tobacco Use Types Packs/Day [...] How often do you attend chur or moravian services? More than 4 times per year 03/16/2021 Do you belong to any clubs o r organizations such as zoroastrian groups, unions, fraternal or athletic groups, or [...] 03/16/2021 [facility] [place] of Occupat ional Health - Occupational Stress [...] place to sleep or slept in a mcfp (including now)? No 03/16/2021 Comments No Sex and Gender Information Value Date Recorded Sex Assigned at Female 11/19/2024 1:28 PM TONAL REGULATOR Legal Sex Female 5:59 PM TONAL REGULATOR Gender Identity Not on file Sexual Orientation [...] 7:00 AM CDT Height 172.7 cm (5' 8) 03/23/2021 7:00 AM CDT Body Mass Index [...] patient's age to complete this topic Insurance Advance Directives * Full Code (Latest [...] 3:08 PM 03/17/2021 1:10 PM Care Teams Die Turner Relationship Specialty Start Date End Date Juanito Domingo MD [address] [place] [address] PCP - General FAMILY PRACTICE 04/11/19
--- NOTE | 2025-03-06 20:08 | PC.NURSE ---
RESTING ON STRETCHER. WAITING ON TEST RESULTS. DENIES ANY NEEDS
--- NOTE | 2025-03-06 20:13 | ED_ITS ---
HPI - Chest Pain General Chief Complaint: Chest Pain Stated Complaint: L rib pain Time Seen by Provider: 03/06/25 19:21 Source: patient Mode of arrival: ambulatory Limitations: no limitations History of Present Illness HPI narrative: 29-year-old female with no significant past medical history presents with left- sided rib pain reproducible with palpation with no shortness of breath no audible wheezing no history of asthma, there is no cough or congestion no fever chills. patient denies any injuries MD complaint: chest discomfort Onset (ago): day(s) Timing of current episode: constant Prior episodes: No Onset: during rest Related Data Home Medications ?Medication ?Instructions ?Recorded ?Confirmed ?Last Taken ?Type hydroxyzine HCl 25 mg tablet 25 mg PO TID PRN anxiety 01/20/25 01/28/25 01/19/25 History sertraline 50 mg tablet 50 mg PO DAILY 01/20/25 01/28/25 01/16/25 History Allergies Allergy/AdvReac Type Severity Reaction Status Date / Time amoxicillin Allergy Difficulty Verified 02/21/25 13:40 Breathing latex Allergy Difficulty Verified 02/21/25 13:40 Breathing Penicillins Allergy Hives Verified 02/21/25 13:40 Review of Systems Review of Systems: All systems reviewed & are unremarkable except as noted in HPI and below PMFSH Past Medical History Medical History Kidney stones Depression with anxiety Family History Family History Mother Diabetes mellitus Father Chronic bronchitis Social History Social History Social History: Surrogate medical decision maker: Skip Loy, spouse. Code status: Full code. Smoking status: Never smoker Second hand tobacco smoke exposure: No Alcohol intake: former Substance use: never Do You Feel Safe in your Home?: Yes Lack of Transportation: No Lack of Food: Never True Current Housing: I Have Housing Concerned About Future Housing: No Difficulty Paying Gas/Electric Bills: No Difficulty Paying for Meds: No Currently Unemployed: No Education: High School Diploma/GED Difficulty w/ Childcare or Family Care: No Additional living arrangements comments: Lives at home with spouse and their 2 young children, age 3 and 1-year-old. 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 Spiritual care concerns: No Exam Const: General: cooperative, healthy appearing, comfortable, no acute distress, well developed, alert, awake and Physically active Nutritional Appearance: average body habitus and well nourished HENMT: Head: normal to inspection Face and sinus: normal facial exam Eyes: General: appearance normal, both eyes and all related structures Neck: Neck: normal visual inspection, full ROM, no lymphadenopathy and no meningeal signs Chest: Chest palpation & inspection: normal inspection of the chest Other: Left-sided rib discomfort with palpation Resp: Effort & Inspection: normal respiratory effort and able to speak in complete sentences Auscultation: clear to auscultation bilaterally Cardio: Jugular venous distension: no JVD Palpation: normal PMI Rate: regular rate Rhythm: regular rhythm GI: Inspection: normal to inspection Auscultation: normal bowel sounds : General: Yes bimanual renal exam normal bilaterally Back/Spine/Pelvis: Back: no CVA tenderness Skin: General skin exam: normal color and no rashes or lesions noted Course Course Emergency Course: EKG shows normal sinus rhythm patient declined any pain medicine at this time did take Tylenol early in the afternoon chest x-ray shows no acute cardiopulmonary abnormalities. Vital Signs Vital signs: Vital Signs Temperature 36.4 C 03/06/25 19:20 Pulse Rate 96 03/06/25 19:20 Respiratory Rate 18 03/06/25 19:20 Blood Pressure 134/82 03/06/25 19:20 Pulse Oximetry 98 03/06/25 19:20 Oxygen Delivery Room Air 03/06/25 19:20 Temperature 36.4 C 03/06/25 19:20 Pulse Rate 96 03/06/25 19:20 Respiratory Rate 18 03/06/25 19:20 Blood Pressure 134/82 03/06/25 19:20 Pulse Oximetry 98 03/06/25 19:20 Oxygen Delivery Room Air 03/06/25 19:20 Critical Care Time Critical Care Time Critical Care Time: No Discharge Plan Discharge Clinical Impression: Costochondritis, acute Patient Disposition: Home Condition: Stable Instructions: Antibiotic Form, Costochondritis (ED), Chest Wall Pain (ED) Additional Instructions: advised to take medication as prescribed and follow-up primary care physician if symptoms persist or worsen. Patient Language: Armenian Prescriptions: New naproxen 500 mg tablet 500 mg PO BID Qty: 10 0RF No Action promethazine 12.5 mg tablet 12.5 mg PO Q6H PRN (Reason: nausea and vomiting) Qty: 30 2RF hydroxyzine HCl 25 mg tablet 25 mg PO TID PRN (Reason: anxiety) sertraline 50 mg tablet 50 mg PO DAILY Follow-up/Referrals: Juanito Domingo M.D. [Primary Care Provider] - Time of Disposition: 20:18
[2025-03-06 20:22] VITALS: BP 112/75; PULSE 81; RESP 18; O2SAT 98
== END 2025-03-06 20:22 | disposition home or self-care (01) ==
PROVIDERS: Emergency Provider Emergency Medicine; PCP Family Medicine
DX: M94.0 Chondrocostal junction syndrome [Tietze] (principal)
CPT/HCPCS: 71046; 93005; 99283

== ENCOUNTER 2025-03-08 17:03 | Emergency (ER) | payer SELFPAY ==
[2025-03-08 17:03] VITALS: BP 149/92; PULSE 115; RESP 17; TEMP 37.1; O2SAT 98
[2025-03-08 17:25] LABS: Add Urine Microscopic? YES; Appearance Urine Clear (Clear); Bilirubin Urine Negative (Negative); Blood Urine Negative (Negative); Color Urine Light Yellow (Yellow); Glucose Urine UA Negative (Negative); Ketones Urine Negative (Negative); Leukocyte Esterase Ur Trace LEU/UL (Negative); Nitrate Urine Negative (Negative); Protein Urine Negative (Negative); Specific Grav Ur <= 1.005 (1.010-1.020); Urobilinogen Urine 0.2 mg/dL (0.2-1.0)
[2025-03-08] MEDS: KETOROLAC (*BKC) 60 MG/2 ML VIAL IM (17:25)
[2025-03-08 17:28] LABS: RBC Urine None seen /hpf (0-2)
[2025-03-08 17:29] LABS: Bacteria Urine 1+ /hpf; Squamous Epithelial Cell Urine Few /hpf (Few); WBC Urine 0-3 /hpf (0-3)
[2025-03-08 17:30] VITALS: BP 133/97; PULSE 118; RESP 17; O2SAT 98
--- NOTE | 2025-03-08 17:45 | ED_ITS ---
HPI - Abdominal Pain General Chief Complaint: Abdominal Pain Stated Complaint: abdominal pain Time Seen by Provider: 03/08/25 17:07 Source: patient Mode of arrival: ambulatory Limitations: no limitations History of Present Illness HPI narrative: this is a 29-year-old female that has lower abdominal pain suprapubic with no flank pain no fever chills no hematuria no dysuria no nausea vomiting. The patient felt a discomfort in her lower abdomen that started about an hour not localizing to the right lower quadrant. MD elicited complaint: other ( suprapubic tenderness) Pertinent past history: none Onset (ago): hour(s) Pain Consistency: now resolved Location: suprapubic Related Data Home Medications ?Medication ?Instructions ?Recorded ?Confirmed ?Last Taken ?Type hydroxyzine HCl 25 mg tablet 25 mg PO TID PRN anxiety 01/20/25 01/28/25 01/19/25 History sertraline 50 mg tablet 50 mg PO DAILY 01/20/25 01/28/25 01/16/25 History Allergies Allergy/AdvReac Type Severity Reaction Status Date / Time amoxicillin Allergy Difficulty Verified 03/08/25 17:05 Breathing latex Allergy Difficulty Verified 03/08/25 17:05 Breathing Penicillins Allergy Hives Verified 03/08/25 17:05 Review of Systems Review of Systems: All systems reviewed & are unremarkable except as noted in HPI and below PMFSH Past Medical History Medical History Kidney stones Depression with anxiety Family History Family History Mother Diabetes mellitus Father Chronic bronchitis Social History Social History Social History: Surrogate medical decision maker: Skip Cruzell, spouse. Code status: Full code. Smoking status: Never smoker Second hand tobacco smoke exposure: No Alcohol intake: former Substance use: never Do You Feel Safe in your Home?: Yes Lack of Transportation: No Lack of Food: Never True Current Housing: I Have Housing Concerned About Future Housing: No Difficulty Paying Gas/Electric Bills: No Difficulty Paying for Meds: No Currently Unemployed: No Education: High School Diploma/GED Difficulty w/ Childcare or Family Care: No Additional living arrangements comments: Lives at home with spouse and their 2 young children, age 3 and 1-year-old. 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 Spiritual care concerns: No Exam Const: General: healthy appearing and no acute distress Nutritional Appearance: well nourished Orientation/consciousness: patient oriented x3 Limitations: no limitations Neck: Neck: normal visual inspection Chest: Chest palpation & inspection: normal inspection of the chest Resp: Effort & Inspection: normal respiratory effort Auscultation: clear to auscultation bilaterally Cardio: Rate: regular rate Rhythm: regular rhythm GI: GI Palp: Yes Soft to palpation Auscultation: normal bowel sounds : Other: Suprapubic tenderness Back/Spine/Pelvis: Back: no CVA tenderness Skin: General skin exam: normal color Rashes: no rashes Neuro: General: patient oriented x3, moves all extremities, no meningeal signs and no focal motor deficits Course Course Emergency Course: patient received 60mg IM Toradol after reassessment pain level has improved, UA does reveal a urinary tract infection with positive bacteria and leukocytes and a dose of p.o. Macrobid administered. Vital Signs Vital signs: Vital Signs Temperature 37.1 C 03/08/25 17:03 Pulse Rate 115 H 03/08/25 17:03 Respiratory Rate 17 03/08/25 17:03 Blood Pressure 149/92 H 03/08/25 17:03 Pulse Oximetry 98 03/08/25 17:03 Temperature 37.1 C 03/08/25 17:03 Pulse Rate 115 H 03/08/25 17:03 Respiratory Rate 17 03/08/25 17:03 Blood Pressure 149/92 H 03/08/25 17:03 Pulse Oximetry 98 03/08/25 17:03 MDM - Abdominal Pain Lab Data Labs: Lab Results 03/08/25 Range/Units 17:19 Urine Color Light yellow (Yellow) Urine Appearance Clear (Clear) Urine pH 7.0 (5.0-8.0) Ur Specific [place] <= 1.005 L (1.010-1.020) Urine Protein Negative (Negative) Urine Glucose (UA) Negative (Negative) Urine Ketones Negative (Negative) Ur Blood (Man) Negative (Negative) Urine Nitrate Negative (Negative) Urine Bilirubin Negative (Negative) Urine Urobilinogen 0.2 (0.2-1.0) mg/dL Leukocyte Esterase Rfl Trace H (Negative) KAMI/UL Urine RBC None seen (0-2) /hpf Urine WBC 0-3 (0-3) /hpf Ur Squamous Epith Cells Few (Few) /hpf Urine Bacteria 1+ H (None) /hpf Critical Care Time Critical Care Time Critical Care Time: No Discharge Plan Discharge Clinical Impression: Groin strain Qualifiers: Encounter type: initial encounter Laterality: right Qualified Code(s): S76.211A - Strain of adductor muscle, fascia and tendon of right thigh, initial encounter UTI (urinary tract infection) Qualifiers: Urinary tract infection type: acute cystitis Hematuria presence: without hematuria Qualified Code(s): N30.00 - Acute cystitis without hematuria Patient Disposition: Home Condition: Stable Instructions: Antibiotic Form, Urinary Tract Infection in Women (ED), Groin Strain (ED) Additional Instructions: advised to take medication as prescribed and follow-up with primary care physician if symptoms persist or worsen. Patient Language: Uzbek Prescriptions: New nitrofurantoin monohyd/m-cryst [Macrobid] 100 mg capsule 100 mg PO Q12H 7 Days Qty: 14 0RF Rx Instructions: must administer with a meal/food naproxen 500 mg tablet 500 mg PO BID PRN (Reason: pain) Qty: 10 0RF nitrofurantoin monohyd/m-cryst [Macrobid] 100 mg capsule 100 mg PO Q12H 7 Days Qty: 14 0RF Rx Instructions: must administer with a meal/food naproxen 500 mg tablet 500 mg PO BID PRN (Reason: pain) Qty: 14 0RF No Action naproxen 500 mg tablet 500 mg PO BID Qty: 10 0RF promethazine 12.5 mg tablet 12.5 mg PO Q6H PRN (Reason: nausea and vomiting) Qty: 30 2RF hydroxyzine HCl 25 mg tablet 25 mg PO TID PRN (Reason: anxiety) sertraline 50 mg tablet 50 mg PO DAILY Follow-up/Referrals: Juanito Domingo M.D. [Primary Care Provider] - Time of Disposition: 17:54
[2025-03-08] MEDS: NITROFURANTOIN MONOHYD MACROCR 100 MG CAP PO (17:57)
[2025-03-08 18:00] VITALS: BP 133/82; PULSE 97; RESP 17; O2SAT 98
[2025-03-08 18:03] VITALS: BP 133/82; PULSE 97; RESP 17; TEMP 37; O2SAT 98
--- NOTE | 2025-03-08 18:08 | PC.NURSE ---
Patient recently had a stent of C-diff for a month, patient does not want to start antibiotics due to them Bactrim followed by Macrobid causing her C-diff. Patient reported that her GI doctor instructed her not to start any antibiotics unless culture came back positive. Patient instructed to call her GI doctor on Monday and make them aware of the UTI and medication prescribed. She is going to call up to ER on Monday-Monday to check for culture results before starting antibiotic.?Patient told RN this after taking initial dosage of Macrobid.
== END 2025-03-08 18:03 | disposition home or self-care (01) ==
PROVIDERS: Emergency Provider Emergency Medicine; PCP Family Medicine
DX: S76.211A Strain of adductor muscle, fascia and tendon of right thigh, initial encounter (principal); N30.00 Acute cystitis without hematuria; X58.XXXA Exposure to other specified factors, initial encounter
CPT/HCPCS: 81001; 96372; 99283; A9270; J1885

== ENCOUNTER 2025-04-23 12:48 | Emergency (ER) | payer SELFPAY ==
[2025-04-23] VITALS (9 sets, daily range): BP systolic 126–156; BP diastolic 78–81; PULSE 90–113; RESP 17–20; TEMP 36.6–36.7; O2SAT 99–100
--- NOTE | 2025-04-23 12:52 | ED.GENADULT ---
HPI - General Adult General Chief complaint: Arrhythmia/Palpitations Stated complaint: fluttering in the chest Time Seen by Provider: 04/23/25 12:51 Source: patient Mode of arrival: ambulatory Limitations: no limitations History of Present Illness HPI narrative: 30-year-old female with a history of anxiety / depression presents to the ED with -- Anxiety. she took hydroxyzine last night -- palpitation. This started last night and resolved spontaneously. The palpitation recurred again this morning. -- Lightheadedness/dizziness. Onset (ago): hour(s) ( 12 hours) Severity: mild Associated symptoms: weakness and other ( palpitation, dizziness) Treatments prior to arrival: none Related Data Home Medications ?Medication ?Instructions ?Recorded ?Confirmed ?Last Taken ?Type hydroxyzine HCl 25 mg tablet 25 mg PO TID PRN anxiety 01/20/25 01/28/25 01/19/25 History sertraline 50 mg tablet 50 mg PO DAILY 01/20/25 01/28/25 01/16/25 History Allergies Allergy/AdvReac Type Severity Reaction Status Date / Time amoxicillin Allergy Difficulty Verified 03/08/25 17:05 Breathing latex Allergy Difficulty Verified 03/08/25 17:05 Breathing Penicillins Allergy Hives Verified 03/08/25 17:05 Review of Systems Review of Systems: All systems reviewed & are unremarkable except as noted in HPI and below Constitutional: Constitutional: Reports as per HPI, Reports no additional constitutional complaints and Reports weakness Eyes: Eyes: Reports as per HPI and Reports no additional eye complaints ENT: Reports system reviewed and no additional complaints, except as documented and Reports as per HPI Cardiovascular: Cardiovascular: Reports as per HPI, Reports no additional cardiovascular complaints and Reports rapid heart rate Comments: she has chest discomfort without any chest pain. Respiratory: Respiratory: Reports as per HPI and Reports no additional respiratory complaints Gastrointestinal: Gastrointestinal: Reports as per HPI and Reports no additional gastrointestinal complaints Genitourinary: Genitourinary: Reports no additional female genitourinary complaints and Reports as per HPI Musculoskeletal: Musculoskeletal: Reports no additional musculoskeletal complaints and Reports as per HPI Integumentary/Breasts: Skin/Breast: Reports system reviewed and no additional complaints, except as docu and Reports as per HPI Neurologic: Reports system reviewed and no additional complaints, except as documented and Reports as per HPI Psychiatric: Psychiatric: Reports no additional psychiatric complaints, Reports as per HPI and Reports anxiety Endocrine: Endocrine: Reports no additional endocrine complaints and Reports as per HPI Hematologic/Lymphatic: Hematologic/Lymphatic: Reports no additional hematologic/lymphatic complaints and Reports as per HPI Allergic/Immunologic: Allergic/Immunologic: Reports no additional allergic/immunologic complaints and Reports as per HPI [facility] Past Medical History Medical History Kidney stones Depression with anxiety Family History Family History Mother Diabetes mellitus Father Chronic bronchitis Social History Social History Social History: Surrogate medical decision maker: Skip Granado, spouse. Code status: Full code. Smoking status: Never smoker Second hand tobacco smoke exposure: No Alcohol intake: former Substance use: never Do You Feel Safe in your Home?: Yes Lack of Transportation: No Lack of Food: Never True Current Housing: I Have Housing Concerned About Future Housing: No Difficulty Paying Gas/Electric Bills: No Difficulty Paying for Meds: No Currently Unemployed: No Education: High School Diploma/GED Difficulty w/ Childcare or Family Care: No Additional living arrangements comments: Lives at home with spouse and their 2 young children, age 3 and 1-year-old. 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 Spiritual care concerns: No Exam Narrative: Pulse 113 Blood pressure 156/78. Const: General: no acute distress Nutritional Appearance: well nourished Orientation/consciousness: patient oriented x3 Limitations: no limitations HENMT: Head: normal to inspection Ears: external ears normal Face/Nose/Sinus: Normal external nose present Face and sinus: normal facial exam Mouth: Yes Normal oral and palatal mucosa present Throat: posterior oropharynx normal Eyes: Conjunctivae: conjunctivae normal Pupils: Equal, round and reactive pupils present EOM: EOMs intact bilaterally Direct Ophthalmoscopy: no photophobia Neck: Neck: normal visual inspection, no lymphadenopathy and no meningeal signs Chest: Chest palpation & inspection: normal inspection of the chest Resp: Effort & Inspection: normal respiratory effort Auscultation: clear to auscultation bilaterally Cardio: Rate: tachycardic Rhythm: regular rhythm Other: no gallop or murmur appreciated. GI: GI Palp: Yes Soft to palpation Other: No tenderness/ rigidity/ rebound. : General: Yes no CVA tenderness Other: LMP 1 week ago Back/Spine/Pelvis: Back: no CVA tenderness Other: Skin: General skin exam: normal color Rashes: no rashes Wounds: no wounds Neuro: General: patient oriented x3, moves all extremities, no meningeal signs, no focal motor deficits and CN's II-XI intact bilaterally Cranial nerves: Yes Nystagmus not present Speech: normal speech Gait exam (Neuro): Normal gait present Extrem: General: normal to inspection and no clubbing, cyanosis or edema Psych: Mental Status: mental status grossly normal Affect: Anxious affect present Course Course Emergency Course: palpitation-- EKG revealed T wave changes. No ST elevation noted. The patient had a normal troponin. Patient has had similar findings in April of 2024 and February of 2025. Normal TSH Anxiety Vital Signs Vital signs: Vital Signs Temperature 36.6 C 04/23/25 12:50 Pulse Rate 113 H 04/23/25 12:50 Respiratory Rate 18 04/23/25 12:50 Blood Pressure 156/78 H 04/23/25 12:50 Pulse Oximetry 04/23/25 12:50 Oxygen Delivery Room Air 04/23/25 12:50 Temperature 36.6 C 04/23/25 12:50 Pulse Rate 101 H 04/23/25 13:01 Respiratory Rate 18 04/23/25 12:50 Blood Pressure 156/78 H 04/23/25 12:50 Pulse Oximetry 100 04/23/25 12:50 Oxygen Delivery Room Air 04/23/25 12:50 Medical Decision Making [facility] Narrative Medical decision making narrative: palpitation anxiety Differential Diagnosis Differential Diagnosis: panic attack Medical Records Medical records reviewed: Yes I reviewed the external patient's medical records. Vital Signs Vital Signs: Vital Signs Temperature 36.6 C 04/23/25 12:50 Pulse Rate 113 H 04/23/25 12:50 Respiratory Rate 18 04/23/25 12:50 Blood Pressure 156/78 H 04/23/25 12:50 Pulse Oximetry 100 04/23/25 12:50 Oxygen Delivery Room Air 04/23/25 12:50 Temperature 36.6 C 04/23/25 12:50 Pulse Rate 101 H 04/23/25 13:01 Respiratory Rate 18 04/23/25 12:50 Blood Pressure 156/78 H 04/23/25 12:50 Pulse Oximetry 100 04/23/25 12:50 Oxygen Delivery Room Air 04/23/25 12:50 Lab Data Lab results reviewed: Yes I reviewed the patient's lab results. 04/23/25 13:23 04/23/25 13:23 Labs: Lab Results 04/23/25 04/23/25 Range/Units 13:10 13:23 WBC 5.7 (4.8-10.8) K/mm3 RBC 4.29 (4.20-5.40) M/mm3 Hgb 12.9 (12.0-15.0) g/dL Hct 39.0 (35.0-49.0) % MCV 90.9 (78.0-102.0) fL MCH 30.1 (27.0-31.0) pg MCHC 33.1 (32-36) g/dL RDW 12.2 (11.6-14.4) % Plt Count 174 (150-420) K/mm3 MPV 11.3 (9.2-11.8) fl Immature Gran % (Auto) 0.2 H (0.0-0.0) % Neut % (Auto) 74.5 H (50.0-70.0) % Lymph % (Auto) 15.9 L (18.0-42.0) % Maury % (Auto) 8.6 (2.0-11.0) % Eos % (Auto) 0.4 L (1.0-6.0) % Baso % (Auto) 0.4 (0.0-1.0) % Lymph # (Auto) 0.91 L (1.10-4.50) K/mm3 [place] # (Auto) 0.49 (0.10-0.90) K/mm3 Eos # (Auto) 0.02 (0.02-0.50) K/mm3 Baso # (Auto) 0.02 (0.00-0.10) K/mm3 Abs Immat Gran (auto) 0.01 H (0.00-0.00) K/mm3 Absolute Neuts (auto) 4.26 (1.70-7.20) K/mm3 Absolute Nucleated RBC 0.00 (0.00-0.00) K/mm3 Nucleated RBC % 0.0 (0-0.0) % Sodium 141 (137-145) mmol/L Potassium 4.0 (3.4-5.0) mmol/L Chloride 106 (98-107) mmol/L Carbon Dioxide 27 (22-30) mmol/L Anion Gap 8 (4-12) mmol/L BUN 8 (7-17) mg/dL Creatinine 0.69 L (0.7-1.0) mg/dL Estim Creat Clear Calc 104 ml/min Estimated GFR > 60 (59 - ) Glucose 104 (65-110) mg/dL POC Capillary Glucose 81 (65-105) mg/dl Calculated Osmolality 290 (285-295) mOsm/kg Lactic Acid 0.8 (0.4-2.0) mmol/L Calcium 9.5 (8.4-10.2) mg/dL Magnesium 2.0 (1.6-2.3) mg/dL Total Bilirubin 0.6 (0.2-1.3) mg/dL AST 22 (14-36) U/L ALT 16 (6-35) U/L Alkaline Phosphatase 118 (38-126) U/L Troponin I < 0.012 (0.000-0.034) ng/mL Total Protein 7.4 (6.3-8.2) g/dL Albumin 4.5 (3.5-5.1) g/dL TSH 0.467 (0.465-4.680) uIU/mL ECG Data EKG #1: ECG completion date: 04/23/25 ECG completion time: 13:06 Interpretation: sinus tachycardia with a heart rate of 100. Normal axis. T-wave inversion in inferior leads and flattening in the lateral leads. No ST elevation. Discharge Plan Discharge Clinical Impression: Anxiety, Palpitations Patient Disposition: Home Condition: Stable Instructions: Antibiotic Form, Heart Palpitations (ED), Anxiety (ED) Patient Language: Serbian Prescriptions: No Action nitrofurantoin monohyd/m-cryst [Macrobid] 100 mg capsule 100 mg PO Q12H 7 Days Qty: 14 0RF Rx Instructions: must administer with a meal/food naproxen 500 mg tablet 500 mg PO BID PRN (Reason: pain) Qty: 10 0RF nitrofurantoin monohyd/m-cryst [Macrobid] 100 mg capsule 100 mg PO Q12H 7 Days Qty: 14 0RF Rx Instructions: must administer with a meal/food naproxen 500 mg tablet 500 mg PO BID PRN (Reason: pain) Qty: 14 0RF naproxen 500 mg tablet 500 mg PO BID Qty: 10 0RF promethazine 12.5 mg tablet 12.5 mg PO Q6H PRN (Reason: nausea and vomiting) Qty: 30 2RF hydroxyzine HCl 25 mg tablet 25 mg PO TID PRN (Reason: anxiety) sertraline 50 mg tablet 50 mg PO DAILY Follow-up/Referrals: UNKNOWN,DOCTOR [Non-Staff] - Time of Disposition: 14:21
--- OUTSIDE RECORDS SUMMARY | 2025-04-23 12:54 | XMS_ITS | Clinical Summary ---
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 Name Role Phone Juanito Domingo MD Primary [...] Diagnosed Date Anxiety 03/25/2021 Term of female ([facility]) Normal labor ([facility]) 03/22/2021 Prolonged latent phase of labor ([facility]) 2020 39 weeks gestation of ([facility]) 2020 Encounter for elective induction of labor ([facility]) 03/16/2021 Pre-eclampsia ([facility]) 03/01/2021 Elevated blood pressure affe cting in third trimester, antepartum ([facility]) 02/28/2021 Social History Tobacco Use Types [...] How often do you attend chur or latter day services? More than 4 times per year 03/16/2021 Do you belong to any clubs o r organizations such as islam groups, unions, fraternal or athletic groups, or [...] and heating? Not hard at all 03/16/2021 [facility] Occup[facility] ional [facility] - Occupational Stress [...] place to sleep or slept in a longterm (including now)? 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
--- NOTE | 2025-04-23 13:03 | ECG_ITS ---
Test Date: 2025-04-23 13:06:42 Measurements Intervals [place] Rate: 100 P: 56 HI: 150 QRS: 32 QRSD: 82 T: -22 QT: 335 QTc: 433 Interpretive Statements SINUS TACHYCARDIA POSSIBLE LEFT ATRIAL ENLARGEMENT BORDERLINE ST-T WAVE ABNORMALITY- ANTEROLAT/INF LEADS BORDERLINE ECG Compared to ECG 03/06/2025 19:34:15 HEART RATE HAS INCREASED Electronically Signed On 04-23-2025 13:14:46 CDT by John Bautista D.O.
[2025-04-23 13:27] LABS: Hematocrit 39.0 % (35.0-49.0); Hemoglobin 12.9 g/dL (12.0-15.0); Immature Granulocyte Percent A 0.2 % (0.0-0.0); Lymphocytes Absolute Auto 0.91 K/mm3 (1.10-4.50); Mean Corpuscular HGB Conc 33.1 g/dL (32-36); Mean Corpuscular Hemoglobin 30.1 pg (27.0-31.0); Mean Corpuscular Volume 90.9 fL (78.0-102.0); Nucleated Red Blood Cells Absolute Auto 0.00 K/mm3 (0.00-0.00); Nucleated Red Blood Cells Perc 0.0 % (0-0.0); Platelet Count Result 174 K/mm3 (150-420); Red Blood Count 4.29 M/mm3 (4.20-5.40); White Blood Count 5.7 K/mm3 (4.8-10.8)
[2025-04-23 13:39] LABS: Alanine Aminotransferase 16 U/L (6-35); Albumin Level 4.5 g/dL (3.5-5.1); Alkaline Phosphatase 118 U/L (38-126); Anion Gap 8 mmol/L (4-12); Aspartate Amino Transferase 22 U/L (14-36); Bilirubin,Total 0.6 mg/dL (0.2-1.3); Blood Urea Nitrogen 8 mg/dL (7-17); Calcium 9.5 mg/dL (8.4-10.2); Carbon Dioxide 27 mmol/L (22-30); Chloride 106 mmol/L (98-107); Estimated CRCL calculation 104 ml/min; Estimated Glomerular Filt Rate > 60; Glucose 104 mg/dL (65-110); Magnesium 2.0 mg/dL (1.6-2.3); Osmolality Calculated 290 mOsm/kg (285-295); Potassium 4.0 mmol/L (3.4-5.0); Sodium 141 mmol/L (137-145); Total Protein 7.4 g/dL (6.3-8.2)
[2025-04-23 13:51] LABS: Troponin I < 0.012 ng/mL (0.000-0.034)
[2025-04-23 14:10] LABS: Thyroid Stimulating Hormone 0.467 uIU/mL (0.465-4.680)
== END 2025-04-23 14:33 | disposition home or self-care (01) ==
PROVIDERS: Emergency Provider Internal Medicine Critical Care Medicine; PCP Family Medicine
DX: F41.9 Anxiety disorder, unspecified (principal); R00.2 Palpitations
CPT/HCPCS: 36415; 80053; 82948; 83605; 83735; 84443; 84484; 85025; 93005; 99284

== ENCOUNTER 2025-06-16 21:27 | Emergency (ER) | payer OTHER, SELFPAY ==
--- NOTE | ~2025-06-16 | CT_ITS ---
CT abdomen pelvis w con Clinical History: LOWER RIGHT ABDOMEN PAIN/HX OF KIDNEY STONES/COLITIS . Comparison: CT abdomen and pelvis 02/14/2025 Technique: Axial images lung bases to symphysis pubis 100 mL Omnipaque 350 Coronal, sagittal reformats CT images acquired with automatic exposure control for dose reduction DLP: 772 mGy-cm Findings: Lung bases: Clear. Visualized heart and pericardium: Unremarkable. Liver: Unremarkable. Gallbladder: Unremarkable. Spleen: Unremarkable. Pancreas: Unremarkable. Adrenal glands: Unremarkable. Kidneys: Right kidney- No hydronephrosis. No renal stones. Left kidney- No hydronephrosis. Tiny stone. Distal esophagus/stomach: Unremarkable. Small bowel loops: Normal caliber and wall thickness. Colon: Wall thickening descending segment. Normal RLQ appendix. Nodes: No enlarged nodes. Peritoneum: No ascites. No free air. Urinary bladder: Unremarkable. Uterus: Unremarkable. Adnexa: No masses. Trace pelvic free fluid. Bones: No acute bony abnormality. Soft tissues: Unremarkable. Aorta: No aneurysm or dissection. IVC: Unremarkable. Main portal vein/SMV/splenic vein: Patent. IMPRESSION: 1. Uncomplicated colitis. 2. Additional findings as above. Reviewed, dictated and finalized at location R.
[2025-06-16 21:27] VITALS: BP 147/91; PULSE 118; RESP 16; TEMP 36.1; O2SAT 100
--- OUTSIDE RECORDS SUMMARY | 2025-06-16 21:29 | XMS_ITS | Data Portability ---
Author Organization [facility] Address [address] [place] [address] Care Team Providers Care Cook Helper Name Role Phone ADI ALVA Primary Care Provider Assessment Encounter Date Assessment Date Assessment LastModified by Organization Details LastModified Time 10/24/2023 10/24/2023 Patient is ___weeks . Discussed plan. Not available 10/24/2023 17:08:12 10/30/2023 10/30/2023 Patient is ___weeks . Discussed plan. Not available 10/30/2023 15:50:14 02/29/2024 02/29/2024 Annual gynecological exam performed. Patient will come back in a year unless there are new symptoms. [email or web address] Not available 02/29/2024 16:38:22 Plan of Treatment Reminders Order Date Submit Date Provider Last Modified By Organization Details Last Modified Time Details Appointments None record ed. Lab None record ed. Referral None record ed. Procedures None record ed. Surgeries None record ed. Imaging non-st ress test 024 10/30/19 24 [email or web address] [address], [address], [place], [address], 16:59:11 Medication Orders None record ed. Patient [...] Strep , Refle x Susce ptibi lity ([facility] ) Speci men Sourc e: Vagin a/Rec gladys Speci men Type: Vagin al/Re ctal Speci men Date: 2023 5:08 PM Resul t Date: 024 7:03 PM Resul t Statu s: Final resul t Abnor mal: No Resul ting Lab: [facility] [address] [facility] [address] [address] [facility] [address] Tel: [phone] CULTU RE ----- ----- ----- --- No Group B strep isola levi at 2 days (frantz ctive broth enhan cemen t) Not Available [facility] (Lab) [address], [place], [address], 10/19/2023 20:06:52 02/29/20 24 02/29/2024 IMAGE GUIDE [...] Intra epith elial Lesio n or Johanne shahid (NIL) . Elect viola coelho eloy d by Selene Bob ret, CT on [...] as clini jordi rico nted. Not Available [facility] (Lab) [address], [place], [address], 03/05/2024 13:53:07 09/29/19 24 09/29/2023 non-s tress test No observ ation record ed. [email or web address] [address], [place], [address], 09/29/2023 18:55:15 09/29/19 24 non-s tress test No observ ation record ed. [email or web address] Not Available 09/29 17:13:40 09/29/19 24 10/03/2023 US, obste tric, bioph ysica l profi le + non-s tress test No observ ation record ed. [email or web address] [address], [place], [address], 10/03/2023 12:33:34 09/29/19 24 09/29/2023 US, obste tric, bioph ysica l profi le + non-s tress test No observ ation record ed. [email or web address] [address] [facility], [place], [address], 09/29/2023 19:02:23 10/05/19 24 10/05/2023 US, obste tricanastasiao w-up No observ ation record ed. [email or web address] [address], [place], [address], 10/05/2023 17:54:19 10/05/19 24 non-s tress test No observ ation record ed. [email or web address] Not Available 10/05 18:07:53 10/05/19 24 10/05/2023 non-s tress test No observ ation record ed. [email or web address] [address], [place], [address], 10/05/2023 19:13:04 10/06/19 24 10/05/2023 US, obste tric, follo w-up No observ ation record ed. BO [address], [place], [address], 10/09/2023 10:21:34 10/30/19 24 10/30/2023 non-s tress test No observ ation record ed. [email or web address] [address], [place], [address], 10/30/2023 16:57:17 Result Notes None recorded. Problems Name Problem SNOMED Code Status Onset Date Resolution Date Notes Provider Name and Address Organization Details Recorded Time Transien t hyperten jamari of pregnanc y - delivere d 343968781 Completed Very late in pregnanc y Dashaholden Da SilvaAnival [facility] 4 16:53:19 Postpart um depressi on 74162953 Completed txed with prozac [facility] 4 16:53:19 Postpart um hemorrha ge 30535937 Completed question able - story unclear [facility] 4 16:53:19 Headache 19434673 Completed [facility] 4 16:53:19 Mixed anxiety and depressi ve disorder 756641392 Completed [facility] 4 16:53:19 Placenta circumva llata 3540539 Completed & [facility] - [facility]! [facility] 4 16:53:19 Below expected growth rate 91048535605 4106 Completed 10/05 growth normal - no more antenata l testing needed [facility] 4 16:53:19 Pregnanc y 63931321 Completed 202211/02/2023 Lesly Florian [facility] 4 16:53:23 Problem Notes None recorded. Procedures Surgical History Date Name Laterality Status Provider Name and Address Organization Details Recorded Time 1 Date of Last Pap Smear completed [facility] 12/07/2023 13:03:01 9 procedure on lip completed [facility] 12/07/2023 16:26:01 7 procedure on ear completed [facility] 12/07/2023 16:26:10 Imaging Results None recorded. Procedure Notes None recorded. Medical Equipment None Reported. Allergies Allergen ID Allergen Name Allergen Category Reaction Reaction Severity Criticality Documentation Date Start Date Code Code System Note Provider Name and Address Organization Details Recorded Time 75256 Product containin g penicilli n (product) medicatio n hives vomiting Not available Not available Not available 03/30/2023 30125 8001 SNOMED Юлия Schroeder [facility] 3 16:20:54 21074 latex environme nt,medica tion Not available Not available Not available 12/07/2023 33373 91 RxNorm [facility] 4 16:24:40 Medications Name Sig Start [...] Body mass index (BMI) Body weight Systolic And Diastolic Provider Name and Address Organization Details Last Updated DateTime 10/24/2023 172.72 cm 33.5 kg/m2 39140.321 4 g 132/77 mm[Hg] [facility] 10/24/2023 17:17:07 Date Recorded Body height Body mass index (BMI) Body weight Systolic And Diastolic Provider Name and Address Organization Details Last Updated DateTime 10/30/2023 172.72 cm 33.9 kg/m2 061382.09 851 g 125/84 mm[Hg] [facility] 10/30/2023 15:50:25 Date Recorded Body height Body mass index (BMI) Body weight Systolic And Diastolic Provider Name and Address Organization Details Last Updated DateTime 12/07/2023 172.72 cm 32.1 kg/m2 23640.99 g 115/79 mm[Hg] Crystal Ramos [facility] 12/07/2023 16:24:16 Date Recorded Body height Body mass index (BMI) Body weight Systolic And Diastolic Provider Name and Address Organization Details Last Updated DateTime 02/29/2024 172.72 cm 33.1 kg/m2 47685.14 g 133/57 mm[Hg] Vicky Brooks [facility] 02/29/2024 16:41:23 Social History Question Answer Notes LastModified by Organizat ion Details LastModified Time Tobacco Smoking Status Never Smoker Louise Ewing [email or web address], [facility] 10/05/2023 16:23:51 How Many Years Have [...] Or The Highest Degree You Have Received? BF50963-2 Information not available 03/30/2023 Are There Any [...] Have Difficulty Walking Or Climbing Stairs? No [email or web address] Information not available 12/07/2023 Sex: Unknown Functional Status Question Answer Note LastModified by Organizat ion Details LastModified Time Do you use any illicit or recreational drugs? No Information not available 03/30/2023 What is your level of alcohol consumption? None Information not available 03/30/2023 Are you able to walk independently without assistance or assistive devices? YESWOREST Information not available 03/30/2023 Are you able to care for yourself independently? 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 No [email or web address] Information not available 12/07/2023 What is your exercise level? Moderate Information not available 03/30/2023 Mental Status Question Answer Note LastModified by Organization D etails LastModified Time Do you feel stressed (tense, restless, nervous, or anxious, or unable to sleep at night)? [id number] Information not available 03/30/2023 Family History Relationship [...] Diagnosis SNOMED-CT Code Diagnosis ICD10 Code Diagnosis IMO Codes Diagnosis Note [id number] Sagar Mathew MD [facility] [address] [address] 03/30/2023 15:21:46 03/30/2023 16:36:46 Uncertain viability of 085937495 O36.80X0 Z3A.01 [id number] Sagar Mathew MD [facility] [address] [address] 03/30/2023 15:22:05 03/31/2023 10:37:24 Amenorrhea 72504519 N91.2 patient is a 27-year-ol d female who presents for amenorrhea . She has a positive test. Ultrasound revealed a 7 week gestation. we talked about , we talked about care. We talked about exercise, food, medication s. She returned to begin routine care. We spent over 20 minutes face-to-fa ce. More than 50% was counseling . [id number] Sagar Mathew MD [facility] [address] [address] 04/20/2023 15:42:09 04/20/2023 16:30:33 [id number] Sagar Mathew MD [facility] [address],[place] [address] 04/20/2023 15:44:59 04/20/2023 22:59:42 [id number] MD Christian Gallegos [address],[place] [address] 05/01/2023 16:08:06 05/01/2023 16:43:34 screening 090945983 Z36.82 [id number] MD Christian Gallegos [address],[place] [address] 05/01/2023 16:08:48 05/01/2023 17:43:11 Routine care 788194172 Z34.81 [id number] MD Christian Gallegos [address],[place] [address] 05/31/2023 17:16:25 05/31/2023 18:37:33 [id number] MD Christian Gallegos [address],[place] [address] 05/31/2023 17:18:38 06/01/2023 10:28:37 Routine care 832888035 Z34.81 [id number] MD Christian Gallegos [address],[place] [address] 06/19/2023 14:39:38 06/19/2023 16:10:22 screening for malformation 922014765 Z36.3 Z3A.19 [id number] MD Christian Gallegos [address],[place] [address] 06/19/2023 14:40:15 06/20/2023 09:42:54 Routine care 217985327 Z34.81 [id number] MD Christian Gallegos [address],[place] [address] 07/19/2023 16:59:13 07/19/2023 18:33:25 Marginal insertion of umbilical cord 40200766 O43.122 O43.112 Z36.2 O44.42 Z3A.24 [id number] MD Christian Gallegos [address],[place] [address] 07/19/2023 17:00:40 07/19/2023 18:32:46 Routine care 173777287 Z34.81 [id number] MD Christian Gallegos [address],[place] [address] 08/17/2023 11:18:09 08/17/2023 11:50:48 Marginal insertion of umbilical cord 03374722 O43.122 O43.112 Z3A.28 [id number] MD Christian Gallegos [address],[place] [address] 08/17/2023 11:18:31 08/17/2023 13:07:43 Routine care 981904179 Z34.81 [id number] SALONI ARCINIEGA MD [facility] [address],[place] [address] 08/22/2023 11:29:48 08/22/2023 12:56:44 Inguinal pain 996688343 R10.2 [id number] MD Christian Gallegos [address],[place] [address] 08/31/2023 16:38:20 08/31/2023 17:51:48 Routine care 147547795 Z34.81 [id number] MD Christian Gallegos [address],[place] [address] 09/14/2023 16:23:40 09/14/2023 17:03:30 Marginal insertion of umbilical cord 92112352 O43.122 O43.112 Z3A.32 [id number] MD Christian Gallegos [address],[place] [address] 09/14/2023 16:24:36 09/15/2023 08:50:31 Routine care 697130238 Z34.81 [id number] MD Christian Gallegos [address],[place] [address] 09/21/2023 11:15:28 09/21/2023 12:15:19 Below expected growth rate 2182847555 01296 R62.52 [id number] MD Christian Gallegos [address],[place] [address] 09/21/2023 11:16:01 09/21/2023 13:28:22 growth restriction 40914320 O36.5930 O36.8320 Z3A.33 [id number] MD Christian Gallegos [address],[place] [address] 09/21/2023 11:16:28 09/21/2023 13:06:28 Routine care 115612683 Z34.81 [id number] MD Christian Gallegos [address],[place] [address] 09/29/2023 15:57:58 09/29/2023 18:07:36 Below expected growth rate 6800218097 48629 R62.52 [id number] MD Christian Gallegos [address],[place] [address] 09/29/2023 16:00:54 09/29/2023 18:07:17 Small for gestational age fetus 152152855 O36.5930 Z3A.34 [id number] SALONI ARCINIEGA MD [facility] [address],[place] [address] 10/05/2023 16:18:49 10/05/2023 17:49:22 Placenta circumvallata 8464061 O43.119 Marginal i nsertion of umbilical cord 81655878 O43.129 Gestation period, 35 weeks 51736545 Z3A.35 [id number] MD Christian Gallegos [address],[place] [address] 10/05/2023 16:22:01 10/05/2023 18:15:03 Below expected growth rate 6737907857 44073 R62.52 [id number] MD Christian Gallegos [address],[place] [address] 10/05/2023 16:23:21 10/05/2023 17:20:23 Placenta circumvallata 0263667 O43.113 O43.103 Z3A.35 [id number] MD Christian Gallegos [address],[place] [address] 10/12/2023 17:27:17 10/12/2023 21:40:25 [id number] MD Christian Gallegos [address],[place] [address] 10/16/2023 17:23:17 10/17/2023 12:33:09 Routine care 712583005 Z34.81 [id number] MD Christian Gallegos [address],[place] [address] 10/24/2023 16:56:24 10/24/2023 18:06:45 Routine care 414744274 Z34.81 [id number] Sagar Mathew MD [facility] [address],[place] [address] 10/30/2023 15:34:13 10/30/2023 16:28:15 Routine care 766301157 Z34.81 [id number] Sagar Mathew MD [facility] [address],[place] [address] 10/30/2023 16:31:13 10/30/2023 16:59:11 tachycardia 397863639 O36.8399 [id number] MD Christian Gallegos [address],[place] [address] 12/07/2023 16:09:37 12/07/2023 17:28:55 care 578985777 Z39.2 [id number] MD Christian Gallegos [address],[place] [address] 02/29/2024 16:03:36 02/29/2024 17:33:25 Gynecologic examination 00556672 Z01.419 Annual gynecologi merritt exam performed. Patient [...] Guarantor Name 10/09/2023 2 [employer] June Granado [id number] June Granado 02/29/2024 2 [employer] [facility] ON OR AFTER 08/18/2020 (MEDICAID REPLACEMENT - HMO) Skip Granado [id number] June Granado 06/11/2025 1 [facility] [id number] Skip Granado [id number] June Granado Notes Date Note Type Note Provider Name and Address Organization Details Recorded Time 10/24/19 24 text/htm l Generic HPI TemplateReported by Patient Sagar Mathew MD [address], [place], [address], [facility] 10/24/2023 17:53:23 10/30/19 24 text/htm l Generic HPI TemplateReported by Patient Sagar Mathew MD [address], [place], [address], [facility] 10/30/2023 16:12:41 12/07/19 24 text/htm l VisitReported by Patient 28-year-old female presents for follow-up. She is breast and bottle feeding. Her baby is doing well. Her mood is reasonably good. She is not bleeding anymore she has not had intercourse. Her is going to get a vasectomy. She will follow up in 2 months for well-woman exam. She has no complaints, no problems, routine care. Crystal crabtree, [facility] 12/07/2023 18:42:27 02/29/20 24 text/htm l Annual GYNReported by PatientHistoryFor history, patient reportsno gynecologic complaints.Genitourinary symptomsFor menstrual cycle, patient reportsnormal menses. For urinary symptoms, patient reportsno hematuriaandno incontinence. For vulva, patient reportsno genital lesion. For vagina, patient reportsnormal vaginal discharge.Breast symptomsFor breast, patient reportsno breast painandno breast lump.ContraceptionFor current contraception, patient reportscondoms.Endocrine symptomsFor sexual complaints, patient reportsno sexual complaintsandno pain during intercourse. For menopausal symptoms, patient reportsno menopausal symptoms.Psychological symptomsFor psychological symptoms, patient reportsno depressionandno anxiety.Preventative measuresFor preventive measures, patient reportsencourage self breast examinationandencourage regular exercise. Sagar Mathew MD [address], [place], [address], [facility] 02/29/2024 17:24:33 OBGyn Episode Ob Episode Information Episode Created Date Number of Fetuses Patient Bloodtype Patient rh Status Prepregnancy Weight lbs Domestic Partner Domestic Partner Phone Father Name Strategic Communications Manager Status 05/01/20 23 1 O Positive 192 CLOSED Fetus Data First Name Last Name Admitted to NICU Weight (g) Sex Living Outcome Pediatric Complications Fetus ID Race Codes Race Delivery Type 3515.33 8 M true Full Term [id number] Vaginal Delivery Problems Problem Notes cf/sma negative done on 03/08 @ [facility]. Problem Name Start Date End Date Resolution Snomed Code Not e Below expected growth rate 478137098697641 10/05 growth normal - no more testing needed Placenta circumvallata 7355023 & MCI - Serial growth! Headache 52628752 Mixed anxiety and depressive disorder 823739515 Transient hypertension of - delivered 294183155 Very late in depression 68344837 txed with proza c hemorrhage 21995549 questionable - story unclear Humza Calculation Initial [...] Weight in lbs Pre/Post Dialysis Refused Weight 192.713170022727 BP Diastolic BP Location Tested BP Systolic [...] Weight in lbs Pre/Post Dialysis Refused Weight 190.208965705130 BP Diastolic BP Location Tested BP Systolic [...] Weight in lbs Pre/Post Dialysis Refused Weight 194.185646136973 BP Diastolic BP Location Tested BP Systolic [...] Weight in lbs Pre/Post Dialysis Refused Weight 197.619846001443 BP Diastolic BP Location Tested BP Systolic [...] Weight in lbs Pre/Post Dialysis Refused Weight 204.673721095383 BP Diastolic BP Location Tested BP Systolic [...] Weight in lbs Pre/Post Dialysis Refused Weight 205.956080763987 BP Diastolic BP Location Tested BP Systolic [...] Weight in lbs Pre/Post Dialysis Refused Weight 206.156817054802 BP Diastolic BP Location Tested BP Systolic [...] Weight in lbs Pre/Post Dialysis Refused Weight 209.236687182371 BP Diastolic BP Location Tested BP Systolic [...] Weight in lbs Pre/Post Dialysis Refused Weight 212.71444790385 BP Diastolic BP Location Tested BP Systolic [...] Weight in lbs Pre/Post Dialysis Refused Weight 214.176013726156 BP Diastolic BP Location Tested BP Systolic [...] Weight in lbs Pre/Post Dialysis Refused Weight 216.987299789660 BP Diastolic BP Location Tested BP Systolic BP Type 81 L arm 138 sitting Fetus Heart Rate Present Fetus Movement A Yes Comments Flowsheet Date 10/16/2023 Oro Score Blood Edema Fundus Height Fundus Units Glucose Ketones Leukocytes Nitrite Labor Signs Protein Cervic Dilation Cervic Effacement Cervic Station 36 Type Weight in lbs Pre/Post Dialysis Refused Weight 217.289413027201 BP Diastolic BP Location Tested BP Systolic [...] Weight in lbs Pre/Post Dialysis Refused Weight 220.893817238436 BP Diastolic BP Location Tested BP Systolic [...] Weight in lbs Pre/Post Dialysis Refused Weight 223.838889076309 BP Diastolic BP Location Tested BP Systolic [...] Estim ated Date of Delivery false Thalassemia (Swedish, Romanian, Mediterranean, Or Background): MCV < 80 false Neural Tube Defect (Meningomyelocele, Spina Bifi da, Or Anencephaly) false Congenital Heart Defect false Down Syndrome false Walt-Sachs (eg, Episcopal, Cajun, Amharic-Warriors Mark) f alse Libby Disease false Sickle Cell Disease Or Trait () false Hemophilia Or Other Blood Disorders false Muscular Dystrophy false Cystic Fibrosis false Grayson's Chorea false Intellectual Disability/Autism false If Yes, [...] Domestic Partner Domestic Partner Phone Father Name Strategic Communications Manager Status 03/30/20 23 1 CLOSED Fetus Data [...]
[2025-06-16 21:43] LABS: Add Urine Microscopic? NO; Appearance Urine Clear (Clear); Glucose Urine UA Negative (Negative); Leukocyte Esterase Ur Negative LEU/UL (Negative); Nitrate Urine Negative (Negative); Specific Grav Ur 1.020 (1.010-1.020)
[2025-06-16 21:44] LABS: Pregnancy On Board Control Positive
[2025-06-16 21:48] LABS: Hematocrit 40.8 % (35.0-49.0); Hemoglobin 13.4 g/dL (12.0-15.0); Immature Granulocyte Percent A 0.3 % (0.0-0.0); Lymphocytes Absolute Auto 1.20 K/mm3 (1.10-4.50); Mean Corpuscular HGB Conc 32.8 g/dL (32-36); Mean Corpuscular Hemoglobin 29.4 pg (27.0-31.0); Mean Corpuscular Volume 89.5 fL (78.0-102.0); Nucleated Red Blood Cells Absolute Auto 0.00 K/mm3 (0.00-0.00); Nucleated Red Blood Cells Perc 0.0 % (0-0.0); Platelet Count Result 177 K/mm3 (150-420); Red Blood Count 4.56 M/mm3 (4.20-5.40); White Blood Count 5.9 K/mm3 (4.8-10.8)
--- NOTE | 2025-06-16 21:52 | ED_ITS ---
HPI - Abdominal Pain General Chief Complaint: Abdominal Pain Stated Complaint: abdominal pain Time Seen by Provider: 06/16/25 21:52 Source: patient Mode of arrival: ambulatory Limitations: no limitations History of Present Illness HPI narrative: Patient is a 30-year-old female with right upper quadrant abdominal pain for the past few days. She has a history of C diff. she has upcoming colonoscopy to rule out ulcerative colitis. Associated diarrhea. MD elicited complaint: abdominal pain Pertinent past history: other (C diff history) Onset (ago): day(s) (3) Pain Consistency: constant Location: RUQ Severity: moderate Pain scale (0-10): 5 Quality: sharp Radiation: none Migration to: no migration Exacerbating factors: nothing Relieving factors: nothing Context: confirms history of similar episodes Associated symptoms: diarrhea Treatments prior to arrival: other (Tylenol) Related Data Home Medications ?Medication ?Instructions ?Recorded ?Confirmed ?Last Taken ?Type hydroxyzine HCl 25 mg tablet 25 mg PO TID PRN anxiety 01/20/25 06/16/25 01/19/25 History sertraline 50 mg tablet 50 mg PO DAILY 01/20/2505/2006/16/25 History Allergies Allergy/AdvReac Type Severity Reaction Status Date / Time amoxicillin Allergy Difficulty Verified 06/16/25 21:55 Breathing latex Allergy Difficulty Verified 06/16/25 21:55 Breathing Penicillins Allergy Hives Verified 06/16/25 21:55 Review of Systems 2 Review of Systems: All systems reviewed & are unremarkable except as noted in HPI and below Constitutional: Constitutional: Reports no additional constitutional complaints Eyes: Eyes: Reports no additional eye complaints ENT: Reports system reviewed and no additional complaints, except as documented Cardiovascular: Cardiovascular: Reports no additional cardiovascular complaints Respiratory: Respiratory: Reports no additional respiratory complaints Gastrointestinal: Gastrointestinal: Reports no additional gastrointestinal complaints Genitourinary: Genitourinary: Reports no additional female genitourinary complaints Musculoskeletal: Musculoskeletal: Reports no additional musculoskeletal complaints Integumentary/Breasts: Skin/Breast: Reports system reviewed and no additional complaints, except as docu Neurologic: Reports system reviewed and no additional complaints, except as documented Psychiatric: Psychiatric: Reports no additional psychiatric complaints Endocrine: Endocrine: Reports no additional endocrine complaints Hematologic/Lymphatic: Hematologic/Lymphatic: Reports no additional hematologic/lymphatic complaints Allergic/Immunologic: Allergic/Immunologic: Reports no additional allergic/immunologic complaints PMFSH Past Medical History Medical History Kidney stones Depression with anxiety Family History Family History Mother Diabetes mellitus Father Chronic bronchitis Social History Social History Social History: Surrogate medical decision maker: Skip Granado, spouse. Code status: Full code. Smoking status: Never smoker Second hand tobacco smoke exposure: No Alcohol intake: former Substance use: never Do You Feel Safe in your Home?: Yes Lack of Transportation: No Lack of Food: Never True Current Housing: I Have Housing Concerned About Future Housing: No Difficulty Paying Gas/Electric Bills: No Difficulty Paying for Meds: No Currently Unemployed: No Education: High School Diploma/GED Difficulty w/ Childcare or Family Care: No Additional living arrangements comments: Lives at home with spouse and their 2 young children, age 3 and 1-year-old. 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 Spiritual care concerns: No Exam 2 Const: General: healthy appearing Nutritional Appearance: well nourished Orientation/consciousness: patient oriented x3 HENMT: Head: normal to inspection Ears: external ears normal [place]/Nose/Sinus: Normal external nose present Eyes: Conjunctivae: conjunctivae normal Pupils: Equal, round and reactive pupils present EOM: EOMs intact bilaterally Neck: Neck: normal visual inspection Chest: Chest palpation & inspection: normal inspection of the chest Resp: Effort & Inspection: normal respiratory effort and not labored A uscultation: clear to auscultation bilaterally and no crackles Cardio: Rate: regular rate Rhythm: regular rhythm Heart sounds: no murmurs GI: Inspection: non-distended GI Palp: Yes Soft to palpation, Yes Tenderness to palpation present (GI) (Right upper quadrant to right flank), No Guarding due to palpation present (GI), No Rigid due to palpation, No Hernia present, No Palpable mass present and No Rebound tenderness present A uscultation: bowels sounds not normal and Hyperactive bowel sounds present : General: Yes bladder normal to palpation Back/Spine/Pelvis: Back: no CVA tenderness Skin: General skin exam: normal color Rashes: no rashes Wounds: no wounds Neuro: General: patient oriented x3, moves all extremities and no meningeal signs Extrem: General: normal to inspection, no clubbing, cyanosis or edema and no pedal edema Psych: Mental Status: mental status grossly normal Affect: normal affect Attitude: cooperative Course Vital Signs Vital signs: Vital Signs Temperature 36.1 C L 06/16/25 21:27 Pulse Rate 118 H 06/16/25 21:27 Respiratory Rate 16 06/16/25 21:27 Blood Pressure 147/91 H 06/16/25 21:27 Pulse Oximetry 100 06/16/25 21:27 Oxygen Delivery Room Air 06/16/25 21:27 Temperature 36.7 C 06/16/25 23:14 Pulse Rate 82 06/16/25 23:14 Respiratory Rate 16 06/16/25 23:14 Blood Pressure 132/75 06/16/25 23:14 Pulse Oximetry 100 06/16/25 23:14 Oxygen Delivery Room Air 06/16/25 23:14 MDM - Abdominal Pain MDM Narrative Medical decision making narrative: Patient is a 30-year-old female with right upper quadrant pain for the past 3 days. We will do a GI workup at this time. Essentially negative workup. We will let patient go home and see how this goes over the next few days. She will follow up with the primary doctor. Lab Data Attestation: I reviewed the patient's lab results. 06/16/25 21:42 06/16/25 21:42 Labs: Lab Results 06/16/25 06/16/25 06/16/25 Range/Units 21:36 21:39 21:42 WBC 5.9 (4.8-10.8) K/mm3 RBC 4.56 (4.20-5.40) M/mm3 Hgb 13.4 (12.0-15.0) g/dL Hct 40.8 (35.0-49.0) % MCV 89.5 (78.0-102.0) fL MCH 29.4 (27.0-31.0) pg MCHC 32.8 (32-36) g/dL RDW 11.8 (11.6-14.4) % Plt Count 177 (150-420) K/mm3 MPV 11.7 (9.2-11.8) fl Immature Gran % (Auto) 0.3 H (0.0-0.0) % Neut % (Auto) 67.8 (50.0-70.0) % Lymph % (Auto) 20.4 (18.0-42.0) % [place] % (Auto) 10.2 (2.0-11.0) % Eos % (Auto) 1.0 (1.0-6.0) % Baso % (Auto) 0.3 (0.0-1.0) % Lymph # (Auto) 1.20 (1.10-4.50) K/mm3 [place] # (Auto) 0.60 (0.10-0.90) K/mm3 Eos # (Auto) 0.06 (0.02-0.50) K/mm3 Baso # (Auto) 0.02 (0.00-0.10) K/mm3 Abs Immat Gran (auto) 0.02 H (0.00-0.00) K/mm3 Absolute Neuts (auto) 3.99 (1.70-7.20) K/mm3 Absolute Nucleated RBC 0.00 (0.00-0.00) K/mm3 Nucleated RBC % 0.0 (0-0.0) % Sodium 141 (137-145) mmol/L Potassium 4.0 (3.4-5.0) mmol/L Chloride 103 (98-107) mmol/L Carbon Dioxide 29 (22-30) mmol/L Anion Gap 9 (4-12) mmol/L BUN 13 D (7-17) mg/dL Creatinine 0.73 (0.7-1.0) mg/dL Estim Creat Clear Calc 112 ml/min Estimated GFR > 60 (59 - ) Glucose 99 (65-110) mg/dL Calculated Osmolality 292 (285-295) mOsm/kg Calcium 9.3 (8.4-10.2) mg/dL Total Bilirubin 0.4 (0.2-1.3) mg/dL AST 23 (14-36) U/L ALT 17 (6-35) U/L Alkaline Phosphatase 98 (38-126) U/L Total Protein 8.5 H (6.3-8.2) g/dL Albumin 4.6 (3.5-5.1) g/dL Lipase 141 (23-300) U/L Urine Color Light yellow (Yellow) Urine Appearance Clear (Clear) Urine pH 6.0 (5.0-8.0) Ur Specific [place] 1.020 (1.010-1.020) Urine Protein Negative (Negative) Urine Glucose (UA) Negative (Negative) Urine Ketones Trace H (Negative) Ur Blood (Man) Negative (Negative) Urine Nitrate Negative (Negative) Urine Bilirubin Negative (Negative) Urine Urobilinogen 1.0 (0.2-1.0) mg/dL Leukocyte Esterase Rfl Negative (Negative) KAMI/UL Urine Test Negative Imaging Data Attestation: I personally reviewed and interpreted this imaging study as follows: Radiologist's impression: CT scan of the abdomen and pelvis with contrast is essentially negative with a possible descending colon inflammatory infectious etiology (this does not correlate where her pain is on the right upper quadrant) Discharge Plan Discharge Clinical Impression: Abdominal pain Qualifiers: Abdominal location: right upper quadrant Qualified Code(s): R10.11 - Right upper quadrant pain Patient Disposition: Home Condition: Stable Instructions: Abdominal Pain (ED) Additional Instructions: Please follow-up with the primary doctor in the next week. I suggest further outpatient workup if the pain does not resolve. Make sure you get your upper and lower endoscopy done as planned. Come back to the emergency room with any further concerns. Patient Language: Hungarian Prescriptions: No Action promethazine 12.5 mg tablet 12.5 mg PO Q6H PRN (Reason: nausea and vomiting) Qty: 30 2RF hydroxyzine HCl 25 mg tablet 25 mg PO TID PRN (Reason: anxiety) sertraline 50 mg tablet 50 mg PO DAILY Follow-up/Referrals: Juanito Domingo M.D. [Primary Care Provider, [facility]] Time of Disposition: 23:21
[2025-06-16 22:00] LABS: Alanine Aminotransferase 17 U/L (6-35); Albumin Level 4.6 g/dL (3.5-5.1); Alkaline Phosphatase 98 U/L (38-126); Anion Gap 9 mmol/L (4-12); Aspartate Amino Transferase 23 U/L (14-36); Bilirubin,Total 0.4 mg/dL (0.2-1.3); Blood Urea Nitrogen 13 mg/dL (7-17); Calcium 9.3 mg/dL (8.4-10.2); Carbon Dioxide 29 mmol/L (22-30); Chloride 103 mmol/L (98-107); Estimated CRCL calculation 112 ml/min; Estimated Glomerular Filt Rate > 60; Glucose 99 mg/dL (65-110); Lipase 141 U/L (23-300); Osmolality Calculated 292 mOsm/kg (285-295); Potassium 4.0 mmol/L (3.4-5.0); Sodium 141 mmol/L (137-145); Total Protein 8.5 g/dL (6.3-8.2)
[2025-06-16] MEDS: KETOROLAC 30 MG/ML VIAL (*BKC) IV PUSH (23:09)
[2025-06-16 23:14] VITALS: BP 132/75; PULSE 82; RESP 16; TEMP 36.7; O2SAT 100
== END 2025-06-16 23:34 | disposition home or self-care (01) ==
PROVIDERS: Emergency Provider Emergency Medicine; PCP Family Medicine
DX: R10.11 Right upper quadrant pain (principal); R11.2 Nausea with vomiting, unspecified; Z79.899 Other long term (current) drug therapy
CPT/HCPCS: 36415; 74177; 80053; 81003; 81025; 83690; 85025; 96374; 99284; J1885; Q9967

== ENCOUNTER 2025-07-11 00:53 | Day surgery (SDC) | payer OTHER, SELFPAY ==
[2025-07-01 14:09] VITALS: BMI 29.7
--- OUTSIDE RECORDS SUMMARY | 2025-07-11 00:56 | XMS_ITS | Data Portability ---
Author Organization [facility] Address [address] [place] [address] [place] [address] Care Team Providers Care Enamel Applier Name Role Phone ADI ALVA Primary Care Provider Assessment Encounter Date Assessment Date Assessment LastModified by Organization Details LastModified Time 10/24/2023 10/24/2023 Patient is ___weeks . Discussed plan. Not available 10/24/2023 17:08:12 10/30/2023 10/30/2023 Patient is ___weeks . Discussed plan. Not available 10/30/2023 15:50:14 02/29/2024 02/29/2024 Annual gynecological exam performed. Patient will come back in a year unless there are new symptoms. [email or web address] Not available 02/29/2024 16:38:22 Plan of Treatment Reminders Order Date Submit Date Provider Last Modified By Organization Details Last Modified Time Details Appointments None record ed. Lab None record ed. Referral None record ed. Procedures None record ed. Surgeries None record ed. Imaging non-st ress test 024 10/30/19 24 [address], [address], [place], [address], 16:59:11 Medication Orders None record ed. Patient [...] Strep , Refle x Susce ptibi lity ([facility] ) Speci men Sourc e: Vagin a/Rec gladys Speci men Type: Vagin al/Re ctal Speci men Date: 2023 5:08 PM Resul t Date: 024 7:03 PM Resul t Statu s: Final resul t Abnor mal: No Resul ting Lab: [facility] [address] [facility] [address] Tel: [phone] CULTU RE ----- ----- ----- --- No Group B strep isola levi at 2 days (frantz ctive broth enhan cemen t) Not Available [facility] (Lab) [address], [place], [address], 10/19/2023 20:06:52 02/29/20 24 02/29/2024 IMAGE GUIDE [...] or Johanne shahid (NIL) . Elect viola coehlo eloy d by Selene Bob ret, CT [...] as clini jordi rico nted. Not Available [facility] (Lab) [address], [place], [address], 03/05/2024 13:53:07 09/29/19 24 09/29/2023 non-s tress test No observ ation record ed. [email or web address] [address], [place], [address], 09/29/2023 18:55:15 09/29/19 24 non-s tress test No observ ation record ed. [email or web address] Not Available 09/29 17:13:40 09/29/19 24 10/03/2023 US, obste tric, bioph ysica l profi le + non-s tress test No observ ation record ed. [email or web address] [address], [place], [address], 10/03/2023 12:33:34 09/29/19 24 09/29/2023 US, obste tric, bioph ysica l profi le + non-s tress test No observ ation record ed. [email or web address] [address] [facility], [place], [address], 09/29/2023 19:02:23 10/05/19 24 10/05/2023 US, obste tricanastasiao w-up No observ ation record ed. [email or web address] [address], [place], [address], 10/05/2023 17:54:19 10/05/19 24 non-s tress test No observ ation record ed. [email or web address] Not Available 10/05 18:07:53 10/05/19 24 10/05/2023 non-s tress test No observ ation record ed. [email or web address] [place] [address], [place], [address], 10/05/2023 19:13:04 10/06/19 24 10/05/2023 US, obste tric, follo w-up No observ ation record ed. BO [address], [place], [address], 10/09/2023 10:21:34 10/30/19 24 10/30/2023 non-s tress test No observ ation record ed. [email or web address] [address], [place], [address], 10/30/2023 16:57:17 Result Notes None recorded. Problems Name Problem SNOMED Code Status Onset Date Resolution Date Notes Provider Name and Address Organization Details Recorded Time Transien t hyperten jamari of pregnanc y - delivere d 347213768 Completed Very late in pregnanc y Dashaholden Da SilvaAnival [facility] 4 16:53:19 Postpart um depressi on 69392157 Completed txed with prozac [facility] 4 16:53:19 Postpart um hemorrha ge 01288767 Completed question able - story unclear [facility] 4 16:53:19 Headache 53257861 Completed [facility] 4 16:53:19 Mixed anxiety and depressi ve disorder 949141988 Completed [facility] 4 16:53:19 Placenta circumva llata 0867026 Completed & [facility] - [facility] growth! [facility] 4 16:53:19 Below expected growth rate 68443104557 4106 Completed 10/05 growth normal - no more antenata l testing needed [facility] 16:53:19 Pregnanc y 57716590 Completed 202211/02/2023 Lesly Florian [facility] 4 16:53:23 Problem Notes None recorded. Procedures Surgical History Date Name Laterality Status Provider Name and Address Organization Details Recorded Time 1 Date of Last Pap Smear completed [facility] 12/07/2023 13:03:01 9 procedure on lip completed [facility] 12/07/2023 16:26:01 7 procedure on ear completed [facility] 12/07/2023 16:26:10 Imaging Results None recorded. Procedure Notes None recorded. Medical Equipment None Reported. Allergies Allergen ID Allergen Name Allergen Category Reaction Reaction Severity Criticality Documentation Date Start Date Code Code System Note Provider Name and Address Organization Details Recorded Time 16400 Product containin g penicilli n (product) medicatio n hives vomiting Not available Not available Not available 03/30/2023 57753 8001 SNOMED Юлия Schroeder [facility] 3 16:20:54 35960 latex environme nt,medica tion Not available Not available Not available 12/07/[address] [facility] 4 16:24:40 Medications Name Sig [...] Updated DateTime 10/24/2023 172.72 cm 33.5 kg/m2 15857.321 4 g 132/77 mm[Hg] [facility] 10/24/2023 17:17:07 Date Recorded Body height Body mass index (BMI) Body weight Systolic And Diastolic Provider Name and Address Organization Details Last Updated DateTime 10/30/2023 172.72 cm 33.9 kg/m2 718785.09 851 g 125/84 mm[Hg] [facility] 10/30/2023 15:50:25 Date Recorded Body height Body mass index (BMI) Body weight Systolic And Diastolic Provider Name and Address Organization Details Last Updated DateTime 12/07/2023 172.72 cm 32.1 kg/m2 61734.99 g 115/79 mm[Hg] Crystal Ramos [facility] 12/07/2023 16:24:16 Date Recorded Body height Body mass index (BMI) Body weight Systolic And Diastolic Provider Name and Address Organization Details Last Updated DateTime 02/29/2024 172.72 cm 33.1 kg/m2 42725.14 g 133/57 mm[Hg] Vicky Brooks [facility] 02/29/2024 16:41:23 Social History Question Answer Notes LastModified by Organizat ion Details LastModified Time Tobacco Smoking Status Never Smoker Louise Ewing [email or web address], [facility] 10/05/2023 16:23:51 How Many Years Have [...] Or The Highest Degree You Have Received? [id number] Information not available 03/30/2023 Are There Any [...] able to care for yourself independently? 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 No [email or web address] Information not available 12/07/2023 What is your exercise level? Moderate Information not available 03/30/2023 Mental Status Question Answer Note LastModified by Organization D etails LastModified Time Do you feel stressed (tense, restless, nervous, or anxious, or unable to sleep at night)? [id number] Information not available 03/30/2023 Family History Relationship [...] ICD10 Code Diagnosis IMO Codes Diagnosis Note [id number] Sagar Mathew MD [place] [address] [address] 03/30/2023 15:21:46 03/30/2023 16:36:46 Uncertain viability of 649076901 O36.80X0 Z3A.01 [id number] Sagar Mathew MD [place] [address] [address] 03/30/2023 15:22:05 03/31/2023 10:37:24 Amenorrhea 08329376 N91.2 patient is a 27-year-ol d female who presents for amenorrhea . She has a positive test. Ultrasound revealed a 7 week gestation. we talked about , we talked about care. We talked about exercise, food, medication s. She returned to begin routine care. We spent over 20 minutes face-to-fa ce. More than 50% was counseling . [id number] Sagar Mathew MD [place] [address] [address] 04/20/2023 15:42:09 04/20/2023 16:30:33 [id number] Sagar Mathew MD [place] [address],[place] [address] 04/20/2023 15:44:59 04/20/2023 22:59:42 [id number] MD Christian Gallegos [address],[place] [address] 05/01/2023 16:08:06 05/01/2023 16:43:34 screening 761144255 Z36.82 [id number] MD Christian Gallegos [address],[place] [address] 05/01/2023 16:08:48 05/01/2023 17:43:11 Routine care 595269897 Z34.81 [id number] MD Christian Gallegos [address],[place] [address] 05/31/2023 17:16:25 05/31/2023 18:37:33 [id number] MD Christian Gallegos [address],[place] [address] 05/31/2023 17:18:38 06/01/2023 10:28:37 Routine care 813303294 Z34.81 [id number] MD Christian Gallegos [address],[place] [address] 06/19/2023 14:39:38 06/19/2023 16:10:22 screening for malformation 333297998 Z36.3 Z3A.19 [id number] MD Christian Gallgeos [address],[place] [address] 06/19/2023 14:40:15 06/20/2023 09:42:54 Routine care 020502779 Z34.81 [id number] MD Christian Gallegos [address],[place] [address] 07/19/2023 16:59:13 07/19/2023 18:33:25 Marginal insertion of umbilical cord 32917316 O43.122 O43.112 Z36.2 O44.42 Z3A.24 [id number] MD Christian Gallegos [address],[place] [address] 07/19/2023 17:00:40 07/19/2023 18:32:46 Routine care 392655851 Z34.81 [id number] MD Christian Gallegos [address],[place] [address] 08/17/2023 11:18:09 08/17/2023 11:50:48 Marginal insertion of umbilical cord 08976190 O43.122 O43.112 Z3A.28 [id number] MD Christian Gallegos [address],[place] [address] 08/17/2023 11:18:31 08/17/2023 13:07:43 Routine care 916081044 Z34.81 [id number] SALONI ARCINIEGA MD [place] [address],[place] [address] 08/22/2023 11:29:48 08/22/2023 12:56:44 Inguinal pain 178129691 R10.2 [id number] MD Christian Gallegos [address],[place] [address] 08/31/2023 16:38:20 08/31/2023 17:51:48 Routine care 022951704 Z34.81 [id number] MD Christian Gallegos [address],[place] [address] 09/14/2023 16:23:40 09/14/2023 17:03:30 Marginal insertion of umbilical cord 92468574 O43.122 O43.112 Z3A.32 [id number] MD Christian Gallegos [address],[place] [address] 09/14/2023 16:24:36 09/15/2023 08:50:31 Routine care 577898900 Z34.81 [id number] MD Christian Gallegos [address],[place] [address] 09/21/2023 11:15:28 09/21/2023 12:15:19 Below expected growth rate 4937534136 44468 R62.52 [id number] MD Christian Gallegos [address],[place] [address] 09/21/2023 11:16:01 09/21/2023 13:28:22 growth restriction 79856081 O36.5930 O36.8320 Z3A.33 [id number] MD Christian Gallegos [address],[place] [address] 09/21/2023 11:16:28 09/21/2023 13:06:28 Routine care 415657126 Z34.81 [id number] MD Christian Gallegos [address],[place] [address] 09/29/2023 15:57:58 09/29/2023 18:07:36 Below expected growth rate 5781040068 08190 R62.52 [id number] MD Christian Gallegos [address],[place] [address] 09/29/2023 16:00:54 09/29/2023 18:07:17 Small for gestational age fetus 392437471 O36.5930 Z3A.34 [id number] SALONI ARCINIEGA MD [place] [address],[place] [address] 10/05/2023 16:18:49 10/05/2023 17:49:22 Placenta circumvallata 3176057 O43.119 Marginal i nsertion of umbilical cord 28861257 O43.129 Gestation period, 35 weeks 69127754 Z3A.35 [id number] MD Christian Gallegos [address],[place] [address] 10/05/2023 16:22:01 10/05/2023 18:15:03 Below expected growth rate 9139091021 50911 R62.52 [id number] MD Christian Gallegos [address],[place] [address] 10/05/2023 16:23:21 10/05/2023 17:20:23 Placenta circumvallata 4522822 O43.113 O43.103 Z3A.35 [id number] MD Christian Gallegos [address],[place] [address] 10/12/2023 17:27:17 10/12/2023 21:40:25 [id number] MD Christian Gallegos [address],[place] [address] 10/16/2023 17:23:17 10/17/2023 12:33:09 Routine care 158511416 Z34.81 [id number] MD Christian Gallegos [address],[place] [address] 10/24/2023 16:56:24 10/24/2023 18:06:45 Routine care 229568600 Z34.81 [id number] Sagar Mathew MD [place] [address],[place] [address] 10/30/2023 15:34:13 10/30/2023 16:28:15 Routine care 172927994 Z34.81 [id number] Sagar Mathew MD [place] [address],[place] [address] 10/30/2023 16:31:13 10/30/2023 16:59:11 tachycardia 644449003 O36.8399 [id number] MD Christian Gallegos [address],[place] [address] 12/07/2023 16:09:37 12/07/2023 17:28:55 care 186854073 Z39.2 [id number] MD Christian Gallegos [address],[place] [address] 02/29/2024 16:03:36 02/29/2024 17:33:25 Gynecologic examination 84669667 Z01.419 Annual gynecologi merritt exam performed. Patient [...] Guarantor Name 10/09/2023 2 [employer] June Granado [id number] June Granado 02/29/2024 2 [employer] [facility] ON OR AFTER 08/18/2020 (MEDICAID REPLACEMENT - HMO) Skip Granado [id number] June Granado 06/11/2025 1 [facility] [id number] Skip Granado [id number] June Granado Notes Date Note Type Note Provider Name and Address Organization Details Recorded Time 10/24/19 24 text/htm l Generic HPI TemplateReported by Patient Sagar Mathew MD [address], [place], [address], [facility] 10/24/2023 17:53:23 10/30/19 24 text/htm l Generic HPI TemplateReported by Patient Sagar Mathew MD [address], [place], [address], [facility] 10/30/2023 16:12:41 12/07/19 24 text/htm l [...] complaints, no problems, routine care. Crystal crabtree, [facility] 12/07/2023 18:42:27 02/29/20 24 text/htm l [...] exercise. Sagar Mathew MD [address], [place], [address], [facility] 02/29/2024 17:24:33 OBGyn Episode Ob Episode Information Episode Created Date Number of Fetuses Patient Bloodtype Patient rh Status Prepregnancy Weight lbs Domestic Partner Domestic Partner Phone Father Name Contract Manager Status 05/01/20 23 1 O Positive 192 CLOSED Fetus Data First Name Last Name Admitted to NICU Weight (g) Sex Living Outcome Pediatric Complications Fetus ID Race Codes Race Delivery Type 3515.33 8 M true Full Term 29121 Vaginal Delivery Problems Problem Notes cf/sma negative done on 03/08 @ [place]. Problem Name Start Date End Date Resolution Snomed Code Not e Below expected growth rate 609867483960228 10/05 growth normal - no more testing needed Placenta circumvallata 6386639 & MCI - Serial growth! Headache 54084472 Mixed anxiety and depressive disorder 553204649 Transient hypertension of - delivered 983595651 Very late in depression 22164246 txed with proza c hemorrhage 66798117 questionable - story unclear Humza Calculation Initial [...] Weight in lbs Pre/Post Dialysis Refused Weight 192.002570076416 BP Diastolic BP Location Tested BP Systolic [...] Weight in lbs Pre/Post Dialysis Refused Weight 190.447308685355 BP Diastolic BP Location Tested BP Systolic [...] Weight in lbs Pre/Post Dialysis Refused Weight 194.539210883405 BP Diastolic BP Location Tested BP Systolic [...] Weight in lbs Pre/Post Dialysis Refused Weight 197.252937111302 BP Diastolic BP Location Tested BP Systolic [...] Weight in lbs Pre/Post Dialysis Refused Weight 204.473451823375 BP Diastolic BP Location Tested BP Systolic [...] Weight in lbs Pre/Post Dialysis Refused Weight 205.947659255857 BP Diastolic BP Location Tested BP Systolic [...] Weight in lbs Pre/Post Dialysis Refused Weight 206.162527933410 BP Diastolic BP Location Tested BP Systolic [...] Weight in lbs Pre/Post Dialysis Refused Weight 209.273161605822 BP Diastolic BP Location Tested BP Systolic [...] Weight in lbs Pre/Post Dialysis Refused Weight 212.76356880084 BP Diastolic BP Location Tested BP Systolic [...] Weight in lbs Pre/Post Dialysis Refused Weight 214.271968440032 BP Diastolic BP Location Tested BP Systolic [...] Weight in lbs Pre/Post Dialysis Refused Weight 216.358187261366 BP Diastolic BP Location Tested BP Systolic BP Type 81 L arm 138 sitting Fetus Heart Rate Present Fetus Movement A Yes Comments Flowsheet Date 10/16/2023 Oro Score Blood Edema Fundus Height Fundus Units Glucose Ketones Leukocytes Nitrite Labor Signs Protein Cervic Dilation Cervic Effacement Cervic Station 36 Type Weight in lbs Pre/Post Dialysis Refused Weight 217.040562618915 BP Diastolic BP Location Tested BP Systolic [...] Weight in lbs Pre/Post Dialysis Refused Weight 220.489844668329 BP Diastolic BP Location Tested BP Systolic [...] Weight in lbs Pre/Post Dialysis Refused Weight 223.640167993418 BP Diastolic BP Location Tested BP Systolic [...] Estim ated Date of Delivery false Thalassemia (Yi, Kinyarwanda, Mediterranean, Or Background): MCV < 80 false Neural Tube Defect (Meningomyelocele, Spina Bifi da, Or Anencephaly) false Congenital Heart Defect false Down Syndrome false Walt-Sachs (eg, Methodist, Cajun, Burkinan-Maries) f alse Libby Disease false Sickle Cell Disease Or Trait () false Hemophilia Or Other Blood Disorders false Muscular Dystrophy false Cystic Fibrosis false Diboll's Chorea false Intellectual Disability/Autism false If Yes, [...] Domestic Partner Domestic Partner Phone Father Name Contract Manager Status 03/30/20 23 1 CLOSED Fetus [...]
--- OUTSIDE RECORDS SUMMARY | 2025-07-11 00:56 | XMS_ITS | Clinical Summary ---
Author Organization [facility] Address [facility] [place] [address] Care Team Providers Care Physical Optics Teacher Name Role Phone Juanito Domingo MD Primary Care Provider [phone] Meredith Minaya ANP- Unavailable [phone] Denae Martinez MD Unavailable Allergies Active Allergy Reactions Criticality Noted Date Comments Amoxicillin Unknown 01/07/2021 Cefaclor Unknown 01/07/2021 Cefuroxime Unknown 01/07/2021 Latex Hives 01/07/2021 Levonorgestrel-Ethinyl Estrad Unknown 2014 Sneezing Medications sertraline (ZOLOFT) 50 MG tablet Take 1 tablet (50 mg total) by mouth daily. Active vitamin 27-1 MG Tab tablet Take 1 tablet by mouth daily. Active Active Problems Problem Noted Date Diagnosed Date Anxiety 03/25/2021 Term of female 03/23/2021 Normal labor 03/22/2021 Prolonged latent phase of labor 03/17/2021 39 weeks gestation of 03/17/2021 Encounter for elective induction of labor 2020 Pre-eclampsia 03/01/2021 Elevated blood pressure affe cting in third trimester, antepartum 02/28/2021 Encounters Date Type Department Care Team Description 06/20/2025 9:07 AM CDT - 06/20/2025 11:59 PM CDT Hospital Encounter [facility] [address] [place] [address] Vinnie Olivarez NP-Lucrecia Discharge Disposition: Home or Self Care (Routine Discharge) 06/20/2025 Travel 06/19/2025 Orders Only [facility] [address] [place] [address] [place] [address] Vinnie Olivarez NP-C 06/17/2025 Abstract [facility] [address] [place] [address] Abstract, Doc Pccl 06/13/2025 10:05 AM CDT - 06/13/2025 11:59 PM CDT Hospital Encounter [facility] [address] [place], [place] [address] [place] [address] Vinnie Olivarez NP-Lucrecia Discharge Disposition: Home or Self Care (Routine Discharge) 06/13/2025 Scan [facility] [address] [place] [address] Scanned, Doc Pccl 06/13/2025 Telephone [facility] [address] [place] [address] Meredith Minaya, ANP-BC Reschedule 06/13/2025 Telephone [facility] [address] [place] [address] Meredith Minaya, ANP-BC Referral 06/13/2025 Travel 04/23/2025 Scan [facility] [address] [place] [address] Scanned, Doc Pccl 04/23/2025 Scan [facility] [address] [place] [address] Scanned, Doc Pccl ECG (SCAN) from Last 3 Months Social History Tobacco [...] or ex-partner? No 03/16/2021 Social Connection and Isolation Panel Answer Date Recorded In a typical week, how many times do you talk on the phone with family, friends, or neighbors? More than three times a week 03/16/2021 Frequency of Social Gatherin gs with Friends and Family Not on file 03/16/2021 How often do you attend chur or anabaptist services? More than 4 times per year 03/16/2021 Do you belong to any clubs o r organizations such as lutheran groups, unions, fraternal or athletic groups, or [...] and heating? 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 DESIGNER Gender Identity Not on file Sexual Orientation [...] Care Team (Late st Contact Info) Description 07/21/2025 9:00 AM MARKETING DESIGNER Office Visit [facility] [place] [id number] Meredith Minaya, [facility] [address] Health Maintenance Due Date Last Done Comments Annual Physical 1999 Hepatitis C 2014 DTaP, Tdap and Td Vaccines ( 1 - Tdap) 2015 Hepatitis B Vaccines (1 of 3 - 19+ 3-dose series) 2015 HPV Vaccines (1 - 3-dose SCD M series) 2023 COVID-19 Vaccine (2 - 2024-2 6 season) 2025 03/02/2021 Influenza Adult (#1) 2025 Cervical Cancer Screening Pa p Smear (Age 21 to 29) Every 3 Years 02/28/2027 02/29/2024 Cervical Cancer Screening 02/28/2027 Meningococcal Vaccine Aged Out 06/16/2016 No kirstie winnie eligible based on patient's age to complete this topic Hepatitis A Vaccines Aged Out No long er eligible based on patient's age to complete [...] Procedure Name Priority Date/Time Associated Diagnosis Comments HOLTER MONITOR 24 HR REC Routine 06/20/2025 9:07 AM CDT Tachycardia ECG 12-LEAD Routine 06/13/2025 10:37 AM CDT Tachycardia ECG GENERIC (SCAN ORDER) Routine 04/23/2025 12:00 AM CDT COMPREHENSIVE METABOLIC PANEL Routine 04/23/2025 CBC, MANUAL DIFF Routine 04/23/2025 THYROID STIM HORMONE TSH Routine 04/23/2025 MAGNESIUM Routine 04/23/2025 from Last 3 Months Results * Holter Monitor 24 Hr Rec (Peds) (06/20/2025 9:07 AM CDT) 06/20/2025 9:07 AM CDT Narrative ESCRIPTION - 07/01/2025 5:32 PM CDT Patient Name: LAMBERTO GRANADO Date of : 1995 Account: [id number] Facility: [facility] Location: [facility] Date of Service: 06/20/2025 Holter Monitor DATE OF MONITORIN06/20/25 through 06/21/25. ORDERING PHYSICIAN: RODERICK Yip. INTERPRETING PHYSICIAN: Theodore Yoon MD. INDICATION: Tachycardia. FINDINGS: 1. Baseline rhythm: The baseline rhythm was normal sinus rhythm at 87 beats per minute. 2. Sinus node function: There is no evidence for sinus node dysfunction. Minimum heart rate was 56 beats per minute with an average heart rate of 88 beats per minute and a maximum heart rate of 144 beats per minute. 3. AV conduction: There is no evidence of significant AV block or pauses longer than 3 seconds. 4. Atrial arrhythmias: No significant atrial arrhythmias were noted. Rare PACs with less than 1% burden noted. 5. Ventricular arrhythmias: No significant ventricular arrhythmias were noted. Rare PVCs with less than 1% burden noted. 6. Symptoms: The patient sent in 2 symptoms of pain and skipping feeling, both of which correlated with normal sinus rhythm with heart rate in the 80s-90s. IMPRESSION: No significant atrial or ventricular arrhythmias were noted in this monitoring. Signature/Date: THEODORE YOON #[id number] /TOMÁS Procedure Note Theodore Yoon MD - 07/01/2025 Patient Name: LAMBERTO GRANADO Date of : 1995 Account: [id number] Facility: [facility] Location: [facility] Date of Service: 06/20/2025 Holter Monitor DATE OF MONITORIN06/20/25 through 06/21/25. ORDERING PHYSICIAN: RODERICK Yip. INTERPRETING PHYSICIAN: Theodore Yoon MD. INDICATION: Tachycardia. FINDINGS: 1. Baseline rhythm: The baseline rhythm was normal sinus rhythm at 87 beats per minute. 2. Sinus node function: There is no evidence for sinus node dysfunction. Minimum heart rate was 56 beats per minute with an average heart rate of 88 beats per minute and a maximum heart rate of 144 beats per minute. 3. AV conduction: There is no evidence of significant AV block or pauses longer than 3 seconds. 4. Atrial arrhythmias: No significant atrial arrhythmias were noted. Rare PACs with less than 1% burden noted. 5. Ventricular arrhythmias: No significant ventricular arrhythmias were noted. Rare PVCs with less than 1% burden noted. 6. Symptoms: The patient sent in 2 symptoms of pain and skipping feeling, both of which correlated with normal sinus rhythm with heart rate in the 80s-90s. IMPRESSION: No significant atrial or ventricular arrhythmias were noted in this monitoring. Signature/Date: THEODORE YOON #[id number] /TOMÁS us Vinnie Olivarez OPTICAL GLASS ETCHER-C HOLTER Final R esult ESCRIPTION * ECG 12 lead (06/13/2025 10:37 AM CDT) 06/13/2025 10:3 7 AM CDT Narrative [facility] [place] [facility] - 06/13/2025 2:32 PM CDT [address] 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 Repair Technician: HASMUKH : 1995 Requested By: VINNIE OLIVAREZ Order Number: [id number] Reading MD: Ernesto Gutierrez Measurements Intervals [place] Rate: 76 P: 64 AL: 144 QRS: 68 QRSD: 86 T: 42 QT: 368 QTc: 415 Interpretive Statements SINUS RHYTHM RSR' In V1 Normal Variation us Vinnie Olivarez OPTICAL GLASS ETCHER-C ECG ORDERABLES Final R esult Performing Organization Address [facility] Co de Phone Number [facility] * ECG (04/23/2025 12:00 AM CDT) 04/23/2025 us Doc Pccl Scanned SCANNING Final Result Performing Organization Address [facility] Co de Phone Number [facility] * COMPREHENSIVE METABOLIC PANEL (04/23/2025) SODIUM S/P/B 141 GLUCOSE 104 mg/dL AST 22 BUN 8 CREATININE S/P/B 0.69 0.5 - 1.0 CALCIUM S/P/B 9.5 POTASSIUM S/P/B 4.0 CHLORIDE S/P/B 106 ALT 16 GFR ESTIMATE >60 Narrative Resulting Agency Comment [facility] us Default History Genericprovider LABORATORY Final Result * CBC, MANUAL DIFF (04/23/2025) WBC 5.7 HGB 12.9 HCT 39.0 PLT 174 Narrative Resulting Agency Comment [facility] us Default History Genericprovider LABORATORY Final Result * THYROID STIM HORMONE TSH (04/23/2025) TSH 0.467 Narrative Resulting Agency Comment [facility] us Default History Genericprovider LABORATORY Final Result * MAGNESIUM (04/23/2025) MAGNESIUM 2.0 Narrative Resulting Agency Comment [facility] us Default History Genericprovider LABORATORY Final Result from Last 3 Months Insurance [facility] Advance Directives * Full Code (Latest Code [...] 3:08 PM 03/17/2021 1:10 PM Care Teams Physical Optics Teacher Relationship Specialty Start Date End Date Juanito Domingo MD [address] [place] [address] PCP - General FAMILY PRACTICE 04/11/19 Meredith Minaya [facility] [address] [place] [address] Advanced Practice Provider CARDIOLOGY 06/13/25 Denae Martinez MD [address] [place] [address] [place] Applied Exercise Physiologist CARDIOVASCULAR DISEASE 06/13/25
[2025-07-11 12:19] VITALS: BP 110/75; PULSE 86; RESP 18; TEMP 36.1; O2SAT 98
[2025-07-11 12:25] LABS: BEDSIDEPREGUCG Negative (Negative)
[2025-07-11] MEDS: LACTATED RINGERS 1,000 ML 150 ML IV CONT (12:34)
--- NOTE | 2025-07-11 13:00 | WPDANESEPPF ---
Anes - Initial Pre Proc Eval Procedure: Operation Date: 07/11/25 13:30 Proposed Procedures p EGD & Diagnostic Colonoscopy - Dano Fierro MD Date/Time: 07/11/25 13:00 Surgeon: Dano Fierro MD Pre Op Diagnosis: LLQ abd pain,abnormal findings on dx imaging, Patient Data Age: 30 Gender: F Height: 1.7 m Weight: 83.8 kg Last Vital Signs Temp 97 F L 07/11/25 12:19 Pulse 86 07/11/25 12:19 Resp 18 07/11/25 12:19 BP 110/75 07/11/25 12:19 Pulse Ox 98 07/11/25 12:19 O2 Del Method Room Air 07/11/25 12:19 Allergies Allergy/AdvReac Type Severity Reaction Status Date / Time amoxicillin Allergy Difficulty Verified 07/11/25 12:18 Breathing latex Allergy Difficulty Verified 07/11/25 12:18 Breathing Penicillins Allergy Hives Verified 07/11/25 12:18 Home Medications ?Medication ?Instructions ?Recorded ?Confirmed ?Type hydroxyzine HCl 25 mg tablet 25 mg PO TID PRN anxiety 01/20/25 07/11/25 History sertraline 50 mg tablet 50 mg PO DAILY 01/20/25 07/11/25 History promethazine 12.5 mg tablet 12.5 mg PO Q6H PRN nausea and 01/24/25 07/11/25 Rx vomiting #30 tabs Laboratory Tests 07/11/25 12:19 POC Urine HCG, Qual Negative (Negative) Patient hx anesthesia problems: none Family hx anesthesia problems: none Results Review: All pre-operative results and documents have been reviewed as part of the pre-operative evaluation. [facility] Past Medical History Medical History Kidney stones Depression with anxiety Family History Family History Mother Diabetes mellitus Father Chronic bronchitis Social History Social History Social History: Surrogate medical decision maker: Skip Cruzell, spouse. Code status: Full code. Smoking status: Never smoker Second hand tobacco smoke exposure: No Alcohol intake: former Substance use: never Do You Feel Safe in your Home?: Yes Lack of Transportation: No Lack of Food: Never True Current Housing: I Have Housing Concerned About Future Housing: No Difficulty Paying Gas/Electric Bills: No Difficulty Paying for Meds: No Currently Unemployed: No Education: High School Diploma/GED Difficulty w/ Childcare or Family Care: No Additional living arrangements comments: Lives at home with spouse and their 2 young children, age 3 and 1-year-old. 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 Spiritual care concerns: No Anes - Eval Final PreProcedure Day of Procedure 07/11/25 13:00 Patient weight: overweight Lungs: normal air movement Airway: Mallampati scale class II Neurological: alert and oriented Last oral intake: >/= 8 hours ASA classification: I Emergent: no Anesthetic plan: proceed Anesthesia type and monitoring: general GIVS and standard monitoring Results Review: All pre-operative results and documents have been reviewed as part of the pre-operative evaluation. Hx of cdiff colitis, 12/2024, now for recheck. Informed Consent: The patient's anesthetic plan and its attendant risks and benefits were discussed with the patient/family/POA. Questions were solicited and answers provided to the satisfaction of the patient/family/POA.
--- NOTE | 2025-07-11 13:20 | PM.HPGS ---
History of Present Illness History of Present Illness Consent: Risks, benefits, and alternatives have been discussed and questions answered. Patient agrees to proceed with procedure. Chief complaint: LLQ abd pain,abnormal findings on dx imaging, Narrative: June Granado is a 30 year old female with intermittent abdominal pain, had C diff months ago but several CT showed possible colitis (thickening hepatic flexure), never had scopes Review of Systems Review of Systems: All systems reviewed & are unremarkable except as noted in HPI and below PMFSH Past Medical History Medical History Kidney stones Depression with anxiety Family History Family History Mother Diabetes mellitus Father Chronic bronchitis Social History Social History Social History: Surrogate medical decision maker: Skip Granado, spouse. Code status: Full code. Smoking status: Never smoker Second hand tobacco smoke exposure: No Alcohol intake: former Substance use: never Do You Feel Safe in your Home?: Yes Lack of Transportation: No Lack of Food: Never True Current Housing: I Have Housing Concerned About Future Housing: No Difficulty Paying Gas/Electric Bills: No Difficulty Paying for Meds: No Currently Unemployed: No Education: High School Diploma/GED Difficulty w/ Childcare or Family Care: No Additional living arrangements comments: Lives at home with spouse and their 2 young children, age 3 and 1-year-old. 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 Spiritual care concerns: No Meds Home Medications and Allergies Home Medications ?Medication ?Instructions ?Recorded ?Confirmed ?Type hydroxyzine HCl 25 mg tablet 25 mg PO TID PRN anxiety 01/20/25 07/11/25 History sertraline 50 mg tablet 50 mg PO DAILY 01/20/25 07/11/25 History promethazine 12.5 mg tablet 12.5 mg PO Q6H PRN nausea and 01/24/25 07/11/25 Rx vomiting #30 tabs Allergies Allergy/AdvReac Type Severity Reaction Status Date / Time amoxicillin Allergy Difficulty Verified 07/11/25 12:18 Breathing latex Allergy Difficulty Verified 07/11/25 12:18 Breathing Penicillins Allergy Hives Verified 07/11/25 12:18 Vital Signs Vital Signs - 24 hr 07/11/25 12:19 Temperature 97 F L Pulse Rate 86 Respiratory Rate 18 Blood Pressure 110/75 Pulse Oximetry 98 Oxygen Delivery Room Air Exam Const: General: comfortable and no acute distress HENMT: Face/Nose/Sinus: Normal nares present Eyes: General: appearance normal, both eyes and all related structures Neck: Neck: no JVD Resp: Auscultation: clear to auscultation bilaterally Cardio: Rate: regular rate Rhythm: regular rhythm GI: Inspection: non-distended GI Palp: Yes Soft to palpation Skin: General skin exam: normal color Extrem: General: normal to inspection Psych: Mental Status: mental status grossly normal Assessment and Plan Assessment and plan (1) Abnormal digestive system diagnostic imaging: Code(s): R93.3 - Abnormal findings on diagnostic imaging of other parts of digestive tract Status: Acute Assessment and Plan: egd and colonoscopy (2) LLQ pain: Code(s): R10.32 - Left lower quadrant pain Status: Acute
--- NOTE | 2025-07-11 13:31 | S_PTH ---
PATIENT: June Granado LOC: [facility]#:[id number] AGE/SX: 30/F ROOM: RE07/11/[address]: Dano Fierro MD : 1995 BED: DIS: 07/11/2025 SPEC #: [id number] RECD: 07/11/25 14:25 STATUS: KENJI CHIU #: [id number] MADAY: 07/11/25 13:[address]: Dano Fierro DEPT: [facility] Surgical RECD BY: Donna Chawla ENTERED: 07/11/25 14:25 SP TYPE: Surgical OTHR DR: Juanito Domingo M.D. Tissues: A - Small Bowel Bx B - Gastric Biopsy C - Colon Biopsy Procedures: Hematoxylin and Eosin Stain Gross and Microscopic Level 4
--- NOTE | 2025-07-11 13:34 | SUR.OPER ---
EGD ended at 1330. [place] [address]
[2025-07-11 13:44] VITALS: BP 110/59; PULSE 92; RESP 25; O2SAT 100
[2025-07-11 13:54] VITALS: BP 111/59; PULSE 98; RESP 24; O2SAT 99
[2025-07-11 14:04] VITALS: BP 119/89; PULSE 87; RESP 25; O2SAT 100
== END 2025-07-11 14:13 | disposition home or self-care (01) ==
PROVIDERS: Anesthesiology; PCP Family Medicine; Referring Provider Nurse Practitioner Family; Visit Provider Internal Medicine Gastroenterology
PROC: 0DJ08ZZ Inspection of Upper Intestinal Tract, Via Natural or Artificial Opening Endoscopic (ICD-10-PCS; CPT 45378; principal; 2025-07-11 13:30)
DX: R93.3 Abnormal findings on diagnostic imaging of other parts of digestive tract (principal); K64.8 Other hemorrhoids; K21.9 Gastro-esophageal reflux disease without esophagitis; F41.8 Other specified anxiety disorders; Z87.442 Personal history of urinary calculi; Z86.19 Personal history of other infectious and parasitic diseases
CPT/HCPCS: 43239; 45380; 88305; J2003; J2704; J7120

== ENCOUNTER 2025-09-13 07:59 | Outpatient (CLI) | payer OTHER, SELFPAY ==
[2025-09-15 18:08] LABS: Calprotectin, Fecal 17 ug/g (0-120)
[2025-09-16 14:08] LABS: Pancreatic Elastase, Fecal >800 (>200)
== END 2025-09-13 08:00 | disposition home or self-care (01) ==
LOC: CHSLAB 08:01
PROVIDERS: PCP Family Medicine; Visit Provider Nurse Practitioner Family
DX: R19.7 Diarrhea, unspecified (principal); R10.11 Right upper quadrant pain
CPT/HCPCS: 82653; 83993